=== PATIENT | male | born 1940 | race Caucasian/White ===

== ENCOUNTER 2020-02-10 10:24 | Outpatient (REF) | payer MEDICARE, SELFPAY ==
[2020-02-10 15:02] LABS: Alanine Aminotransferase 28 U/L (0-40); Albumin Level 4.4 g/dL (3.5-5.0); Alkaline Phosphatase 84 U/L (39-117); Aspartate Amino Transferase 24 U/L (5-37); Bilirubin Direct 0.2 mg/dL (0.0-0.5); Bilirubin Total 0.5 mg/dL (0.0-1.0); Cholesterol 185 mg/dL; HDL Cholesterol 29 mg/dL; LDL Cholesterol Calculated 112 mg/dl; Total Protein 6.9 g/dL (6.5-8.0); Triglycerides 220 mg/dL
== END 2020-02-10 10:25 | disposition home or self-care (01) ==
LOC: HO.HMGCLDS 10:24
DX: E78.5 Hyperlipidemia, unspecified (principal)
CPT/HCPCS: 80061; 80076

== ENCOUNTER 2020-07-20 13:11 | Outpatient (REF) | payer MEDICARE, SELFPAY ==
[2020-07-20 13:59] LABS: Glucose Urine UA NEG (NEG); Leukocyte Esterase Urine NEG (NEG); Nitrite Urine NEG (NEG); Specific Gravity - Urine 1.015 (1.005-1.025); Urine Blood NEG (NEG); Urine Ketones NEG (NEG); Urine Protein NEG (NEG-TRACE)
[2020-07-20 14:04] LABS: Appearance Urine CLEAR; Color Urine YELLOW
[2020-07-20 14:09] LABS: Hematocrit 42.2 % (42-52); Hemoglobin 13.9 g/dl (14.0-18.0); Mean Corpuscular HGB Conc 32.9 g/dl (31.0-36.0); Mean Corpuscular Hemoglobin 31.4 pg (27.0-33.0); Mean Corpuscular Volume 95.3 fL (80-98); Mean Platelet Volume 11.8 fL (9.4-12.4); Platelet Count 208 X10*3/uL (160-400); Red Blood Count 4.43 X10*6/uL (4.60-5.80); Red Cell Distribution Width 13.2 % (11.0-16.0); White Blood Count 5.7 X10*3/uL (4.8-10.8)
[2020-07-20 14:30] LABS: Alanine Aminotransferase 34 U/L (0-40); Albumin Level 4.4 g/dL (3.5-5.0); Alkaline Phosphatase 96 U/L (39-117); Anion Gap 16 (12-20); Aspartate Amino Transferase 28 U/L (5-37); Bilirubin Total 0.7 mg/dL (0.0-1.0); Blood Urea Nitrogen 40 mg/dL (9-16); Calcium 9.2 mg/dL (8.4-10.2); Carbon Dioxide 21 mmol/L (22-29); Chloride 106 mmol/L (96-108); Cholesterol 268 mg/dL; Estimated Glomerular Filt Rate 46; Glucose Random 93 mg/dL (60-115); HDL Cholesterol 31 mg/dL; LDL Cholesterol Calculated 201 mg/dl; Potassium 4.1 mmol/L (3.3-5.1); Sodium 139 mmol/L (135-145); Triglycerides 182 mg/dL
== END 2020-07-20 13:12 | disposition home or self-care (01) ==
LOC: HO.HMGCLDS 13:11
PROVIDERS: PCP Internal Medicine; Visit Provider Internal Medicine
DX: I10 Essential (primary) hypertension (principal); E78.5 Hyperlipidemia, unspecified; M10.9 Gout, unspecified
CPT/HCPCS: 36415; 80053; 80061; 81003; 84550; 85027

== ENCOUNTER 2020-10-23 09:41 | Outpatient (REF) | payer MEDICARE, SELFPAY ==
[2020-10-23 11:43] LABS: MANUAL DIFF FLAG NO
[2020-10-23 11:55] LABS: Basophils Percent Auto 0.5 % (0-2); Eosinophils Absolute Auto 0.2 X10*3/uL (0.0-0.4); Eosinophils Percent Auto 3.6 % (0-4); Hematocrit 44.2 % (42-52); Hemoglobin 14.2 g/dl (14.0-18.0); Imm Gran Abs Auto 0.03 X10*3/uL (0.00-0.03); Imm Gran Pct Auto 0.5 % (0.0-0.4); Lymphocytes Absolute Auto 1.6 X10*3/uL (1.2-4.9); Lymphocytes Percent Auto 27.6 % (20-40); Mean Corpuscular HGB Conc 32.1 g/dl (31.0-36.0); Mean Corpuscular Hemoglobin 31.1 pg (27.0-33.0); Mean Corpuscular Volume 96.9 fL (80-98); Mean Platelet Volume 11.7 fL (9.4-12.4); Monocytes Absolute Auto 0.8 X10*3/uL (0.1-1.2); Monocytes Percent Auto 14.2 % (2-11); Neutrophils Absolute Auto 3.1 X10*3/uL (2.0-8.3); Neutrophils Percent Auto 53.6 % (45-73); Platelet Count 223 X10*3/uL (160-400); Red Blood Count 4.56 X10*6/uL (4.60-5.80); Red Cell Distribution Width 13.8 % (11.0-16.0); White Blood Count 5.8 X10*3/uL (4.8-10.8)
[2020-10-23 12:01] LABS: Appearance Urine CLEAR; Color Urine YELLOW; Glucose Urine UA NEG (NEG); Leukocyte Esterase Urine NEG (NEG); Nitrite Urine NEG (NEG); PH 5.5 (5.0-8.0); Specific Gravity - Urine 1.025 (1.005-1.025); Urine Blood NEG (NEG); Urine Ketones NEG (NEG); Urine Protein NEG (NEG-TRACE)
[2020-10-23 12:29] LABS: Alanine Aminotransferase 27 U/L (0-40); Albumin Level 4.3 g/dL (3.5-5.0); Alkaline Phosphatase 76 U/L (39-117); Anion Gap 16 (12-20); Aspartate Amino Transferase 24 U/L (5-37); Bilirubin Total 0.6 mg/dL (0.0-1.0); Blood Urea Nitrogen 40 mg/dL (9-16); Calcium 9.3 mg/dL (8.4-10.2); Carbon Dioxide 22 mmol/L (22-29); Chloride 107 mmol/L (96-108); Cholesterol 277 mg/dL; Estimated Glomerular Filt Rate 35; Glucose Random 88 mg/dL (60-115); HDL Cholesterol 31 mg/dL; LDL Cholesterol Calculated 179 mg/dl; Potassium 4.2 mmol/L (3.3-5.1); Sodium 141 mmol/L (135-145); Total Protein 6.9 g/dL (6.5-8.0); Triglycerides 337 mg/dL
== END 2020-10-23 09:42 | disposition home or self-care (01) ==
LOC: HO.HMGCLDS 09:41
PROVIDERS: PCP Internal Medicine; Visit Provider Internal Medicine
DX: Z00.00 Encounter for general adult medical examination without abnormal findings (principal); M10.9 Gout, unspecified
CPT/HCPCS: 36415; 80053; 80061; 81003; 85025

== ENCOUNTER 2020-11-16 08:11 | Emergency (ER) | payer MEDICARE, SELFPAY ==
--- NOTE | ~2020-11-16 | XR_ITS ---
EXAMINATION: XR FOOT, RIGHT CLINICAL INFORMATION: Pain COMPARISON: Previous x-ray January 2018 TECHNIQUE: AP, lateral, and oblique views of the right foot. FINDINGS: No fracture or dislocation is seen. There is a destruction of the bone at the DIP joint of the third toe involving the middle and distal phalanges. This is increased from 2018 exam. There is overlying soft tissue swelling. There is bone loss or erosive changes of the PIP joint of the second toe. There is bone loss and cystic or erosive change of the proximal phalanx of the great toe at the MTP joint. Differential would include infectious/septic arthritis and osteomyelitis and inflammatory arthritis. There may be postsurgical changes to the first MTP joint with osteotomy of the first metatarsal head. There is question of periosteal cortical thickening of the proximal phalanx of the great toe. There is arthritis of the midfoot with joint space narrowing and osteophyte formation. There is soft tissue arterial calcification. There are small calcaneal spurs. XR/XR foot RT min 3V IMPRESSION: Question infection/septic arthritis and osteomyelitis versus severe inflammatory arthritis of the DIP joint of the third toe, PIP joint of the second toe and first MTP joint.
[2020-11-16 08:16] VITALS: BP 182/98; PULSE 95; RESP 18; TEMP 36.8; O2SAT 99; BMI 21.5
[2020-11-16 10:37] LABS: COVID-19 Test Negative (Negative)
[2020-11-16 10:51] LABS: MANUAL DIFF FLAG NO
[2020-11-16] MEDS: 0.9 % Sodium Chloride 1,000 ML 999 ML IVCONT ×2 (10:53→12:17)
[2020-11-16 10:54] LABS: Basophils Percent Auto 0.1 % (0-2); Eosinophils Absolute Auto 0.1 X10*3/uL (0.0-0.4); Eosinophils Percent Auto 0.7 % (0-4); Hematocrit 42.1 % (42-52); Hemoglobin 13.8 g/dl (14.0-18.0); Imm Gran Abs Auto 0.04 X10*3/uL (0.00-0.03); Imm Gran Pct Auto 0.4 % (0.0-0.4); Lymphocytes Absolute Auto 0.8 X10*3/uL (1.2-4.9); Lymphocytes Percent Auto 7.8 % (20-40); Mean Corpuscular HGB Conc 32.8 g/dl (31.0-36.0); Mean Corpuscular Hemoglobin 31.7 pg (27.0-33.0); Mean Corpuscular Volume 96.8 fL (80-98); Mean Platelet Volume 10.9 fL (9.4-12.4); Monocytes Percent Auto 9.6 % (2-11); Neutrophils Absolute Auto 8.6 X10*3/uL (2.0-8.3); Neutrophils Percent Auto 81.4 % (45-73); Platelet Count 208 X10*3/uL (160-400); Red Blood Count 4.35 X10*6/uL (4.60-5.80); Red Cell Distribution Width 13.1 % (11.0-16.0); White Blood Count 10.6 X10*3/uL (4.8-10.8)
[2020-11-16 10:57] VITALS: BP 151/66; PULSE 80; RESP 18; TEMP 36.8; O2SAT 99
--- NOTE | 2020-11-16 11:07 | PC.NURSE ---
IV inserted and bloodwork obtained. BP trending down. Pt appears comfortable at this time. IVF infusing.
[2020-11-16 11:10] LABS: Alanine Aminotransferase 30 U/L (0-40); Albumin Level 4.3 g/dL (3.5-5.0); Alkaline Phosphatase 94 U/L (39-117); Anion Gap 14 (12-20); Aspartate Amino Transferase 22 U/L (5-37); Bilirubin Total 0.3 mg/dL (0.0-1.0); Blood Urea Nitrogen 40 mg/dL (9-16); C Reactive Protein 3.34 mg/dL (< or = 0.50); Carbon Dioxide 26 mmol/L (22-29); Chloride 104 mmol/L (96-108); Creatinine Clr Calc Pharmacy 27.6; Estimated Glomerular Filt Rate 42; Glucose Random 106 mg/dL (60-115); Magnesium 2.5 mg/dL (1.6-2.6); Potassium 5.2 mmol/L (3.3-5.1); Sodium 139 mmol/L (135-145); Total Protein 6.8 g/dL (6.5-8.0)
[2020-11-16 11:15] LABS: Lactic Acid 0.9 mmol/L (0.5-2.0)
[2020-11-16 11:36] LABS: Erythrocyte Sedimentation Rate 40 MM/HR (0-15)
--- NOTE | 2020-11-16 11:43 | ED.EXTPRO ---
HPI - Extremity Problem General Chief complaint: Extremity Problem Stated complaint: rt foot pain Time Seen by Provider: 11/16/20 09:08 Source: patient Mode of arrival: ambulatory Limitations: no limitations History of Present Illness HPI Narrative: 79-year-old male with a past medical history of gout presenting to the ED with complaints of right foot pain/swelling/redness for the past few days worse since last night. Reports that approximately 1 month and half ago he injured his foot went to his primary care provider had an x-ray and his primary care provider told him that he had to go to the emergency department for further evaluation treatment. Reports he went to [facility] and was seen Nare prescribed antibiotics for 1 week he is unsure about the actual name of the antibiotic. He was then told to follow-up with a personal computer network engineer. He followed up with a personal computer network engineer approximately 2 and half weeks ago had an x-ray although has not been called from his personal computer network engineer therefore he came here for further evaluation and treatment because the pain burning sensation has never left since a month and half ago and now he developed this new redness/swelling over the past few days and worse since last night this is why he is concerned. He denies any fevers, chills or any other symptoms complaints or concerns at this time. MD Complaint: extremity pain and extremity swelling Onset (ago): day(s) (Past few days worse today although started approximately 1 month ago) Pain Consistency: constant Location: right and other (Foot) Quality: burning and constant Radiation: none Exacerbating factors: nothing Associated symptoms: denies other symptoms Context: history of gout Related Data Home Medications Medication Instructions Recorded Confirmed atorvastatin 80 mg tablet 80 mg PO DAILY 03/12/20 lisinopril 20 1 tab PO DAILY 03/12/20 mg-hydrochlorothiazide 25 mg tablet Previous Rx's Medication Instructions Recorded prednisone 20 mg tablet 20 mg PO .COMPLEX 9 Days #18 tab 03/12/20 prednisone 20 mg tablet 40 mg PO DAILY #10 tab 03/30/20 cephalexin 500 mg capsule 500 mg PO Q6H 10 Days #40 cap 11/16/20 doxycycline hyclate 100 mg tablet 100 mg PO BID 10 Days #20 tab 11/16/20 indomethacin 50 mg capsule 50 mg PO Q8H 7 Days #21 cap 11/16/20 oxycodone 5 mg tablet 5 mg PO Q6H PRN #14 tab 11/16/20 prednisone 20 mg tablet 40 mg PO DAILY 5 Days #10 tab 11/16/20 Allergies Allergy/AdvReac Type Severity Reaction Status Date / Time No Known Allergies Allergy Unverified 11/14/19 15:19 [No Known Allergies*] Review of Systems Review of Systems: Constitutional : No Weight loss, No Fever, No Chills, No Night Sweats, No Fatigue, No Malaise ENT/Mouth : No Hearing loss, No Ear Pain, No Nasal Congestion, No Sinus Pain, No Hoarseness, No sore throat, No Rhinorrhea, No Swallowing Difficulty Eyes: No Eye Pain, No Swelling, No Redness, No Foreign Body, No Discharge, No Vision Changes Cardiovascular : No Chest Pain, No SOB, No Dyspnea on Exertion, No Orthopnea, No Edema, No Palpitations Respiratory : No Cough, No Sputum, No Wheezing, No Smoke Exposure, No Dyspnea Gastrointestinal : No Nausea, No Vomiting, No Diarrhea, No Constipation, No abdominal Pain, No Hematochezia, No Melena Genitourinary : no irregular bleeding, No Dysuria, No Urinary Frequency, No Hematuria, No Urinary Incontinence, No Urgency, No Flank Pain, No Urinary Flow Changes, No Hesitancy Musculoskeletal : Positive Right foot joint pain, No Myalgias, No Joint Swelling Skin : No Skin Lesions, No rash Neuro : No Weakness, No Numbness, No Paresthesias, No Loss of Consciousness, No Dizziness, No Headache Psych : No Anxiety/Panic, No Depression, No SI/HI/AH/VH, No Social Issues, Heme/Lymph: No Bruising, No Bleeding,No Lymphadenopathy Endocrine : No Polyuria, No Polydipsia, No Temperature Intolerance Yes all other systems are reviewed and are negative [facility] Past Medical History Attestation statement: The following information was validated with the patient. Social History Social History Alcohol intake: never Patient Tobacco Use Status: Never used Tobacco Use of substances other than those prescribed or required for medical reasons: No Advance Directives: No Advance Directives Information Provided: No Physical Exam Vital Signs: Vital Signs: Last Vital Signs Temp 98.3 F 11/16/20 10:57 Pulse 80 11/16/20 10:57 Resp 18 11/16/20 10:57 BP 151/66 H 11/16/20 10:57 Pulse Ox 99 11/16/20 10:57 Body Mass Index 21.5 vital signs have been reviewed as normal and appeared to be correct. Blood pressure hypertensive 182/98. Heart rate normal. Respiration rate normal. Temperature normal. Oxygen saturation normal. Appearance: Alert. Oriented X3. No acute distress. Head: Normal external exam. Normocephalic. Atraumatic. Eyes: PERRLA. EOMI. Conjunctiva and sclera normal. Eyelids normal. ENT: Pharynx normal. Uvula midline. Moist mucous membranes. Neck: Normal inspection. Neck supple. FROM. No adenopathy. No meningeal signs. CVS: Normal heart rate and rhythm. Heart sound normal. Pulses normal throughout. No murmurs/rales/gallops. Respiratory: No respiratory distress. Painless inspiration. Breath sounds normal. Back: Full range of motion noted. No rashes/lesion/induration/fluctuance or signs of infection noted. Skin: Skin warm and dry. Normal skin color. Normal skin turgor. No rashes/lesions/lacerations noted. Extremities: Patient with tenderness palpation to right foot at the dorsal aspect with erythema/calor noted. No fluctuance/induration/streaking or purulent drainage noted. No calf tenderness is noted. No lower extremity edema. Otherwise all other Extremities exhibit normal range of motion and nontender. Neuro: Oriented X 3. No motor deficit. No sensory deficit. Reflexes normal. Normal steady gait. No focal neuro deficits noted. Vascular: + radial pulses/+ 2 distal pedal pulses/+2 dorsalis pedis b/l. Normal cap refill. No cyanosis noted to upper extremity nails and lower extremity toes nails. Course Course Course Narrative: 9:25am 79-year-old male with a past medical history of gout presenting to the ED with complaints of right foot pain/swelling/erythema for the past few days worse since last night. Reports that he was seen at [facility] 1 month ago was prescribed antibiotics then followed up with the personal computer network engineer although has not heard back from the personal computer network engineer therefore came here for further evaluation and treatment. On exam patient noted to have erythema/calor and tenderness palpation to the dorsal aspect of the right foot. X-ray was obtained in triage and revealed Xray: Question infection/septic arthritis and osteomyelitis versus severe inflammatory arthritis of the DIP joint of the third toe, PIP joint of the second toe and first MTP joint. Therefore at this time will obtain labs, blood cultures, lactic acid provide a L of IV fluids/IV antibiotics then re-evaluate. Reevaluation(s) Reevaluation #1: - labs return patient with a mild baseline anemia similar compared to prior. ESR 40. Potassium 5.2. BUN and creatinine 40/1.61 although similar when compared to prior. CRP 3.34. COVID swab is negative. Otherwise all other labs are within normal limits. - therefore consulted with the hospitalist Dr. Carrizales and he reported that he does not believe that this is osteomyelitis or an active infection he believes that this is most likely gout/inflammation he will come down evaluate the patient right a consult note and plan will be to discharge with anti-inflammatories and treat for gout although will also treat for cellulitis. Time: 11:57 MDM - Extremity (Nontraumatic) Lab Data Result diagrams: 11/16/20 10:45 11/16/20 10:45 Labs: Lab Results 11/16/20 11/16/20 11/16/20 Range/Units 10:00 10:45 10:45 WBC 10.6 (4.8-10.8) X10*3/uL RBC 4.35 L (4.60-5.80) X10*6/uL Hgb 13.8 L (14.0-18.0) g/dl Hct 42.1 (42-52) % MCV 96.8 (80-98) fL MCH 31.7 (27.0-33.0) pg MCHC 32.8 (31.0-36.0) g/dl RDW 13.1 (11.0-16.0) % Plt Count 208 (160-400) X10*3/uL MPV 10.9 (9.4-12.4) fL Immature Gran % (Auto) 0.4 (0.0-0.4) % Neut % (Auto) 81.4 H (45-73) % Lymph % (Auto) 7.8 L (20-40) % [facility] % (Auto) 9.6 (2-11) % Eos % (Auto) 0.7 (0-4) % Baso % (Auto) 0.1 (0-2) % Lymph # (Auto) 0.8 L (1.2-4.9) X10*3/uL [facility] # (Auto) 1.0 (0.1-1.2) X10*3/uL Eos # (Auto) 0.1 (0.0-0.4) X10*3/uL Baso # (Auto) 0.0 (0.0-0.2) X10*3/uL Abs Immat Gran (auto) 0.04 H (0.00-0.03) X10*3/uL Absolute Neuts (auto) 8.6 H (2.0-8.3) X10*3/uL Absolute Nucleated RBC 0.000 (0.0-0.012) X10*3/uL Nucleated RBC % (auto) 0.0 (0.0-0.2) /100WBC ESR 40 H (0-15) MM/HR Sodium (135-145) mmol/L Potassium (3.3-5.1) mmol/L Chloride (96-108) mmol/L Carbon Dioxide (22-29) mmol/L Anion Gap (12-20) BUN (9-16) mg/dL Creatinine (0.5-1.4) mg/dL Estim Creat Clear Calc Estimated GFR Random Glucose (60-115) mg/dL Lactic Acid (0.5-2.0) mmol/L Calcium (8.4-10.2) mg/dL Magnesium (1.6-2.6) mg/dL Total Bilirubin (0.0-1.0) mg/dL AST (5-37) U/L ALT (0-40) U/L Alkaline Phosphatase (39-117) U/L C-Reactive Protein (< or = 0.50) mg/dL Total Protein (6.5-8.0) g/dL Albumin (3.5-5.0) g/dL COVID-19 (MARIELA) Negative (Negative) COVID-19 Clin Com See Note 11/16/20 11/16/20 Range/Units 10:45 10:45 WBC (4.8-10.8) X10*3/uL RBC (4.60-5.80) X10*6/uL Hgb (14.0-18.0) g/dl Hct (42-52) % MCV (80-98) fL MCH (27.0-33.0) pg MCHC (31.0-36.0) g/dl RDW (11.0-16.0) % Plt Count (160-400) X10*3/uL MPV (9.4-12.4) fL Immature Gran % (Auto) (0.0-0.4) % Neut % (Auto) (45-73) % Lymph % (Auto) (20-40) % [facility] % (Auto) (2-11) % Eos % (Auto) (0-4) % Baso % (Auto) (0-2) % Lymph # (Auto) (1.2-4.9) X10*3/uL [facility] # (Auto) (0.1-1.2) X10*3/uL Eos # (Auto) (0.0-0.4) X10*3/uL Baso # (Auto) (0.0-0.2) X10*3/uL Abs Immat Gran (auto) (0.00-0.03) X10*3/uL Absolute Neuts (auto) (2.0-8.3) X10*3/uL Absolute Nucleated RBC (0.0-0.012) X10*3/uL Nucleated RBC % (auto) (0.0-0.2) /100WBC ESR (0-15) MM/HR Sodium 139 (135-145) mmol/L Potassium 5.2 H D (3.3-5.1) mmol/L Chloride 104 (96-108) mmol/L Carbon Dioxide 26 (22-29) mmol/L Anion Gap 14 (12-20) BUN 40 H (9-16) mg/dL Creatinine 1.61 H (0.5-1.4) mg/dL Estim Creat Clear Calc 27.6 Estimated GFR 42 Random Glucose 106 (60-115) mg/dL Lactic Acid 0.9 (0.5-2.0) mmol/L Calcium 9.0 (8.4-10.2) mg/dL Magnesium 2.5 (1.6-2.6) mg/dL Total Bilirubin 0.3 (0.0-1.0) mg/dL AST 22 (5-37) U/L ALT 30 (0-40) U/L Alkaline Phosphatase 94 D (39-117) U/L C-Reactive Protein 3.34 H (< or = 0.50) mg/dL Total Protein 6.8 (6.5-8.0) g/dL Albumin 4.3 (3.5-5.0) g/dL COVID-19 (MARIELA) (Negative) COVID-19 Clin Com Critical Care Time Critical Care Time Critical Care Time: Yes Total Critical Care Time: 60 Attestation: I personally attest to this time spent taking care of the patient Discharge Plan Discharge Clinical Impression: Gout, Acute hyperkalemia Patient Disposition: Home, Self-Care Instructions: Gout (ED), Hyperkalemia (ED) Prescriptions: New doxycycline hyclate 100 mg tablet 100 mg PO BID 10 Days Qty: 20 RF: 0 cephalexin 500 mg capsule 500 mg PO Q6H 10 Days Qty: 40 RF: 0 indomethacin 50 mg capsule 50 mg PO Q8H 7 Days Qty: 21 RF: 0 prednisone 20 mg tablet 40 mg PO DAILY 5 Days Qty: 10 RF: 0 oxycodone 5 mg tablet 5 mg PO Q6H PRN (Reason: pain) Qty: 14 RF: 0 No Action lisinopril-hydrochlorothiazide 20-25 mg tablet 1 tab PO DAILY RF: 0 atorvastatin 80 mg tablet 80 mg PO DAILY RF: 0 prednisone 20 mg tablet 20 mg PO .COMPLEX 9 Days Qty: 18 RF: 0 prednisone 20 mg tablet 40 mg PO DAILY Qty: 10 RF: 0 Referrals: Polo Kuhn MD [Primary Care Provider] - 2 days Print Language: Latvian
[2020-11-16] MEDS: Piperacillin Sodium/Tazobactam 3.375 GM in 0.9 % Sodium Chloride 50 ML IV (12:16)
[2020-11-16 12:45] LABS: Appearance Urine CLEAR; Color Urine YELLOW; Glucose Urine UA NEG (NEG); Leukocyte Esterase Urine NEG (NEG); Nitrite Urine NEG (NEG); Urine Blood NEG (NEG); Urine Ketones NEG (NEG); Urine Protein NEG (NEG-TRACE)
[2020-11-16] MEDS: Sodium Polystyrene Sulfon/Sorb 15 GM/60 ML ORAL.SUSP PO (12:59)
== END 2020-11-16 13:06 | disposition home or self-care (01) ==
PROVIDERS: Physician Assistant Medical; Emergency Provider Emergency Medicine Emergency Medical Services; PCP Internal Medicine
DX: M10.9 Gout, unspecified (principal); E87.5 Hyperkalemia; Z20.822 Contact with and (suspected) exposure to COVID-19; Z79.899 Other long term (current) drug therapy
CPT/HCPCS: 36415; 73630; 80053; 81003; 83605; 83735; 85025; 85652; 86140; 87040; 87635; 96361; 96365; 99284; J2543

== ENCOUNTER 2021-04-13 09:29 | Outpatient (REF) | payer OTHER, SELFPAY ==
[2021-04-13 11:36] LABS: MANUAL DIFF FLAG NO
[2021-04-13 11:46] LABS: Basophils Percent Auto 0.3 % (0-2); Eosinophils Absolute Auto 0.3 X10*3/uL (0.0-0.4); Eosinophils Percent Auto 3.6 % (0-4); Hematocrit 43.9 % (42.0-52.0); Hemoglobin 14.2 g/dl (14.0-18.0); Imm Gran Abs Auto 0.01 X10*3/uL (0.00-0.03); Imm Gran Pct Auto 0.1 % (0.0-0.4); Lymphocytes Absolute Auto 1.8 X10*3/uL (1.2-4.9); Lymphocytes Percent Auto 26.3 % (20-40); Mean Corpuscular HGB Conc 32.3 g/dl (31.0-36.0); Mean Corpuscular Hemoglobin 31.1 pg (27.0-33.0); Mean Corpuscular Volume 96.1 fL (80.0-98.0); Mean Platelet Volume 11.2 fL (9.4-12.4); Monocytes Absolute Auto 0.9 X10*3/uL (0.1-1.2); Monocytes Percent Auto 12.6 % (2-11); Neutrophils Absolute Auto 3.9 x10*3/uL (2.0-8.3); Neutrophils Percent Auto 57.1 % (45-73); Platelet Count 207 X10*3/uL (160-400); Red Blood Count 4.57 X10*6/uL (4.60-5.80); Red Cell Distribution Width 13.2 % (11.0-16.0); White Blood Count 6.9 X10*3/uL (4.8-10.8)
[2021-04-13 12:20] LABS: Prostate Specific Antigen 1.07 ng/mL (<0.05-4.0)
[2021-04-13 12:31] LABS: Alanine Aminotransferase 26 U/L (0-40); Albumin Level 4.4 g/dL (3.5-5.0); Alkaline Phosphatase 90 U/L (39-117); Anion Gap 12 (12-20); Aspartate Amino Transferase 21 U/L (5-37); Bilirubin Total 0.3 mg/dL (0.0-1.0); Blood Urea Nitrogen 44 mg/dL (9-16); Calcium 9.3 mg/dL (8.4-10.2); Carbon Dioxide 27 mmol/L (22-29); Chloride 104 mmol/L (96-108); Cholesterol 270 mg/dL; Estimated Glomerular Filt Rate 39; Glucose Fasting 100 mg/dL (60-99); HDL Cholesterol 29 mg/dL; Potassium 4.4 mmol/L (3.3-5.1); Sodium 139 mmol/L (135-145); Total Protein 7.1 g/dL (6.5-8.0); Triglycerides 448 mg/dL
[2021-04-13 12:42] LABS: Uric Acid 10.3 mg/dL (3.4-7.0)
== END 2021-04-13 09:30 | disposition home or self-care (01) ==
LOC: HO.HMGCLDS 09:29
PROVIDERS: Visit Provider Internal Medicine
DX: I10 Essential (primary) hypertension (principal); E78.00 Pure hypercholesterolemia, unspecified; N40.0 Benign prostatic hyperplasia without lower urinary tract symptoms; M19.90 Unspecified osteoarthritis, unspecified site; M10.9 Gout, unspecified
CPT/HCPCS: 36415; 80053; 80061; 84153; 84550; 85025

== ENCOUNTER 2021-05-18 13:23 | Emergency (ER) | payer OTHER, SELFPAY ==
--- NOTE | ~2021-05-18 | XR_ITS ---
EXAMINATION: XR FOOT, RIGHT CLINICAL INFORMATION: Pain COMPARISON: Previous x-ray most recent October 2020 TECHNIQUE: AP, lateral, and oblique views of the right foot. FINDINGS: There is a fracture of the proximal phalanx of the great toe intra-articular with the IP joint. This is new compared to October 2020 exam. There is arthritis at the MTP joint of the great toe and PIP joint of the second toe bone loss and erosive or cystic changes that is similar to October 2020 exam. There is destruction and severe bone loss at the DIP joint of the third toe that is similar to October 2020 exam. Again, inflammatory or erosive arthritis and septic arthritis should be considered. There is soft tissue swelling adjacent to the third toe. There is a osteophyte projecting off the dorsal talus. There are small calcaneal spurs. There is soft tissue arterial calcification. XR/XR foot RT min 3V IMPRESSION: New fracture of the proximal phalanx of the great toe intra-articular with the IP joint. 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 Erosive or inflammatory arthritis and septic arthritis should be considered.
[2021-05-18 14:24] VITALS: BP 160/70; PULSE 86; RESP 19; TEMP 36.6; O2SAT 99; BMI 21.7
--- NOTE | 2021-05-18 15:42 | ED.LOWEXIN ---
HPI - Extremity Injury (Lower) General Chief Complaint: Extremity Injury, Lower Stated Complaint: Gout/foot pain Time Seen by Provider: 05/18/21 15:35 Source: patient Mode of arrival: ambulatory History of Present Illness HPI Narrative: 80-year-old male with past medical history of hyperlipidemia, hypertension, gout, arthritis, presenting to the ED complaining of acute on chronic right foot pain x months. Admits worsening recently with mild erythema to lateral aspect. Admits to trip and fall on stairs 3 months ago jamming great toe, denies new/more recent injury. Denies numbness, tingling, weakness, fever, chills complaint: foot injury Related Data Home Medications Medication Instructions Recorded Confirmed atorvastatin 80 mg tablet 80 mg PO DAILY 03/12/20 lisinopril 20 1 tab PO DAILY 03/12/20 mg-hydrochlorothiazide 25 mg tablet Previous Rx's Medication Instructions Recorded prednisone 20 mg tablet 20 mg PO .COMPLEX 9 Days #18 tab 03/12/20 prednisone 20 mg tablet 40 mg PO DAILY #10 tab 03/30/20 cephalexin 500 mg capsule 500 mg PO Q6H 10 Days #40 cap 11/16/20 doxycycline hyclate 100 mg tablet 100 mg PO BID 10 Days #20 tab 11/16/20 indomethacin 50 mg capsule 50 mg PO Q8H 7 Days #21 cap 11/16/20 oxycodone 5 mg tablet 5 mg PO Q6H PRN #14 tab 11/16/20 prednisone 20 mg tablet 40 mg PO DAILY 5 Days #10 tab 11/16/20 acetaminophen 500 mg tablet 500 mg PO Q6H PRN #20 tab 05/18/21 (Tylenol Extra Strength) cephalexin 500 mg capsule 500 mg PO QID 7 Days #28 cap 05/18/21 naproxen 500 mg tablet 500 mg PO BID PRN 10 Days #20 tab 05/18/21 prednisone 10 mg tablet 10 mg PO DAILY #20 tab 05/18/21 Allergies Allergy/AdvReac Type Severity Reaction Status Date / Time No Known Allergies Allergy Unverified 11/14/19 15:19 [No Known Allergies*] Review of Systems Review of Systems: Constitutional: No Fever, No Chills ENT/Mouth: No Ear Pain, No sore throat, No Rhinorrhea, No Swallowing Difficulty Cardiovascular: No Chest Pain, No SOB Respiratory: No Cough, No Sputum Gastrointestinal: No Nausea, No Vomiting, No Diarrhea, No Constipation, No Abdominal pain Genitourinary: No Dysuria, No Urinary Frequency, No Hematuria, No Flank Pain Musculoskeletal: + joint pain, No Myalgias, + Joint Swelling Skin: + Skin Lesions, No rash Neuro: No Weakness, No Numbness, No Paresthesias Yes all other systems are reviewed and are negative [facility] Past Medical History Attestation statement: The following information was validated with the patient. Medical History High cholesterol HTN (hypertension) Social History Social History Alcohol intake: never Patient Tobacco Use Status: Never used Tobacco Advance Directives: No Advance Directives Information Provided: Yes Physical Exam Vital Signs: Vital Signs: Last Vital Signs Temp 98 F 05/18/21 14:24 Pulse 86 05/18/21 14:24 Resp 19 05/18/21 14:24 BP 160/70 H 05/18/21 14:24 Pulse Ox 99 05/18/21 14:24 BMI result Body Mass Index 21.7 Const: General: cooperative, healthy appearing, no acute distress, alert and awake Orientation/consciousness: patient oriented x3 Limitations: no limitations HEENT: Head: Yes normal to inspection and Yes atraumatic Ears: hearing grossly normal bilaterally General nose exam: Normal external nose present Face and sinus: Yes normal facial exam Eyes: General: appearance normal, both eyes and all related structures EOM: EOMs intact bilaterally Neck: Neck: Yes normal visual inspection and Yes no meningeal signs Resp: Effort & Inspection: normal respiratory effort and no respiratory distress Cardio: Rate: regular rate Peripheral pulses: dorsalis pedis present Skin: Rashes: no rashes Wounds: no wounds Neuro: General: patient oriented x3 and no meningeal signs Gait exam (Neuro): Normal gait present Extrem: Other: Right foot with mild erythema and swelling to base of 5th toe, mildly tender to palpation. No fluctuance/induration or streaking Toes nontender/no external deformity. NV intact. Sensation intact to light touch Course Course Course Narrative: XR foot RT min 3V IMPRESSION: New fracture of the proximal phalanx of the great toe intra-articular with the IP joint. 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 Erosive or inflammatory arthritis and septic arthritis should be considered >> great toe fracture likely old, no acute pain, ROM intact. 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 Recommended follow-up with him. Will treat for gout and possible early cellulitis MDM - Extremity Injury (Lower) MDM Narrative Medical decision making narrative: 80-year-old male with past medical history of hyperlipidemia, hypertension, gout, arthritis, presenting to the ED complaining of acute on chronic right foot pain x months. On exam vital signs stable, NAD/nontoxic appearing, physical exam consistent with gout vs early cellulitis. Low concern for fracture/dislocation Plan: X-rays Medical Records Attestation: I reviewed the patient's medical records. Lab Data Attestation: I reviewed the patient's lab results. Discharge Plan Discharge Clinical Impression: Gout, Cellulitis Patient Disposition: Home, Self-Care Instructions: Cellulitis (DC), Gout (ED) Additional Instructions: You are likely having a gout flare prednisone is a steroid which will help with inflammation and pain. In addition naproxen as an anti-inflammatory medication, take with food. You also may have early cellulitis, Keflex as an antibiotic please take as prescribed If foot becomes more swollen, more red, number you have fever please return to the ED Please follow-up with Podiatry Prescriptions: New acetaminophen [Tylenol Extra Strength] 500 mg tablet 500 mg PO Q6H PRN (Reason: pain or fever) Qty: 20 0RF naproxen 500 mg tablet 500 mg PO BID PRN (Reason: pain) 10 Days Qty: 20 0RF prednisone 10 mg tablet 10 mg PO DAILY Qty: 20 0RF Taper: Prednisone 40 mg daily for 3 Days and 0 Hour 30 mg daily for 3 Days and 0 Hour 20 mg daily for 3 Days and 0 Hour 10 mg daily for 3 Days and 0 Hour Rx Instructions: prednisone 10 mg: take 4 tablets (40 mg) for 2 days; 3 tablets (30 mg) for 2 days; 2 (20mg) tablets for 2 days and then 1 (10mg) tablet for 2 days cephalexin 500 mg capsule 500 mg PO QID 7 Days Qty: 28 0RF No Action doxycycline hyclate 100 mg tablet 100 mg PO BID 10 Days Qty: 20 0RF cephalexin 500 mg capsule 500 mg PO Q6H 10 Days Qty: 40 0RF indomethacin 50 mg capsule 50 mg PO Q8H 7 Days Qty: 21 0RF Rx Instructions: administer with food or milk prednisone 20 mg tablet 40 mg PO DAILY 5 Days Qty: 10 0RF oxycodone 5 mg tablet 5 mg PO Q6H PRN (Reason: pain) Qty: 14 0RF lisinopril-hydrochlorothiazide 20-25 mg tablet 1 tab PO DAILY 0RF atorvastatin 80 mg tablet 80 mg PO DAILY 0RF prednisone 20 mg tablet 20 mg PO .COMPLEX 9 Days Qty: 18 0RF Rx Instructions: 20 mg PO three times a day for three days, then 20 mg PO twice a day for three days, then 20 mg PO once a day for three days, 9 total days prednisone 20 mg tablet 40 mg PO DAILY Qty: 10 0RF Referrals: Manoj Slater MD [Physician] - 2 days
== END 2021-05-18 16:15 | disposition home or self-care (01) ==
PROVIDERS: Emergency Provider Emergency Medicine Emergency Medical Services; PCP Internal Medicine
DX: M10.9 Gout, unspecified (principal); L03.115 Cellulitis of right lower limb; M79.671 Pain in right foot; I10 Essential (primary) hypertension; E78.5 Hyperlipidemia, unspecified
CPT/HCPCS: 73630; 99283

== ENCOUNTER 2021-09-16 15:54 | Outpatient (REF) | payer MEDICARE, SELFPAY ==
[2021-09-16 17:40] LABS: Alanine Aminotransferase 23 U/L (0-40); Albumin Level 4.3 g/dL (3.5-5.0); Alkaline Phosphatase 87 U/L (39-117); Anion Gap 13 (12-20); Aspartate Amino Transferase 19 U/L (5-37); Bilirubin Total 0.2 mg/dL (0.0-1.0); Blood Urea Nitrogen 26 mg/dL (9-16); C Reactive Protein 0.74 mg/dL (< or = 0.50); Carbon Dioxide 26 mmol/L (22-29); Chloride 104 mmol/L (96-108); Estimated Glomerular Filt Rate 48; Glucose Random 106 mg/dL (60-115); Potassium 4.2 mmol/L (3.3-5.1); Sodium 139 mmol/L (135-145); Total Protein 6.9 g/dL (6.5-8.0); Uric Acid 7.3 mg/dL (3.4-7.0)
== END 2021-09-16 15:55 | disposition home or self-care (01) ==
LOC: HO.LAB 15:54
PROVIDERS: PCP Internal Medicine; Visit Provider Internal Medicine
DX: M10.9 Gout, unspecified (principal); I12.9 Hypertensive chronic kidney disease with stage 1 through stage 4 chronic kidney disease, or unspecified chronic kidney disease; N18.9 Chronic kidney disease, unspecified
CPT/HCPCS: 36415; 80053; 84550; 86140

== ENCOUNTER 2021-12-02 09:49 | Outpatient (REF) | payer MEDICARE, SELFPAY ==
--- NOTE | ~2021-12-02 | XR_ITS ---
EXAMINATION: XR PELVIS CLINICAL INFORMATION: Fall. Rule out fracture. COMPARISON: None TECHNIQUE: AP view of the pelvis. FINDINGS: Bone alignment is normal. No fracture or dislocation is seen. There is mild arthritis at both hip joints. There are degenerative changes of the lower lumbar spine. There is atherosclerotic disease. XR/XR pelvis 1-2V IMPRESSION: No fracture or dislocation.
== END 2021-12-02 09:50 | disposition home or self-care (01) ==
LOC: HO.XRAY 09:49
PROVIDERS: PCP Internal Medicine; Visit Provider Internal Medicine
DX: I12.9 Hypertensive chronic kidney disease with stage 1 through stage 4 chronic kidney disease, or unspecified chronic kidney disease (principal); N18.9 Chronic kidney disease, unspecified; E78.5 Hyperlipidemia, unspecified; Z91.81 History of falling
CPT/HCPCS: 72170

== ENCOUNTER 2021-12-14 13:50 | Outpatient (REF) | payer MEDICARE, SELFPAY ==
--- NOTE | ~2021-12-14 | XR_ITS ---
EXAMINATION: XR LUMBOSACRAL SPINE CLINICAL INFORMATION: Low back pain COMPARISON: Previous x-ray October 2019 TECHNIQUE: Three views of the lumbosacral spine. FINDINGS: There is mild curvature of the lower lumbar spine to the left. There is mild posterior subluxation of L5 with respect to L4 measuring 3 mm. Bone alignment is otherwise normal. No fracture or dislocation. Multilevel degenerative disc disease. Multilevel facet arthritis. XR/XR lumbar spine 2-3V IMPRESSION: Degenerative changes.
== END 2021-12-14 13:51 | disposition home or self-care (01) ==
LOC: HO.HMGCX 13:50
PROVIDERS: PCP Internal Medicine; Visit Provider Internal Medicine
DX: G62.9 Polyneuropathy, unspecified (principal); M54.50 Low back pain, unspecified
CPT/HCPCS: 72100

== ENCOUNTER 2022-03-01 08:01 | Outpatient (REF) | payer MEDICARE, SELFPAY ==
[2022-03-01 11:49] LABS: Alanine Aminotransferase 27 U/L (0-40); Albumin Level 4.3 g/dL (3.5-5.0); Alkaline Phosphatase 93 U/L (39-117); Anion Gap 12 (12-20); Aspartate Amino Transferase 24 U/L (5-37); Bilirubin Total 0.6 mg/dL (0.0-1.0); Blood Urea Nitrogen 29 mg/dL (9-16); Carbon Dioxide 26 mmol/L (22-29); Chloride 106 mmol/L (96-108); Cholesterol 299 mg/dL; Estimated Glomerular Filt Rate 51; Glucose Fasting 95 mg/dL (60-99); HDL Cholesterol 34 mg/dL; LDL Cholesterol Calculated 212 mg/dl; Sodium 140 mmol/L (135-145); Total Protein 6.9 g/dL (6.5-8.0); Triglycerides 266 mg/dL
== END 2022-03-01 08:02 | disposition home or self-care (01) ==
LOC: HO.HMGCLDS 08:01
PROVIDERS: PCP Internal Medicine; Visit Provider Internal Medicine
DX: I12.9 Hypertensive chronic kidney disease with stage 1 through stage 4 chronic kidney disease, or unspecified chronic kidney disease (principal); N18.9 Chronic kidney disease, unspecified; E78.00 Pure hypercholesterolemia, unspecified; Z91.81 History of falling
CPT/HCPCS: 36415; 80053; 80061

== ENCOUNTER 2022-05-30 08:25 | Outpatient (REF) | payer MEDICARE, SELFPAY ==
[2022-05-30 12:34] LABS: Alanine Aminotransferase 38 U/L (0-40); Alkaline Phosphatase 90 U/L (39-117); Anion Gap 14 (12-20); Aspartate Amino Transferase 29 U/L (5-37); Bilirubin Total 0.6 mg/dL (0.0-1.0); Blood Urea Nitrogen 27 mg/dL (9-16); Calcium 8.8 mg/dL (8.4-10.2); Carbon Dioxide 24 mmol/L (22-29); Chloride 107 mmol/L (96-108); Cholesterol 204 mg/dL; Estimated Glomerular Filt Rate 55; Glucose Fasting 96 mg/dL (60-99); HDL Cholesterol 31 mg/dL; LDL Cholesterol Calculated 125 mg/dl; Sodium 141 mmol/L (135-145); Total Protein 6.3 g/dL (6.5-8.0); Triglycerides 244 mg/dL
== END 2022-05-30 08:26 | disposition home or self-care (01) ==
LOC: HO.HMGCLDS 08:25
PROVIDERS: PCP Internal Medicine; Visit Provider Internal Medicine
DX: I12.9 Hypertensive chronic kidney disease with stage 1 through stage 4 chronic kidney disease, or unspecified chronic kidney disease (principal); N18.9 Chronic kidney disease, unspecified; E78.00 Pure hypercholesterolemia, unspecified
CPT/HCPCS: 36415; 80053; 80061

== ENCOUNTER 2023-03-04 18:19 | Emergency (ER) | payer MEDICARE, SELFPAY ==
[2023-03-04 18:31] VITALS: BP 178/96; PULSE 74; RESP 18; TEMP 36.4; O2SAT 98; BMI 22.3
--- NOTE | 2023-03-04 21:32 | ED.DIZZY ---
HPI - Dizziness General Chief Complaint: Dizziness Stated Complaint: dizziness Time Seen by Provider: 03/04/23 21:20 Source: patient Mode of arrival: ambulatory Limitations: no limitations History of Present Illness HPI Narrative: 82 yo male with PMH of gout, HTN, HLD here with c/o standing up a few times today and feeling dizzy only when he stands he did fall once no injuries no head strike but he was worried. He has no headaches, weakness, numbness, vision changes, chest pain/sob. He has no GIB symptoms. MD elicited complaint: dizziness and lightheadedness Onset (ago): day(s) (today) Timing: gradual onset and intermittent Severity: moderate Description: lightheadedness Context: change in body position History of similar symptoms: No Exacerbating factors: movement/ambulation, change in body position and standing Relieving factors: remaining still Associated symptoms: denies other symptoms Related Data Home Medications Medication Instructions Recorded Confirmed atorvastatin 80 mg tablet 80 mg PO DAILY 03/12/20 lisinopril 20 1 tab PO DAILY 03/12/20 mg-hydrochlorothiazide 25 mg tablet Previous Rx's Medication Instructions Recorded prednisone 20 mg tablet 20 mg PO .COMPLEX 9 days #18 tabs 03/12/20 prednisone 20 mg tablet 40 mg (2 x 20 mg) PO DAILY #10 tabs 03/30/20 cephalexin 500 mg capsule 500 mg PO Q6H 10 days #40 caps 11/16/20 doxycycline hyclate 100 mg tablet 100 mg PO BID 10 days #20 tabs 11/16/20 indomethacin 50 mg capsule 50 mg PO Q8H gout 7 days #21 caps 11/16/20 oxycodone 5 mg tablet 5 mg PO Q6H PRN pain #14 tabs 11/16/20 prednisone 20 mg tablet 40 mg (2 x 20 mg) PO DAILY rash 5 11/16/20 days #10 tabs acetaminophen 500 mg tablet 500 mg PO Q6H PRN pain or fever 05/18/21 (Tylenol Extra Strength) #20 tabs cephalexin 500 mg capsule 500 mg PO QID 7 days #28 caps 05/18/21 naproxen 500 mg tablet 500 mg PO BID PRN pain 10 days #20 05/18/21 tabs prednisone 10 mg tablet 10 mg PO DAILY #20 tabs 05/18/21 Allergies Allergy/AdvReac Type Severity Reaction Status Date / Time No Known Allergies Allergy Verified 03/04/23 18:31 [No Known Allergies*] Review of Systems Review of Systems: Constitutional : No Fever, No Chills, No Fatigue ENT/Mouth : No sore throat, No Rhinorrhea Eyes: No Eye Pain, No Swelling, No Redness Cardiovascular : No Chest Pain, No SOB, No Dyspnea on Exertion Respiratory : No Cough, No Sputum Gastrointestinal : No Nausea, No Vomiting, No Diarrhea, No abdominal Pain Genitourinary : No Dysuria, No Urinary Frequency, No Hematuria, Musculoskeletal : No joint pain, No Myalgias, No Joint Swelling Skin : No Skin Lesions, No rash Neuro : No Weakness, No Numbness, pos Dizziness, no Headache Psych : No Anxiety/Panic, No Depression All other systems reviewed and are negative PMFSH Past Medical History Attestation statement: The following information was validated with the patient. Source: old records reviewed Onset Date is defined in the Problem List Problems that require an onset date and time if occurred within 24 hrs of arrival to the ED Aortic Dissection and Rupture; Neurologic impairment; Cardiopulmonary Arrest; Endotracheal Intubation; Insertion or Replacement of Mechanical Circulatory Assist Device Medical History High cholesterol HTN (hypertension) Social History Social History Alcohol intake: never Patient Tobacco Use Status: Never used Tobacco Advance Directives: No Advance Directives Information Provided: No Physical Exam Vital Signs: Vital Signs: Last Vital Signs Temp 97.5 F 03/04/23 18:31 Pulse 74 03/04/23 18:31 Resp 18 03/04/23 18:31 BP 178/96 H 03/04/23 18:31 Pulse Ox 98 03/04/23 18:31 O2 Del Method Room Air 03/04/23 18:31 BMI result Body Mass Index 22.3 Appearance: Alert. Oriented X3. No acute distress. Eyes: Pupils equal, round and reactive to light. ENT: Pharynx normal. Neck: Normal inspection. Neck supple. CVS: Normal heart rate and rhythm. Pulses normal. Respiratory: No respiratory distress. Breath sounds normal. Abdomen: Soft and nontender. Skin: Skin warm and dry. Normal skin color. Normal skin turgor. Extremities: No lower extremity edema. No calf ttp Neuro: Oriented X 3. No motor deficit. No sensory deficit. Medical Decision Making Medical Decision Making [facility] Narrative: 82 yo male with PMH of gout, HTN, HLD here with c/o dizziness upon standing and a fall without trauma. No head strike no neuro symptoms. No CP/SOB, no GIB symptoms he had EKG and normal labs in waiting room I went into room and discussed further workup including CT scan and orthostatic VS he and his visitor state the wait is too long and will return if his symptoms come back - he is alert and oriented x 3. Differential Diagnosis Differential Diagnoses: The differential diagnosis associated with the presentation includes orthostatic VS, dehydration, posterior stroke Admission/Observation Consideration of admission/observation: Escalation of care including admission/observation considered refused further workup Lab Data [facility] Lab Attestation statement: I reviewed the patient's lab results. 03/04/23 18:54 03/04/23 18:54 Labs: Lab Results 03/04/23 Range/Units 18:54 WBC 7.7 (4.8-10.8) X10*3/uL RBC 4.43 L (4.60-5.80) X10*6/uL Hgb 14.0 (14.0-18.0) g/dl Hct 41.8 L (42.0-52.0) % MCV 94.4 (80.0-98.0) fL MCH 31.6 (27.0-33.0) pg MCHC 33.5 (31.0-36.0) g/dl RDW 13.2 (11.0-16.0) % Plt Count 220 (160-400) X10*3/uL MPV 10.9 (9.4-12.4) fL Immature Gran % (Auto) 0.3 (0.0-0.4) % Neut % (Auto) 68.9 (45-73) % Lymph % (Auto) 16.8 L (20-40) % [place] % (Auto) 9.8 (2-11) % Eos % (Auto) 3.8 (0-4) % Baso % (Auto) 0.4 (0-2) % Lymph # (Auto) 1.3 (1.2-4.9) X10*3/uL [place] # (Auto) 0.8 (0.1-1.2) X10*3/uL Eos # (Auto) 0.3 (0.0-0.4) X10*3/uL Baso # (Auto) 0.0 (0.0-0.2) X10*3/uL Abs Immat Gran (auto) 0.02 (0.00-0.03) X10*3/uL Absolute Neuts (auto) 5.3 (2.0-8.3) x10*3/uL Absolute Nucleated RBC 0.000 (0.0-0.012) X10*3/uL Nucleated RBC % (auto) 0.0 (0.0-0.2) /100WBC Sodium 141 (135-145) mmol/L Potassium 4.5 (3.3-5.1) mmol/L Chloride 107 (96-108) mmol/L Carbon Dioxide 26 (22-29) mmol/L Anion Gap 13 (12-20) BUN 31 H (9-16) mg/dL Creatinine 1.31 (0.5-1.4) mg/dL Estim Creat Clear Calc 32.7 Estimated GFR 53 Random Glucose 94 (60-115) mg/dL Calcium 9.4 D (8.4-10.2) mg/dL Total Bilirubin 0.3 (0.0-1.0) mg/dL AST 20 (5-37) U/L ALT 20 (0-40) U/L Alkaline Phosphatase 77 (39-117) U/L Troponin I High Sens 10.7 (<3.5-35.0) ng/L Total Protein 7.3 (6.5-8.0) g/dL Albumin 4.3 (3.5-5.0) g/dL Independent Interpretation I performed an independent interpretation of an: EKG Interpretation: Rate: 66 Rhythm: NSR Oral: left Normal P waves. Normal FREDI. Normal QRS complex. ST T wave : artifact but no RYAN qTC: 402 prior studies: no acute ischemia The study has been interpreted contemporaneously by me. . Independent Historian Clinical information obtained from an independent historian. History obtained from or confirmed by: Friend Tests considered The following testing was considered but not selected: refused CT scan Discharge Plan Discharge Clinical Impression: Dizziness Patient Disposition: Home, Self-Care Instructions: Dizziness (ED) Additional Instructions: it is recommended that you stay for CT head, special vital signs to check for your blood pressure dropping. you can do this with your doctor or return here at any time. please return for worsening symtpoms, falls, weakness, numbness, chest pain or any other concnerns. Prescriptions: No Action doxycycline hyclate 100 mg tablet 100 mg PO BID 10 Days Qty: 20 0RF cephalexin 500 mg capsule 500 mg PO Q6H 10 Days Qty: 40 0RF indomethacin 50 mg capsule 50 mg PO Q8H 7 Days Qty: 21 0RF Rx Instructions: administer with food or milk prednisone 20 mg tablet 40 mg PO DAILY 5 Days Qty: 10 0RF oxycodone 5 mg tablet 5 mg PO Q6H PRN (Reason: pain) Qty: 14 0RF acetaminophen [Tylenol Extra Strength] 500 mg tablet 500 mg PO Q6H PRN (Reason: pain or fever) Qty: 20 0RF naproxen 500 mg tablet 500 mg PO BID PRN (Reason: pain) 10 Days Qty: 20 0RF prednisone 10 mg tablet 10 mg PO DAILY Qty: 20 0RF Taper: Prednisone 40 mg daily for 3 Days and 0 Hour 30 mg daily for 3 Days and 0 Hour 20 mg daily for 3 Days and 0 Hour 10 mg daily for 3 Days and 0 Hour Rx Instructions: prednisone 10 mg: take 4 tablets (40 mg) for 2 days; 3 tablets (30 mg) for 2 days; 2 (20mg) tablets for 2 days and then 1 (10mg) tablet for 2 days cephalexin 500 mg capsule 500 mg PO QID 7 Days Qty: 28 0RF lisinopril-hydrochlorothiazide 20-25 mg tablet 1 tab PO DAILY atorvastatin 80 mg tablet 80 mg PO DAILY prednisone 20 mg tablet 20 mg PO .COMPLEX 9 Days Qty: 18 0RF Rx Instructions: 20 mg PO three times a day for three days, then 20 mg PO twice a day for three days, then 20 mg PO once a day for three days, 9 total days prednisone 20 mg tablet 40 mg PO DAILY Qty: 10 0RF
== END 2023-03-04 21:54 | disposition home or self-care (01) ==
PROVIDERS: Emergency Provider Emergency Medicine; PCP Internal Medicine
DX: R42 Dizziness and giddiness (principal); I10 Essential (primary) hypertension; E78.5 Hyperlipidemia, unspecified; Z79.899 Other long term (current) drug therapy; Z79.02 Long term (current) use of antithrombotics/antiplatelets
CPT/HCPCS: 36415; 80053; 84484; 85025; 93005; 99283

== ENCOUNTER → 2023-03-04 18:35 | Outpatient (BNV) | payer MEDICARE, SELFPAY | PROVIDERS: Emergency Provider Emergency Medicine; PCP Internal Medicine; Visit Provider Internal Medicine Cardiovascular Disease | DX: R94.31 Abnormal electrocardiogram [ECG] [EKG] (principal) | CPT/HCPCS: 93010 ==

== ENCOUNTER 2023-03-09 14:27 | Outpatient (REF) | payer MEDICARE, SELFPAY ==
--- NOTE | ~2023-03-09 | XR_ITS ---
EXAMINATION: XR LUMBOSACRAL SPINE CLINICAL INFORMATION: Low back pain. COMPARISON: Lumbar spine 12/14/2021. TECHNIQUE: Three views of the lumbosacral spine. FINDINGS: Degenerative changes are noted throughout the spine with disc space narrowing at all levels. Most marked disc space narrowing seen at L2-L3 and L4-L5. Again seen is grade 1 anterolisthesis of L4 upon L5, unchanged from prior. No fractures or bony destructive lesions are seen. XR/XR lumbar spine 2-3V IMPRESSION: Degenerative changes throughout the spine with grade 1 anterolisthesis of L4 upon L5.
== END 2023-03-09 14:28 | disposition home or self-care (01) ==
LOC: HO.HMGCX 14:27
PROVIDERS: PCP Internal Medicine; Visit Provider Internal Medicine
DX: M54.50 Low back pain, unspecified (principal); M79.604 Pain in right leg
CPT/HCPCS: 72100

== ENCOUNTER 2023-04-03 11:54 | Outpatient (REF) | payer MEDICARE, SELFPAY ==
[2023-04-03 13:18] LABS: MANUAL DIFF FLAG NO
[2023-04-03 13:30] LABS: Basophils Percent Auto 0.3 % (0-2); Eosinophils Absolute Auto 0.3 X10*3/uL (0.0-0.4); Eosinophils Percent Auto 4.3 % (0-4); Hematocrit 40.7 % (42.0-52.0); Hemoglobin 13.5 g/dl (14.0-18.0); Imm Gran Abs Auto 0.02 X10*3/uL (0.00-0.03); Imm Gran Pct Auto 0.3 % (0.0-0.4); Lymphocytes Absolute Auto 1.2 X10*3/uL (1.2-4.9); Lymphocytes Percent Auto 19.2 % (20-40); Mean Corpuscular HGB Conc 33.2 g/dl (31.0-36.0); Mean Corpuscular Hemoglobin 31.9 pg (27.0-33.0); Mean Corpuscular Volume 96.2 fL (80.0-98.0); Mean Platelet Volume 11.6 fL (9.4-12.4); Monocytes Absolute Auto 0.7 X10*3/uL (0.1-1.2); Monocytes Percent Auto 10.7 % (2-11); Neutrophils Absolute Auto 4.2 x10*3/uL (2.0-8.3); Neutrophils Percent Auto 65.2 % (45-73); Platelet Count 209 X10*3/uL (160-400); Red Blood Count 4.23 X10*6/uL (4.60-5.80); Red Cell Distribution Width 13.5 % (11.0-16.0); White Blood Count 6.5 X10*3/uL (4.8-10.8)
[2023-04-03 14:05] LABS: Alanine Aminotransferase 22 U/L (0-40); Albumin Level 4.1 g/dL (3.5-5.0); Alkaline Phosphatase 82 U/L (39-117); Anion Gap 13 (12-20); Aspartate Amino Transferase 20 U/L (5-37); Bilirubin Total 0.4 mg/dL (0.0-1.0); Blood Urea Nitrogen 28 mg/dL (9-16); C Reactive Protein 0.43 mg/dL (< or = 0.50); Calcium 9.2 mg/dL (8.4-10.2); Carbon Dioxide 26 mmol/L (22-29); Chloride 106 mmol/L (96-108); Estimated Glomerular Filt Rate 47; Glucose Random 94 mg/dL (60-115); Sodium 141 mmol/L (135-145); Total Protein 6.9 g/dL (6.5-8.0)
== END 2023-04-03 11:55 | disposition home or self-care (01) ==
LOC: HO.HMGCLDS 11:54
PROVIDERS: PCP Internal Medicine; Visit Provider Internal Medicine
DX: I10 Essential (primary) hypertension (principal); R42 Dizziness and giddiness
CPT/HCPCS: 36415; 80053; 82550; 85025; 86140

== ENCOUNTER 2023-05-11 13:28 | Outpatient (REF) | payer MEDICARE, SELFPAY ==
--- NOTE | ~2023-05-11 | XR_ITS ---
EXAMINATION: XR HIP, RIGHT CLINICAL INFORMATION: Pain COMPARISON: Pelvic x-ray December 02, 2021 TECHNIQUE: Two views of the right hip. FINDINGS: Visualized portion of the proximal right femur demonstrate no fracture. Right femoral head is well-seated within the acetabulum. There is mild to moderate narrowing of the right femoral acetabular joint space. Small osteophytes noted along the superolateral aspect of the acetabulum and femoral head/neck junction. Vascular calcifications appreciated. XR/XR hip RT min 2V IMPRESSION: Moderate degenerative changes of the right hip without fracture or dislocation.
[2023-05-11 16:22] LABS: Anion Gap 16 (12-20); Blood Urea Nitrogen 44 mg/dL (9-16); Calcium 8.9 mg/dL (8.4-10.2); Carbon Dioxide 23 mmol/L (22-29); Chloride 107 mmol/L (96-108); Estimated Glomerular Filt Rate 44; Glucose Random 99 mg/dL (60-115); Potassium 4.5 mmol/L (3.3-5.1); Sodium 141 mmol/L (135-145)
== END 2023-05-11 13:29 | disposition home or self-care (01) ==
LOC: HO.HMGCX 13:28
PROVIDERS: PCP Internal Medicine; Visit Provider Internal Medicine
DX: I10 Essential (primary) hypertension (principal); M25.551 Pain in right hip
CPT/HCPCS: 36415; 73502; 80048

== ENCOUNTER 2023-06-02 14:07 | Outpatient (REF) | payer MEDICARE, SELFPAY ==
--- NOTE | ~2023-06-02 | XR_ITS ---
EXAMINATION: XR FOOT, RIGHT CLINICAL INFORMATION: Injury second digit, about 2 weeks ago. COMPARISON: X-ray 05/18/2021. TECHNIQUE: AP, lateral, and oblique views of the right foot. FINDINGS: Soft tissue swelling of the second toe. There is erosive arthropathy of the second PIP joint, with bone loss, erosive changes, bony irregularity, interval progression from previous. There is irregular osseous fragments along the medial aspect of the joint, new from previous. Erosive or inflammatory arthritis, septic arthritis would need to be considered. The bony fragmentation could be related to posttraumatic changes. There is ill-defined lucency in the distal aspect of the second middle phalanx, concerning for an undisplaced fracture. Disruption and superior bone loss at the third toe DIP joint, including involving the middle and distal phalanx, appearing similar to previous. Inflammatory or erosive arthritis and septic arthritis would need to be considered. Arthritis of the 1st MTP, 1st PIP joint, interval worsening as compared to previous. This could represent inflammatory or erosive arthritis. There is soft tissue swelling medial to the 1st MTP joint. There is arthritis otherwise in the interphalangeal joints of the toes. There is arthritis in the midfoot at the tarsometatarsal joints. Dorsal talar neck spurring. Vascular calcification. Calcaneal spurring. 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 There is bony fragmentation medial to the joint, new from previous. Erosive or inflammatory arthritis, septic arthritis would need to be considered. The bony fragmentation could be related to this process versus superimposed trauma. Suspected undisplaced fracture of the distal aspect of the 2nd middle phalanx. Destructive arthritis of the DIP joint of the third toe, appearing similar to prior x-ray 05/18/2021. Erosive or inflammatory arthropathy, septic arthritis would need to be considered. 1st MTP and 1st IP joint arthritis, interval progression from previous, could reflect erosive or inflammatory arthropathy. Additional arthritis as above. The report will be called to the ordering clinician by a [facility] Setter Cold Rolling Machine.
== END 2023-06-02 14:08 | disposition home or self-care (01) ==
LOC: HO.XRAY 14:07
PROVIDERS: PCP Internal Medicine; Visit Provider Internal Medicine
DX: M12.871 Other specific arthropathies, not elsewhere classified, right ankle and foot (principal)
CPT/HCPCS: 73630

== ENCOUNTER 2023-09-27 14:42 | Outpatient (REF) | payer MEDICARE, SELFPAY ==
--- NOTE | ~2023-09-27 | XR_ITS ---
EXAMINATION: XR CHEST CLINICAL INFORMATION: Cough and shortness of breath COMPARISON: None available. TECHNIQUE: 2 views of the chest were obtained. FINDINGS: There is pleural plaque in the right upper lobe. No evidence of consolidations or nodules. There is peribronchial cuffing seen. Cardiomediastinal silhouette is normal. No evidence of pleural effusion. XR/XR chest 2V IMPRESSION: Peribronchial cuffing. Calcified pleural plaque in the right upper lobe.
== END 2023-09-27 14:43 | disposition home or self-care (01) ==
LOC: HO.XRAY 14:42
PROVIDERS: PCP Internal Medicine; Visit Provider Internal Medicine
DX: R05.9 Cough, unspecified (principal); R06.02 Shortness of breath
CPT/HCPCS: 71046

== ENCOUNTER 2023-10-26 13:54 | Outpatient (AMB) | payer MEDICARE, SELFPAY ==
[2023-10-26 13:58] VITALS: BP 130/80; PULSE 89; O2SAT 97; BMI 21.5
--- NOTE | 2023-10-26 13:58 | A.OFFVIS_ITS ---
Vital Signs 10/26/23 13:58 Height 5 ft 1 in Weight 113 lb 8.609 oz BMI 21.5 BP 130/80 Blood Pressure Location Lt brachial Position Sitting Pulse 89 Pulse Source Pulse Oximeter Pulse Oximetry (%) 97 Oxygen Delivery Method Room Air Intake Visit Reasons: Pleural Plaques Intake Note: pt is here as a new patient, and states he gets short of breath with activity. Coping Machine Operator Required: No Allergies No Known Allergies [No Known Allergies*] Allergy (Verified 10/26/23 14:04) Medication List - Last Reconciled 10/26/23 by Damaso Desai MD acetaminophen (Tylenol Extra Strength) 500 mg PO Q6H PRN atorvastatin 80 mg PO DAILY lisinopril-hydrochlorothiazide 20-25 mg 1 tab PO DAILY Do you need a note to return to daycare/school/sports/work: No HPI HPI Pleural Plaques: Details: 82 years old gentleman is being seen for the 1st time, referred by his primary care physician Dr. Wyatt Parada. His main complaint is getting short of breath on walking fast or climbing stairs, going since August of this year. He has history of getting a bout of bronchitis usually in the summer months, but each time he recovered within a week or so. This time in the middle of August he did have a bout of bronchitis, and after that he continues to have mild intermittent cough and shortness of breath on exertion as described above. He had a chest x-ray which was abnormal and followed by CT scan of the chest, which has shown pleural plaques on both sides. THIS GENTLEMAN HAS BEEN A NONSMOKER. HE DOES NOT HAVE HISTORY OF BRONCHIAL ASTHMA OR ANY CHRONIC PULMONARY DISEASE. 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 HE WAS NOT EXPOSED TO ANY SPECIAL CHEMICAL FUMES OR SMOKE ETC.. 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 HE IS BEING TREATED FOR MILD HYPERTENSION AND HYPERLIPIDEMIA , AND IN GENERAL HAS BEEN QUITE HEALTHY. FOR[facility]LY [facility] Medical History (Updated 10/26/23 @ 15:59 by Damaso Desai MD) Dyspnea on effort 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 High cholesterol HTN (hypertension) Social History Alcohol intake: never Patient Tobacco Use Status: Never used Tobacco Review of Systems Const All systems reviewed & are unremarkable except as noted in HPI and below Eyes Reports no additional complaints ENT Reports no additional complaints Card Denies chest pain, Denies syncope, Denies irregular heart rhythm and Denies leg edema Resp Reports as per HPI GI Reports no additional complaints Reports no additional complaints Musc Reports no additional complaints Skin/Breast Reports system reviewed and no additional complaints, except as documented Neuro Reports no additional complaints and Denies syncope Psych Reports no additional complaints Endo Reports no additional complaints Kirk/Lymph Reports no additional complaints Physical Exam Vital Signs: Last Vital Signs Pulse 89 10/26/23 13:58 BP 130/80 10/26/23 13:58 Pulse Ox 97 10/26/23 13:58 Oxygen Delivery Method Room Air 10/26/23 13:58 BMI result Body Mass Index 21.5 Const General: healthy appearing, comfortable, no acute distress, alert and awake Orientation/consciousness: patient oriented x3 HEENT Head: Yes normal to inspection General nose exam: No nasal polyps present and No nasal discharge present Face and sinus: Yes sinuses nontender Mouth: oropharynx normal Throat: Yes posterior oropharynx normal Eyes General: appearance normal, both eyes and all related structures Neck Neck: Yes normal visual inspection, Yes no lymphadenopathy, Yes trachea midline and Yes no JVD Thyroid: Thyroid normal Chest Chest palpation & inspection: normal inspection of the chest, normal palpation of entire chest wall and no tenderness Resp Other: PERCUSSION NOTE IS RESONANT, BREATH SOUNDS ARE EQUAL ON BOTH SIDES. THERE ARE A FEW SCATTERED INSPIRATORY CREPITATIONS OVER THE RIGHT MID CHEST. NO WHEEZES ARE HEARD Cardio Palpation: normal PMI Rate: regular rate Rhythm: regular rhythm Heart sounds: Gallop heart sound present and Murmur heart sound present Peripheral pulses: Peripheral pulses 2+ throughout GI Palpation (GI): Soft to palpation, Tenderness to palpation present (GI), No hepatosplenomegaly present and Palpable mass present Auscultation: normal bowel sounds Back/Spine/Pelvis Thoracic/Lumbar Spine: thoracic and lumbar spine normal to inspection Skin General skin exam: no rashes or lesions noted Neuro General: patient oriented x3 and no focal motor deficits Cranial nerves: Yes CN's II-XII intact bilaterally Extrem General: Yes normal to inspection, Yes no clubbing, cyanosis or edema and Yes no calf tenderness Psych Appearance: grossly normal and well kempt Speech and movement: Normal speech and movement present Results Reviewed Results Reviewed: 09/27/2023 CHEST XRAY IMPRESSION: Peribronchial cuffing. Calcified pleural plaque in the right upper lobe. 10/19/23 CT SCAN OF THE CHEST WITHOUT CONTRAST, PERFORMED AT [facility] Shows calcified pleural plaques mostly in the right upper lobe area there are also some plaques on the left side. There are no changes of interstitial lung disease and no nodules . 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 THE RADIOLOGIC PICTURE IS CONSISTENT WITH THE EXPOSURE TO ASBESTOS. Code(s): J94.8 - Other specified pleural conditions Category: Medical Plan: EXPLAINED TO THE PATIENT. HE PROBABLY HAS BEEN EXPOSED TO SOME MATERIAL CONTAINING ASBESTOS DURING HIS LIFELONG WORKING IN [employer] OR CLEANING JOBS. AT PRESENT THERE IS NO SPECIFIC TREATMENT NEEDED FOR THIS CONDITION, HE JUST NEEDS TO BE MONITORED CLOSELY. (2) Dyspnea on effort: Comment: HE HAS ONGOING DYSPNEA ON EXERTION SUCH WALKING FAST OR CLIMBING STAIRS, BUT ONLY OF A MILD DEGREE, PERSISTING AFTER A BOUT OF BRONCHITIS ABOUT 6 WEEKS AGO. NEEDS TO BE CHECKED FOR RESTRICTIVE OBSTRUCTIVE LUNG DISEASE, AND ALSO TO CHECK FOR DIFFUSION CAPACITY. Code(s): R06.09 - Other forms of dyspnea Category: Medical Plan: EXPLAINED TO THE PATIENT AND HE UNDERSTANDS WELL. NO NEED OF ANY ACTIVE. TREATMENT AT THIS TIME WILL DO COMPLETE PULMONARY FUNCTION TEST AND THEN DECIDE IF ANY INHALATION THERAPY WOULD BE HELPFUL. HE WILL NEED YEARLY FOLLOW-UP AND WITH A CHEST X-RAY Orders: Orders PFT pulmonary function test Today Coding Level of Care Code New Pt Level 3 (01417) Diagnoses 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 J94.8 Dyspnea on effort R06.09
== END 2023-10-26 14:26 | disposition home or self-care (01) ==
PROVIDERS: PCP Internal Medicine; Referring Provider Internal Medicine; Visit Provider Internal Medicine
DX: J94.8 Other specified pleural conditions (principal); R06.09 Other forms of dyspnea
CPT/HCPCS: 99203

== ENCOUNTER → 2023-10-26 13:54 | Outpatient (BNVA) | payer MEDICARE, SELFPAY | PROVIDERS: PCP Internal Medicine; Referring Provider Internal Medicine; Visit Provider Internal Medicine | DX: J94.8 Other specified pleural conditions (principal); R06.09 Other forms of dyspnea | CPT/HCPCS: 99202 ==

== ENCOUNTER 2023-11-13 13:18 | Outpatient (REF) | payer MEDICARE, SELFPAY ==
[2023-11-13 15:57] LABS: MANUAL DIFF FLAG NO
[2023-11-13 16:14] LABS: Basophils Percent Auto 0.1 % (0-2); Hematocrit 39.6 % (42.0-52.0); Hemoglobin 13.1 g/dl (14.0-18.0); Imm Gran Abs Auto 0.07 X10*3/uL (0.00-0.03); Imm Gran Pct Auto 0.6 % (0.0-0.4); Lymphocytes Absolute Auto 1.1 X10*3/uL (1.2-4.9); Lymphocytes Percent Auto 9.3 % (20-40); Mean Corpuscular HGB Conc 33.1 g/dl (31.0-36.0); Mean Corpuscular Volume 96.6 fL (80.0-98.0); Mean Platelet Volume 11.9 fL (9.4-12.4); Monocytes Absolute Auto 0.9 X10*3/uL (0.1-1.2); Monocytes Percent Auto 7.7 % (2-11); Neutrophils Absolute Auto 10.1 x10*3/uL (2.0-8.3); Neutrophils Percent Auto 82.3 % (45-73); Platelet Count 215 X10*3/uL (160-400); Red Cell Distribution Width 12.9 % (11.0-16.0); White Blood Count 12.3 X10*3/uL (4.8-10.8)
[2023-11-13 16:15] LABS: Anion Gap 14 (12-20); Blood Urea Nitrogen 45 mg/dL (9-16); C Reactive Protein 0.33 mg/dL (< or = 0.50); Calcium 9.4 mg/dL (8.4-10.2); Carbon Dioxide 23 mmol/L (22-29); Chloride 104 mmol/L (96-108); Estimated Glomerular Filt Rate 48; Glucose Random 108 mg/dL (60-115); Potassium 3.8 mmol/L (3.3-5.1); Sodium 137 mmol/L (135-145)
== END 2023-11-13 13:19 | disposition home or self-care (01) ==
LOC: HO.HMGCLDS 13:18
PROVIDERS: PCP Internal Medicine; Visit Provider Internal Medicine
DX: I10 Essential (primary) hypertension (principal); M10.9 Gout, unspecified
CPT/HCPCS: 36415; 80048; 84550; 85025; 86140

== ENCOUNTER 2023-11-17 10:21 | Outpatient (REF) | payer MEDICARE, SELFPAY ==
--- NOTE | ~2023-11-17 | XR_ITS ---
EXAMINATION: XR FOOT, RIGHT CLINICAL INFORMATION: Right foot pain. Evaluate for osteomyelitis. COMPARISON: Multiple prior radiographs most recent May 2023 and dating back to January 2018. TECHNIQUE: AP, lateral, and oblique views of the right foot. FINDINGS: Third digit: There is progressive destruction of the middle phalanx and region of the DIP joint as well as now crossing the region of the PIP joint with additional erosive/destructive changes of the head of the proximal phalanx. There is prominent surrounding soft tissue swelling. Second digit: 2nd PIP joint, partial osseous bridging across the joint; previously noted intra-articular fracture no longer present. DIP joint unremarkable. Great toe: There is a persistent subchondral cyst or marginal erosion along the lateral head of the proximal phalanx at the IP joint unchanged. Subchondral cyst versus marginal erosion about the medial base of the proximal phalanx at the MTP joint. Subtle amorphous calcific density noted in the soft tissues adjacent to the medial and lateral aspect of the DIP joint likely along the capsule. Small toe: Possible subchondral cyst along the head of the proximal phalanx not seen previously. Remaining bone and joints unremarkable. Arterial calcification present. XR/XR foot RT min 3V IMPRESSION: 1. Multiple findings as detailed above which appear slowly progressing involving the 3rd digit. These findings can be seen in psoriatic arthritis. Cannot exclude the possibility of concomitant osteomyelitis and septic arthritis involving the 3rd middle phalanx and adjacent interphalangeal joints. 2. Progression osseous fusion across the 2nd PIP joint which can be seen with psoriatic arthritis or related to a healing fracture unrelated to inflammatory arthropathy. 3. Suspect persistent marginal erosions at the IP joint of the great toe and 1st MTP joint consistent with a diagnosis of psoriatic arthritis. Nonspecific subchondral cysts are thought to be less likely. Electronically signed by: Yousif Harris MD 11/23/2023 02:13 PM EDT
== END 2023-11-17 10:22 | disposition home or self-care (01) ==
LOC: HO.HMGCX 10:21
PROVIDERS: PCP Internal Medicine; Visit Provider Internal Medicine
DX: M79.671 Pain in right foot (principal); R60.0 Localized edema; M10.9 Gout, unspecified
CPT/HCPCS: 73630

== ENCOUNTER 2023-11-28 14:07 | Emergency (ER) | payer MEDICARE, SELFPAY ==
--- NOTE | ~2023-11-28 | XR_ITS ---
EXAMINATION: XR TOES, RIGHT CLINICAL INFORMATION: right 3rd, r/o osteo .Pt states infected toe x 2 weeks COMPARISON: None available. TECHNIQUE: Frontal view of the foot. 2 coned-down views of the right third toe. FINDINGS: Significant swelling of the third toe. There is near complete loss of bone of the middle phalanges and the proximal shaft of the distal phalanges of the middle toe. There is also partial bone destruction of the distal shaft of the proximal phalanges of the third toe. Findings consistent with osteomyelitis. Marked degenerative change of the IP joint of the great toe and the PIP joint of the second toe. Periarticular subchondral cystic erosions at the medial head of the first metatarsal. There are adjacent soft tissue calcifications near the head of the first metatarsal. Degenerative change of the metatarsal tarsal joints particularly at the great toe. XR/XR toe RT min 2V IMPRESSION: Osteomyelitis of the third toe. Electronically signed by: Kevin Liu MD 11/28/2023 05:28 PM EDT
[2023-11-28 14:32] VITALS: BP 145/79; PULSE 101; RESP 20; TEMP 36.9; O2SAT 94; BMI 21.3
--- NOTE | 2023-11-28 14:32 | ED_ITS ---
HPI - General Adult General Chief complaint: Extremity Problem Stated complaint: R foot infection Time Seen by Provider: 11/28/23 17:37 Source: patient Mode of arrival: ambulatory Limitations: no limitations History of Present Illness HPI narrative: Patient is an 82-year-old male who presents emergency department for evaluation. He states that his right 3rd toe is red swollen with pain and along the lateral aspect the skin has peeled and there is some drainage. He states that this has been an ongoing issue. He reports that earlier this year he was told it was due to arthritis ?eating away at the bone? resulting in loss of the bone to the distal toe. He reports as the end of October; 11/09/2023 he developed increased pain, swelling, and redness for which he went to his primary care doctor. An x-ray was obtained and he was given a prescription for doxycycline for 5 days and prednisone for 5 days concern for possible infection versus gout, symptoms persisted, 11/21/2023 he was given an additional prescription for allopurinol and doxycycline for 10 days. He reports no improvement, but also remains unchanged, It is painful to walk on. He denies fevers or chills. Denies any known precipitating injury. Related Data Home Medications ?Medication ?Instructions ?Recorded ?Confirmed atorvastatin 80 mg tablet 80 mg PO DAILY 03/12/20 10/26/23 lisinopril 20 1 tab PO DAILY 03/12/20 10/26/23 mg-hydrochlorothiazide 25 mg tablet Previous Rx's ?Medication ?Instructions ?Recorded acetaminophen 500 mg tablet 500 mg PO Q6H PRN pain or fever 05/18/21 (Tylenol Extra Strength) #20 tabs doxycycline hyclate 100 mg capsule 100 mg PO BID #14 caps 11/28/23 Allergies Allergy/AdvReac Type Severity Reaction Status Date / Time No Known Allergies Allergy Verified 11/28/23 14:33 [No Known Allergies*] Review of Systems 2 Review of Systems: Yes all other systems are reviewed and are negative PMFSH Past Medical History Attestation statement: The following information was validated with the patient. 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 High cholesterol HTN (hypertension) Social History Social History Alcohol intake: never Patient Tobacco Use Status: Never used Tobacco Smoked in Last 30 Days: No Use of substances other than those prescribed or required for medical reasons: No Advance Directives: No Advance Directives Information Provided: Yes Do you have a plan to hurt others: No Plan Physical Exam ED Vital Signs: Vital Signs - 24 hr 11/28/23 14:32 11/28/23 17:45 11/28/23 19:35 Temperature 98.4 F 98.0 F Pulse Rate 101 H 79 79 Respiratory Rate 20 16 18 Blood Pressure 145/79 H 173/77 H 195/84 H Pulse Oximetry 94 99 99 Oxygen Delivery Method Room Air Room Air 11/28/23 19:46 Temperature 98.2 F Pulse Rate 83 Respiratory Rate 16 Blood Pressure 161/79 H Pulse Oximetry 97 Oxygen Delivery Method Room Air BMI result Body Mass Index 21.3 Appearance: Alert.?Oriented to person, place and time. No acute distress.?Normal affect. CVS: Heart sounds normal. Normal heart rate and rhythm.? Pulses normal.?? Respiratory: No respiratory distress.? Lung sounds clear to auscultation bilaterally?? Abdomen: Soft and non-tender. Normoactive bowel sounds. Skin: Skin warm and dry.? Normal skin color.??? Extremities: No lower extremity edema.? No calf ttp? Neuro: Moves all extremities spontaneously. Sensation intact bilaterally. CN II- XII intact. No focal neuro deficits. Ambulates with normal steady gait. Course Course Course Narrative: RME, this is a rapid medical exam performed by Raghav Siddiqui please refer to primary provider for complete H&P- 82-year-old male presents for evaluation of swollen, red, painful right 3rd toe. He has been on prednisone as well as 2 courses of doxycycline in the last 3 weeks. He is presenting from urgent care. Plan for x-rays, labs Medical Decision Making Medical Decision Making MDM Narrative: Patient is an 82-year-old male with past medical history of gout, hypertension, hyperlipidemia presenting for evaluation of concern for possible infection to the right 3rd toe. This has been ongoing earliest x-ray from October of 2020 with destructive changes to the distal tip of the 3rd digit. Notably progressive changes since May of this year. Since October has been on 2 courses of doxycycline first for 5 days followed by a 10 day course prescribed on 11/21/2023 in addition to prednisone and allopurinol for presumed gout. Patient endorsing no improvement since being on the antibiotics but also no worse. XR obtained today with radiologist impression of osteomyelitis, of note he has no leukocytosis, a mild normocytic anemia ESR 25 CRP 0.31. No electrolyte derangement. Renal function near baseline. No lactic acidosis. 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 Calderon who agrees., consulted with General surgery as noted below. Differential Diagnosis Differential Diagnoses: The differential diagnosis associated with the presentation includes (Gout, progressive destructive arthritis, osteomyelitis) Admission/Observation Consideration of admission/observation: Escalation of care including admission/observation considered Consult Healthcare Provider Management of the patient was discussed with: Exhaust Emissions Inspector (General surgery; Dr. Childs) General surgery; Dr. 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 Recommended patient continue taking doxycycline until evaluated outpatient. Lab Data MDM Lab Attestation statement: I reviewed the patient's lab results. See narrative above 11/28/23 14:51 11/28/23 14:51 Labs: Lab Results 11/28/23 Range/Units 14:51 WBC 6.7 (4.8-10.8) X10*3/uL RBC 4.11 L (4.60-5.80) X10*6/uL Hgb 13.2 L (14.0-18.0) g/dl Hct 39.4 L (42.0-52.0) % MCV 95.9 (80.0-98.0) fL MCH 32.1 (27.0-33.0) pg MCHC 33.5 (31.0-36.0) g/dl RDW 13.1 (11.0-16.0) % Plt Count 198 (160-400) X10*3/uL MPV 10.9 (9.4-12.4) fL Immature Gran % (Auto) 0.3 (0.0-0.4) % Neut % (Auto) 73.1 H (45-73) % Lymph % (Auto) 15.6 L (20-40) % Eagle % (Auto) 8.5 (2-11) % Eos % (Auto) 2.1 (0-4) % Baso % (Auto) 0.4 (0-2) % Lymph # (Auto) 1.1 L (1.2-4.9) X10*3/uL Eagle # (Auto) 0.6 (0.1-1.2) X10*3/uL Eos # (Auto) 0.1 (0.0-0.4) X10*3/uL Baso # (Auto) 0.0 (0.0-0.2) X10*3/uL Abs Immat Gran (auto) 0.02 (0.00-0.03) X10*3/uL Absolute Neuts (auto) 4.9 (2.0-8.3) x10*3/uL Absolute Nucleated RBC 0.000 (0.0-0.012) X10*3/uL Nucleated RBC % (auto) 0.0 (0.0-0.2) /100WBC ESR 25 H (0-15) MM/HR Sodium 140 (135-145) mmol/L Potassium 4.2 (3.3-5.1) mmol/L Chloride 108 (96-108) mmol/L Carbon Dioxide 23 (22-29) mmol/L Anion Gap 13 (12-20) BUN 40 H (9-16) mg/dL Creatinine 1.65 H (0.5-1.4) mg/dL Estim Creat Clear Calc 25.4 Estimated GFR 40 Random Glucose 131 H (60-115) mg/dL Lactic Acid 1.2 (0.5-2.0) mmol/L Calcium 9.4 (8.4-10.2) mg/dL Total Bilirubin < 0.5 (0.0-1.0) mg/dL AST 22 (5-37) U/L ALT 26 (0-40) U/L Alkaline Phosphatase 72 (39-117) U/L C-Reactive Protein 0.31 (< or = 0.50) mg/dL Total Protein 6.8 (6.5-8.0) g/dL Albumin 3.9 (3.5-5.0) g/dL Lipase 31 (8-78) U/L Independent Interpretation I performed an independent interpretation of an: Plain X-Ray (Erosive changes of the distal tip of the 3rd phalanx, comparable to 11/17/2023, ongoing progressive loss since 2020) Radiology Impression Discussion of test interpretation with radiology: I have reviewed the radiologist's reading. Radiologist Impression: FINDINGS: Significant swelling of the third toe. There is near complete loss of bone of the middle phalanges and the proximal shaft of the distal phalanges of the middle toe. There is also partial bone destruction of the distal shaft of the proximal phalanges of the third toe. Findings consistent with osteomyelitis. Marked degenerative change of the IP joint of the great toe and the PIP joint of the second toe. Periarticular subchondral cystic erosions at the medial head of the first metatarsal. There are adjacent soft tissue calcifications near the head of the first metatarsal. Degenerative change of the metatarsal tarsal joints particularly at the great toe. XR/XR toe RT min 2V IMPRESSION: Osteomyelitis of the third toe. External Record Review External record reviewed: Outpatient record and Prior outpatient radiology XR of the foot 11/17/2023 with similar appearance of the 3rd digit, radiologist's interpretation eating slowly progressing changes, possibly psoriatic arthritis with concomitant, and osteomyelitis and septic arthritis Prescription Management I considered prescription management with: Pain Medication and Antibiotic Discharge Plan Discharge Clinical Impression: Acute gout involving toe of right foot Qualifiers: Encounter type: initial encounter Patient Disposition: Home, Self-Care Instructions: Gout (ED) Additional Instructions: As discussed, your workup today is consistent with 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 Clinically this appears very consistent with a gout flare. On review of your previous x-rays the destruction of the bone has progressively worsened, notably from May of this year compared to now. Your blood work today was very reassuring. As mentioned, it is worth considering amputation of the toe given this progressive nature with no real improvement over the years. I spoke with the general surgeon associated with our hospital, Dr. Hamilton will has offered to gladly see you outpatient for further evaluation and to discuss potential option for amputation. Continue the remaining course of the doxycycline that you were prescribed by her primary care doctor, and I have sent additional dosing to the pharmacy for you to take until you follow-up with Dr. Childs. Return with any new or worsening symptoms or concerns such as increasing pain, swelling, redness, symptoms extending further up the foot not involving just the toe, fevers or chills. On doxycycline, do not take pills immediately before going to bed and swallow pills with plenty of water. Avoid direct sunlight, iron, antacids, and Pepto Bismol. Call your provider if you develop new ringing in your ears, new problems hearing, dizziness, difficulty swallowing, rash, abdominal discomfort, nausea, or diarrhea.? Prescriptions: New doxycycline hyclate 100 mg capsule 100 mg PO BID Qty: 14 0RF No Action acetaminophen [Tylenol Extra Strength] 500 mg tablet 500 mg PO Q6H PRN (Reason: pain or fever) Qty: 20 0RF lisinopril-hydrochlorothiazide 20-25 mg tablet 1 tab PO DAILY atorvastatin 80 mg tablet 80 mg PO DAILY Referrals: Wyatt Parada MD [Primary Care Provider] - Maine Childs MD [Physician] - Print Language: Salvadorean
[2023-11-28 15:01] LABS: MANUAL DIFF FLAG NO
[2023-11-28 15:04] LABS: Basophils Percent Auto 0.4 % (0-2); Eosinophils Absolute Auto 0.1 X10*3/uL (0.0-0.4); Eosinophils Percent Auto 2.1 % (0-4); Hematocrit 39.4 % (42.0-52.0); Hemoglobin 13.2 g/dl (14.0-18.0); Imm Gran Abs Auto 0.02 X10*3/uL (0.00-0.03); Imm Gran Pct Auto 0.3 % (0.0-0.4); Lymphocytes Absolute Auto 1.1 X10*3/uL (1.2-4.9); Lymphocytes Percent Auto 15.6 % (20-40); Mean Corpuscular HGB Conc 33.5 g/dl (31.0-36.0); Mean Corpuscular Hemoglobin 32.1 pg (27.0-33.0); Mean Corpuscular Volume 95.9 fL (80.0-98.0); Mean Platelet Volume 10.9 fL (9.4-12.4); Monocytes Absolute Auto 0.6 X10*3/uL (0.1-1.2); Monocytes Percent Auto 8.5 % (2-11); Neutrophils Absolute Auto 4.9 x10*3/uL (2.0-8.3); Neutrophils Percent Auto 73.1 % (45-73); Platelet Count 198 X10*3/uL (160-400); Red Blood Count 4.11 X10*6/uL (4.60-5.80); Red Cell Distribution Width 13.1 % (11.0-16.0); White Blood Count 6.7 X10*3/uL (4.8-10.8)
[2023-11-28 15:14] LABS: Lactic Acid 1.2 mmol/L (0.5-2.0)
[2023-11-28 15:19] LABS: Alanine Aminotransferase 26 U/L (0-40); Albumin Level 3.9 g/dL (3.5-5.0); Alkaline Phosphatase 72 U/L (39-117); Anion Gap 13 (12-20); Aspartate Amino Transferase 22 U/L (5-37); Blood Urea Nitrogen 40 mg/dL (9-16); C Reactive Protein 0.31 mg/dL (< or = 0.50); Calcium 9.4 mg/dL (8.4-10.2); Carbon Dioxide 23 mmol/L (22-29); Chloride 108 mmol/L (96-108); Creatinine Clr Calc Pharmacy 25.4; Estimated Glomerular Filt Rate 40; Glucose Random 131 mg/dL (60-115); Lipase 31 U/L (8-78); Potassium 4.2 mmol/L (3.3-5.1); Sodium 140 mmol/L (135-145); Total Protein 6.8 g/dL (6.5-8.0)
[2023-11-28 15:27] LABS: Bilirubin Total < 0.5 mg/dL (0.0-1.0)
[2023-11-28 16:23] LABS: Erythrocyte Sedimentation Rate 25 MM/HR (0-15)
[2023-11-28 17:45] VITALS: BP 173/77; PULSE 79; RESP 16; TEMP 36.7; O2SAT 99
--- NOTE | 2023-11-28 17:48 | MHC.EDTECH ---
This pct just assumed care of Patient ,vitals taken ,Provider is aware of Pt high blood Pressure .
--- OUTSIDE RECORDS SUMMARY | 2023-11-28 18:14 | XMS_ITS | Continuity of Care Document ---
Author Organization [facility] Address [address] [place] [id number] Care Team Providers Care Electric Shipyard Operator Name Role Phone Hollis JEREZ, Sean Fraser Primary Care Physician [phone] Encounter [facility] Date(s): 09/09/21 - 10/09/[address] [id number] Attending Physician: Kalen Paul Admitting Physician: Kalen Paul Referring Physician: Admtr ArSavana Immunizations Given and Recorded Vaccine Date Status Refusal Reason SARS-CoV-2 (COVID-19) mRNA BNT-162b2 vac 05/02/20 Recorded SARS-CoV-2 (COVID-19) mRNA BNT-162b2 vac 04/11/20 Recorded Medications atorvastatin 10 mg oral tablet 1 tablet = 10 mg, By Mouth, Daily, 0 Refills, Maintenance, 09/01/21 15:07:00 EDT, Partial fill uponpatient request if the prescription is for a schedule II opioid drug. Start Date: 09/01/21 Status: Ordered Lisinopril By Mouth, Daily, 0 Refills, Maintenance, 09/01/21 15:07:00 EDT, Partial fill upon patient request if the prescription is for a schedule II opioid drug. Start Date: 09/01/21 Status: Ordered
--- OUTSIDE RECORDS SUMMARY | 2023-11-28 18:14 | XMS_ITS | Continuity of Care Document ---
Author Organization [facility] Address [address] [place] [address]- Care Team Providers Care Statistical Secretary Name Role Phone Hollis JEREZ, Sean Fraser Primary Care Physician Encounter [facility] [place] Date(s): 09/01/21 - 09/17/[address] [id number] Discharge Disposition: A-D/C Home Attending Physician: Sean Shafer MD Admitting Physician: Sean Shafer MD Referring Physician: Sean Shafer MD Immunizations Given and Recorded Vaccine Date Status [...]
[2023-11-28 19:35] VITALS: BP 195/84; PULSE 79; RESP 18; O2SAT 99
[2023-11-28 19:46] VITALS: BP 161/79; PULSE 83; RESP 16; TEMP 36.8; O2SAT 97
[2023-11-28 19:58] VITALS: BP 161/79; PULSE 83; RESP 16; TEMP 36.8; O2SAT 97
== END 2023-11-28 19:59 | disposition home or self-care (01) ==
PROVIDERS: Physician Assistant; Emergency Provider Internal Medicine; PCP Internal Medicine
DX: M10.9 Gout, unspecified (principal); M79.671 Pain in right foot
CPT/HCPCS: 36415; 73660; 80053; 83605; 83690; 85025; 85652; 86140; 87040; 99283; 99284

== ENCOUNTER 2023-12-06 08:02 | Outpatient (AMB) | payer MEDICARE, SELFPAY ==
--- NOTE | 2023-12-06 08:16 | MHC.OFFVIS ---
Vital Signs 12/06/23 08:22 Weight 114 lb 6 oz BP 175/79 H Blood Pressure Location Rt brachial Position Sitting Pulse 84 Intake Visit Reasons: osteomyelitis toe Intake Note: Patient referred by pcp Dr. Parada for osteomyelitis of Rt 3rd toe. Was seen at ER on 11-28-23. Doxycycline 100mg X7d course finished. Hx of Gout. Patient c/o: inflammation, redness, painful to walk. Toe X-ray: 11-28-2023. Edging Machine Feeder Required: No Accompanied by: Marli sister in law Allergies No Known Allergies [No Known Allergies*] Allergy (Verified 12/06/23 08:21) HPI Comments Details: Patient presents with his for evaluation of his right 3rd toe. A few weeks ago he sustained some sort of way he described as gouty inflammation of the toe. He was seen by his medical doctor and put on antibiotics. X-ray was taken which also demonstrated question of osteomyelitis of same toe. Patient has had prior gouty episodes involving his right great toe but nothing to this extreme. Patient states she had this clear fluid type drainage initially which has resolved. At present, patient's symptoms have improved. He states it was markedly more swollen and red and this is resolved. There was an eschar which has partly peeled off himself. 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 Palpable pedal pulses demonstrated. Patient has along the lateral aspect of the right 3rd toe an eschar but no evidence of active infection or drainage. Assessment & Plan Assessment & Plan (1) Inflammation of toe: Code(s): L08.9 - Local infection of the skin and subcutaneous tissue, unspecified Category: Surgical Plan At present, current plan is treat the patient conservatively. He has been given local instructions including bacitracin with a Band-Aid to the area, avoid prolonged standing, complete his antibiotic course, and he will see me as directed or p.r.n.. If patient has progression of his symptoms, further interventions can be undertaken but at present I think conservative therapy is appropriate. Patient understand. All questions answered. He will see me as directed or p.r.n.. Coding Level of Care Code New Pt Level 4 (32630) Diagnoses Inflammation of toe L08.9
[2023-12-06 08:22] VITALS: BP 175/79; PULSE 84
== END 2023-12-06 08:30 | disposition home or self-care (01) ==
PROVIDERS: PCP Internal Medicine; Visit Provider Surgery
DX: L08.9 Local infection of the skin and subcutaneous tissue, unspecified (principal)
CPT/HCPCS: 99204

== ENCOUNTER → 2023-12-06 08:02 | Outpatient (BNVA) | payer MEDICARE, SELFPAY | PROVIDERS: PCP Internal Medicine; Visit Provider Surgery | DX: L08.9 Local infection of the skin and subcutaneous tissue, unspecified (principal) | CPT/HCPCS: 99202 ==

== ENCOUNTER 2023-12-15 10:10 | Outpatient (REF) | payer MEDICARE, SELFPAY ==
--- NOTE | ~2023-12-15 | XR_ITS ---
EXAMINATION: XR KNEE, LEFT CLINICAL INFORMATION: Left knee pain. COMPARISON: None available. TECHNIQUE: Four views of the left knee. FINDINGS: Diffuse demineralization. Small joint effusion. Extensive vascular calcifications. Faint calcification in the suprapatellar soft tissues of uncertain etiology. Mild narrowing of the medial compartment. Degenerative changes of the patellofemoral compartment. XR/XR knee LT 4V IMPRESSION: Mild tricompartmental degenerative changes. Electronically signed by: Linda Polk MD 12/20/2023 01:51 PM EDT
== END 2023-12-15 10:11 | disposition home or self-care (01) ==
LOC: HO.HMGCX 10:10
PROVIDERS: PCP Internal Medicine; Visit Provider Internal Medicine
DX: M25.562 Pain in left knee (principal)
CPT/HCPCS: 73564

== ENCOUNTER 2023-12-20 08:59 | Outpatient (AMB) | payer MEDICARE, SELFPAY ==
--- NOTE | 2023-12-20 09:07 | A.OFFVIS_ITS ---
Intake Visit Reasons: 2 wk follow up osteomyelitis toe Intake Note: Patient here for 2wk follow up osteomyelitis of rt 3rd toe. Patient c/o:inflammation, redness, painful to walk. Hydroelectric Plant Maintainer Required: No Accompanied by: Marli sister in law Allergies No Known Allergies [No Known Allergies*] Allergy (Verified 12/06/23 08:21) HPI Comments Details: Patient presents for follow-up of his right 3rd toe infection. He has had marked improvement of symptoms. He currently is taking what he thinks is an antibiotic prescribed by his medical doctor but is unsure. 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 Assessment & Plan Assessment & Plan (1) Inflammation of toe: Code(s): L08.9 - Local infection of the skin and subcutaneous tissue, unspecified Category: Surgical Plan Patient has been given instructions to continue local therapy and will otherwise follow-up p.r.n.. All questions answered. Coding Level of Care Code Est Pt Level 4 (61524) Diagnoses Inflammation of toe L08.9
== END 2023-12-20 09:12 | disposition home or self-care (01) ==
PROVIDERS: PCP Internal Medicine; Visit Provider Surgery
DX: L08.9 Local infection of the skin and subcutaneous tissue, unspecified (principal)
CPT/HCPCS: 99214

== ENCOUNTER → 2023-12-20 08:59 | Outpatient (BNVA) | payer MEDICARE, SELFPAY | PROVIDERS: PCP Internal Medicine; Visit Provider Surgery | DX: Z09 Encounter for follow-up examination after completed treatment for conditions other than malignant neoplasm (principal); L08.9 Local infection of the skin and subcutaneous tissue, unspecified | CPT/HCPCS: 99212 ==

== ENCOUNTER 2024-01-04 13:56 | Outpatient (REF) | payer MEDICARE, SELFPAY ==
--- NOTE | 2024-01-04 14:53 | PFT_ITS ---
Flows: FEV1: 102 % of predicted at 2.12 L FVC: 94 % of predicted at 2.57 L FEV1/FVC: 83 % Bronchodilator response: Not performed Volumes: Total lung capacity: 73 % of predicted at 3.76 L Residual volume: 57 % of predicted at 1.17 L Slow vital capacity: 89 % of predicted at 2.59 L Expiratory reserve volume: 92 % of predicted at 0.71 L Diffusion capacity: Normal Impression: Mild restrictive ventilatory defect. Bronchodilator testing not performed. MTDD
[2024-01-04 15:45] VITALS: PULSE 71; RESP 16; O2SAT 97
== END 2024-01-04 13:57 | disposition home or self-care (01) ==
LOC: HO.RESP 13:56
PROVIDERS: PCP Internal Medicine; Visit Provider Internal Medicine
DX: J94.8 Other specified pleural conditions (principal)
CPT/HCPCS: 94010; 94640; 94727; 94729; 99212

== ENCOUNTER 2024-01-04 13:59 | Outpatient (AMB) | payer MEDICARE, SELFPAY ==
[2024-01-04 14:14] VITALS: BP 166/88; PULSE 89; O2SAT 97; BMI 21.5
--- NOTE | 2024-01-04 14:14 | MHC.OFFVIS ---
Vital Signs 01/04/24 14:14 Height 5 ft 1 in Weight 113 lb 8.609 oz BMI 21.5 BP 166/88 H Blood Pressure Location Rt brachial Position Sitting Pulse 89 Pulse Source Pulse Oximeter Pulse Oximetry (%) 97 Oxygen Delivery Method Room Air Intake Visit Reasons: Pleural Plaques [facility] Counselor Required: No Telecommunications Network Planner: Telecommunications Network Planner offered & declined Accompanied by: Self / Same As Patient Allergies No Known Allergies [No Known Allergies*] Allergy (Verified 01/04/24 15:11) Medication List - Last Reconciled 01/04/24 by Damaso Desai MD acetaminophen (Tylenol Extra Strength) 500 mg PO Q6H PRN atorvastatin 80 mg PO DAILY doxycycline hyclate 100 mg PO BID lisinopril-hydrochlorothiazide 20-25 mg 1 tab PO DAILY Do you need a note to return to daycare/school/sports/work: No HPI HPI Pleural Plaques: Details: THIS 83 YEARS OLD VERY PLEASANT GENTLEMAN IS HERE FOR FOLLOW-UP. HE IS KNOWN TO HAVE BILATERAL PLEURAL PLAQUES. HE WAS GOING TO GET PULMONARY FUNCTION TEST TODAY AND THEN SEE ME AFTER THAT FOR FOLLOW-UP. DENIES COUGH OR WHEEZING. HE DOES COMPLAIN OF GETTING SHORT OF BREATH EASY WHEN HE STARTS WALKING OR DOES ANY PHYSICAL WORK, BUT HE DOES NOT HAVE TO STOP. DENIES ANY CHEST PAIN. 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 High cholesterol HTN (hypertension) Surgical History Previous back surgery Social History Alcohol intake: never Patient Tobacco Use Status: Never used Tobacco Advance Directives Date on File: 11/28/23 Review of Systems Const All systems reviewed & are unremarkable except as noted in HPI and below Eyes Reports no additional complaints ENT Reports no additional complaints Card Denies chest pain, Denies syncope, Denies irregular heart rhythm and Denies leg edema Resp Reports as per HPI GI Reports no additional complaints Reports no additional complaints Musc Reports no additional complaints Skin/Breast Reports system reviewed and no additional complaints, except as documented Neuro Reports no additional complaints and Denies syncope Psych Reports no additional complaints Endo Reports no additional complaints Kirk/Lymph Reports no additional complaints Physical Exam Vital Signs: Last Vital Signs Pulse 89 01/04/24 14:14 BP 166/88 H 01/04/24 14:14 Pulse Ox 97 01/04/24 14:14 Oxygen Delivery Method Room Air 01/04/24 14:14 BMI result Body Mass Index 21.5 Const General: healthy appearing, comfortable, no acute distress, alert and awake Orientation/consciousness: patient oriented x3 HEENT Head: Yes normal to inspection General nose exam: No nasal polyps present and No nasal discharge present Face and sinus: Yes sinuses nontender Mouth: oropharynx normal Throat: Yes posterior oropharynx normal Eyes General: appearance normal, both eyes and all related structures Neck Neck: Yes normal visual inspection, Yes no lymphadenopathy, Yes trachea midline and Yes no JVD Thyroid: Thyroid normal Chest Chest palpation & inspection: normal inspection of the chest, normal palpation of entire chest wall and no tenderness Resp Other: PERCUSSION NOTE IS RESONANT, BREATH SOUNDS ARE EQUAL ON BOTH SIDES. NO CREPITATIONS AND NO WHEEZES ARE HEARD Cardio Palpation: normal PMI Rate: regular rate Rhythm: regular rhythm Heart sounds: Gallop heart sound present and Murmur heart sound present Peripheral pulses: Peripheral pulses 2+ throughout GI Palpation (GI): Soft to palpation, Tenderness to palpation present (GI), No hepatosplenomegaly present and Palpable mass present Auscultation: normal bowel sounds Back/Spine/Pelvis Thoracic/Lumbar Spine: thoracic and lumbar spine normal to inspection Skin General skin exam: no rashes or lesions noted Neuro General: patient oriented x3 and no focal motor deficits Cranial nerves: Yes CN's II-XII intact bilaterally Extrem General: Yes normal to inspection, Yes no clubbing, cyanosis or edema and Yes no calf tenderness Psych Appearance: grossly normal and well kempt Speech and movement: Normal speech and movement present Results Reviewed Results Reviewed: PULMONARY FUNCTION TEST : FVC 73% INDICATING MILD RESTRICTIVE LUNG DISORDER. 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 THE RADIOLOGIC PICTURE IS CONSISTENT WITH THE EXPOSURE TO ASBESTOS ( ASBESTOSIS ) Code(s): J94.8 - Other specified pleural conditions Category: Medical Plan: EXPLAINED TO THE PATIENT THAT HE HAS CALCIFIED PLAQUES, NOT AFFECTING HIS LUNG FUNCTION. THESE ARE MOST LIKELY BENIGN. NO ACTIVE TREATMENT IS NEEDED. WILL SEE HIM IN 1 YEAR OR NEEDED . (2) Dyspnea on effort: Comment: HE HAS ONGOING DYSPNEA ON EXERTION SUCH WALKING FAST OR CLIMBING STAIRS, BUT ONLY OF A MILD DEGREE,. DOES VERY MILD, HE HAS A TENDENCY TO START WALKING FAST. PULMONARY FUNCTION TEST ALMOST NORMAL EXCEPT FOR VERY MINIMAL DEGREE OF RESTRICTIVE LUNG DISEASE. THERE IS NO EVIDENCE OF OBSTRUCTIVE AIRWAY DISORDER. Code(s): R06.09 - Other forms of dyspnea Category: Medical Plan: EXPLAINED TO HIM THOROUGHLY AND I SHOWED HIM ALL THE NUMBERS. REASSURED AND ADVISED TO DO DEEP BREATHING EXERCISES IF HE DEVELOPS ANY DYSPNEA. (3) Restrictive lung disease: Comment: PER PFT HE HAS MILD RESTRICTIVE DISORDER RELATED TO HIS PLEURAL PLAQUES, TLC=73 % DLCO IS NORMAL Code(s): J98.4 - Other disorders of lung Category: Medical Plan: NO TREATMENT NEEDED . 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
== END 2024-01-04 15:11 | disposition home or self-care (01) ==
LOC: HO.HPS 14:00
PROVIDERS: PCP Internal Medicine; Visit Provider Internal Medicine
DX: J98.4 Other disorders of lung (principal); J94.8 Other specified pleural conditions
CPT/HCPCS: 94060; 94727; 94729; 99213

== ENCOUNTER 2024-04-23 07:09 | Inpatient (IN) | payer MEDICARE, SELFPAY ==
--- NOTE | ~2024-04-23 | XR_ITS ---
EXAMINATION: XR HAND, LEFT CLINICAL INFORMATION: r/o fx vs ?osteo COMPARISON: None available. TECHNIQUE: PA, lateral, and oblique views of the left hand. FINDINGS: There is profound osteopenia of the osseous structures, with marked periarticular osteopenia of the PIP joint of the fourth digit. There is complete joint space loss, with [id number] appearance, and a suggestion of subtle erosive changes of the joint. Findings could relate to inflammatory versus infectious arthropathy. No fracture, dislocation, or suspicious bone lesion. Carpal bones demonstrate widening of the scapholunate interval to approximately 5 mm, consistent with early SLAC wrist. The capitate has interposed mildly into the superior scapholunate interval. Severe arthritis radiocarpal joint. Moderate degenerative arthritis throughout the DIP joints, and to a lesser degree PIP joints and interphalangeal joint of the thumb. There is joint space narrowing at the third MCP. No blunting of the ulnar styloid. 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 XR/XR hand LT min 3V IMPRESSION: 1. Osteopenia without definite fracture or dislocation. 2. Marked periarticular osteopenia with subtle erosive changes involving the fourth digit PIP joint. Infectious versus inflammatory arthropathy is suspected. 3. Early changes of SLAC wrist. 4. Degenerative arthropathy as discussed. Electronically signed by: Eric Irvin MD 04/23/2024 08:53 AM LIOR
[2024-04-23 07:25] VITALS: BP 175/82; PULSE 104; RESP 18; TEMP 36.8; O2SAT 97; BMI 21.7
--- OUTSIDE RECORDS SUMMARY | 2024-04-23 08:06 | XMS_ITS | Clinical Summary ---
Author Organization [facility] Address [address] [place] [address] Phone Care Team Providers Care Fiber Product Cutting Machine Operator Name Role Phone Wyatt Parada MD Primary Care Provider [phone] Allergies No known active allergies Medications lisinopril-hydro CHLOROthiazide (PRINZIDE,ZESTOR ETIC) 20-25 MG per tablet Take 1 tablet by mouth 1 (one) time each day Active atorvastatin (LIPITOR) 10 MG tablet Take 10 mg by mouth 09/01/2021 Active Active Problems Problem Noted Date Diagnosed Date Stage 3b chronic kidney disease 07/26/2023 Essential (primary) hypertension 07/26/2023 Renal osteodystrophy 07/26/2023 Gout, not otherwise specified 07/26/2023 Chronic kidney disease due to benign hypertensio n 07/26/2023 Immunizations Name Administration Dates Next Due Pfizer SARS-COV-2 05/02/2020,04/11/2020 Family History Medical History Relation Comments Heart disease Father Heart disease Mother Relation Status Comments Father Mother Social History Tobacco Use Types Packs/Day Years Used Date Smoking Tobacco: Never Tobacco Cessation:Counseling Given: Not Answered Alcohol Use Standard Drinks/Week Comments Never 0 (1 standard drink = 0.6 oz pur e alcohol) Sex and Gender Information Value Date Recorded Sex Assigned at Not on file Legal Sex Male 2:00 PM EDT Gender Identity Not on file Sexual Orientation Not on file Last Filed Vital Signs Vital Sign Reading Time Taken Comments Blood Pressure 137/64 07/26/2023 2:45 PM EDT Pulse 101 07/26/2023 2:45 PM EDT Temperature - - Respiratory Rate - - Oxygen Saturation 96% 07/26/2023 2:45 PM EDT Inhaled Oxygen Concentration - - Weight 52.8 kg (116 lb 6.4 oz) 07/26/2023 2:45 P M EDT Height - - Body Mass Index - - Plan of Treatment Health Maintenance Due Date Last Done Comments Pneumococcal Vaccine: 65+ Ye ars (1 of 2 - PCV) 12/13/1946 Influenza Vaccine (#1) 2023 Hepatitis B Vaccine Aged Out No longe r eligible based on patient's age to complete this topic Insurance [address] [place] [address] Care Teams Fiber Product Cutting Machine Operator Relationship Specialty Start Date End Date Wyatt Parada MD [id number] JERRYSEANZAINA HARRISON PCP - General Internal Medicine 06/07/23
--- OUTSIDE RECORDS SUMMARY | 2024-04-23 08:07 | XMS_ITS | Clinical Summary ---
Author Organization [facility] Address [address] [place] [address] Care Team Providers Care Radio Sales Account Executive Name Role Phone Daniel Palafox NP Primary Care Provider Social History Tobacco Use Types Packs/Day Years Used Date Smoking Tobacco: Never Smokeless Tobacco: Never Alcohol Use Standard Drinks/Week Comments Never 0 (1 standard drink = 0.6 oz pur e alcohol) Sex and Gender Information Value Date Recorded Sex Assigned at Not on file Legal Sex Male 12:22 AM EST Gender Identity Not on file Sexual Orientation Not on file Obstetrics History Plan of Treatment Health Maintenance Due Date Last Done Comments DTaP,Tdap,and Td Vaccines (1 - Tdap) 1959 Pneumococcal Vaccine: 50+ Ye ars (1 of 1 - PCV) 12/13/1991 Zoster Vaccines (1 of 2) 12/13/1991 RSV Immunization Patients 60 + Years Old (1 - 1-dose 75+ series) 2016 Cholesterol Screening (Lipid Panel) 01/30/2022 Depression Screening 01/30/2022 Falls Risk Assessment 01/30/2022 Social Influencers of Health Screening 01/30/2022 COVID-19 Vaccine (2023-2 5 season) 2023 Influenza Vaccine (#1) 2023 HIB Vaccines Aged Out No longer eligi ble based on patient's age to complete this topic HPV Vaccines Aged Out No longer eligi ble based on patient's age to complete this topic Hepatitis A Vaccines Aged Out No long er eligible based on patient's age to complete this topic Hepatitis B Vaccines Aged Out No long er eligible based on patient's age to complete this topic IPV Vaccines Aged Out No longer eligi ble based on patient's age to complete this topic MMR Vaccines Aged Out No longer eligi ble based on patient's age to complete this topic Meningococcal ACWY Vaccine Aged Out N o longer eligible based on patient's age to complete this topic Meningococcal B Vacine Aged Out No lo nger eligible based on patient's age to complete this topic RSV Immunization Patients Un homar 20 months Aged Out No longer eligible b ased on patient's age to complete this topic Varicella Vaccines Aged Out No longer eligible based on patient's age to complete this topic Care Teams Radio Sales Account Executive Relationship Specialty Start Date End Date Daniel Palafox NP [address] [facility] [place] PCP - General 03/05/21
--- NOTE | 2024-04-23 08:10 | ED_ITS ---
HPI - Skin/Abscess/Foreign Bdy General Chief complaint: Skin/Abscess/Foreign Body Stated complaint: swelling, infection on finger Time Seen by Provider: 04/23/24 07:58 Source: patient, RN notes reviewed and old records reviewed Mode of arrival: ambulatory History of Present Illness ED Provider: Lizeth Naylor PA-C HPI narrative: 83-year-old male with a past medical history of HLD, HTN, restrictive lung disease, presenting to the ED complaining of left 4th digit pain, swelling, and erythema worsening over the past 4 days. 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 Reports decreased ROM secondary to pain/swelling. Denies fever, drainage from area, additional injury/trauma. Also reports had x-rays that were unremarkable Related Data Home Medications ?Medication ?Instructions ?Recorded ?Confirmed allopurinol 300 mg tablet 300 mg PO DAILY 04/23/24 04/23/24 lisinopril 20 1 tab PO DAILY 04/23/24 04/23/24 mg-hydrochlorothiazide 25 mg tablet Allergies Allergy/AdvReac Type Severity Reaction Status Date / Time No Known Allergies Allergy Verified 04/23/24 07:27 [No Known Allergies*] Review of Systems 2 Review of Systems: Yes all other systems are reviewed and are negative Constitutional: Constitutional: Reports as per HPI [facility] Past Medical History Attestation statement: The following information was validated with the patient. 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 High cholesterol HTN (hypertension) Surgical History Previous back surgery Social History Social History Alcohol intake: never Patient Tobacco Use Status: Never used Tobacco Use of substances other than those prescribed or required for medical reasons: No Advance Directives: Yes Advance Directives on File: Yes Advance Directives Date on File: 11/28/23 Do you have a plan to hurt others: No Plan Physical Exam 2 Vital Signs: Vital Signs: Last Vital Signs Temp 98.3 F 04/23/24 07:25 Pulse 80 04/23/24 13:38 Resp 16 04/23/24 13:38 BP 185/84 H 04/23/24 13:38 Pulse Ox 97 04/23/24 13:38 O2 Del Method Room Air 04/23/24 13:38 BMI result Body Mass Index 21.7 Const: General: cooperative, healthy appearing and no acute distress O rientation/consciousness: patient oriented x3 Limitations: no limitations HEENT: Head: Yes normal to inspection and Yes atraumatic Ears: hearing grossly normal bilaterally General nose exam: Normal external nose present Face and sinus: Yes normal facial exam Eyes: General: appearance normal, both eyes and all related structures EOM: EOMs intact bilaterally Neck: Neck: Yes normal visual inspection and Yes no meningeal signs Resp: Effort & Inspection: normal respiratory effort and no respiratory distress Cardio: Rate: regular rate Skin: Rashes: no rashes Neuro: General: patient oriented x3, tone normal and no meningeal signs C ranial nerves: Yes CN's II-XII intact bilaterally Gait exam (Neuro): Normal gait present Extrem: Other: Please refer to image above. Left 4th digit with swelling, erythema, tenderness. No focal fluctuance. ROM limited. Sensation intact to light touch. Neurovascularly intact Course Course Course Narrative: -0921-no leukocytosis. H&H at patient's baseline. Chronically elevated BUN. CRP elevated to 4.78 XR hand LT min 3V IMPRESSION: 1. Osteopenia without definite fracture or dislocation. 2. Marked periarticular osteopenia with subtle erosive changes involving the fourth digit PIP joint. Infectious versus inflammatory arthropathy is suspected. 3. Early changes of SLAC wrist. 4. Degenerative arthropathy as discussed. > will consult Orthopedi [facility]AN[facility] [place] > evaluated patient in the ED and plan is for medicine admit and OR tomorrow w/Dr. Herr. Will discuss case with hospitalist Dr. Hurst Medications Administered Generic Name Dose Route Start Last Admin Trade Name Freq PRN Reason Stop Dose Admin Amlodipine Besylate 2.5 mg 04/23/24 13:50 04/23/24 14:08 Amlodipine Besylate 2.5 Mg Tablet PO 2.5 mg DAILY SHAKIRA Administration Protocol Sodium Chloride 3 ml 04/23/24 16:00 04/23/24 15:28 0.9 % Sodium Chloride Flush 3 Ml Syringe IVFLUSH 3 ml QSHIFT SHAKIRA Administration Discontinued Medications Generic Name Dose Route Start Last Admin Trade Name Hilary PRN Reason Stop Dose Admin Acetaminophen 650 mg 04/23/24 08:06 04/23/24 09:07 Acetaminophen 325 Mg Tablet PO 04/23/24 08:07 650 mg ONCE ONE Administration Ceftriaxone Sodium 1 gm 04/23/24 08:12 04/23/24 09:08 Ceftriaxone Sodium 1 Gm Vial IVPUSH 04/23/24 08:13 1 gm ONCE ONE Administration Vancomycin HCl 1,250 mg/ 250 mls @ 166.667 mls/hr 04/23/24 08:12 04/23/24 10:44 Sodium Chloride IV 04/23/24 09:41 Infused ONCE ONE Infusion Medical Decision Making Medical Decision Making [facility] Narrative: 83-year-old male with a past medical history of HLD, HTN, restrictive lung disease, presenting to the ED complaining of left 4th digit pain, swelling, and erythema worsening over the past 4 days. On exam mildly tachycardic, NAD, nontoxic appearing, physical exam as noted above, please refer to image. Concern for cellulitis vs underlying fracture vs tenosynovitis vs septic joint vs abscess. Osteomyelitis on differential. Plan: Labs, blood culture/lactic, x-ray, empiric IV antibiotics, orthopedic consult, anticipated admission Please refer to course for remaining clinical decision making, interpretation of labs/imaging results, and discussions with consultants and/or family members. Differential Diagnosis Differential Diagnoses: The differential diagnosis associated with the presentation includes As above Admission/Observation Consideration of admission/observation: Escalation of care including admission/observation considered Consult Healthcare Provider Management of the patient was discussed with: Hospitalist and Secondary Education Professor (Orthopedics) Lab Data [facility] Lab Attestation statement: I reviewed the patient's lab results. 04/23/24 08:33 04/23/24 08:33 Labs: Lab Results 04/23/24 Range/Units 08:33 WBC 10.3 (4.8-10.8) X10*3/uL RBC 4.10 L (4.60-5.80) X10*6/uL Hgb 12.9 L (14.0-18.0) g/dl Hct 38.7 L (42.0-52.0) % MCV 94.4 (80.0-98.0) fL MCH 31.5 (27.0-33.0) pg MCHC 33.3 (31.0-36.0) g/dl RDW 13.7 (11.0-16.0) % Plt Count 196 (160-400) X10*3/uL MPV 11.2 (9.4-12.4) fL Immature Gran % (Auto) 0.3 (0.0-0.4) % Neut % (Auto) 75.9 H (45-73) % Lymph % (Auto) 11.9 L (20-40) % [place] % (Auto) 9.9 (2-11) % Eos % (Auto) 1.7 (0-4) % Baso % (Auto) 0.3 (0-2) % Lymph # (Auto) 1.2 (1.2-4.9) X10*3/uL [place] # (Auto) 1.0 (0.1-1.2) X10*3/uL Eos # (Auto) 0.2 (0.0-0.4) X10*3/uL Baso # (Auto) 0.0 (0.0-0.2) X10*3/uL Abs Immat Gran (auto) 0.03 (0.00-0.03) X10*3/uL Absolute Neuts (auto) 7.8 (2.0-8.3) x10*3/uL Absolute Nucleated RBC 0.000 (0.0-0.012) X10*3/uL Nucleated RBC % (auto) 0.0 (0.0-0.2) /100WBC ESR 44 H (0-15) MM/HR Sodium 140 (135-145) mmol/L Potassium 4.2 (3.3-5.1) mmol/L Chloride 107 (96-108) mmol/L Carbon Dioxide 23 (22-29) mmol/L Anion Gap 14 (12-20) BUN 38 H (9-16) mg/dL Creatinine 1.31 (0.5-1.4) mg/dL Estim Creat Clear Calc 32.0 Estimated GFR 52 Random Glucose 106 (60-115) mg/dL Lactic Acid 1.5 (0.5-2.0) mmol/L Uric Acid 5.5 (3.4-7.0) mg/dL Calcium 9.7 (8.4-10.2) mg/dL Total Bilirubin 0.3 (0.0-1.0) mg/dL Direct Bilirubin 0.1 (0.0-0.5) mg/dL AST 27 (5-37) U/L ALT 21 (0-40) U/L Alkaline Phosphatase 100 (39-117) U/L C-Reactive Protein 4.78 H (< or = 0.50) mg/dL Total Protein 7.9 (6.5-8.0) g/dL Albumin 4.3 (3.5-5.0) g/dL Independent Interpretation I performed an independent interpretation of an: Plain X-Ray Radiology Impression Discussion of test interpretation with radiology: I have reviewed the radiologist's reading. External Record Review External record reviewed: Inpatient record, Office record, Outpatient record, Prior outpatient labs, Prior outpatient radiology, Primary care record and Outside ED record Tests considered The following testing was considered but not selected: As above Prescription Management I considered prescription management with: Pain Medication Chronic Conditions Patient?s care impacted by: Hypertension Social Determinants Patient?s care significantly limited by Social Determinants of Health including: Other Social Determinant of Health Discharge Plan Discharge Clinical Impression: Tenosynovitis Patient Disposition: Admitted As Inpatient Interventions: Admission Worksheet (ED) Last Done: 04/23/24 15:40
[2024-04-23 08:39] LABS: MANUAL DIFF FLAG NO
[2024-04-23 08:46] LABS: Basophils Percent Auto 0.3 % (0-2); Eosinophils Absolute Auto 0.2 X10*3/uL (0.0-0.4); Eosinophils Percent Auto 1.7 % (0-4); Hematocrit 38.7 % (42.0-52.0); Hemoglobin 12.9 g/dl (14.0-18.0); Imm Gran Abs Auto 0.03 X10*3/uL (0.00-0.03); Imm Gran Pct Auto 0.3 % (0.0-0.4); Lymphocytes Absolute Auto 1.2 X10*3/uL (1.2-4.9); Lymphocytes Percent Auto 11.9 % (20-40); Mean Corpuscular HGB Conc 33.3 g/dl (31.0-36.0); Mean Corpuscular Hemoglobin 31.5 pg (27.0-33.0); Mean Corpuscular Volume 94.4 fL (80.0-98.0); Mean Platelet Volume 11.2 fL (9.4-12.4); Monocytes Percent Auto 9.9 % (2-11); Neutrophils Absolute Auto 7.8 x10*3/uL (2.0-8.3); Neutrophils Percent Auto 75.9 % (45-73); Platelet Count 196 X10*3/uL (160-400); Red Cell Distribution Width 13.7 % (11.0-16.0); White Blood Count 10.3 X10*3/uL (4.8-10.8)
[2024-04-23 08:57] LABS: Lactic Acid 1.5 mmol/L (0.5-2.0)
[2024-04-23 08:58] LABS: Alanine Aminotransferase 21 U/L (0-40); Albumin Level 4.3 g/dL (3.5-5.0); Alkaline Phosphatase 100 U/L (39-117); Anion Gap 14 (12-20); Aspartate Amino Transferase 27 U/L (5-37); Bilirubin Direct 0.1 mg/dL (0.0-0.5); Bilirubin Total 0.3 mg/dL (0.0-1.0); Blood Urea Nitrogen 38 mg/dL (9-16); C Reactive Protein 4.78 mg/dL (< or = 0.50); Calcium 9.7 mg/dL (8.4-10.2); Carbon Dioxide 23 mmol/L (22-29); Chloride 107 mmol/L (96-108); Estimated Glomerular Filt Rate 52; Glucose Random 106 mg/dL (60-115); Potassium 4.2 mmol/L (3.3-5.1); Sodium 140 mmol/L (135-145); Total Protein 7.9 g/dL (6.5-8.0)
[2024-04-23 08:59] LABS: Uric Acid 5.5 mg/dL (3.4-7.0)
[2024-04-23] MEDS: Acetaminophen 325 MG TABLET 650 MG PO (09:07)
[2024-04-23] MEDS: cefTRIAXone sodium 1 GM VIAL IVPUSH (09:08)
[2024-04-23] MEDS: vancomycin HCL 1,250 MG in 0.9 % Sodium Chloride 250 ML 166.67 MG IV (09:08)
[2024-04-23 09:27] LABS: Erythrocyte Sedimentation Rate 44 MM/HR (0-15)
--- NOTE | 2024-04-23 11:49 | P.CONOP_ITS ---
History of Present Illness HPI Consult date: 04/23/24 Chief complaint: cellulitis and tenosynovitis of left 4th finger Narrative: 83-year-old male with a past medical history of HLD, HTN, restrictive lung disease admitted to the medical service for left 4th digit pain, swelling, and erythema worsening over the past 4 days. 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 Reports decreased ROM secondary to pain/swelling. Denies fever, drainage from area, additional injury/trauma. Also reports had x-rays that were unremarkable. Of note patient has not been diagnosed with gout, urgent care was covering him for it as a suspicion. 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 High cholesterol HTN (hypertension) Surgical History Surgical History Previous back surgery Social History Social History Alcohol intake: never Patient Tobacco Use Status: Never used Tobacco Use of substances other than those prescribed or required for medical reasons: No Advance Directives: Yes Advance Directives on File: Yes Advance Directives Date on File: 11/28/23 Do you have a plan to hurt others: No Plan Meds Allergies Allergy/AdvReac Type Severity Reaction Status Date / Time No Known Allergies Allergy Verified 04/23/24 07:27 [No Known Allergies*] Home Medications ?Medication ?Instructions ?Recorded ?Confirmed ?Last Taken ?Type allopurinol 300 mg tablet 300 mg PO DAILY 04/23/24 04/23/24 1 Day Ago History ~04/22/24 lisinopril 20 1 tab PO DAILY 04/23/24 04/23/24 04/23/24 History mg-hydrochlorothiazide 25 mg tablet Physical Exam 2 Vital Signs: Vital Signs: Last Vital Signs Temp 98.3 F 04/23/24 07:25 Pulse 104 H 04/23/24 07:25 Resp 18 04/23/24 07:25 BP 175/82 H 04/23/24 07:25 Pulse Ox 97 04/23/24 07:25 O2 Del Method Room Air 04/23/24 07:25 BMI result Body Mass Index 21.7 Const: General: cooperative, healthy appearing, comfortable, no acute distress and well developed Extrem: Other: Left ring finger dorsal redness No redness, pain or swelling along the volar aspect of the finger or hand He has mild pain with axial loading of the PIP joint of the ringer finger Mild discomfort with passive extension; however no pain along the flexor tendon Cap refill brisk Sensation intact Results Labs 04/23/24 08:33 04/23/24 08:33 Labs: Abnormal lab results 04/23/24 Range/Units 08:33 RBC 4.10 L (4.60-5.80) X10*6/uL Hgb 12.9 L (14.0-18.0) g/dl Hct 38.7 L (42.0-52.0) % Neut % (Auto) 75.9 H (45-73) % Lymph % (Auto) 11.9 L (20-40) % ESR 44 H (0-15) MM/HR BUN 38 H (9-16) mg/dL C-Reactive Protein 4.78 H (< or = 0.50) mg/dL H & H 04/23/24 Range/Units 08:33 Hgb 12.9 L (14.0-18.0) g/dl Hct 38.7 L (42.0-52.0) % All other labs normal. Assessment and Plan (1) Abscess of left ring finger: Status: Acute Plan Discussed the case with Dr Herr VIA jemma and the decision was made to proceed with surgical intervention. I discussed the extent of procedure with the patient along with recovery process. I discussed the risk, benefits and alternatives; risk including, but not limited to ongoing infection, stiffness, pain, and injury to surrounding bone , nerves and tendon. I also explained potential need for repeat surgeries. At this time he will continue with IV abx, NPo after midnight . Patient is content with this plan and wished to proceed with Left ring finger I&D with Dr Herr. Procedures Date of Service Date of Service: 04/23/24
--- NOTE | 2024-04-23 13:05 | PHA.MEDREC ---
Addendum entered by Chavez Mcconnell RPh 04/23/24 13:54: Med rec was reviewed by Ori. Original Note: Pharmacy Consult ? Medication Reconciliation Pharmacy has completed the medication reconciliation. Spoke with patient and he confirmed what he is taking. He confirmed he took the Lisionpril-Hydrochlorothiazide 20-25mg tab this morning and hes pretty sure he took the Allopurinol 300mg tab yesterday.
--- NOTE | 2024-04-23 13:24 | P.HPHOSP_ITS ---
History of Present Illness Date of Service: 04/23/24 Chief Complaint: left 4th finger swelling, pain and redness AG old male with hypertension, gout who presented with a left 4th digit swelling pain and redness. But a month ago he tripped and fell on hold does and the injured the finger. He has seen his primary care physician on numerous occasion and that has been treated with oral antibiotics. Over the last 3-4 days he has noticed increased redness, and swelling and little pain. He has no fever but has had chills. X-ray shows,1. Osteopenia without definite fracture or dislocation. 2. Marked periarticular osteopenia with subtle erosive changes involving the fourth digit PIP joint. Infectious versus inflammatory arthropathy is suspected. 3. Early changes of SLAC wrist. 4. Degenerative arthropathy as discussed. He has no white count. CRP is only 4.78, ESR is 44 ED treatment: Ceftriaxone and vancomycin. 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 High cholesterol HTN (hypertension) Surgical History Previous back surgery Social History Household Members: None Housing: Other Housing Other:: mobile home/trailer Do you presently have visiting nurse or other home services: No Alcohol intake: never Patient Tobacco Use Status: Never used Tobacco Advance Directives Date on File: 11/28/23 service: No Meds Allergies Allergy/AdvReac Type Severity Reaction Status Date / Time No Known Allergies Allergy Verified 04/23/24 07:27 [No Known Allergies*] Home Medications ?Medication ?Instructions ?Recorded ?Confirmed ?Last Taken ?Type allopurinol 300 mg tablet 300 mg PO DAILY 04/23/24 04/23/24 1 Day Ago History ~04/22/24 lisinopril 20 1 tab PO DAILY 04/23/24 04/23/24 04/23/24 History mg-hydrochlorothiazide 25 mg tablet Physical Exam 2 Vital Signs and Narrative: Vital Signs: Last Vital Signs Temp 98.3 F 04/23/24 07:25 Pulse 104 H 04/23/24 07:25 Resp 18 04/23/24 07:25 BP 175/82 H 04/23/24 07:25 Pulse Ox 97 04/23/24 07:25 O2 Del Method Room Air 04/23/24 07:25 BMI result Body Mass Index 21.7 Const: Other: General: AO X 3, no acute distress Resp: CTA bilateral CVS: S1,S2,RRR GI: +BS, NT, no distention Skin: No rash MSK: swelling left 4th digit, and redness Neuro: motor grossly intact Psych: appropriate affect Results Labs 04/24/24 05:49 04/24/24 05:49 Labs: Laboratory Results - last 24 hr 04/23/24 08:33 MCV 94.4 MCH 31.5 MCHC 33.3 RDW 13.7 Plt Count 196 MPV 11.2 Immature Gran % (Auto) 0.3 Neut % (Auto) 75.9 H Lymph % (Auto) 11.9 L Oliver % (Auto) 9.9 Eos % (Auto) 1.7 Baso % (Auto) 0.3 Lymph # (Auto) 1.2 Oliver # (Auto) 1.0 Eos # (Auto) 0.2 Baso # (Auto) 0.0 Abs Immat Gran (auto) 0.03 Absolute Neuts (auto) 7.8 Absolute Nucleated RBC 0.000 Nucleated RBC % (auto) 0.0 ESR 44 H Anion Gap 14 Estim Creat Clear Calc 32.0 Estimated GFR 52 Random Glucose 106 Lactic Acid 1.5 Uric Acid 5.5 Calcium 9.7 Total Bilirubin 0.3 Direct Bilirubin 0.1 AST 27 ALT 21 Alkaline Phosphatase 100 C-Reactive Protein 4.78 H Total Protein 7.9 Albumin 4.3 Imaging Radiologist's Impressions: Impressions Hand X-Ray 04/23/24 08:06 IMPRESSION: 1. Osteopenia without definite fracture or dislocation. 2. Marked periarticular osteopenia with subtle erosive changes involving the fourth digit PIP joint. Infectious versus inflammatory arthropathy is suspected. 3. Early changes of SLAC wrist. 4. Degenerative arthropathy as discussed. Electronically signed by: Eric Irvin MD 04/23/2024 08:53 AM EST Assessment and Plan (1) Tenosynovitis: Status: Acute Plan 83-year-old male with hypertension, gout here with a swelling redness of left 4th finger, with concern of tenosynovitis. Left 4th finger swelling and redness appearance consistent with cellulitis however tenosynovitis is also of concern Ortho consult continue vanco and Ceftriaxone culture pending HTN BP on higher side resume home meds and adust as needed h/o Gout continue allopurinol DVT full code regular diet at least 2 midnights admission for IV abx for tenosynovitis and cellulitis of the hand Quality Stroke Does the patient have a stroke diagnosis?: No VTE Prior VTE?: No VTE Risk Level:: Medical - moderate - high VTE Device Contraindication: Treatment Not Indicated VTE Drug Contraindication: N/A - Med Ordered
[2024-04-23 13:38] VITALS: BP 185/84; PULSE 80; RESP 16; O2SAT 97
[2024-04-23] MEDS: amLODIPine Besylate 2.5 MG TABLET PO (14:08)
[2024-04-23] MEDS: 0.9 % Sodium Chloride Flush 3 ML SYRINGE IVFLUSH (15:28)
[2024-04-23 16:41] VITALS: BP 146/72; PULSE 77; RESP 16; TEMP 36.6; O2SAT 97
[2024-04-23 19:42] VITALS: BP 155/71; PULSE 82; RESP 17; TEMP 36.5; O2SAT 97
[2024-04-24 03:38] VITALS: BP 133/70; PULSE 79; RESP 16; TEMP 36.6; O2SAT 96
[2024-04-24 06:08] LABS: Hematocrit 38.4 % (42.0-52.0); Hemoglobin 12.5 g/dl (14.0-18.0); Mean Corpuscular HGB Conc 32.6 g/dl (31.0-36.0); Mean Corpuscular Hemoglobin 30.7 pg (27.0-33.0); Mean Corpuscular Volume 94.3 fL (80.0-98.0); Mean Platelet Volume 10.9 fL (9.4-12.4); Platelet Count 194 X10*3/uL (160-400); Red Blood Count 4.07 X10*6/uL (4.60-5.80); Red Cell Distribution Width 13.6 % (11.0-16.0); White Blood Count 8.5 X10*3/uL (4.8-10.8)
[2024-04-24 06:18] LABS: Alanine Aminotransferase 16 U/L (0-40); Albumin Level 3.9 g/dL (3.5-5.0); Alkaline Phosphatase 90 U/L (39-117); Anion Gap 14 (12-20); Aspartate Amino Transferase 28 U/L (5-37); Bilirubin Total 0.4 mg/dL (0.0-1.0); Blood Urea Nitrogen 32 mg/dL (9-16); Calcium 9.2 mg/dL (8.4-10.2); Carbon Dioxide 22 mmol/L (22-29); Chloride 107 mmol/L (96-108); Creatinine Clr Calc Pharmacy 34.7; Estimated Glomerular Filt Rate 57; Glucose Random 101 mg/dL (60-115); Potassium 3.9 mmol/L (3.3-5.1); Sodium 139 mmol/L (135-145); Total Protein 7.2 g/dL (6.5-8.0)
[2024-04-24 07:41] VITALS: BP 110/56; PULSE 97; RESP 18; TEMP 36.6; O2SAT 94
--- NOTE | 2024-04-24 08:42 | PM.PNORT ---
Subjective Subjective Date of Service: 04/24/24 Interval history: Patient admitted to the hospital for treatment of left ring finger abscess Patient reports symptoms have improved since yesterday Has been on IV antibiotics per Medicine No acute events overnight No other acute complaints or concerns at this time Physical Exam Vital Signs: Vital Signs: Last Vital Signs Temp 97.9 F 04/24/24 07:41 Pulse 97 04/24/24 07:41 Resp 18 04/24/24 07:41 BP 110/56 L 04/24/24 07:41 Pulse Ox 94 04/24/24 07:41 O2 Del Method Room Air 04/24/24 07:41 BMI result Body Mass Index 21.7 Const: General: cooperative, healthy appearing, comfortable, no acute distress and well developed Extrem: Other: Left ring finger dorsal redness improved from yesterday No redness, pain or swelling along the volar aspect of the finger or hand He has mild pain with axial loading of the PIP joint of the ringer finger Mild discomfort with passive extension; however no pain along the flexor tendon Cap refill brisk Sensation intact Procedures Date of Service Date of Service: 04/24/24 Progress Note: A&P Assessment and plan (1) Abscess of left ring finger: Status: Acute Plan 1. Abscess of the left ring finger I educated the patient about the condition. I discussed both operative and nonoperative treatment options. The patient would like to proceed with surgery. The risks and benefits of operative treatment were discussed with the patient and the patient wishes to proceed with surgery. These risks include, but are not limited to, risk of damage to blood vessels, nerves, tendons, infection, recurrence, incomplete relief of preoperative symptoms, persistent pain, possible need for further surgery, and the risks associated with regional blocks and/or anesthesia. Plan is to take the patient to the operating room at some point tomorrow, 04/25/2024 for the following procedures: 1. I and D of left ring finger under general Time Spent With Patient Time: Total time managing care of this patient today ____ minutes. Quality Stroke Does the patient have a stroke diagnosis?: No VTE Prior VTE?: No VTE Risk Level:: Medical - moderate - high VTE Device Contraindication: Treatment Not Indicated VTE Drug Contraindication: N/A - Med Ordered
[2024-04-24 08:45] VITALS: BP 122/62
[2024-04-24] MEDS: cefTRIAXone sodium 1 GM VIAL IVPUSH (08:52)
[2024-04-24] MEDS: vancomycin HCL 750 MG in 0.9 % Sodium Chloride 250 ML 265 MG IV (08:52)
[2024-04-24] MEDS: allopurinoL 300 MG TABLET PO (08:53)
[2024-04-24] MEDS: amLODIPine Besylate 2.5 MG TABLET PO (09:16)
[2024-04-24] MEDS: lisinopriL 20 MG, hydroCHLOROthiazide 25 MG PO (09:19)
--- NOTE | 2024-04-24 09:47 | MHC.CM.PN ---
IMM delivered. Patient lives in a mobile home alone. Functionally independent. Denies use of DME or services. PCP Wyatt Parada MD HCP on file and verified. HCA is Marli, sister in law. DP: Goal is home self care. Open to VNA service if recommended for wound care. No agency preference. Referrals to [facility] contracted agencies sent via [employer]. Friend, Kwan, will transport home. CM will continue to follow.
--- NOTE | 2024-04-24 10:42 | P.PNIM_ITS ---
Subjective Subjective Date of Service: 04/24/24 Interval History: On tenosynovitis/cellulitis of the left 4th finger, the erythema looks improved Physical Exam 2 Vital Signs: Vital Signs: Last Vital Signs Temp 97.9 F 04/24/24 07:41 Pulse 97 04/24/24 07:41 Resp 18 04/24/24 07:41 BP 122/62 04/24/24 08:45 Pulse Ox 94 04/24/24 07:41 O2 Del Method Room Air 04/24/24 07:41 BMI result Body Mass Index 21.7 Const: Other: General: AO X 3, no acute distress Resp: CTA bilateral CVS: S1,S2,RRR GI: +BS, NT, no distention Skin: No rash Neuro: motor grossly intact Psych: appropriate affect Objective Data Active Medications Acetaminophen (Acetaminophen 325 Mg Tablet) 650 mg PO Q6H PRN PRN Reason: Pain, Mild 1-3,fever,headache Allopurinol (Allopurinol 300 Mg Tablet) 300 mg PO DAILY [facility] Last Admin: 04/24/24 08:53 Dose: 300 mg Documented By: MARIO Amlodipine Besylate (Amlodipine Besylate 2.5 Mg Tablet) 2.5 mg PO DAILY [facility]; Protocol Last Admin: 04/24/24 09:16 Dose: 2.5 mg Documented By: MARIO Calcium Carbonate (Calcium Carbonate 750 Mg Tab.Chew) 750 mg PO Q4H PRN PRN Reason: Heartburn Ceftriaxone Sodium (Ceftriaxone Sodium 1 Gm Vial) 1 gm IVPUSH Q24H [facility] Last Admin: 04/24/24 08:52 Dose: 1 gm Documented By: MARIO Lisinopril 20 mg/ (Hydrochlorothiazide 25 mg) 0 mg PO DAILY [facility] Last Admin: 04/24/24 09:19 Dose: 45 tablet Documented By: MARIO Vancomycin HCl 750 mg/ Sodium (Chloride) 265 mls @ 265 mls/hr IV Q24H [facility] Last Admin: 04/24/24 08:52 Dose: 265 mls/hr Documented By: MARIO Magnesium Hydroxide (Milk Of Magnesia 30 Ml Oral.Susp) 30 ml PO DAILY PRN PRN Reason: Constipation Melatonin (Melatonin 3 Mg Tablet) 6 mg PO BEDTIME PRN PRN Reason: Insomnia Morphine Sulfate (Morphine Sulfate 4 Mg/Ml Cartridge) 2 mg IVPUSH Q6H PRN; Protocol PRN Reason: Pain, Severe (Pain Scale 7-10) Pharmacy Consult (Consult Rx Vancomycin Dosing) 1 each MISCELLANE DAILY PRN PRN Reason: Consult order Sodium Chloride (0.9 % Sodium Chloride Flush 3 Ml Syringe) 3 ml IVFLUSH QSHIFT [facility] Last Admin: 04/24/24 09:17 Dose: Not Given Documented By: MARIO Non-Admin Reason: Previously Administered Labs 04/24/24 05:49 04/24/24 05:49 Labs: Laboratory Results - last 24 hr 04/24/24 05:49 MCV 94.3 MCH 30.7 MCHC 32.6 RDW 13.6 Plt Count 194 MPV 10.9 Absolute Nucleated RBC 0.000 Nucleated RBC % (auto) 0.0 Anion Gap 14 Estim Creat Clear Calc 34.7 Estimated GFR 57 Random Glucose 101 Calcium 9.2 Total Bilirubin 0.4 AST 28 ALT 16 Alkaline Phosphatase 90 Total Protein 7.2 Albumin 3.9 Microbiology Microbiology Results: Microbiology 04/23/24 08:38 Blood Culture - Preliminary Blood - Venous No growth after 24 hours. 04/23/24 08:33 Blood Culture - Preliminary Blood - Venous No growth after 24 hours. Assessment and Plan (1) Tenosynovitis: Status: Acute Plan 83-year-old male with hypertension, gout here with a swelling redness of left 4th finger, with concern of tenosynovitis. Left 4th finger swelling and redness appearance consistent with cellulitis however tenosynovitis is also of concern for I and D tomorrow continue vanco and Ceftriaxone culture pending HTN continue hctz and lisinopril h/o Gout continue allopurinol DVT: lovenox full code regular diet at least 2 midnights admission for IV abx for tenosynovitis and cellulitis of the hand Quality Stroke Does the patient have a stroke diagnosis?: No VTE Prior VTE?: No VTE Risk Level:: Medical - moderate - high VTE Device Contraindication: Treatment Not Indicated VTE Drug Contraindication: N/A - Med Ordered
[2024-04-24] MEDS: Enoxaparin Sodium 40 MG/0.4 ML SYRINGE SUBCUT (11:49)
[2024-04-24 15:33] VITALS: BP 134/72; PULSE 66; RESP 18; TEMP 36.7; O2SAT 96
[2024-04-24 19:16] VITALS: BP 134/63; PULSE 88; RESP 18; TEMP 36.5; O2SAT 95
[2024-04-24] MEDS: 0.9 % Sodium Chloride Flush 3 ML SYRINGE IVFLUSH (19:51)
[2024-04-25] VITALS (9 sets, daily range): BP systolic 101–136; BP diastolic 40–97; PULSE 74–96; RESP 12–18; TEMP 36.1–36.8; O2SAT 93–98
[2024-04-25 06:00] LABS: Alanine Aminotransferase 17 U/L (0-40); Albumin Level 3.8 g/dL (3.5-5.0); Alkaline Phosphatase 89 U/L (39-117); Anion Gap 15 (12-20); Aspartate Amino Transferase 30 U/L (5-37); Bilirubin Total 0.4 mg/dL (0.0-1.0); Blood Urea Nitrogen 39 mg/dL (9-16); Calcium 9.1 mg/dL (8.4-10.2); Carbon Dioxide 23 mmol/L (22-29); Chloride 106 mmol/L (96-108); Creatinine Clr Calc Pharmacy 28.7; Estimated Glomerular Filt Rate 46; Glucose Random 102 mg/dL (60-115); Potassium 4.3 mmol/L (3.3-5.1); Sodium 140 mmol/L (135-145); Total Protein 6.8 g/dL (6.5-8.0)
[2024-04-25] MEDS: Acetaminophen 325 MG TABLET 650 MG PO (07:46)
[2024-04-25 07:49] LABS: Vancomycin Random 10.9 mcg/mL (15-20)
[2024-04-25] MEDS: cefTRIAXone sodium 1 GM VIAL IVPUSH (08:55)
[2024-04-25] MEDS: 0.9 % Sodium Chloride Flush 3 ML SYRINGE IVFLUSH ×3 (08:56→20:30)
[2024-04-25] MEDS: vancomycin HCL 750 MG in 0.9 % Sodium Chloride 250 ML 265 MG IV (08:56)
--- NOTE | 2024-04-25 10:40 | P.PNIM_ITS ---
Subjective Subjective Date of Service: 04/25/24 Interval History: On tenosynovitis/cellulitis of the left 4th finger, the erythema looks improved Physical Exam 2 Vital Signs: Vital Signs: Last Vital Signs Temp 97.2 F 04/25/24 07:58 Pulse 76 04/25/24 07:58 Resp 16 04/25/24 07:58 BP 119/66 04/25/24 07:58 Pulse Ox 93 04/25/24 07:58 O2 Del Method Room Air 04/25/24 07:58 BMI result Body Mass Index 21.7 Const: Other: General: AO X 3, no acute distress Resp: CTA bilateral CVS: S1,S2,RRR GI: +BS, NT, no distention Skin: No rash Neuro: motor grossly intact Psych: appropriate affect Objective Data Active Medications Acetaminophen (Acetaminophen 325 Mg Tablet) 650 mg PO Q6H PRN PRN Reason: Pain, Mild 1-3,fever,headache Last Admin: 04/25/24 07:46 Dose: 650 mg Documented By: BRITTAEC Allopurinol (Allopurinol 300 Mg Tablet) 300 mg PO DAILY [facility] Last Admin: 04/24/24 08:53 Dose: 300 mg Documented By: MARIO Amlodipine Besylate (Amlodipine Besylate 2.5 Mg Tablet) 2.5 mg PO DAILY [facility]; Protocol Last Admin: 04/24/24 09:16 Dose: 2.5 mg Documented By: MARIO Calcium Carbonate (Calcium Carbonate 750 Mg Tab.Chew) 750 mg PO Q4H PRN PRN Reason: Heartburn Ceftriaxone Sodium (Ceftriaxone Sodium 1 Gm Vial) 1 gm IVPUSH Q24H [facility] Last Admin: 04/25/24 08:55 Dose: 1 gm Documented By: JOHNNIE Lisinopril 20 mg/ (Hydrochlorothiazide 25 mg) 0 mg PO DAILY [facility] Last Admin: 04/24/24 09:19 Dose: 45 tablet Documented By: MARIO Enoxaparin Sodium (Enoxaparin Sodium 40 Mg/0.4 Ml Syringe) 40 mg SUBCUT Q24H [facility] Last Admin: 04/24/24 11:49 Dose: 40 mg Documented By: MARIO Vancomycin HCl 750 mg/ Sodium (Chloride) 265 mls @ 265 mls/hr IV Q24H [facility] Last Admin: 04/25/24 08:56 Dose: 265 mls/hr Documented By: JOHNNIE Magnesium Hydroxide (Milk Of Magnesia 30 Ml Oral.Susp) 30 ml PO DAILY PRN PRN Reason: Constipation Melatonin (Melatonin 3 Mg Tablet) 6 mg PO BEDTIME PRN PRN Reason: Insomnia Morphine Sulfate (Morphine Sulfate 4 Mg/Ml Cartridge) 2 mg IVPUSH Q6H PRN; Protocol PRN Reason: Pain, Severe (Pain Scale 7-10) Pharmacy Consult (Consult Rx Vancomycin Dosing) 1 each MISCELLANE DAILY PRN PRN Reason: Consult order Sodium Chloride (0.9 % Sodium Chloride Flush 3 Ml Syringe) 3 ml IVFLUSH QSHIFT [facility] Last Admin: 04/25/24 08:56 Dose: 3 ml Documented By: JOHNNIE Labs 04/24/24 05:49 04/25/24 05:33 Labs: Laboratory Results - last 24 hr 04/25/24 04/25/24 05:33 07:27 Anion Gap 15 Estim Creat Clear Calc 28.7 Estimated GFR 46 Random Glucose 102 Calcium 9.1 Total Bilirubin 0.4 AST 30 ALT 17 Alkaline Phosphatase 89 Total Protein 6.8 Albumin 3.8 Random Vancomycin 10.9 L Microbiology Microbiology Results: Microbiology 04/23/24 08:33 Blood Culture - Preliminary Blood - Venous No growth after 48 hours. 04/23/24 08:38 Blood Culture - Preliminary Blood - Venous No growth after 24 hours. Assessment and Plan (1) Tenosynovitis: Status: Acute Plan 83-year-old male with hypertension, gout here with a swelling redness of left 4th finger, with concern of tenosynovitis. Left 4th finger swelling and redness appearance consistent with cellulitis however tenosynovitis is also of concern for I&D today continue vanco and Ceftriaxone BCx negative HTN continue hctz and lisinopril Mild rise in Creat but within baseline CKD 2, monitor h/o Gout continue allopurinol DVT: lovenox full code regular diet at least 2 midnights admission for IV abx for tenosynovitis and cellulitis of the hand Quality Stroke Does the patient have a stroke diagnosis?: No VTE Prior VTE?: No VTE Risk Level:: Medical - moderate - high VTE Device Contraindication: Treatment Not Indicated VTE Drug Contraindication: N/A - Med Ordered
--- NOTE | 2024-04-25 11:05 | MHC.SHP ---
Pre-Procedural Eval Section A - 24 Hr Update-Section A only Date of Service: 04/25/24 The patient is an INPATIENT: No Changes since office visit: No Cold of Flu in the past 2 weeks, No New Medical Problems, No Changes in Medication and No Patient answered all questions The patient has been examined within 24 hours of the surgical procedure. The History & Physical has been completed within 30 days and I have reviewed it.: Yes Section B - Complete if H&P > 30 days Chief Complaint: cellulitis and tenosynovitis of left 4th finger Allergies: Allergies Allergy/AdvReac Type Severity Reaction Status Date / Time No Known Allergies Allergy Verified 04/23/24 07:27 [No Known Allergies*] Exam Exam Comment: The patient was seen and evaluated by me in preop hold. He says he has had swelling and erythema in that left ring finger for about a month since he fell onto it. He says it got quite a bit worse in the last 1-2 weeks. The physicians have been concerned about gout, which he does have a history of, versus cellulitis. The left ring finger is swollen and erythematous centered about the PIP joint and just dorsal to and proximal to the PIP joint. Tender to palpation over the dorsal aspect of the finger just proximal to the PIP joint and at the PIP joint No erythema or tenderness on the volar aspect of the digit The digit is held at about 45 degrees of flexion at the PIP joint. Plan Diagnosis/Plan: Unchanged I have reviewed the history and physical and performed a pertinent physical examination on my patient. No changes have occurred unless specified. Assessment and plan: 1. Left ring finger infection versus gout at about the PIP joint I educated the patient about this condition I am recommending surgery The risks and benefits of operative treatment were discussed with the patient and the patient wishes to proceed with surgery. These risks include, but are not limited to risk of damage to blood vessels, nerves, tendons, infection, recurrence, incomplete relief of preoperative symptoms, persistent pain, possible need for further surgery and the risks associated with regional blocks and anesthesia. The plan is to take the patient to the operating room today for the following procedures: 1. Left ring finger I and D 2. [ ] All of the preoperative paperwork including the consent was filled out today. All the patient's questions were answered. Time Spent With Patient Time: Total time managing care of this patient today ____ minutes.
--- NOTE | 2024-04-25 11:11 | P.OP_ITS ---
Operative Note Operative Note Date of Service: 04/25/24 Narrative: Operative Note Narrative: Preop diagnosis: 1. Left ring finger infection versus gout , PIP joint Postop diagnosis: Same Procedure: 1. Aspiration of left ring finger PIP joint fluid 2. Left ring finger PIP joint I&D Surgeon: Katie Herr MD Patient Safety Manager: Ronnie LUIS Anesthesia: General Anesthesia Findings: White precipitate consistent with gout found proximal to and contiguous with the PIP joint Implants: None Tourniquet time: 0 minutes EBL: 5.0 ml Specimen: Aspirate from left ring finger PIP joint sent for crystals analysis, swab sent for cultures, sample of white precipitate sent for histology Drains: None Complications: None Disposition: Brought to the recovery room in stable condition Plan: Admit back to floor to continue IV antibiotics, and assure treatment for acute gout Check cultures, and crystals Wound check tomorrow. Daily dressing changes after that. Indications: The patient is a 83 year old man with left ring finger inflammation over the dorsal aspect of the PIP joint and proximal to the PIP joint . The risks and benefits of operative treatment, including but not limited to risk of damage to blood vessels, nerves, tendons, infection, recurr ence, persistent pain or numbness, incomplete resolution of preoperative symptoms, or need for further surgery were discussed with the patient and they wished to proceed with surgery. Procedure: Once consent was obtained patient was brought back to the operating suite and placed in the operating table in a supine position. . Perioperative antibiotics and anesthesia was administered by the anesthesia team. A tourniquet was applied to the proximal aspect of the left upper extremity and the limb was prepped and draped in a standard surgical fashion. The tourniquet was not inflated. I aspirated the pocket of fluid just proximal and dorsal to the left index finger PIP joint. This fluid was sent for crystals analysis. I then made a 1.5 cm longitudinal incision over the dorsal ulnar aspect of the left ring finger PIP joint. The incision was made through the skin the subcutaneous tissues using a 15. Blade. 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 The dorsal ulnar aspect of the PIP joint was also open. These Crystal's were removed and placed on the back table to be sent for histopathology. Cultures were also taken from this area and the PIP joint. The PIP joint and surrounding tissues were debrided of the white precipitate using a small rongeur. PIP joint and surrounding tissues were then copiously irrigated with normal saline using a 10 mL syringe and an Angiocath. I also performed a manipulation of the PIP joint under anesthesia and was able to bring the joint from its original rather fixed position at about 45 degrees of flexion to a range of motion from about 5 degrees of flexion to about 90 degrees of flexion. Hemostasis was obtained with a brief period of local pressure.. The wound was copiously irrigated with normal saline. The skin edges were reapproximated with 5-0 nylon suture. A digital block was performed using some 1% lidocaine with epinephrine for postop pain control and a sterile dressing was applied. The patient appears to have tolerated the procedure well and with no complications. All digits were well vascularized conclusion of the case.
--- NOTE | 2024-04-25 12:22 | P.CONAN_ITS ---
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 High cholesterol HTN (hypertension) Family History Family history of problems with anesthesia: No Surgical History Surgical History Previous back surgery History of Problems with Anesthesia: No Social History Social History Household Members: None Housing: Other Housing Other:: mobile home/trailer Do you presently have visiting nurse or other home services: No Alcohol intake: never Patient Tobacco Use Status: Never used Tobacco Advance Directives Date on File: 11/28/23 service: No Meds Allergies Allergy/AdvReac Type Severity Reaction Status Date / Time No Known Allergies Allergy Verified 04/23/24 07:27 [No Known Allergies*] Active Medications: Current Medications Acetaminophen (Acetaminophen 325 Mg Tablet) 650 mg PO Q6H PRN PRN Reason: Pain, Mild 1-3,fever,headache Last Admin: 04/25/24 07:46 Dose: 650 mg Allopurinol (Allopurinol 300 Mg Tablet) 300 mg PO DAILY [facility] Last Admin: 04/24/24 08:53 Dose: 300 mg Amlodipine Besylate (Amlodipine Besylate 2.5 Mg Tablet) 2.5 mg PO DAILY [facility]; Protocol Last Admin: 04/24/24 09:16 Dose: 2.5 mg Calcium Carbonate (Calcium Carbonate 750 Mg Tab.Chew) 750 mg PO Q4H PRN PRN Reason: Heartburn Ceftriaxone Sodium (Ceftriaxone Sodium 1 Gm Vial) 1 gm IVPUSH Q24H [facility] Last Admin: 04/25/24 08:55 Dose: 1 gm Lisinopril 20 mg/ (Hydrochlorothiazide 25 mg) 0 mg PO DAILY [facility] Last Admin: 04/24/24 09:19 Dose: 45 tablet Enoxaparin Sodium (Enoxaparin Sodium 40 Mg/0.4 Ml Syringe) 40 mg SUBCUT Q24H [facility] Last Admin: 04/24/24 11:49 Dose: 40 mg Vancomycin HCl 750 mg/ Sodium (Chloride) 265 mls @ 265 mls/hr IV Q24H [facility] Last Infusion: 04/25/24 09:56 Dose: Infused Magnesium Hydroxide (Milk Of Magnesia 30 Ml Oral.Susp) 30 ml PO DAILY PRN PRN Reason: Constipation Melatonin (Melatonin 3 Mg Tablet) 6 mg PO BEDTIME PRN PRN Reason: Insomnia Morphine Sulfate (Morphine Sulfate 4 Mg/Ml Cartridge) 2 mg IVPUSH Q6H PRN; Protocol PRN Reason: Pain, Severe (Pain Scale 7-10) Pharmacy Consult (Consult Rx Vancomycin Dosing) 1 each MISCELLANE DAILY PRN PRN Reason: Consult order Sodium Chloride (0.9 % Sodium Chloride Flush 3 Ml Syringe) 3 ml IVFLUSH QSHIFT [facility] Last Admin: 04/25/24 08:56 Dose: 3 ml Home Medications ?Medication ?Instructions ?Recorded ?Confirmed ?Last Taken ?Type allopurinol 300 mg tablet 300 mg PO DAILY 04/23/24 04/23/24 1 Day Ago History ~04/22/24 lisinopril 20 1 tab PO DAILY 04/23/24 04/23/24 04/23/24 History mg-hydrochlorothiazide 25 mg tablet Exam Height,Weight and Vital Signs: Height 5 ft 1 in Weight 52.163 kg Last Vital Signs Temp 97 F 04/25/24 12:05 Pulse 91 04/25/24 12:05 Resp 16 04/25/24 12:05 BP 115/51 L 04/25/24 12:05 Pulse Ox 95 04/25/24 12:05 O2 Del Method Room Air 04/25/24 12:05 O2 Flow Rate 8 04/25/24 11:49 Pertinent Lab Results Pertinent Lab Results: Laboratory Tests 04/23/24 04/24/24 04/25/24 08:33 05:49 05:33 WBC 10.3 8.5 RBC 4.10 L 4.07 L Hgb 12.9 L 12.5 L Hct 38.7 L 38.4 L MCV 94.4 94.3 MCH 31.5 30.7 MCHC 33.3 32.6 RDW 13.7 13.6 Plt Count 196 194 MPV 11.2 10.9 Immature Gran % (Auto) 0.3 Neut % (Auto) 75.9 H Lymph % (Auto) 11.9 L [place] % (Auto) 9.9 Eos % (Auto) 1.7 Baso % (Auto) 0.3 Lymph # (Auto) 1.2 [place] # (Auto) 1.0 Eos # (Auto) 0.2 Baso # (Auto) 0.0 Abs Immat Gran (auto) 0.03 Absolute Neuts (auto) 7.8 Absolute Nucleated RBC 0.000 0.000 Nucleated RBC % (auto) 0.0 0.0 ESR 44 H Sodium 140 139 140 Potassium 4.2 3.9 4.3 Chloride 107 107 106 Carbon Dioxide 23 22 23 Anion Gap 14 14 15 BUN 38 H 32 H 39 H Creatinine 1.31 1.21 1.46 H Estim Creat Clear Calc 32.0 34.7 28.7 Estimated GFR 52 57 46 Random Glucose 106 101 102 Lactic Acid 1.5 Uric Acid 5.5 Calcium 9.7 9.2 9.1 Total Bilirubin 0.3 0.4 0.4 Direct Bilirubin 0.1 AST 27 28 30 ALT 21 16 17 Alkaline Phosphatase 100 90 89 C-Reactive Protein 4.78 H Total Protein 7.9 7.2 6.8 Albumin 4.3 3.9 3.8 Random Vancomycin 04/25/24 07:27 WBC RBC Hgb Hct MCV MCH MCHC RDW Plt Count MPV Immature Gran % (Auto) Neut % (Auto) Lymph % (Auto) [place] % (Auto) Eos % (Auto) Baso % (Auto) Lymph # (Auto) [place] # (Auto) Eos # (Auto) Baso # (Auto) Abs Immat Gran (auto) Absolute Neuts (auto) Absolute Nucleated RBC Nucleated RBC % (auto) ESR Sodium Potassium Chloride Carbon Dioxide Anion Gap BUN Creatinine Estim Creat Clear Calc Estimated GFR Random Glucose Lactic Acid Uric Acid Calcium Total Bilirubin Direct Bilirubin AST ALT Alkaline Phosphatase C-Reactive Protein Total Protein Albumin Random Vancomycin 10.9 L Airway Mallampati Class: II TM Dist: >3cm Neck ROM: Limited Heart: rrr Lungs: cta Assessment and Plan Assessment Anesthesia Assessment: Anesthesia Plan Discussed and Chart Reviewed Final Anesthetic Review Family History of Problems with Anesthesia: No History of Problems with Anesthesia: No NPO: Yes ASA Class: III Final Preanesthetic Review: No Changes in Pt Med Stat, Meds/Allgs Chart Reviewed, Consent Obtained/Reviewed and Anes Risks/Benef Reviewed Patient Risk: Intermediate Procedure Risk: Low Anesthetic Plan Anesthetic Plan: GA Disposition: Standard PACU
[2024-04-25] MEDS: amLODIPine Besylate 2.5 MG TABLET PO (12:49)
[2024-04-25] MEDS: lisinopriL 20 MG, hydroCHLOROthiazide 25 MG PO (12:49)
[2024-04-25] MEDS: allopurinoL 300 MG TABLET PO (12:49)
[2024-04-25] MEDS: Enoxaparin Sodium 40 MG/0.4 ML SYRINGE SUBCUT (12:50)
[2024-04-25] MEDS: predniSONE 20 MG TABLET 40 MG PO (16:02)
[2024-04-25] MEDS: Doxycycline Monohydrate 100 MG CAPSULE PO (20:30)
[2024-04-26 03:42] VITALS: BP 116/54; PULSE 77; RESP 18; TEMP 36.4; O2SAT 97
[2024-04-26 06:27] LABS: Alanine Aminotransferase 15 U/L (0-40); Albumin Level 3.6 g/dL (3.5-5.0); Alkaline Phosphatase 82 U/L (39-117); Anion Gap 15 (12-20); Aspartate Amino Transferase 24 U/L (5-37); Bilirubin Total 0.3 mg/dL (0.0-1.0); Blood Urea Nitrogen 45 mg/dL (9-16); Calcium 8.7 mg/dL (8.4-10.2); Carbon Dioxide 20 mmol/L (22-29); Chloride 106 mmol/L (96-108); Creatinine Clr Calc Pharmacy 25.6; Estimated Glomerular Filt Rate 40; Glucose Random 159 mg/dL (60-115); Potassium 4.3 mmol/L (3.3-5.1); Sodium 137 mmol/L (135-145); Total Protein 6.5 g/dL (6.5-8.0)
[2024-04-26 07:28] VITALS: BP 105/54; PULSE 79; RESP 16; TEMP 36.5; O2SAT 94
[2024-04-26] MEDS: Doxycycline Monohydrate 100 MG CAPSULE PO (07:41)
[2024-04-26] MEDS: predniSONE 20 MG TABLET 40 MG PO (07:41)
[2024-04-26] MEDS: Lactated Ringers 1,000 ML 999 ML IV (07:41)
[2024-04-26] MEDS: 0.9 % Sodium Chloride Flush 3 ML SYRINGE IVFLUSH (07:41)
[2024-04-26] MEDS: allopurinoL 300 MG TABLET PO (07:45)
--- NOTE | 2024-04-26 08:16 | HO.POSTANES ---
Post Anesthesia Evaluation Post Anesthesia Evaluation Date of Service: 04/26/24 Vital Signs: Vital Signs Temp Pulse Resp BP Pulse Ox O2 Del Method 04/26/24 07:28 97.7 F 79 16 105/54 L 94 Room Air 04/26/24 03:42 97.6 F 77 18 116/54 L 97 Room Air Anesthesia: General LMA Mental Status: Awake Pain Control: Satisfactory Nausea/Vomiting: None Hydration: Adequate Anesthesia-Related Issues: No Anes. Related Issues
--- NOTE | 2024-04-26 08:26 | PM.PNORT ---
Subjective Subjective Date of Service: 04/26/24 Interval history: Postop day 1 status post I and D of left ring finger abscess While in surgery, patient was discovered to have significant crystal load in the area, highly suggestive of gout Patient reports symptoms have improved since yesterday Has been on IV antibiotics per Medicine No acute events overnight No other acute complaints or concerns at this time Physical Exam Vital Signs: Vital Signs: Last Vital Signs Temp 97.7 F 04/26/24 07:28 Pulse 79 04/26/24 07:28 Resp 16 04/26/24 07:28 BP 105/54 L 04/26/24 07:28 Pulse Ox 94 04/26/24 07:28 O2 Del Method Room Air 04/26/24 07:28 O2 Flow Rate 8 04/25/24 11:49 BMI result Body Mass Index 21.7 Const: General: cooperative, healthy appearing, comfortable, no acute distress and well developed Extrem: Other: Left ring finger dorsal redness improved from yesterday Swelling improved from yesterday No redness, pain or swelling along the volar aspect of the finger or hand No pain with axial loading Mild discomfort with passive extension; however no pain along the flexor tendon Cap refill brisk Sensation intact Procedures Date of Service Date of Service: 04/26/24 Progress Note: A&P Assessment and plan (1) Gout of left hand: Status: Acute Plan 1. Postop day 1 status post I and D of left ring finger Patient was educated that his findings in the operating room were highly suggestive of gout However, due to some fluid that could have potentially been infectious also being present in the area, we sent out cultures yesterday Patient should continue on antibiotics Continue prednisone for gout flare per Medicine Continue all other recommendations per Medicine Time Spent With Patient Time: Total time managing care of this patient today ____ minutes. Quality Stroke Does the patient have a stroke diagnosis?: No VTE Prior VTE?: No VTE Risk Level:: Medical - moderate - high VTE Device Contraindication: Treatment Not Indicated VTE Drug Contraindication: N/A - Med Ordered
[2024-04-26 10:21] VITALS: BP 121/58
--- NOTE | 2024-04-26 12:23 | P.DS_ITS ---
DS: Providers Provider Date of Service: 04/26/24 Date of admission: 04/23/24 13:44 Date of discharge: 04/26/24 Primary care physician: Wyatt Parada MD DS: Diagnosis Discharge Diagnosis (1) Gout of left hand: Status: Acute DS: Summary Hospital Course Hospital Course: Chief Complaint: left 4th finger swelling, pain and redness AG old male with hypertension, gout who presented with a left 4th digit swelling pain and redness. But a month ago he tripped and fell on hold does and the injured the finger. He has seen his primary care physician on numerous occasion and that has been treated with oral antibiotics. Over the last 3-4 days he has noticed increased redness, and swelling and little pain. He has no fever but has had chills. X-ray shows,1. Osteopenia without definite fracture or dislocation. 2. Marked periarticular osteopenia with subtle erosive changes involving the fourth digit PIP joint. Infectious versus inflammatory arthropathy is suspected. 3. Early changes of SLAC wrist. 4. Degenerative arthropathy as discussed. He has no white count. CRP is only 4.78, ESR is 44 ED treatment: Ceftriaxone and vancomycin. hospital course: 83-year-old male with hypertension, gout here with a swelling redness of left 4th finger, with concern of tenosynovitis. He Left 4th finger swelling and redness appearance consistent with cellulitis however tenosynovitis was also of concern. He was started on broad spec antibiotics with Vancomycin and Ceftriaxone and was later seen by Surgery and had I&D done on 04/25 showing Strong negative birefringent needle-like crystals seen under polarized light, consistent with urate crystals and therefore gout. He was subsequent given oral Prednisone for likely acute gout and possible superimposed cellulitis which will treated with doxycyline for a total of 7 days. 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 HTN hold bloop pressure medication until you see the kidney Docto h/o Gout continue allopurinol, and prednisone as mentioned Quality: Safe Use of Opioids Does Pt have an Active Cancer Diagnosis on the Problem List?: No Quality: Stroke Does the patient have a stroke diagnosis?: No Physical Exam Vital Signs: Vital Signs: Last Vital Signs Temp 97.7 F 04/26/24 07:28 Pulse 79 04/26/24 07:28 Resp 16 04/26/24 07:28 BP 121/58 L 04/26/24 10:21 Pulse Ox 94 04/26/24 07:28 O2 Del Method Room Air 04/26/24 07:28 O2 Flow Rate 8 04/25/24 11:49 BMI result Body Mass Index 21.7 Const: Other: General: AO X 3, no acute distress Resp: CTA bilateral CVS: S1,S2,RRR GI: +BS, NT, no distention Skin: No rash, the erythema of the finger is much better..less redness, less swelling Neuro: motor grossly intact Psych: appropriate affect DS: Data Data Completed and Pending Pending studies at discharge: Pending at discharge 04/25/24 11:28 Cytology [PTH] Stat 04/25/24 11:31 Surgical Path [Surgical] [PTH] Stat Labs on day of discharge: Laboratory Results - last 24 hr 04/26/24 05:27 Sodium 137 Potassium 4.3 Chloride 106 Carbon Dioxide 20 L Anion Gap 15 BUN 45 H Creatinine 1.64 H Estim Creat Clear Calc 25.6 Estimated GFR 40 Random Glucose 159 H Calcium 8.7 Total Bilirubin 0.3 AST 24 ALT 15 Alkaline Phosphatase 82 Total Protein 6.5 Albumin 3.6 Preliminary micro results at discharge 04/25/24 11:28 Routine Culture - Preliminary Finger Left Ring No growth to date. Anaerobic Culture - Preliminary No growth to date. 04/25/24 11:28 Routine Culture - Preliminary Finger Left Ring No growth to date. 04/23/24 08:38 Blood Culture - Preliminary Blood - Venous No growth after 48 hours. 04/23/24 08:33 Blood Culture - Preliminary Blood - Venous No growth after 48 hours. Discharge Plan Discharge Anticipated Discharge Date/Time: 04/26/24 12:11 Patient Disposition: Home Health Service Discharge Diagnosis: Acute gout, Referrals: [facility] [Outside] - 3-5 Days ([facility] will call you to schedule nursing visits) Wyatt Parada MD [Primary Care Provider] - 1 Week Discharge Medications: New prednisone 20 mg Tablet 40 mg PO DAILY Qty: 6 0RF doxycycline monohydrate 100 mg Capsule 100 mg PO BID Qty: 6 0RF Continued allopurinol 300 mg tablet 300 mg PO DAILY Held lisinopril-hydrochlorothiazide 20-25 mg tablet 1 tab PO DAILY Hold Instructions: Resume on 04/02/24. Discharge Orders: Discharge Order (Routine); Ordered 04/26/24 Ordered By: Hussain Hurst Diet: Advance to usual diet Activity on Discharge: As tolerated Stand Alone Forms: Patient Portal Discharge page Print Language: Kinyarwanda Care Plan Goals: recovery from cellulitis of the finger, acute gout and acute kidney injury Health Concerns: gout cellulitis of the left 4th finger Plan of Treatment: take doxycycline for cellulitis take prednisone for acute gout Follow up with orthopedic clinc Don't take blood pressure medication until after you see the kidney doctor, and kidney office will call you for follow up next week Dressing change every other day. Cleanse with NaCl, pat dry, apply xeroform, wrap with gauze wrap Assessment: see above
--- NOTE | 2024-04-26 13:12 | W.MHC.F2F ---
Service Date Service Date: 04/26/24 Encounter Date of encounter: 04/26/24 Reasons for Services Signs and symptoms assessed: Left hand wound from acute gout and cellulitis Reason for retirement: wound care Homebound: Leaving the home is medically contraindicated at this time without the asist of a device and/or another person due th the listed conditions above and below. Reason homebound: weakness related to hospital stay and other Homebound supporting statement: homebound due to pain in the hand, limiting activity, including driving and therefore needs the assistance of another person Certification: Based on the above findings, I certify that this patient is confined to the home and needs intermittent retirement care, physical therapy and/or speech therapy, or continues to need occupational therapy. The patient is under my care, and I have initiated the establishment of the plan of care. The patient will be followed by a physician who will periodically review the plan of care. Time Spent With Patient Time: Total time managing care of this patient today ____ minutes.
[2024-04-26 13:21] VITALS: BP 121/58
--- NOTE | 2024-04-26 13:36 | MHC.CM.PN ---
Addendum entered by Kamryn Mishra RN 04/26/24 14:07: Per MD - wound care orders updated to include xeroform every other day. [facility] updated and will provide SN. Original Note: Per MD patient medically cleared for dc. MD ordered VNA for dressing changes. However, the order is dry dressing daily. Patient is aware this is not a skilled dressing and [facility] may not be able to assist. RN will teach patient and provide supplies. MD aware. Friend will provide transport at 3pm. RN aware.
[2024-04-26 15:09] VITALS: BP 148/81; PULSE 110; RESP 18; TEMP 36.6; O2SAT 96
== END 2024-04-26 15:45 | disposition home health service (06) | DRG 988 ==
LOC: HO.ED 12:07 → HO.EDOVER 13:49 → HO.S3 15:35
PROVIDERS: Orthopaedic Surgery; Physician Assistant; Admitting Provider Internal Medicine; Emergency Provider Emergency Medicine; PCP Internal Medicine; Visit Provider Internal Medicine
DX: L03.012 Cellulitis of left finger (principal); N17.9 Acute kidney failure, unspecified; M10.9 Gout, unspecified; E78.5 Hyperlipidemia, unspecified; I12.9 Hypertensive chronic kidney disease with stage 1 through stage 4 chronic kidney disease, or unspecified chronic kidney disease; N18.2 Chronic kidney disease, stage 2 (mild)
CPT/HCPCS: 36415; 73130; 80048; 80053; 80076; 80202; 83605; 84550; 85025; 85027; 85652; 86140; 87040; 87070; 87073; 87205; 88173; 88304; 88305; 97162; 97165; 99285; J0696; J1650; J3010; J3370; J3371; J7120

== ENCOUNTER → 2024-04-23 08:06 | Outpatient (BNV) | payer MEDICARE, SELFPAY | PROVIDERS: Emergency Provider Emergency Medicine; PCP Internal Medicine; Visit Provider Radiology Diagnostic Radiology | DX: M85.842 Other specified disorders of bone density and structure, left hand (principal) | CPT/HCPCS: 73130 ==

== ENCOUNTER → 2024-04-23 13:44 | Outpatient (BNV) | payer MEDICARE, SELFPAY | PROVIDERS: Admitting Provider Internal Medicine; Emergency Provider Emergency Medicine; PCP Internal Medicine; Visit Provider Internal Medicine | DX: M65.90 Unspecified synovitis and tenosynovitis, unspecified site (principal) | CPT/HCPCS: 99232 ==

== ENCOUNTER → 2024-04-23 13:44 | Outpatient (BNV) | payer MEDICARE, SELFPAY | PROVIDERS: Admitting Provider Internal Medicine; Emergency Provider Emergency Medicine; PCP Internal Medicine; Visit Provider Physician Assistant | DX: L02.512 Cutaneous abscess of left hand (principal) | CPT/HCPCS: 99233 ==

== ENCOUNTER 2024-05-01 10:09 | Outpatient (AMB) | payer MEDICARE, SELFPAY ==
--- NOTE | 2024-05-01 10:12 | A.OFFVIS_ITS ---
Vital Signs 05/01/24 10:23 Height 5 ft 1 in Weight 115 lb BMI 21.7 Handedness Right Intake Visit Reasons: PO - Left Ring Finger I&D - 04/25/24 Intake Note: Ruslan is an 83 year old right hand dominant male who presents today for his first post operative appointment s/p right ring finger I&D DOS: 04/25/24 w/ Dr Herr. Patient denies numbness, tingling, and pain in right 4th digit. He is unable to make a full closed fist. Allergies No Known Allergies [No Known Allergies*] Allergy (Verified 05/01/24 10:23) HPI HPI PO - Left Ring Finger I&D - 04/25/24: Details: Ruslan is an 83 year old right hand dominant male who presents today for his first post operative appointment s/p right ring finger I&D DOS: 04/25/24 w/ Dr Herr. Patient denies numbness, tingling, and pain in right 4th digit. He is unable to make a full closed fist. 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 Neuro: Normal sensation of the tips of all digits of the left hand at this time Vascular: Cap refill brisk Pain: No tenderness to palpation about the incision site on the dorsal left ring finger ROM: Patient was unable to make a closed fist, but can extend all digits fully Skin: Well approximated and well healing incision site noted on the dorsal aspect of the left ring finger General: No ecchymosis, erythema, or evidence of infection. Psych: Appears grossly normal Affect normal Attitude cooperative Results Reviewed Results Reviewed: Soft tissue, left ring finger abscess, fine-needle aspiration: No malignancy identified; consistent with tophaceous gout. Assessment & Plan Assessment & Plan (1) Gout of left hand: Code(s): M10.9 - Gout, unspecified Category: Medical (2) Stiffness of left hand joint: Code(s): M25.642 - Stiffness of left hand, not elsewhere classified Category: Medical Plan 1. Gout of left hand Patient is educated about this condition Patient is educated about the typical recovery course At this time, patient was informed that there was no signs of acute infection thumb the specimen sent from surgery, and it was consistent with gout Patient is advised that he should follow-up with his primary care provider for treatment of gout Patient was amenable to this plan Patient was also referred to occupational therapy for range of motion and strengthening of the left hand Patient will follow-up as needed with any acute concerns Orders: Orders OT Evaluation and Treatment 05/01/24 M10.9 - Gout, unspecified, M25.642 - Stiffness of left hand, not elsewhere classified Coding Level of Care Code Global (92178) Diagnoses Gout of left hand M10.9 Stiffness of left hand joint M25.642
[2024-05-01 10:23] VITALS: BMI 21.7
--- OUTSIDE RECORDS SUMMARY | 2024-05-01 11:53 | XMS_ITS | Clinical Summary ---
Author Organization [facility] ity Address [address] [place] [address] Care Team Providers Care Network Planner Name Role Phone Daniel Palafox NP Primary [...] age to complete this topic Care Teams Network Planner Relationship Specialty Start Date End Date Daniel Palafox [facility] [address] [facility] [place] P[facility] - General 03/05/21
--- OUTSIDE RECORDS SUMMARY | 2024-05-01 11:53 | XMS_ITS | Clinical Summary ---
Author Organization [facility] Address [address] [facility] [facility] [address] [place] [address] Phone Care Team Providers Care Metals Analyst Name Role Phone Wyatt Parada MD Primary Care Provider [phone] Allergies No known active allergies Medications lisinopril-hydro [...] age to complete this topic Insurance [address] [place] [address] Care Teams Metals Analyst Relationship Specialty Start Date End Date Wyatt Parada MD [id number] [place] PCP - General Internal Medicine 06/07/23
== END 2024-05-01 10:45 | disposition home or self-care (01) ==
PROVIDERS: PCP Internal Medicine
DX: M10.9 Gout, unspecified (principal); M25.642 Stiffness of left hand, not elsewhere classified
CPT/HCPCS: 99024

== ENCOUNTER → 2024-05-01 10:09 | Outpatient (BNVA) | payer MEDICARE, SELFPAY | PROVIDERS: PCP Internal Medicine | DX: M10.9 Gout, unspecified (principal); M25.642 Stiffness of left hand, not elsewhere classified; Z09 Encounter for follow-up examination after completed treatment for conditions other than malignant neoplasm; Z98.890 Other specified postprocedural states | CPT/HCPCS: 99212 ==

== ENCOUNTER 2024-05-16 10:55 | Outpatient (AMB) | payer MEDICARE, SELFPAY ==
[2024-05-16 10:58] VITALS: BP 150/80; PULSE 94; RESP 16; TEMP 36.4; O2SAT 99; BMI 21.7
--- NOTE | 2024-05-16 10:58 | MHC.PC.OV ---
Vital Signs 05/16/24 10:58 Height 5 ft 1 in Weight 115 lb BMI 21.7 BP 150/80 H Respiration 16 Pulse 94 Pulse Source Pulse Oximeter Temp 97.6 F Temp Source Temporal Artery Scan Pulse Oximetry (%) 99 Oxygen Delivery Method Room Air Intake Visit Reasons: Routine - see comments Pharmaceutical Analyst Required: No Accompanied by: Self / Same As Patient Allergies No Known Allergies [No Known Allergies*] Allergy (Verified 05/16/24 10:59) Medication List - Last Reconciled 05/16/24 by Abby Gustafson MD prednisone Take 2 tab oral once daily for 5 days then take 1 tab oral once daily for 5 days. Tobacco use date assessed: 05/16/24 Fall risk assessment: 1 Fall in past year (tripped over a hose) Last assessed Fall Risk: 05/16/24 Dental Screening Dental Screen Date: 05/16/24 Did you have a dental visit in the last 12 months?: No Did you have a dental problem in the last 6 months where you did not have access to dental care?: No HPI HPI Comments History of Present Illness Details The patient is an 83 year old male with a past medical history of hypertnesion, hyperlipidemia, asbestosis, OA, CKD, gout presenting for hospital follow up He was hospitalized from Apr 23-Apr 26, 2024. Presented with left 4th digit swelling pain and redness. But a month ago he tripped and fell on hold does and the injured the finger. concern for cellulitis, tenosynovitis was also of concern. He was started on broad spec antibiotics with Vancomycin and Ceftriaxone and was later seen by Surgery and had I&D done on 04/25 showing Strong negative birefringent needle-like crystals seen under polarized light, consistent with urate crystals and therefore gout. He was subsequent given oral Prednisone for likely acute gout and possible superimposed cellulitis which will treated with doxycyline for a total of 7 days. He will follow up with Ortho next week. MARYANN--He has mild MARYANN on top of CKD 2, possible related to BP meds, his baseline creatine is around 1.4, creatine is now 1.6, was given IVF and will hold BP meds including HCTZ and Lisinopril. Continued swelling of the left 4th digit. No fevers. He continues allopurinol. CV: Holding hctz, lisinopril since MARYANN in hospital. Sending him for repeat labs today in advance of his appointment with Dr Araiza tomorrow Pulm: asbestosis on imaging previously. asymptomatic. Has seen pulm in the past ROS see HPI PHYSICAL EXAM: GENERAL: Alert and oriented x 3. NAD EYES: EOMI. Anicteric. HENT: Moist mucous membranes. No scleral icterus LUNGS: Decreased air entry b/l CARDIOVASCULAR: Regular rate and rhythm ABDOMEN: Soft, non-tender +bs EXTREMITIES: No edema. Non-tender. SKIN: No rashes or lesions. Warm. NEUROLOGIC: No focal neurological deficits. CN II-XII grossly intact PSYCHIATRIC: Cooperative. Appropriate mood and affect [facility] Medical History Restrictive lung disease Dyspnea on effort 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 High cholesterol HTN (hypertension) Surgical History Previous back surgery Family History Father Heart attack Mother Heart attack Social History Household Members: None Housing: Other Housing Other:: mobile home/trailer Do you presently have visiting nurse or other home services: No Alcohol intake: never Patient Tobacco Use Status: Never used Tobacco Advance Directives Date on File: 11/28/23 service: No Current occupational status: retired Cognitive needs: No Hearing needs: No Vision needs: Yes (rx contacts/glasses) Questionnaire PHQ-9 Over the last 2 weeks, how often have you been bothered by any of the following problems? 1. Little interest or pleasure in doing things: not at all 2. Feeling down, depressed, or hopeless: not at all 3. Trouble falling or staying asleep, or sleeping too much: not at all 4. Feeling tired or having little energy: not at all 5. Poor appetite or overeating: not at all 6. Feeling bad about yourself - or that you are a failure or have let yourself or your family down: not at all 7. Trouble concentrating on things, such as reading the newspaper or watching television: not at all 8. Moving or speaking so slowly that other people could have noticed. Or the opposite - being so fidgety or restless that you have been moving around a lot more than usual: not at all 9. Thoughts that you would be better off or of hurting yourself in some way: not at all Total score: 0 Depression Screening Interpretation: Negative Depression Screening Done: Yes [id number] - PHQ-9 Billing: Yes Source: Developed by Drs. Yadiel Henriquez, Lyudmila Whipple, Jimenez Mendoza and colleagues, with an educational hira from [employer] Thrive Questionnaire Date Thrive assessed: 05/16/24 I am a: Patient What is your living situation today?: I have a steady place to live Within the past 12 months, did the food you bought not last and you didn't have the money to get more?: Never true Within the past 12 months, did you worry whether your food would run out before you got money to buy more?: Never true Do you have trouble paying for medicines?: No Do you have trouble getting transportation to medical appointments?: No Do you have trouble paying your heating and electricity bill?: No Do you have trouble taking care of your child, family member or friend?: No Do you have trouble with day-to-day activities such as bathing, preparing meals, shopping, managing finances, etc.?: No Are you currently unemployed and looking for a job?: No Are you interested in more education?: No Please select the resources that you would like help with: None THRIVE Score: 0 AUDIT C Alcohol Use Questionnaire (AUDIT-C) 1. How often do you have a drink containing alcohol?: Never 3. How often do you have six or more drinks on one occasion?: Never Total Score: 0 NELLY-7 AMB Questionnaire NELLY-7 Date NELLY - 7 assessed: 05/16/24 Feeling nervous, anxious, or on edge: 0 = Not at all Not being able to stop or control worryin = Not at all Worrying too much about different things: 0 = Not at all Trouble relaxin = Not at all Being so restless that it is hard to sit still: 0 = Not at all Becoming easily annoyed or irritable: 0 = Not at all Feeling afraid as if something awful might happen: 0 = Not at all Total NELLY-7 score (0-4 normal; 5-9 mild; 10-14 moderate; 15-21 severe): 0 Source: Developed by Drs. Yadiel Henriquez, Lyudmila Whipple, Jimenez Mendoza and colleagues, with an educational hira from [employer] Physical exam (Primary Care) Vital Signs: Last Vital Signs Temp 97.6 F 05/16/24 10:58 Pulse 94 05/16/24 10:58 Resp 16 05/16/24 10:58 BP 150/80 H 05/16/24 10:58 Pulse Ox 99 05/16/24 10:58 Oxygen Delivery Method Room Air 05/16/24 10:58 BMI result Body Mass Index 21.7 Tobacco/Smoking Status: Tobacco use Status Tobacco use date assessed 05/16/24 05/16/24 11:04 Patient Tobacco Use Status Never used Tobacco 05/16/24 11:04 PHQ-9: PHQ-9 Score PHQ-9: Total score 0 05/16/24 11:04 Depression Screening Interpretation: Negative Thrive Assessment: Date of Thrive Assessment Date Thrive assessed 05/16/24 05/16/24 11:04 Coding Level of Care Code New Pt Level 4 (31089) Complex EM visit Add On G2211 Diagnoses Hospital discharge follow-up Z09 High cholesterol E78.00 Gout of left hand, unspecified cause, unspecified chronicity M10.9 Gout etiology: unspecified cause Chronicity: unspecified Additional Codes PHQ-9 - 18694 - PHQ-9 Billing: Yes ([id number]) Time Spent (min) 50 Assessment & Plan Assessment & Plan (1) Hospital discharge follow-up: Code(s): Z09 - Encounter for follow-up examination after completed treatment for conditions other than malignant neoplasm Category: Medical (2) High cholesterol: Code(s): E78.00 - Pure hypercholesterolemia, unspecified Category: Medical (3) Gout of left hand: Code(s): M10.9 - Gout, unspecified Category: Medical Qualifiers: Gout etiology: unspecified cause Chronicity: unspecified Qualified Code(s): M10.9 - Gout, unspecified Plan 83 to establish care and hospital follow up hospitalization reviewed. labs reviewed. meds reconciled appt with nephrology tomorrow. start prednisone for some interval worsening in gout symptoms labs today. likely restart 1-2 bp meds tomorrow Orders: Orders Comprehensive Met. Panel Today M10.9 - Gout, unspecified Uric Acid Today M10.9 - Gout, unspecified Complete Blood Count Auto Diff Today M10.9 - Gout, unspecified Hemoglobin A1c Today M10.9 - Gout, unspecified Medications: New prednisone Take 2 tab oral once daily for 5 days then take 1 tab oral once daily for 5 days. 15 tabs 0RF
--- OUTSIDE RECORDS SUMMARY | 2024-05-16 12:54 | XMS_ITS | Clinical Summary ---
Author Organization [facility] Address [address] [place] [address] Phone Care Team Providers Care Laboratory Administrative Director Name Role Phone Wyatt Parada MD Primary Care Provider [phone] Allergies No known active allergies Medications lisinopril-hydro [...] age to complete this topic Insurance [address] [place] [address] Care Teams Laboratory Administrative Director Relationship Specialty Start Date End Date Wyatt Parada MD [id number] JERRYSEANZAINA HARRISON PCP - General Internal Medicine 06/07/23
--- OUTSIDE RECORDS SUMMARY | 2024-05-16 12:54 | XMS_ITS | Clinical Summary ---
Author Organization [facility] ity Address [address] [place] [address] Care Team Providers Care Research Program Coordinator Name Role Phone Daniel Palafox NP Primary [...] age to complete this topic Care Teams Research Program Coordinator Relationship Specialty Start Date End Date Daniel Palafox NP [address] [facility] [place] PCP - General 03/05/21
== END 2024-05-16 12:50 | disposition home or self-care (01) ==
LOC: HO.HMCHD 10:55
PROVIDERS: PCP Internal Medicine; Visit Provider Internal Medicine
DX: Z09 Encounter for follow-up examination after completed treatment for conditions other than malignant neoplasm (principal); E78.00 Pure hypercholesterolemia, unspecified; M10.9 Gout, unspecified

== ENCOUNTER → 2024-05-16 10:55 | Outpatient (BNVA) | payer MEDICARE, SELFPAY | PROVIDERS: PCP Internal Medicine; Visit Provider Internal Medicine ==

== ENCOUNTER 2024-05-16 12:00 | Outpatient (REF) | payer MEDICARE, SELFPAY ==
[2024-05-16 13:17] LABS: MANUAL DIFF FLAG NO
[2024-05-16 13:27] LABS: Basophils Percent Auto 0.4 % (0-2); Eosinophils Absolute Auto 0.2 X10*3/uL (0.0-0.4); Eosinophils Percent Auto 2.4 % (0-4); Hematocrit 40.5 % (42.0-52.0); Hemoglobin 12.8 g/dl (14.0-18.0); Imm Gran Abs Auto 0.03 X10*3/uL (0.00-0.03); Imm Gran Pct Auto 0.4 % (0.0-0.4); Lymphocytes Percent Auto 13.5 % (20-40); Mean Corpuscular HGB Conc 31.6 g/dl (31.0-36.0); Mean Corpuscular Hemoglobin 30.5 pg (27.0-33.0); Mean Corpuscular Volume 96.4 fL (80.0-98.0); Mean Platelet Volume 11.2 fL (9.4-12.4); Monocytes Absolute Auto 0.6 X10*3/uL (0.1-1.2); Monocytes Percent Auto 8.6 % (2-11); Neutrophils Absolute Auto 5.5 x10*3/uL (2.0-8.3); Neutrophils Percent Auto 74.7 % (45-73); Platelet Count 209 X10*3/uL (160-400); Red Cell Distribution Width 14.3 % (11.0-16.0); White Blood Count 7.4 X10*3/uL (4.8-10.8)
[2024-05-16 13:44] LABS: Estimated Average Glucose 120 mg/dL; Hemoglobin A1c % 5.8 % (<6.0); Total Hemoglobin (HGBA1C) 3366.1111 umol/L
[2024-05-16 13:56] LABS: Alanine Aminotransferase 23 U/L (0-40); Albumin Level 4.1 g/dL (3.5-5.0); Alkaline Phosphatase 97 U/L (39-117); Anion Gap 12 (12-20); Aspartate Amino Transferase 25 U/L (5-37); Bilirubin Total 0.4 mg/dL (0.0-1.0); Blood Urea Nitrogen 29 mg/dL (9-16); Calcium 9.2 mg/dL (8.4-10.2); Carbon Dioxide 24 mmol/L (22-29); Chloride 110 mmol/L (96-108); Estimated Glomerular Filt Rate > 60; Glucose Random 95 mg/dL (60-115); Potassium 4.1 mmol/L (3.3-5.1); Sodium 142 mmol/L (135-145); Total Protein 7.5 g/dL (6.5-8.0); Uric Acid 3.8 mg/dL (3.4-7.0)
== END 2024-05-16 12:01 | disposition home or self-care (01) ==
LOC: HO.10HDL 12:00
PROVIDERS: Visit Provider Internal Medicine
DX: Z13.89 Encounter for screening for other disorder (principal)
CPT/HCPCS: 36415; 80053; 83036; 84550; 85025; 96127; 99202

== ENCOUNTER 2024-05-17 11:38 | Outpatient (AMB) | payer MEDICARE, SELFPAY ==
--- NOTE | 2024-05-17 11:54 | HO.NEPHOV_ITS ---
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 He is 83 years of age who recently had hospitalization when he presented to ER with left 4th digit swelling pain and redness. Over a m onth ago he tripped and fell and the injured the finger. He was started on broad spectrum antibiotics with Vancomycin and Ceftriaxone and was later seen by Surgery and had I&D done on 04/25 showing Strong negative birefringent needle- like crystals seen under polarized light, consistent with urate crystals confirming it as gout. He was subsequent given oral Prednisone for likely acute gout and possible superimposed cellulitis which will treated with doxycyline for a total of 7 days.His baseline creatinine is around 1.4 which had gone upto 1.64. He was given IVF and his BP meds including HCTZ and Lisinopril were held with improvement. He denies CAD, CVA, CHF, PAD , carotid stenosis or REGINO. His BP has been running high since he is off HCTZ and ACEI. [facility] Medical History Restrictive lung disease Dyspnea on effort 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 High cholesterol HTN (hypertension) Surgical History Previous back surgery Family History Father Heart attack Mother Heart attack Social History Household Members: None Housing: Other Housing Other:: mobile home/trailer Do you presently have visiting nurse or other home services: No Alcohol intake: never Patient Tobacco Use Status: Never used Tobacco Advance Directives Date on File: 11/28/23 service: No Current occupational status: retired Cognitive needs: No Hearing needs: No Vision needs: Yes (rx contacts/glasses) Physical Exam Vital Signs: Last Vital Signs Pulse 73 05/17/24 11:57 BP 184/80 H 05/17/24 11:57 Pulse Ox 97 05/17/24 11:57 Oxygen Delivery Method Room Air 05/17/24 11:57 BMI result Body Mass Index 22.2 Const General: comfortable and no acute distress Orientation/consciousness: patient oriented x3 HEENT Head: Yes normocephalic Mouth: Normal oral and palatal mucosa present Eyes EOM: EOMs intact bilaterally Neck Neck: Yes supple Resp Auscultation: clear to auscultation bilaterally Cardio Jugular venous distension: no JVD Rate: regular rate GI Palpation (GI): Soft to palpation Auscultation: normal bowel sounds General: Yes no CVA tenderness Back/Spine/Pelvis Back: no CVA tenderness Skin General skin exam: no rashes or lesions noted Neuro General: patient oriented x3 and moves all extremities Extrem General: Yes no pedal edema Results Reviewed Nephrology Results: Hgb 12.8 g/dl (14.0-18.0) L 05/16/24 WBC 7.4 X10*3/uL (4.8-10.8) 05/16/24 Plt Count 209 X10*3/uL (160-400) 05/16/24 Sodium 142 mmol/L (135-145) 05/16/24 Potassium 4.1 mmol/L (3.3-5.1) 05/16/24 Chloride 110 mmol/L (96-108) H 05/16/24 Carbon Dioxide 24 mmol/L (22-29) 05/16/24 BUN 29 mg/dL (9-16) H 05/16/24 Creatinine 1.11 mg/dL (0.5-1.4) 05/16/24 Calcium 9.2 mg/dL (8.4-10.2) 05/16/24 Assessment & Plan Assessment & Plan (1) Acute kidney injury superimposed on CKD: Code(s): N17.9 - Acute kidney failure, unspecified; N18.9 - Chronic kidney disease, unspecified Category: Medical (2) CKD stage 3a, GFR 45-59 ml/min: Code(s): N18.31 - Chronic kidney disease, stage 3a Category: Medical (3) HTN (hypertension): Code(s): I10 - Essential (primary) hypertension Category: Medical Qualifiers: Hypertension type: primary hypertension Qualified Code(s): I10 - Essential (primary) hypertension (4) Hyperuricemia: Code(s): E79.0 - Hyperuricemia without signs of inflammatory arthritis and tophaceous disease Category: Medical Plan 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 He had developed MARYANN on CKD while being on ACEI and HCTZ. I will not start him on HCTZ for now given hyperuricemia issues. His renal functions are back to baseline now. I started him on Amlodipine 5 mg daily for now which I may increase based on his clinical response. I plan to do Doppler of his renal arteries at the next visit along with further CKD work up. He needs to minimize Na intake. I shall start him on Allopurinol 100 mg daily at next visit. He should preferably avoid NSAID's and maintain good hydration. Follow up given. Answered all questions. Medications: New amlodipine 5 mg PO DAILY 30 tabs 4RF Coding Level of Care Code New Pt Level 4 (54540) Diagnoses Acute kidney injury superimposed on CKD N17.9; N18.9 CKD stage 3a, GFR 45-59 ml/min N18.31 Primary hypertension I10 Hypertension type: primary hypertension Hyperuricemia E79.0
[2024-05-17 11:57] VITALS: BP 184/80; PULSE 73; O2SAT 97; BMI 22.2
== END 2024-05-17 12:15 | disposition home or self-care (01) ==
LOC: HO.HKA 11:38
PROVIDERS: PCP Internal Medicine; Visit Provider Internal Medicine Nephrology
DX: N17.9 Acute kidney failure, unspecified (principal); I12.9 Hypertensive chronic kidney disease with stage 1 through stage 4 chronic kidney disease, or unspecified chronic kidney disease; N18.9 Chronic kidney disease, unspecified; N18.31 Chronic kidney disease, stage 3a; E79.0 Hyperuricemia without signs of inflammatory arthritis and tophaceous disease
CPT/HCPCS: 99204

== ENCOUNTER → 2024-05-17 11:38 | Outpatient (BNVA) | payer MEDICARE, SELFPAY | PROVIDERS: PCP Internal Medicine; Visit Provider Internal Medicine Nephrology | DX: I12.9 Hypertensive chronic kidney disease with stage 1 through stage 4 chronic kidney disease, or unspecified chronic kidney disease (principal); N18.31 Chronic kidney disease, stage 3a; N17.9 Acute kidney failure, unspecified; E79.0 Hyperuricemia without signs of inflammatory arthritis and tophaceous disease | CPT/HCPCS: 99202 ==

== ENCOUNTER 2024-05-19 19:45 | Inpatient (IN) | payer MEDICARE, SELFPAY ==
--- NOTE | ~2024-05-19 | XR_ITS ---
CLINICAL HISTORY: lower abd pain ?constipation 1 view abdomen Comparison: None Findings: Moderate stool burden. No bowel obstruction. No pneumoperitoneum or pneumatosis. No abnormal calcifications. Degenerative changes of the spine and hips. Calcified pleural plaques in the right chest. IMPRESSION: Moderate stool burden. This document has been electronically signed by: Priscilla Boyer MD on 05/19/2024 20:28:13
--- NOTE | ~2024-05-19 | CT_ITS ---
CLINICAL HISTORY: periumbillical pain, LLQ pain CT abdomen and pelvis with contrast Comparison: CR - XR KUB - 05/19/24 20:07 EDT CR/SR - XR PELVIS 1-2V - 12/02/21 11:16 EDT Findings: Calcified pleural plaques in the lung bases. Small hiatal hernia. Atrophic pancreas. Liver, gallbladder, spleen, and adrenal glands are within normal limits. No biliary duct dilatation. No hydronephrosis. Symmetric contrast enhancement of the kidneys. Bilateral renal cysts. Pneumoperitoneum. Colonic diverticulosis with wall thickening of the sigmoid and descending colon with surrounding fat stranding. There is wall thickening of the segment of small bowel just above the sigmoid colon with surrounding fluid and extraluminal air (best seen on coronal image 37/77). Aortic atherosclerosis. No aneurysm. Portal venous system is patent. Prostatomegaly. Mild diffuse urinary bladder wall thickening, possibly chronic outlet obstruction from prostatomegaly. No acute fracture. Degenerative changes of the spine. IMPRESSION: Pneumoperitoneum with perforated bowel, suspected to be a segment of inflamed small bowel in the left lower quadrant ( best seen on coronal image 37/77 ), this is just above an area of acute diverticulitis in the sigmoid colon. This document has been electronically signed by: Priscilla Boyer MD on 05/19/2024 22:14:10
--- NOTE | ~2024-05-19 | XR_ITS ---
EXAMINATION: XR KNEE 3 VIEWS LEFT HISTORY: severe pain COMPARISON: Comparison is made with the prior examination dated 12/15/2023. FINDINGS: Three views of the left knee are submitted. Osseous mineralization is normal. There is no fracture or dislocation. There is mild narrowing of medial and patellofemoral compartments. There are vascular calcifications. There is no joint effusion. XR/XR knee LT 3V IMPRESSION: Mild narrowing of the medial and patellofemoral compartments. Electronically signed by: Yadiel Carter MD 05/28/2024 07:22 AM EDT
--- NOTE | ~2024-05-19 | XR_ITS ---
EXAMINATION: XR CHEST CLINICAL INFORMATION: confirm NGT placement COMPARISON: 09/27/2023. TECHNIQUE: AP view of the chest was obtained. FINDINGS: NG tube is in place, tip and sidehole are subdiaphragmatic within the stomach. The cardiac, hilar, and mediastinal contours are normal. Aortic mural calcification. Lungs demonstrate bibasilar minor atelectatic changes. There are low lung volumes. Bilateral calcified pleural plaques. No pneumothorax or effusion. No focal osseous abnormality. Subdiaphragmatic free air is suspected (Rigler's sign). XR/XR chest 1V IMPRESSION: 1. Well-positioned NG tube. 2. Low lung volumes with bibasilar minor atelectasis and bilateral calcified pleural plaques. 3. Subdiaphragmatic free air suspected. Electronically signed by: Eric Irvin MD 05/21/2024 03:21 PM EDT
[2024-05-19 19:49] VITALS: BP 138/95; PULSE 118; RESP 18; TEMP 37.2; O2SAT 97; BMI 21.3
--- NOTE | 2024-05-19 19:53 | ECG_ITS ---
Test Reason : abd pain Blood Pressure : */* mmHG Vent. Rate : 111 BPM Atrial Rate : 111 BPM P-R Int : 162 ms QRS Dur : 72 ms QT Int : 346 ms P-R-T Axes : 55 -13 34 degrees QTcB Int : 470 ms Poor data quality Sinus tachycardia with Premature supraventricular complexes Otherwise normal ECG When compared with ECG of 04-Mar-2023 19:03, Vent. rate has increased by 45 bpm Referred By: Mariam Guzman Electronically Signed By: LAURO BLANCHARD MD
[2024-05-19] MEDS: Ondansetron ODT 4 MG TAB.RAPDIS TRANSLINGU (19:56)
--- NOTE | 2024-05-19 20:05 | ED.ABDPAIN ---
HPI - Abdominal Pain General Chief Complaint: Abdominal Pain Stated Complaint: ABD PAIN PT THINKS HERNIA Time Seen by Provider: 05/19/24 21:15 Source: patient and other ( patient's friend) Mode of arrival: ambulatory Limitations: no limitations History of Present Illness ED Provider: Dr. Lali Vizcarra HPI narrative: patient comes to the emergency room complaining of periumbilical abdominal pain nausea and vomiting, no diarrhea. Patient states that the pain started yesterday. Patient denies any fever chills, denies difficulty urinating denies flank pain. Patient states that years ago he had a hernia which needed surgery. Patient states that the pain feels similar. Patient denies any history of kidney stones. At this time, patient states that the pain is in the periumbilical area, no radiation, states it is worse when he walks. Patient states that he has regular bowel movements, last time he moved his bowels was yesterday. Related Data Previous Rx's ?Medication ?Instructions ?Recorded prednisone 20 mg tablet See Rx Instructions .Route 05/16/24 .COMPLEX #15 tabs amlodipine 5 mg tablet 5 mg PO DAILY #30 tabs 05/17/24 Allergies Allergy/AdvReac Type Severity Reaction Status Date / Time No Known Allergies Allergy Verified 05/19/24 19:51 [No Known Allergies*] Review of Systems Review of Systems Constitutional : No Weight loss, No Fever, No Chills, No Night Sweats, No Fatigue, No Malaise ENT/Mouth : No Hearing loss, No Ear Pain, No Nasal Congestion, No Sinus Pain, No Hoarseness, No sore throat, No Rhinorrhea, No Swallowing Difficulty Eyes: No Eye Pain, No Swelling, No Redness, No Foreign Body, No Discharge, No Vision Changes Cardiovascular : No Chest Pain, No SOB, No Dyspnea on Exertion, No Orthopnea, No Edema, No Palpitations Respiratory : No Cough, No Sputum, No Wheezing, No Smoke Exposure, No Dyspnea Gastrointestinal : Complaining of nausea and vomiting, complaining of periumbilical abdominal pain and distention, denies diarrhea or blood in the stool. Genitourinary : no irregular bleeding, No Dysuria, No Urinary Frequency, No Hematuria, No Urinary Incontinence, No Urgency, No Flank Pain, No Urinary Flow Changes, No Hesitancy Musculoskeletal : No joint pain, No Myalgias, No Joint Swelling Skin : No Skin Lesions, No rash Neuro : No Weakness, No Numbness, No Paresthesias, No Loss of Consciousness, No Dizziness, No Headache Psych : No Anxiety/Panic, No Depression, No SI/HI/AH/VH, No Social Issues, Heme/Lymph: No Bruising, No Bleeding,No Lymphadenopathy Endocrine : No Polyuria, No Polydipsia, No Temperature Intolerance [facility], LAT[facility] Past Medical History Medical History (Updated 05/19/24 @ 22:47 by Lali Vizcarra MD) CKD stage 3a, GFR 45-59 ml/min Restrictive lung disease Dyspnea on effort 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 High cholesterol HTN (hypertension) Surgical History Previous back surgery Family History Family History Father Heart attack Mother Heart attack Social History Social History Household Members: None Housing: Other Housing Other:: mobile home/trailer Do you presently have visiting nurse or other home services: No Alcohol intake: never Patient Tobacco Use Status: Never used Tobacco Advance Directives: Yes Advance Directives on File: Yes Advance Directives Date on File: 11/28/23 Do you have a plan to hurt others: No Plan service: No Current occupational status: retired Cognitive needs: No Hearing needs: No Vision needs: Yes (rx contacts/glasses) Physical Exam ED Vital Signs: Vital Signs - 24 hr 05/19/24 19:49 05/19/24 21:29 05/19/24 23:04 Temperature 99.0 F 98.9 F Pulse Rate 118 H 113 H 107 H Respiratory Rate 18 16 25 H Blood Pressure 138/95 H 181/91 H 159/81 H Pulse Oximetry 97 96 95 Oxygen Delivery Method Room Air Room Air Room Air BMI result Body Mass Index 21.3 Const Other: Appearance: Alert. Oriented X3. seems to be in pain, uncomfortable Eyes: Pupils equal, round and reactive to light. ENT: Pharynx normal. Neck: Normal inspection. Neck supple. No lymph nodes noted. No crepitus CVS: Normal heart rate and rhythm. Pulses normal. Normal S1 and S2 Respiratory: No respiratory distress. Breath sounds normal. No Wheezing. No rales Abdomen: Soft , moderately distended, pain to palpation in periumbilical area and left lower quadrant, mild rebound , + Peritoneal signs, no guarding. Skin: Skin warm and dry. Normal skin color. Normal skin turgor. Extremities: No lower extremity edema. No Lacerations. No Rash Neuro: Oriented X 3. No motor deficit. No sensory deficit. Moving all extremities. No slurred speech. CN 2 through 12 grossly intact Psych: calm, cooperative, normal affect Course Course Course Narrative: This is a Rapid Medical Examination (RME) performed by Cristian Guzman PA-C in triage. Full HPI, ROS, assessment and treatment plan per primary provider in the Main ED. Hx: 83 yo male hx of HLD, HTN, restrictive lung disease, stage 3 CKD, gout here for eval of lower abdominal pain which began last night. last BM yesterday - he has not had a BM since pain began. not passing flatus. reports nausea w/ one episode of vomiting last night. no urinary sx. surgical history - hernia repair. PE/vitals: tachycardic, hypertensive. abd distended, firm, tender. no rebound. 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 Chemistry does not show any acute abnormality, normal LFTs, normal lipase patient's KUB shows moderate stool burden, no SBO obstruction pattern patient receiving IV fluids, morphine and Zofran. Patient seems very uncomfortable, CT scan pending bladder scan shows 400 mL of urine. Patient tried to urinate but could not pass urine. Bradford catheter has been inserted CT scan Radiology report: colonic diverticulitis with wall thickening of the sigmoid and descending colon with surrounding fat stranding. There is wall thickening of the segment of small bowel just ago the sigmoid colon surrounding with fluid and extra luminal air patient has been started on antibiotics, lactic acid and blood cultures pending. Patient's blood pressure stable, no fever, at this time, 22:30, sepsis is not suspected. I discussed the patient with Dr. Monaco from general surgery, he will be in shortly to assess the patient Patient will be going to the operating room. Differential Diagnosis Differential Diagnoses: The differential diagnosis associated with the presentation includes ( SBO, diverticulitis, perforation, urinary retention) Admission/Observation Consideration of admission/observation: Escalation of care including admission/observation considered Consult Healthcare Provider Management of the patient was discussed with: Police Communications Operator Lab Data MDM Lab Attestation statement: I reviewed the patient's lab results. 05/19/24 20:56 05/19/24 20:56 Labs: Lab Results 05/19/24 05/19/24 05/19/24 Range/Units 20:56 21:55 23:11 WBC 11.5 H (4.8-10.8) X10*3/uL RBC 4.12 L (4.60-5.80) X10*6/uL Hgb 12.9 L (14.0-18.0) g/dl Hct 37.9 L (42.0-52.0) % MCV 92.0 (80.0-98.0) fL MCH 31.3 (27.0-33.0) pg MCHC 34.0 (31.0-36.0) g/dl RDW 14.4 (11.0-16.0) % Plt Count 219 (160-400) X10*3/uL MPV 11.2 (9.4-12.4) fL Immature Gran % (Auto) 0.4 (0.0-0.4) % Neut % (Auto) 90.3 H (45-73) % Lymph % (Auto) 5.0 L (20-40) % [place] % (Auto) 4.1 (2-11) % Eos % (Auto) 0.1 (0-4) % Baso % (Auto) 0.1 (0-2) % Lymph # (Auto) 0.6 L (1.2-4.9) X10*3/uL [place] # (Auto) 0.5 (0.1-1.2) X10*3/uL Eos # (Auto) 0.0 (0.0-0.4) X10*3/uL Baso # (Auto) 0.0 (0.0-0.2) X10*3/uL Abs Immat Gran (auto) 0.05 H (0.00-0.03) X10*3/uL Absolute Neuts (auto) 10.4 H (2.0-8.3) x10*3/uL Absolute Nucleated RBC 0.000 (0.0-0.012) X10*3/uL Nucleated RBC % (auto) 0.0 (0.0-0.2) /100WBC Smear Tech's Comments VERIFIED Sodium 138 (135-145) mmol/L Potassium 3.7 (3.3-5.1) mmol/L Chloride 108 (96-108) mmol/L Carbon Dioxide 21 L (22-29) mmol/L Anion Gap 13 (12-20) BUN 25 H (9-16) mg/dL Creatinine 0.83 (0.5-1.4) mg/dL Estim Creat Clear Calc 49.6 Estimated GFR > 60 Random Glucose 104 (60-115) mg/dL Lactic Acid 1.4 (0.5-2.0) mmol/L Calcium 8.6 D (8.4-10.2) mg/dL Magnesium 1.9 (1.6-2.6) mg/dL Total Bilirubin 1.0 (0.0-1.0) mg/dL AST 19 (5-37) U/L ALT 17 (0-40) U/L Alkaline Phosphatase 82 (39-117) U/L Total Protein 7.0 (6.5-8.0) g/dL Albumin 3.8 (3.5-5.0) g/dL Lipase 13 (8-78) U/L Urine Color Yellow Urine Appearance Clear Urine pH 6.5 (5.0-9.0) Ur Specific [place] >= 1.030 H (1.005-1.025) Urine Protein 30 (1+) H (Neg-Trace) mg/dL Urine Glucose (UA) Negative (Negative) mg/dL Urine Ketones Negative (Negative) mg/dL Urine Blood Negative (Negative) Urine Nitrite Negative (Negative) Ur Leukocyte Esterase Negative (Negative) Urine RBC 0-2 (0-2) /HPF Urine WBC 0-5 (0-5) /HPF Ur Squamous Epith Cells 0-2 (0-2) /HPF Urine Bacteria None Seen (None Seen) Hyaline Casts 0-2 (0-2) /LPF Independent Interpretation I performed an independent interpretation of an: CT Scan Radiology Impression Discussion of test interpretation with radiology: I have reviewed the radiologist's reading. Radiologist Impression: Calcified pleural plaques in the lung bases. Small hiatal hernia. Atrophic pancreas. Liver, gallbladder, spleen, and adrenal glands are within normal limits. No biliary duct dilatation. No hydronephrosis. Symmetric contrast enhancement of the kidneys. Bilateral renal cysts. Pneumoperitoneum. Colonic diverticulosis with wall thickening of the sigmoid and descending colon with surrounding fat stranding. There is wall thickening of the segment of small bowel just above the sigmoid colon with surrounding fluid and extraluminal air (best seen on coronal image 37/77). Aortic atherosclerosis. No aneurysm. Portal venous system is patent. Prostatomegaly. Mild diffuse urinary bladder wall thickening, possibly chronic outlet obstruction from prostatomegaly. No acute fracture. Degenerative changes of the spine. IMPRESSION: Pneumoperitoneum with perforated bowel, suspected to be a segment of inflamed small bowel in the left lower quadrant ( best seen on coronal image 37/77 ), this is just above an area of acute diverticulitis in the sigmoid colon. Independent Historian Clinical information obtained from an independent historian. History obtained from or confirmed by: Friend Medications Administered Discontinued Medications Generic Name Dose Route Start Last Admin Trade Name Freq PRN Reason Stop Dose Admin Sodium Chloride 1,000 mls @ 999 mls/hr 05/19/24 21:35 05/19/24 21:58 Ns IVCONT 05/19/24 22:35 999 mls/hr .Q1H1M ONE Administration Sodium Chloride 1,000 mls @ 999 mls/hr 05/19/24 22:17 05/19/24 22:54 Ns IVCONT 05/19/24 23:17 999 mls/hr .Q1H1M ONE Administration Piperacillin Sod/Tazobactam 50 mls @ 100 mls/hr 05/19/24 22:17 05/19/24 22:41 Sod 3.375 gm/ Sodium Chloride IV 05/19/24 22:46 100 mls/hr ONCE ONE Administration Iohexol 85 ml 05/19/24 21:45 05/19/24 21:45 Iohexol 350 Mg/Ml 100 Ml Infus..Btl IV 05/19/24 21:46 85 ml ONCE ONE Administration Morphine Sulfate 2 mg 05/19/24 21:35 05/19/24 22:50 Morphine Sulfate 2 Mg/Ml Cartridge IVPUSH 05/19/24 21:36 2 mg ONCE ONE Administration Protocol Ondansetron HCl 4 mg 05/19/24 19:53 05/19/24 19:56 Ondansetron Odt 4 Mg Tab.Rapdis TRANSLINGU 05/19/24 19:54 4 mg ONCE ONE Administration Ondansetron HCl 4 mg 05/19/24 21:35 05/19/24 22:50 Ondansetron Hcl 4 Mg/2 Ml Vial IVPUSH 05/19/24 21:36 4 mg ONCE ONE Administration Critical Care Time Critical Care Time Critical Care Time: Yes Total Critical Care Time: 60 Attestation: I have personally provided critical care time. Time includes review of lab data, radiology results, discussion with consultants, and monitoring for potential decompensation. Intervention performed as documented. Discharge Plan Discharge Clinical Impression: Diverticulitis of colon with perforation, Acute urinary retention Patient Disposition: Admitted As Inpatient
[2024-05-19 21:05] LABS: Basophils Percent Auto 0.1 % (0-2); Eosinophils Percent Auto 0.1 % (0-4); Hematocrit 37.9 % (42.0-52.0); Hemoglobin 12.9 g/dl (14.0-18.0); Imm Gran Abs Auto 0.05 X10*3/uL (0.00-0.03); Imm Gran Pct Auto 0.4 % (0.0-0.4); Lymphocytes Absolute Auto 0.6 X10*3/uL (1.2-4.9); MANUAL DIFF FLAG SCAN; Mean Corpuscular Hemoglobin 31.3 pg (27.0-33.0); Mean Platelet Volume 11.2 fL (9.4-12.4); Monocytes Absolute Auto 0.5 X10*3/uL (0.1-1.2); Monocytes Percent Auto 4.1 % (2-11); Neutrophils Absolute Auto 10.4 x10*3/uL (2.0-8.3); Neutrophils Percent Auto 90.3 % (45-73); Platelet Count 219 X10*3/uL (160-400); Red Blood Count 4.12 X10*6/uL (4.60-5.80); Red Cell Distribution Width 14.4 % (11.0-16.0); SCAN SMEAR FLAG 1; White Blood Count 11.5 X10*3/uL (4.8-10.8)
[2024-05-19 21:21] LABS: Alanine Aminotransferase 17 U/L (0-40); Albumin Level 3.8 g/dL (3.5-5.0); Alkaline Phosphatase 82 U/L (39-117); Anion Gap 13 (12-20); Aspartate Amino Transferase 19 U/L (5-37); Blood Urea Nitrogen 25 mg/dL (9-16); Calcium 8.6 mg/dL (8.4-10.2); Carbon Dioxide 21 mmol/L (22-29); Chloride 108 mmol/L (96-108); Creatinine Clr Calc Pharmacy 49.6; Estimated Glomerular Filt Rate > 60; Glucose Random 104 mg/dL (60-115); Lipase 13 U/L (8-78); Magnesium 1.9 mg/dL (1.6-2.6); Potassium 3.7 mmol/L (3.3-5.1); Sodium 138 mmol/L (135-145)
[2024-05-19 21:23] LABS: SLIDE REVIEW VERIFIED
[2024-05-19 21:29] VITALS: BP 181/91; PULSE 113; RESP 16; TEMP 37.2; O2SAT 96
[2024-05-19] MEDS: iohexoL 350 MG/ML 100 ML INFUS..BTL 85 ML IV (21:45)
[2024-05-19] MEDS: 0.9 % Sodium Chloride 1,000 ML 999 ML IVCONT ×2 (21:58→22:54)
[2024-05-19 22:13] LABS: Lactic Acid 1.4 mmol/L (0.5-2.0)
[2024-05-19] MEDS: Piperacillin Sodium/Tazobactam 3.375 GM in 0.9 % Sodium Chloride 50 ML IV (22:41)
[2024-05-19] MEDS: Morphine Sulfate 2 MG/ML CARTRIDGE IVPUSH (22:50)
[2024-05-19] MEDS: ondansetron HCL 4 MG/2 ML VIAL IVPUSH (22:50)
[2024-05-19 23:04] VITALS: BP 159/81; PULSE 107; RESP 25; O2SAT 95
--- NOTE | 2024-05-19 23:19 | P.HPGS_ITS ---
History of Present Illness History of Present Illness Date of Service: 05/19/24 Chief complaint: perfect viscus, exploratory laparotomy Narrative: Ruslan Lindsay is a 83 year old male presenting with complaints of severe abdominal pain which began yesterday and increased in severity during the day today. The pain was associated with nausea and vomiting, anorexia. He denies fever, chills, urinary retention, constipation or diarrhea. He does report increased pain with motion/ambulation. He had a normal bowel movement yesterday. He denies a previous history of similar symptoms. The pain began in his periumbilical region and initially he thought this was due to a hernia. He subsequently presented to the emergency department and was noted to have diffuse abdominal pain. WBC was elevated at 11.5. A CT abdomen and pelvis was obtained which revealed free air under the diaphragm with evidence of diverticulosis and a thickened loop of small bowel in the left lower quadrant adjacent to the sigmoid colon. This raised the suspicion of a perforated bowel possibly small bowel. He was admitted to the surgical service for further management of a perforated viscus. Review of Systems Review of Systems: Yes all other systems are reviewed and are negative Constitutional: Constitutional: Denies chills, Denies fever(s), Denies headache(s), Reports poor appetite and Denies weakness ENT: Denies headache(s) Cardiovascular: Cardiovascular: Denies chest pain, Denies irregular heart rhythm, Denies palpitations and Denies dyspnea Respiratory: Respiratory: Denies cough, Denies excessive phlegm production and Denies dyspnea Gastrointestinal: Gastrointestinal: Reports abdominal pain, Reports bloating, Denies change in bowel habits, Denies constipation, Denies heartburn, Denies diarrhea, Reports nausea and Reports vomiting Genitourinary: Genitourinary: Denies difficulty urinating and Denies urinary frequency Musculoskeletal: Musculoskeletal: Denies back pain, Denies muscle weakness and Denies numbness Integumentary/Breasts: Skin/Breast: Denies changing lesions and Denies unusual bruising Neurologic: Denies headache(s), Denies numbness, Denies paresthesias and Denies weakness Psychiatric: Psychiatric: Denies anxiety and Denies depression Endocrine: Endocrine: Denies palpitations Hematologic/Lymphatic: Hematologic/Lymphatic: Denies lymphadenopathy [facility] Past Medical History Medical History (Updated 05/19/24 @ 22:47 by Lali Vizcarra MD) CKD stage 3a, GFR 45-59 ml/min Restrictive lung disease Dyspnea on effort 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 High cholesterol HTN (hypertension) Family History Family History Father Heart attack Mother Heart attack Surgical History Surgical History Previous back surgery Social History Social History Household Members: None Housing: Other Housing Other:: mobile home/trailer Do you presently have visiting nurse or other home services: No Alcohol intake: never Patient Tobacco Use Status: Never used Tobacco Advance Directives: Yes Advance Directives on File: Yes Advance Directives Date on File: 11/28/23 Do you have a plan to hurt others: No Plan service: No Current occupational status: retired Cognitive needs: No Hearing needs: No Vision needs: Yes (rx contacts/glasses) Meds Allergies Allergy/AdvReac Type Severity Reaction Status Date / Time No Known Allergies Allergy Verified 05/19/24 19:51 [No Known Allergies*] Physical Exam Vital Signs: Vital Signs: Last Vital Signs Temp 98.9 F 05/19/24 21:29 Pulse 107 H 05/19/24 23:04 Resp 25 H 05/19/24 23:04 BP 159/81 H 05/19/24 23:04 Pulse Ox 95 05/19/24 23:04 O2 Del Method Room Air 05/19/24 23:04 BMI result Body Mass Index 21.3 Const: General: cooperative and no acute distress Nutritional Appearance: well nourished Orientation/consciousness: patient oriented x3 Limitations: no limitations HEENT: Head: Yes normocephalic and Yes atraumatic Ears: hearing grossly normal bilaterally Resp: Effort & Inspection: normal respiratory effort, no audible wheezes, no cough and no respiratory distress Cardio: Jugular venous distension: no JVD GI: Other: Diffusely tender abdomen in all 4 quadrants, rigidity, rebound and guarding. Bowel sounds are hypoactive. Inspection: Yes normal to inspection Skin: Other: Warm, dry, no rash Neuro: General: patient oriented x3 Extrem: General: Yes no clubbing, cyanosis or edema Results Results Labs: Short CBC 05/19/24 Range/Units 20:56 WBC 11.5 H (4.8-10.8) X10*3/uL Hgb 12.9 L (14.0-18.0) g/dl Hct 37.9 L (42.0-52.0) % Plt Count 219 (160-400) X10*3/uL BMP 05/19/24 20:56 Sodium 138 Potassium 3.7 Chloride 108 Carbon Dioxide 21 L BUN 25 H Creatinine 0.83 Calcium 8.6 D Liver Function 05/19/24 Range/Units 20:56 Total Bilirubin 1.0 (0.0-1.0) mg/dL AST 19 (5-37) U/L ALT 17 (0-40) U/L Alkaline Phosphatase 82 (39-117) U/L Albumin 3.8 (3.5-5.0) g/dL Assessment and Plan (1) Diverticulitis of colon with perforation: Status: Acute Plan Patient presents with acute abdominal pain found to have an elevated WBC, and CT evidence of free air suggestive of possible perforated bowel. On examination he was diffusely tender with peritoneal signs. I recommended exploratory laparotomy with possible bowel resection and possible colostomy. After discussion of the procedure, risks, and alternatives, he consents to the surgery. Quality Stroke Does the patient have a stroke diagnosis?: No VTE Prior VTE?: No VTE Risk Level:: Surgical - moderate VTE Device Contraindication: N/A - Device Ordered VTE Drug Contraindication: Treatment Not Indicated Procedures Date of Service Date of Service: 05/19/24
[2024-05-19 23:20] LABS: Appearance Urine Clear; Color Urine Yellow; Glucose Urine UA Negative (Negative); Leukocyte Esterase Urine Negative (Negative); Nitrite Urine Negative (Negative); PH 6.5 (5.0-9.0); Specific Gravity - Urine >= 1.030 (1.005-1.025); UMIC TRIGGER UACC YES; Urine Blood Negative (Negative); Urine Ketones Negative (Negative); Urine Protein 30 (1+) mg/dL (Neg-Trace)
[2024-05-19 23:25] LABS: Bacteria Urine None Seen (None Seen); Hyaline Casts Urine 0-2 /LPF (0-2); RBC Urine 0-2 /HPF (0-2); Squamous Epithelial Cell Urine 0-2 /HPF (0-2); WBC Urine 0-5 /HPF (0-5)
[2024-05-19 23:42] VITALS: BP 154/71; PULSE 101; RESP 21; TEMP 36.8; O2SAT 95
[2024-05-19] MEDS: Lactated Ringers 1,000 ML 100 ML IVCONT (23:51)
[2024-05-20] VITALS (11 sets, daily range): BP systolic 139–192; BP diastolic 68–88; PULSE 79–102; RESP 15–23; TEMP 36.2–37.4; O2SAT 94–98
--- NOTE | 2024-05-20 00:25 | P.CONAN_ITS ---
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 (Acute) Gout involving toe of left foot (Acute) Acute gout of right wrist (Acute) Past Medical History Medical History (Updated 05/19/24 @ 22:47 by Lali Vizcarra MD) CKD stage 3a, GFR 45-59 ml/min Restrictive lung disease Dyspnea on effort 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 High cholesterol HTN (hypertension) Family History Family History Father Heart attack Mother Heart attack Family history of problems with anesthesia: No Surgical History Surgical History Previous back surgery History of Problems with Anesthesia: No Social History Social History Household Members: None Housing: Other Housing Other:: mobile home/trailer Do you presently have visiting nurse or other home services: No Alcohol intake: never Patient Tobacco Use Status: Never used Tobacco Advance Directives: Yes Advance Directives on File: Yes Advance Directives Date on File: 11/28/23 Do you have a plan to hurt others: No Plan service: No Current occupational status: retired Cognitive needs: No Hearing needs: No Vision needs: Yes (rx contacts/glasses) Meds Allergies Allergy/AdvReac Type Severity Reaction Status Date / Time No Known Allergies Allergy Verified 05/19/24 19:51 [No Known Allergies*] Active Medications: Current Medications Hydromorphone HCl (Hydromorphone Hcl 0.5 Mg/0.5 Ml Syringe) 0.5 mg IVPUSH Q3H PRN; Protocol PRN Reason: Pain, Severe (Pain Scale 7-10) Lactated Ringer's (Lr) 1,000 mls @ 100 mls/hr IVCONT .Q10H [facility] Last Admin: 05/19/24 23:51 Dose: 100 mls/hr Sodium Chloride (0.9 % Sodium Chloride Flush 3 Ml Syringe) 3 ml IVFLUSH QSHIFT [facility] Exam Height,Weight and Vital Signs: Height 5 ft 1 in Weight 51.2 kg Last Vital Signs Temp 98.2 F 05/19/24 23:42 Pulse 101 H 05/19/24 23:42 Resp 21 H 05/19/24 23:42 BP 154/71 H 05/19/24 23:42 Pulse Ox 95 05/19/24 23:42 O2 Del Method Room Air 05/19/24 23:42 Pertinent Lab Results Pertinent Lab Results: Laboratory Tests 05/19/24 05/19/24 05/19/24 20:56 21:55 23:11 WBC 11.5 H RBC 4.12 L Hgb 12.9 L Hct 37.9 L MCV 92.0 MCH 31.3 MCHC 34.0 RDW 14.4 Plt Count 219 MPV 11.2 Immature Gran % (Auto) 0.4 Neut % (Auto) 90.3 H Lymph % (Auto) 5.0 L [place] % (Auto) 4.1 Eos % (Auto) 0.1 Baso % (Auto) 0.1 Lymph # (Auto) 0.6 L [place] # (Auto) 0.5 Eos # (Auto) 0.0 Baso # (Auto) 0.0 Abs Immat Gran (auto) 0.05 H Absolute Neuts (auto) 10.4 H Absolute Nucleated RBC 0.000 Nucleated RBC % (auto) 0.0 Smear Tech's Comments VERIFIED Sodium 138 Potassium 3.7 Chloride 108 Carbon Dioxide 21 L Anion Gap 13 BUN 25 H Creatinine 0.83 Estim Creat Clear Calc 49.6 Estimated GFR > 60 Random Glucose 104 Lactic Acid 1.4 Calcium 8.6 D Magnesium 1.9 Total Bilirubin 1.0 AST 19 ALT 17 Alkaline Phosphatase 82 Total Protein 7.0 Albumin 3.8 Lipase 13 Urine Color Yellow Urine Appearance Clear Urine pH 6.5 Ur Specific [place] >= 1.030 H Urine Protein 30 (1+) H Urine Glucose (UA) Negative Urine Ketones Negative Urine Blood Negative Urine Nitrite Negative Ur Leukocyte Esterase Negative Urine RBC 0-2 Urine WBC 0-5 Ur Squamous Epith Cells 0-2 Urine Bacteria None Seen Hyaline Casts 0-2 Airway Mallampati Class: II TM Dist: >3cm Neck ROM: Full Denture: Upper and Lower Loose/Missing/Broken Teeth: No Heart: RRR Lungs: CTA Assessment and Plan Assessment Anesthesia Assessment: Anesthesia Plan Discussed and Chart Reviewed Final Anesthetic Review Family History of Problems with Anesthesia: No History of Problems with Anesthesia: No NPO: No ASA Class: III and Emergency Final Preanesthetic Review: No Changes in Pt Med Stat, Meds/Allgs Chart Reviewed, Consent Obtained/Reviewed and Anes Risks/Benef Reviewed Patient Risk: High Procedure Risk: Intermediate Anesthetic Plan Anesthetic Plan: GA Disposition: Standard PACU
--- NOTE | 2024-05-20 02:22 | P.OP_ITS ---
Operative Note Operative Note Date of Service: 05/20/24 Narrative: Preoperative diagnosis: Perforated viscus, free intraperitoneal air Postoperative diagnosis: Perforated sigmoid colon, intra-abdominal abscess Procedure: Exploratory laparotomy, Derek procedure Surgeon: Daniel Monaco MD Pinking Machine Operator: None Anesthesia: General endotracheal Indications for procedure: 83-year-old male patient presenting with a 2 day history of severe abdominal pain presenting to the emergency department with diffuse abdominal tenderness and peritoneal signs. Laboratories revealed an elevated WBC and CT abdomen and pelvis revealed free intraperitoneal air suggestive of a perforated viscus. Operative findings: Large collection of turbid fluid suggestive of bowel perforation. No gastric or duodenal ulcer identified. Small-bowel was normal. A densely adherent sigmoid colon to bladder wall revealed an impending fistula with perforation of the sigmoid colon. No feculent material was identified but intra-abdominal abscess was noted. Specimen: Wound cultures, sigmoid colectomy Estimated blood loss: 10 mL Complications: None Procedure details: Patient was brought to the OR and placed in a supine position. After administering general anesthesia the patient's abdomen was prepped with ChloraPrep and draped in a sterile fashion. A surgical time-out was called the consent confirmed. Patient received preoperative antibiotics and Venodyne boots were in place. A midline incision was made adjacent to the umbilicus. This was carried down through subcutaneous tissue through linea alba into the peritoneum. The abdomen was explored and the above findings noted. The incision was then extended inferiorly towards the pubis. A Bookwalter retractor was placed. A large collection of turbid fluid was noted in the. This was suctioned free. A densely adherent portion of the sigmoid colon was noted against the bladder wall. Turbid fluid was noted adjacent to this. 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 The communication was sharply dissected using Metzenbaum scissors. A perforation in the sigmoid colon was noted at this location suggestive of perforated diverticulitis. The decision was made to proceed with a Derek procedure. Sigmoid colon was mobilized along the sidewall using the LigaSure. An area of normal bowel was identified in the mesentery divided below this. A NIGEL 60 blue stapler was then used to divide the sigmoid colon approximately 10 cm proximal to the perforation. LigaSure was then used to divide the mesentery distally to approximately 5 cm below the area of perforation. A 2nd firing of the NIGEL stapler was then used to divide the Distal sigmoid colon at the rectosigmoid junction. The specimen was removed and sent to pathology for further examination. The proximal sigmoid colon and descending colon was then mobilized along the white line of Toldt. A circular incision was then made in the left lower quadrant and carried down to the anterior rectus sheath. A cruciate incision was then made in the anterior rectus sheath. Norma clamps were then used to pass the posterior sheath and peritoneum. This opening was dilated with 2 fingers. The sigmoid colon was then brought up through this circular incision and secured using [place] clamps. The abdomen was then thoroughly irrigated with saline solution and suctioned dry. Fascia was then closed using a running looped 0 PDS suture. Skin was closed using skin luis alfredo. The ostomy was then matured using interrupted 4-0 Polysorb sutures. Sterile dressings and ostomy appliance was then applied. The patient tolerated the procedure well. Sponge, instrument, and needle counts reported as correct. The patient was transferred to PACU in stable condition.
[2024-05-20] MEDS: oxyCODONE HCl Immed Release 5 MG TABLET PO ×3 (03:38→23:53)
[2024-05-20] MEDS: Piperacillin Sodium/Tazobactam 3.375 GM in 0.9 % Sodium Chloride 50 ML IV ×4 (03:38→22:06)
[2024-05-20] MEDS: Dextrose 5 % and Lactated Ring 1,000 ML 125 ML IVCONT ×3 (03:42→19:49)
[2024-05-20 05:48] LABS: Basophils Percent Auto 0.1 % (0-2); Hematocrit 38.1 % (42.0-52.0); Hemoglobin 12.7 g/dl (14.0-18.0); Imm Gran Abs Auto 0.02 X10*3/uL (0.00-0.03); Imm Gran Pct Auto 0.2 % (0.0-0.4); Lymphocytes Absolute Auto 0.6 X10*3/uL (1.2-4.9); Lymphocytes Percent Auto 5.7 % (20-40); MANUAL DIFF FLAG SCAN; Mean Corpuscular HGB Conc 33.3 g/dl (31.0-36.0); Mean Corpuscular Hemoglobin 31.5 pg (27.0-33.0); Mean Corpuscular Volume 94.5 fL (80.0-98.0); Mean Platelet Volume 11.5 fL (9.4-12.4); Monocytes Absolute Auto 0.4 X10*3/uL (0.1-1.2); Monocytes Percent Auto 3.8 % (2-11); Neutrophils Absolute Auto 9.2 x10*3/uL (2.0-8.3); Neutrophils Percent Auto 90.2 % (45-73); Platelet Count 195 X10*3/uL (160-400); Red Blood Count 4.03 X10*6/uL (4.60-5.80); Red Cell Distribution Width 14.5 % (11.0-16.0); SCAN SMEAR FLAG 1; White Blood Count 10.2 X10*3/uL (4.8-10.8)
[2024-05-20 06:01] LABS: Alanine Aminotransferase 14 U/L (0-40); Albumin Level 3.3 g/dL (3.5-5.0); Alkaline Phosphatase 71 U/L (39-117); Anion Gap 11 (12-20); Aspartate Amino Transferase 18 U/L (5-37); Bilirubin Total 0.5 mg/dL (0.0-1.0); Blood Urea Nitrogen 19 mg/dL (9-16); Carbon Dioxide 23 mmol/L (22-29); Chloride 110 mmol/L (96-108); Creatinine Clr Calc Pharmacy 33.2; Estimated Glomerular Filt Rate 56; Glucose Random 116 mg/dL (60-115); Sodium 140 mmol/L (135-145); Total Protein 6.2 g/dL (6.5-8.0)
[2024-05-20 06:09] LABS: SLIDE REVIEW VERIFIED
--- NOTE | 2024-05-20 08:43 | PHA.MEDREC ---
Addendum entered by Preethi Toro RPh 05/20/24 09:22: Reviewed by [facility]. Spoke with pt to confirm pt is no longer on allopurinol. Pt confirmed the DrCarmita did not want him on both allopurinol and amlodipine at the same time? Original Note: Pharmacy Consult ? Medication Reconciliation Pharmacy has completed the medication reconciliation. Spoke with patient and he confirmed his medications. Patient confirmed he is no longer taking the Allopurinol or Lisinopril-Hydrochlorothiazide tabs and stated he started taking Amlodipine 5mg tabs one a day last week. He also confirmed he started the Prednisone 20mg tab regiment taking 2 tabs daily for 5 days then 1 tab daily for 5 days and confirmed he started it last . He states he has not had any medications since Monday.
--- NOTE | 2024-05-20 09:11 | P.PNGS_ITS ---
Subjective Subjective Date of Service: 05/20/24 Interval history: Sore this morning, tired. Physical Exam 2 Vital Signs: Vital Signs: Last Vital Signs Temp 97.2 F 05/20/24 07:40 Pulse 93 05/20/24 07:40 Resp 18 05/20/24 07:40 BP 157/70 H 05/20/24 07:40 Pulse Ox 96 05/20/24 07:40 O2 Del Method Nasal Cannula 05/20/24 07:40 O2 Flow Rate 2.0 05/20/24 07:40 BMI result Body Mass Index 21.3 Const: General: comfortable, no acute distress and alert O rientation/consciousness: patient oriented x3 Resp: Effort & Inspection: normal respiratory effort GI: Other: dressing clean and intact ostomy beefy red, no output Inspection: No distended Palpation (GI): Soft to palpation, Tenderness to palpation present (GI) (mild incisional) and no guarding : Other: cantu in place Skin: General skin exam: no rashes or lesions noted Neuro: General: patient oriented x3 and moves all extremities Objective Data Active Medications Hydromorphone HCl (Hydromorphone Hcl 0.5 Mg/0.5 Ml Syringe) 0.5 mg IVPUSH Q3H PRN; Protocol PRN Reason: Pain, Severe (Pain Scale 7-10) Piperacillin Sod/Tazobactam (Sod 3.375 gm/ Sodium Chloride) 50 mls @ 100 mls/hr IV Q6H [facility] Last Infusion: 05/20/24 04:18 Dose: Infused Documented By: DI Acetaminophen (Ofirmev) 1,000 mg in 100 mls @ 400 mls/hr IV Q6H PRN PRN Reason: Pain, Mild (Pain Scale 1-3) Dextrose/Lactated Ringer's (D5lr) 1,000 mls @ 125 mls/hr IVCONT .Q8H [facility] Last Admin: 05/20/24 03:42 Dose: 125 mls/hr Documented By: DI Oxycodone HCl (Oxycodone Hcl Immed Release 5 Mg Tablet) 5 mg PO Q6H PRN PRN Reason: Pain, Moderate(Pain Scale 4-6) Last Admin: 05/20/24 03:38 Dose: 5 mg Documented By: DI Sodium Chloride (0.9 % Sodium Chloride Flush 3 Ml Syringe) 3 ml IVFLUSH QSHIFT [facility] Last Admin: 05/20/24 03:36 Dose: Not Given Documented By: DI Non-Admin Reason: Off Unit: Surgery Zolpidem Tartrate (Zolpidem Tartrate 5 Mg Tablet) 5 mg PO BEDTIME PRN PRN Reason: Insomnia Labs 05/20/24 05:23 05/20/24 05:23 Labs: Laboratory Results - last 24 hr 05/19/24 05/19/24 05/19/24 20:56 21:55 23:11 MCV 92.0 MCH 31.3 MCHC 34.0 RDW 14.4 Plt Count 219 MPV 11.2 Immature Gran % (Auto) 0.4 Neut % (Auto) 90.3 H Lymph % (Auto) 5.0 L [place] % (Auto) 4.1 Eos % (Auto) 0.1 Baso % (Auto) 0.1 Lymph # (Auto) 0.6 L [place] # (Auto) 0.5 Eos # (Auto) 0.0 Baso # (Auto) 0.0 Abs Immat Gran (auto) 0.05 H Absolute Neuts (auto) 10.4 H Absolute Nucleated RBC 0.000 Nucleated RBC % (auto) 0.0 Smear Tech's Comments VERIFIED Anion Gap 13 Estim Creat Clear Calc 49.6 Estimated GFR > 60 Random Glucose 104 Lactic Acid 1.4 Calcium 8.6 D Magnesium 1.9 Total Bilirubin 1.0 AST 19 ALT 17 Alkaline Phosphatase 82 Total Protein 7.0 Albumin 3.8 Lipase 13 Urine Color Yellow Urine Appearance Clear Urine pH 6.5 Ur Specific [place] >= 1.030 H Urine Protein 30 (1+) H Urine Glucose (UA) Negative Urine Ketones Negative Urine Blood Negative Urine Nitrite Negative Ur Leukocyte Esterase Negative Urine RBC 0-2 Urine WBC 0-5 Ur Squamous Epith Cells 0-2 Urine Bacteria None Seen Hyaline Casts 0-2 05/20/24 05:23 MCV 94.5 MCH 31.5 MCHC 33.3 RDW 14.5 Plt Count 195 MPV 11.5 Immature Gran % (Auto) 0.2 Neut % (Auto) 90.2 H Lymph % (Auto) 5.7 L [place] % (Auto) 3.8 Eos % (Auto) 0.0 Baso % (Auto) 0.1 Lymph # (Auto) 0.6 L [place] # (Auto) 0.4 Eos # (Auto) 0.0 Baso # (Auto) 0.0 Abs Immat Gran (auto) 0.02 Absolute Neuts (auto) 9.2 H Absolute Nucleated RBC 0.000 Nucleated RBC % (auto) 0.0 Smear Tech's Comments VERIFIED Anion Gap 11 L Estim Creat Clear Calc 33.2 Estimated GFR 56 Random Glucose 116 H Lactic Acid Calcium 8.0 L D Magnesium Total Bilirubin 0.5 AST 18 ALT 14 Alkaline Phosphatase 71 Total Protein 6.2 L Albumin 3.3 L Lipase Urine Color Urine Appearance Urine pH Ur Specific [place] Urine Protein Urine Glucose (UA) Urine Ketones Urine Blood Urine Nitrite Ur Leukocyte Esterase Urine RBC Urine WBC Ur Squamous Epith Cells Urine Bacteria Hyaline Casts Procedures Date of Service Date of Service: 05/20/24 Progress Note: A&P Assessment and plan (1) Diverticulitis of colon with perforation: Status: Acute (2) Status post Derek procedure: Status: Acute Plan POD #0 s/p ex lap, derek procedure for perforated sigmoid colon, intra- abdominal abscess. Doing fairly well this morning, hemodynamically stable. Abd with appropriate post op tenderness. Ostomy viable appearing. Cont clear liquids for now. IV abx, IVF, f/u abscess cultures. Encouraged OOB to at least recliner today, incentive spirometer 10x/hr. AM labs reviewed. Patient comfortable with plan. Begin ostomy education tomorrow. Time Spent With Patient Time: Total time managing care of this patient today ____ minutes. Quality Stroke Does the patient have a stroke diagnosis?: No VTE Prior VTE?: No VTE Risk Level:: Surgical - moderate VTE Device Contraindication: N/A - Device Ordered VTE Drug Contraindication: Treatment Not Indicated
[2024-05-20] MEDS: 0.9 % Sodium Chloride Flush 3 ML SYRINGE IVFLUSH ×2 (09:54→22:08)
--- NOTE | 2024-05-20 14:38 | MHC.CM.PN ---
Addendum entered by Maile Blum 05/20/24 15:12: A referral was sent to [facility]. They are providing services in the home. The patient is active with [facility]. They will accept him at discharge. Original Note: IMM05/20/24 Male s/p ex lap, Agrawal procedure for perforated sigmoid colon, new Ostomy . He lives by himself. He is independent with all functional mobility. HCP is on file. DP Home w or wo services. [facility] referred. They were referred 1 mo ago but no skill. Patient will arrange for a ride home.
[2024-05-21 00:53] VITALS: RESP 18
[2024-05-21 03:37] VITALS: BP 156/72; PULSE 76; RESP 18; TEMP 37.1; O2SAT 97
[2024-05-21] MEDS: Dextrose 5 % and Lactated Ring 1,000 ML 125 ML IVCONT ×3 (03:47→20:04)
[2024-05-21] MEDS: Piperacillin Sodium/Tazobactam 3.375 GM in 0.9 % Sodium Chloride 50 ML IV ×4 (03:50→22:07)
[2024-05-21] MEDS: ondansetron HCL 4 MG/2 ML VIAL IVPUSH ×2 (04:10→13:59)
[2024-05-21 07:44] VITALS: BP 133/64; PULSE 79; RESP 18; TEMP 37.3; O2SAT 97
--- NOTE | 2024-05-21 07:50 | PM.PNGS ---
Subjective Subjective Date of Service: 05/21/24 <Jacki Silveira PA-C - Last Filed: 05/21/24 07:56> 05/21/24 <Daniel Monaco MD - Last Filed: 05/21/24 07:57> Interval history: Vomited early this morning twice. Large amounts of bilious output per RN. Has not really been out of bed yet due to pain. Feels bloated this morning, nauseous. <Jacki Silveira PA-C - Last Filed: 05/21/24 07:56> Physical Exam Vital Signs: Vital Signs: Last Vital Signs Temp 99.2 F 05/21/24 07:44 Pulse 79 05/21/24 07:44 Resp 18 05/21/24 07:44 BP 133/64 05/21/24 07:44 Pulse Ox 97 05/21/24 07:44 O2 Del Method Nasal Cannula 05/21/24 07:44 O2 Flow Rate 2.0 05/21/24 07:44 BMI result Body Mass Index 21.3 <Jacki Silveira PA-C - Last Filed: 05/21/24 07:56> Const: General: no acute distress and alert <Jacki Silveira PA-C - Last Filed: 05/21/24 07:56> Orientation/consciousness: patient oriented x3 <Jacki Silveira PA-C - Last Filed: 05/21/24 07:56> Resp: Effort & Inspection: normal respiratory effort <Jacki Silveira PA-C - Last Filed: 05/21/24 07:56> GI: Other: abd distended incision clean ostomy pink, no output in appliance <Jacki Silveira PA-C - Last Filed: 05/21/24 07:56> Palpation (GI): Soft to palpation, Tenderness to palpation present (GI) (mild ) and no guarding <MIGUEL Haq Last Filed: 05/21/24 07:56> Skin: General skin exam: no rashes or lesions noted <MIGUEL Haq Last Filed: 05/21/24 07:56> Neuro: General: patient oriented x3 and moves all extremities <Jacki Silveira PA-C - Last Filed: 05/21/24 07:56> Objective Data Active Medications Amlodipine Besylate (Amlodipine Besylate 5 Mg Tablet) 5 mg PO DAILY [facility]; Protocol Hydromorphone HCl (Hydromorphone Hcl 0.5 Mg/0.5 Ml Syringe) 0.5 mg IVPUSH Q3H PRN; Protocol PRN Reason: Pain, Severe (Pain Scale 7-10) Piperacillin Sod/Tazobactam (Sod 3.375 gm/ Sodium Chloride) 50 mls @ 100 mls/hr IV Q6H [facility] Last Infusion: 05/21/24 04:21 Dose: Infused Documented By: ANTONINO Acetaminophen (Ofirmev) 1,000 mg in 100 mls @ 400 mls/hr IV Q6H PRN PRN Reason: Pain, Mild (Pain Scale 1-3) Dextrose/Lactated Ringer's (D5lr) 1,000 mls @ 125 mls/hr IVCONT .Q8H [facility] Last Admin: 05/21/24 03:47 Dose: 125 mls/hr Documented By: ANTONINO Ondansetron HCl (Ondansetron Hcl 4 Mg/2 Ml Vial) 4 mg IVPUSH Q6H PRN PRN Reason: Nausea and Vomiting Last Admin: 05/21/24 04:10 Dose: 4 mg Documented By: ANTONINO Oxycodone HCl (Oxycodone Hcl Immed Release 5 Mg Tablet) 5 mg PO Q6H PRN PRN Reason: Pain, Moderate(Pain Scale 4-6) Last Admin: 05/20/24 23:53 Dose: 5 mg Documented By: ANTONINO Sodium Chloride (0.9 % Sodium Chloride Flush 3 Ml Syringe) 3 ml IVFLUSH QSHIFT [facility] Last Admin: 05/20/24 22:08 Dose: 3 ml Documented By: ANTONINO Zolpidem Tartrate (Zolpidem Tartrate 5 Mg Tablet) 5 mg PO BEDTIME PRN PRN Reason: Insomnia <Jacki Silveira PA-C - Last Filed: 05/21/24 07:56> Labs CBC & Chem 7: 05/20/24 05:23 05/20/24 05:23 <Jacki Silveira PA-C - Last Filed: 05/21/24 07:56> Microbiology Microbiology Results: Microbiology 05/19/24 22:40 Blood Culture - Preliminary Blood - Venous 05/19/24 22:40 Blood Culture - Preliminary Blood - Venous Prelim: GNR Gram Stain only 05/20/24 01:06 Gram Stain - Final Peritoneal Fluid <Jacki Silveira PA-C - Last Filed: 05/21/24 07:56> Procedures Date of Service Date of Service: 05/21/24 <Jacki Silveira PA-C - Last Filed: 05/21/24 07:56> 05/21/24 <Daniel Monaco MD - Last Filed: 05/21/24 07:57> Progress Note: A&P Assessment and plan (1) Status post Prerna procedure: Status: Acute <Jacki Silveira PA-C - Last Filed: 05/21/24 07:56> (2) Diverticulitis of colon with perforation: Status: Acute <Jacki Silveira PA-C - Last Filed: 05/21/24 07:56> Assessment and Plan: POD #1 s/p ex lap, prerna procedure for perforated sigmoid colon, intra-abdominal abscess. Developed vomiting, distended on exam. Hemodynamically stable. Abd distended with appropriate post op tenderness and clean incision. Ostomy viable appearing without output. One positive BC for gram negative, cont IV abx, IVF, f/u abscess cultures. Encouraged OOB to at least recliner today, incentive spirometer 10x/hr. Sips of liquids for now. May need NGT insertion if continues to vomiting. Patient comfortable with plan. Begin ostomy education. <Jacki Silveira PA-C - Last Filed: 05/21/24 07:56> Time Spent With Patient Time: Total time managing care of this patient today ____ minutes. <MIGUEL Haq Last Filed: 05/21/24 07:56> Quality Stroke Does the patient have a stroke diagnosis?: No <MIGUEL Haq Last Filed: 05/21/24 07:56> VTE Prior VTE?: No <Jacki Silveira PA-C - Last Filed: 05/21/24 07:56> VTE Risk Level:: Surgical - moderate <Jacki Silveira PA-C - Last Filed: 05/21/24 07:56> VTE Device Contraindication: N/A - Device Ordered <Jacki Silveira PA-C - Last Filed: 05/21/24 07:56> VTE Drug Contraindication: Treatment Not Indicated <Jacki Silveira PA-C - Last Filed: 05/21/24 07:56>
--- NOTE | 2024-05-21 07:54 | PM.PNGS ---
Subjective Subjective Date of Service: 05/21/24 Interval history: Patient feels improved today with less abdominal pain. Did have an episode of nausea and vomiting x2 after receiving oral pain medication. Ostomy with some bloody discharge. Some stool reported yesterday. Physical Exam Vital Signs: Vital Signs: Last Vital Signs Temp 99.2 F 05/21/24 07:44 Pulse 79 05/21/24 07:44 Resp 18 05/21/24 07:44 BP 133/64 05/21/24 07:44 Pulse Ox 97 05/21/24 07:44 O2 Del Method Nasal Cannula 05/21/24 07:44 O2 Flow Rate 2.0 05/21/24 07:44 BMI result Body Mass Index 21.3 Const: General: no acute distress Nutritional Appearance: thin Orientation/consciousness: patient oriented x3 Resp: Effort & Inspection: normal respiratory effort GI: Other: Incisions are clean and intact. Ostomy pink and patent with bloody fluid in bag Skin: Other: Warm, dry, no rash Neuro: General: patient oriented x3 Objective Data Active Medications Amlodipine Besylate (Amlodipine Besylate 5 Mg Tablet) 5 mg PO DAILY [facility]; Protocol Hydromorphone HCl (Hydromorphone Hcl 0.5 Mg/0.5 Ml Syringe) 0.5 mg IVPUSH Q3H PRN; Protocol PRN Reason: Pain, Severe (Pain Scale 7-10) Piperacillin Sod/Tazobactam (Sod 3.375 gm/ Sodium Chloride) 50 mls @ 100 mls/hr IV Q6H [facility] Last Infusion: 05/21/24 04:21 Dose: Infused Documented By: ANTONINO Acetaminophen (Ofirmev) 1,000 mg in 100 mls @ 400 mls/hr IV Q6H PRN PRN Reason: Pain, Mild (Pain Scale 1-3) Dextrose/Lactated Ringer's (D5lr) 1,000 mls @ 125 mls/hr IVCONT .Q8H [facility] Last Admin: 05/21/24 03:47 Dose: 125 mls/hr Documented By: ANTONINO Ondansetron HCl (Ondansetron Hcl 4 Mg/2 Ml Vial) 4 mg IVPUSH Q6H PRN PRN Reason: Nausea and Vomiting Last Admin: 05/21/24 04:10 Dose: 4 mg Documented By: ANTONINO Oxycodone HCl (Oxycodone Hcl Immed Release 5 Mg Tablet) 5 mg PO Q6H PRN PRN Reason: Pain, Moderate(Pain Scale 4-6) Last Admin: 05/20/24 23:53 Dose: 5 mg Documented By: ANTONINO Sodium Chloride (0.9 % Sodium Chloride Flush 3 Ml Syringe) 3 ml IVFLUSH QSHIFT [facility] Last Admin: 05/20/24 22:08 Dose: 3 ml Documented By: ANTONINO Zolpidem Tartrate (Zolpidem Tartrate 5 Mg Tablet) 5 mg PO BEDTIME PRN PRN Reason: Insomnia Labs 05/20/24 05:23 05/20/24 05:23 Microbiology Microbiology Results: Microbiology 05/19/24 22:40 Blood Culture - Preliminary Blood - Venous 05/19/24 22:40 Blood Culture - Preliminary Blood - Venous Prelim: GNR Gram Stain only 05/20/24 01:06 Gram Stain - Final Peritoneal Fluid Procedures Date of Service Date of Service: 05/21/24 Progress Note: A&P Assessment and plan (1) Status post Derek procedure: Status: Acute (2) Diverticulitis of colon with perforation: Status: Acute Plan POD to following Derek procedure for perforated sigmoid diverticulitis. Plan: DC Bradford catheter, increased out of bed and ambulation. Slowly advance diet. Encourage incentive spirometry Blood cultures positive for Gram-negative rods. Wound cultures pending. Continue Zosyn. Time Spent With Patient Time: Total time managing care of this patient today ____ minutes. Quality Stroke Does the patient have a stroke diagnosis?: No VTE Prior VTE?: No VTE Risk Level:: Surgical - moderate VTE Device Contraindication: N/A - Device Ordered VTE Drug Contraindication: Treatment Not Indicated
[2024-05-21] MEDS: amLODIPine Besylate 5 MG TABLET PO (09:03)
[2024-05-21] MEDS: 0.9 % Sodium Chloride Flush 3 ML SYRINGE IVFLUSH ×3 (09:04→22:08)
--- NOTE | 2024-05-21 14:36 | PM.EVENT ---
Event Note Date of Service: 05/21/24 Event Note: Patient had another episode of vomiting this afternoon. Upon reassessment, patient uncomfortable appearing and increasingly distended on exam. Discussed NGT insertion and he was in agreement. 16F NG tube was inserted uneventfully at bedside with immediate evacuation of >1L bilious fluid. NPO, cont IVF, repeat CBC/BMP in am. Time Spent With Patient Time: Total time managing care of this patient today ____ minutes.
--- NOTE | 2024-05-21 14:38 | HO.POSTANES ---
Post Anesthesia Evaluation Post Anesthesia Evaluation Date of Service: 05/21/24 Vital Signs: Vital Signs Temp Pulse Resp BP Pulse Ox O2 Del Method O2 Flow Rate 05/21/24 07:44 99.2 F 79 18 133/64 97 Nasal Cannula 2.0 05/21/24 03:37 98.7 F 76 18 156/72 H 97 Nasal Cannula 2 Anesthesia: General Endotracheal-GETA Mental Status: Awake Pain Control: Satisfactory Nausea/Vomiting: None Hydration: Adequate Anesthesia-Related Issues: No Anes. Related Issues
[2024-05-21] MEDS: Acetaminophen 1,000 MG/100 ML PIGGYBACK 400 MG IV ×2 (14:59→21:17)
[2024-05-21 15:45] VITALS: BP 149/67; PULSE 83; RESP 18; TEMP 37.1; O2SAT 94
[2024-05-21 19:26] VITALS: BP 143/72; PULSE 77; RESP 18; TEMP 37.2; O2SAT 93
[2024-05-21 23:26] VITALS: BP 147/65; PULSE 70; RESP 16; TEMP 37.1; O2SAT 93
[2024-05-22] VITALS (7 sets, daily range): BP systolic 141–166; BP diastolic 62–81; PULSE 58–85; RESP 16–18; TEMP 36.4–37.1; O2SAT 92–95; BMI 21.3
--- NOTE | 2024-05-22 00:46 | PC.NURSE ---
2200- PATIENT WAS DUE TO VOID AT 2130, UNABLE TO PASS URINE, DENIED BLADDER PAIN OR PRESSURE. PATIENT IS POD #! FOR ABDOMINAL SURGERY AND OSTOMY, AND NOW WITH A NGT. BLADDER SCAN REVEALED 393ML. 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 REPORTED RETENTION AND ASKED FOR A STRAIGHT CATHERIZATION ORDER. PHYSICIAN VERBALIZED TO REINSERT A TORREZ CATHETER AT THIS TIME. 2300, #16 FR CATHETER INSERTED, PT TOLERATED WELL AND URINE RETURN NOTED TO BE YELLOW. WILL CONTINUE TO MONITOR
[2024-05-22] MEDS: Acetaminophen 1,000 MG/100 ML PIGGYBACK 400 MG IV ×2 (02:48→10:16)
[2024-05-22] MEDS: Piperacillin Sodium/Tazobactam 3.375 GM in 0.9 % Sodium Chloride 50 ML IV ×4 (03:36→21:08)
[2024-05-22] MEDS: Dextrose 5 % and Lactated Ring 1,000 ML 125 ML IVCONT ×3 (04:09→23:35)
[2024-05-22 05:42] LABS: MANUAL DIFF FLAG NO
[2024-05-22 05:50] LABS: Basophils Percent Auto 0.3 % (0-2); Eosinophils Absolute Auto 0.3 X10*3/uL (0.0-0.4); Eosinophils Percent Auto 4.4 % (0-4); Hematocrit 32.4 % (42.0-52.0); Hemoglobin 10.6 g/dl (14.0-18.0); Imm Gran Abs Auto 0.06 X10*3/uL (0.00-0.03); Imm Gran Pct Auto 0.8 % (0.0-0.4); Lymphocytes Absolute Auto 0.7 X10*3/uL (1.2-4.9); Lymphocytes Percent Auto 9.5 % (20-40); Mean Corpuscular HGB Conc 32.7 g/dl (31.0-36.0); Mean Corpuscular Volume 94.7 fL (80.0-98.0); Mean Platelet Volume 10.9 fL (9.4-12.4); Monocytes Absolute Auto 0.5 X10*3/uL (0.1-1.2); Monocytes Percent Auto 6.9 % (2-11); Neutrophils Absolute Auto 5.7 x10*3/uL (2.0-8.3); Neutrophils Percent Auto 78.1 % (45-73); Platelet Count 202 X10*3/uL (160-400); Red Blood Count 3.42 X10*6/uL (4.60-5.80); Red Cell Distribution Width 13.9 % (11.0-16.0); White Blood Count 7.4 X10*3/uL (4.8-10.8)
[2024-05-22 06:07] LABS: Anion Gap 8 (12-20); Blood Urea Nitrogen 14 mg/dL (9-16); Carbon Dioxide 34 mmol/L (22-29); Chloride 104 mmol/L (96-108); Creatinine Clr Calc Pharmacy 31.9; Estimated Glomerular Filt Rate 53; Glucose Fasting 129 mg/dL (60-99); Potassium 3.4 mmol/L (3.3-5.1); Sodium 143 mmol/L (135-145)
--- NOTE | 2024-05-22 06:42 | P.PNGS_ITS ---
Subjective Subjective Date of Service: 05/22/24 <Mayaanne-marie Joneso - Last Filed: 05/22/24 07:13> 05/22/24 <Jacki Silveira PA-C - Last Filed: 05/22/24 08:36> 05/22/24 <Daniel Monaco MD - Last Filed: 05/22/24 10:12> Interval history: Patient reports he is feeling slightly better today. He has not felt nauseous or vomited since the NG tube was placed yesterday, with not much of an appetite. Ostomy with bloody dicharge. Patient stated he had trouble urinating and a catheter was placed last night. <Maya Jamie - Last Filed: 05/22/24 07:13> Patient reports he is feeling slightly better today. He has not felt nauseous or vomited since the NG tube was placed yesterday, with not much of an appetite. Ostomy with bloody dicharge. Patient stated he had trouble urinating and a catheter was placed last night. <Jacki Silveira PA-C - Last Filed: 05/22/24 08:36> Physical Exam 2 Vital Signs: Vital Signs: Last Vital Signs Temp 97.7 F 05/22/24 02:57 Pulse 58 05/22/24 02:57 Resp 16 05/22/24 02:57 BP 150/73 H 05/22/24 02:57 Pulse Ox 95 05/22/24 02:57 O2 Del Method Room Air 05/22/24 02:57 O2 Flow Rate 2.0 05/21/24 07:44 BMI result Body Mass Index 21.3 <Maya Jamie - Last Filed: 05/22/24 07:13> Const: General: alert and awake <Maya Jamie - Last Filed: 05/22/24 07:13> Nutritional Appearance: thin <Maya Jamie - Last Filed: 05/22/24 07:13> Orientation/consciousness: patient oriented x3 <Maya Jamie - Last Filed: 05/22/24 07:13> Resp: Effort & Inspection: normal respiratory effort and able to speak in complete sentences <Maya Jamie - Last Filed: 05/22/24 07:13> Cardio: Rate: regular rate <Maya Jamie - Last Filed: 05/22/24 07:13> Rhythm: regular rhythm <Maya Ayala - Last Filed: 05/22/24 07:13> GI: Other: Ostomy is red, with bloody discharge. Abdomen is slightly distended, non-tender to palpation. <Maya Ayala - Last Filed: 05/22/24 07:13> Other: Ostomy is beefy red, with bloody discharge. Abdomen is distended, non-tender to palpation. incision clean <Jacki Silveira PA-C - Last Filed: 05/22/24 08:36> Percussion: Yes tympanic to percussion <Jacki Silveira PA-C - Last Filed: 05/22/24 08:36> : Other: Catheter in place, draining clear urine. <Maya Ayala - Last Filed: 05/22/24 07:13> Skin: Other: incision site is non erythematous, intact, with no discharge. <Maya Ayala - Last Filed: 05/22/24 07:13> General skin exam: no rashes or lesions noted <Jacki Silveira PA-C - Last Filed: 05/22/24 08:36> Neuro: General: patient oriented x3 <Maya Joneso - Last Filed: 05/22/24 07:13> Objective Data Active Medications Amlodipine Besylate (Amlodipine Besylate 5 Mg Tablet) 5 mg PO DAILY [facility]; Protocol Last Admin: 05/21/24 09:03 Dose: 5 mg Documented By: YANA Hydromorphone HCl (Hydromorphone Hcl 0.5 Mg/0.5 Ml Syringe) 0.5 mg IVPUSH Q3H PRN; Protocol PRN Reason: Pain, Severe (Pain Scale 7-10) Piperacillin Sod/Tazobactam (Sod 3.375 gm/ Sodium Chloride) 50 mls @ 100 mls/hr IV Q6H [facility] Last Infusion: 05/22/24 04:06 Dose: Infused Documented By: ANTONINO Dextrose/Lactated Ringer's (D5lr) 1,000 mls @ 125 mls/hr IVCONT .Q8H [facility] Last Admin: 05/22/24 04:09 Dose: 125 mls/hr Documented By: ANTONINO Acetaminophen (Ofirmev) 1,000 mg in 100 mls @ 400 mls/hr IV Q6H [facility] Last Infusion: 05/22/24 03:03 Dose: Infused Documented By: ANTONINO Ondansetron HCl (Ondansetron Hcl 4 Mg/2 Ml Vial) 4 mg IVPUSH Q6H PRN PRN Reason: Nausea and Vomiting Last Admin: 05/21/24 13:59 Dose: 4 mg Documented By: YANA Oxycodone HCl (Oxycodone Hcl Immed Release 5 Mg Tablet) 5 mg PO Q6H PRN PRN Reason: Pain, Moderate(Pain Scale 4-6) Last Admin: 05/20/24 23:53 Dose: 5 mg Documented By: NATONINO Sodium Chloride (0.9 % Sodium Chloride Flush 3 Ml Syringe) 3 ml IVFLUSH QSHIFT [facility] Last Admin: 05/21/24 22:08 Dose: 3 ml Documented By: ANTONINO Zolpidem Tartrate (Zolpidem Tartrate 5 Mg Tablet) 5 mg PO BEDTIME PRN PRN Reason: Insomnia <Maya Jamie - Last Filed: 05/22/24 07:13> Labs CBC & Chem 7: 05/22/24 05:33 05/22/24 05:33 <Maya Jamie - Last Filed: 05/22/24 07:13> Labs: Laboratory Results - last 24 hr 05/22/24 05:33 MCV 94.7 MCH 31.0 MCHC 32.7 RDW 13.9 Plt Count 202 MPV 10.9 Immature Gran % (Auto) 0.8 H Neut % (Auto) 78.1 H Lymph % (Auto) 9.5 L [place] % (Auto) 6.9 Eos % (Auto) 4.4 H Baso % (Auto) 0.3 Lymph # (Auto) 0.7 L [place] # (Auto) 0.5 Eos # (Auto) 0.3 Baso # (Auto) 0.0 Abs Immat Gran (auto) 0.06 H Absolute Neuts (auto) 5.7 Absolute Nucleated RBC 0.000 Nucleated RBC % (auto) 0.0 Anion Gap 8 L Estim Creat Clear Calc 31.9 Estimated GFR 53 Fasting Glucose 129 H Calcium 8.0 L <Maya Jamie - Last Filed: 05/22/24 07:13> Microbiology Microbiology Results: Microbiology 05/20/24 01:06 Gram Stain - Final Peritoneal Fluid Routine Culture - Preliminary Culture in progress. Anaerobic Culture - Preliminary Culture in progress. 05/19/24 22:40 Blood Culture - Preliminary Blood - Venous Prelim: GNR Gram Stain only 05/19/24 22:40 Blood Culture - Preliminary Blood - Venous Prelim: GNR Gram Stain only <Maya Jamie - Last Filed: 05/22/24 07:13> Procedures Date of Service Date of Service: 05/22/24 <Maya Jamie - Last Filed: 05/22/24 07:13> 05/22/24 <Jacki Silveira PA-C - Last Filed: 05/22/24 08:36> 05/22/24 <Daniel Monaco MD - Last Filed: 05/22/24 10:12> Progress Note: A&P Assessment and plan (1) Acute urinary retention: Status: Acute <Maya Jamie - Last Filed: 05/22/24 07:13> (2) Status post Derek procedure: Status: Acute <Maya Jamie - Last Filed: 05/22/24 07:13> (3) Diverticulitis of colon with perforation: Status: Acute <Maya Jamie - Last Filed: 05/22/24 07:13> Assessment and Plan: Post-Op day 2 Derek procedure for perforated diverticulitis, and intra- abdominal abscess. Abdomen is still distended with ostomy and bloody discharge, no bowel movements or flatulence yet. Encouraged ambulation to increase today, and spirometry 10x per hour, he was able to perform the spirometry successfully while I was in the room. Cantu and NG tube will stay in place to be monitored. Consideration for possible parenteral nutrition, and medication for the urinary retention in the future. <Maya Jamie - Last Filed: 05/22/24 07:13> Post-Op day 2 Derek procedure for perforated diverticulitis, and intra- abdominal abscess. Abdomen is still distended with ostomy and bloody discharge, no bowel movements or flatulence yet. Encouraged ambulation to increase today, and spirometry 10x per hour, he was able to perform the spirometry successfully while I was in the room. Cantu and NG tube will stay in place to be monitored. Consideration for possible parenteral nutrition, and medication for the urinary retention in the future. Agree with above assessment by Maya OVIEDO. NGT continues with large amount of bilious output, remains distended on exam. Ostomy remains viable appearing, no output. Keep NGT in place for now until NGT output decreases, abd less distended and some ostomy output. Urinary retention following cath removal. Cont cantu, begin flomax. Increase activity and ambulation today to promote GI function. Incentive spirometry strongly encouraged 10x/hr as some atelectasis noted on CXR yesterday. Nutrition consult for PPN. Cont IV zosyn. blood culture not resulted yet. AM labs reviewed. <Jacki Silveira PA-C - Last Filed: 05/22/24 08:36> Post-Op day 2 Derek procedure for perforated diverticulitis, and intra- abdominal abscess. Abdomen is still distended with ostomy and bloody discharge, no bowel movements or flatulence yet. Encouraged ambulation to increase today, and spirometry 10x per hour, he was able to perform the spirometry successfully while I was in the room. Cantu and NG tube will stay in place to be monitored. Consideration for possible parenteral nutrition, and medication for the urinary retention in the future. Agree with above assessment by Maya OVIEDO. NGT continues with large amount of bilious output, remains distended on exam. Ostomy remains viable appearing, no output. Keep NGT in place for now until NGT output decreases, abd less distended and some ostomy output. Urinary retention following cath removal. Cont cantu, begin flomax. Increase activity and ambulation today to promote GI function. Incentive spirometry strongly encouraged 10x/hr as some atelectasis noted on CXR yesterday. Nutrition consult for PPN. Cont IV zosyn. blood culture not resulted yet. AM labs reviewed. Patient seen and examined agree with the above assessment and plan. NG aspirate appears like coffee-ground material. Will add ulcer prophylaxis. <Daniel Monaco MD - Last Filed: 05/22/24 10:12> Time Spent With Patient Time: Total time managing care of this patient today ____ minutes. <Parascaleo - Last Filed: 05/22/24 07:13> Quality Stroke Does the patient have a stroke diagnosis?: No <Parascaleo - Last Filed: 05/22/24 07:13> VTE Prior VTE?: No <[employer] - Last Filed: 05/22/24 07:13> VTE Risk Level:: Surgical - moderate <[employer] - Last Filed: 05/22/24 07:13> VTE Device Contraindication: N/A - Device Ordered <[employer] - Last Filed: 05/22/24 07:13> VTE Drug Contraindication: Treatment Not Indicated <[employer] - Last Filed: 05/22/24 07:13>
[2024-05-22 09:51] LABS: Albumin Level 2.6 g/dL (3.5-5.0); Magnesium 1.8 mg/dL (1.6-2.6); Phosphorus 2.7 mg/dL (2.7-4.5)
[2024-05-22] MEDS: amLODIPine Besylate 5 MG TABLET PO (10:24)
[2024-05-22] MEDS: Tamsulosin HCL 0.4 MG CAPSULE PO (10:25)
--- NOTE | 2024-05-22 11:11 | MHC.CLN ---
NUTRITION CONSULT FOR PPN. PATIENT IS NPO S/P SURGERY FOR PERFORATED VISCUS. REQUIRES PPN. AWATING RETURN OF BOWEL FUNCTION. RECOMMEND START PPN TODAY AT 45 ML PER HOUR TO PROVIDE 46 G PROTEIN, 108 G DEXTROSE, 551 KCALS. REPLETE LYTES NEEDED. CHECK TRIGLYCERIDES. IF ABLE ON 05/23, RECOMMEND ADVANCE TO MAX GOAL RATE PPN AT 70 ML PER HOUR, ADD 65 G LIPIDS TO PROVIDE 71 G PROTEIN (1.4 G/KG), 168 G DEXTROSE, 1507 TOTAL KCALS (29.4 KCALS/KG). REPETE LYTES NEEDED. FOLLOW FOR PPN TOLERANCE AND DIET ADVANCEMENT. SEE CLINICAL NUTRITION ASSESSMENT 05/22/24.
--- NOTE | 2024-05-22 11:17 | MHC.CM.PN ---
Patient not medically cleared for dc. VNA updated. CM will continue to follow.
[2024-05-22] MEDS: Pantoprazole Sodium 40 MG/10 ML VIAL IVPUSH ×2 (11:18→15:30)
--- NOTE | 2024-05-22 16:35 | HO.OSTOMY ---
Ostomy Consult: Initial Teaching 83yr old male admitted to [facility] on 05/19/24 see H&P for detailed history and admission.? Consult for new ostomy teaching. ?He had a Colostomy creation on 05/20/[address] Monaco. ?Upon entry into patient's room, he is lying in his bed, he is alert and oriented x 3, he currently has no complaints. ?Introductions were completed, he is agreeable to continuing with teaching. ? We discussed his pain control at 0/10 at the current moment, he reports increasing the use of his IS and ambulating the entire unit (1x today so far). ?We began by discussing general knowledge about the Colostomy and questions he had. ?We discussed opening and closing the ostomy pouch. He was able to independently provide a return demonstration on an empty pouch. ?He had not yet emptied his pouch only bowel sweat is noted.? We discussed the importance of emptying pouch when 1/3 to 1/2 full, how to empty pouch, and lining water with toilet paper to prevent splash back. With an empty Coloplast pouch he performed a demonstration. He was also educated on when to contact tree climber/Dr Monaco's office/seek emergency medical treatment. Aware that Rx written for pouches and rings will be sent by Outpt nurse to [place] for home delivery.? Reviewed written education with patient and left at bedside for further review. ?He did watch the education videos supplied by [facility]. Permission was granted for pouch assessment and no leak was noted.? Stoma is pink and appears viable.? Due to no output from stoma pouch is not needed to be changed at this time however there was some wafer maceration noted and given this racebook writer is not available tomorrow pouch changed perform to minimize chance of leak.? He was changed into a Coloplast 42201 cut to size 1 piece 35mm. Stoma is pink and well above skin level. He watched the pouch change and asked some questions that lead to further discussion. ?Patient was made aware that I will return to bedside later in week for ongoing education. He will benefit from VNA services at time of discharge. ?All questions and concerns addressed at this time. Next teaching session goals: Demonstrate open and close independently Steps to a pouch change he is able to recall We discussed the following steps: 1. Empty pouch before pouch change 2. Remove pouch using push/pull technique from top to bottom 3. Cleanse stoma and skin with tap water only - no soap or baby wipes 4. Pat dry 5. Measure stoma and cut new pouch no more than 1/8 inch larger than stoma and no smaller than stoma 6. If instructed by your ostomy nurse stretch barrier seal to the size of the stoma and press onto skin around stoma (up to the edge of the stoma but not onto the stoma) 7. Press the new pouch into place and hold for several minutes (close pouch tail) 8. Empty pouch when 1/3 to 1/2 full 9. Change pouch twice weekly on a schedule (for example, every Monday and ) and as needed for any leaking (feels like intense itch or burn at edge of stoma) 10. May order pre-cut pouches (already cut to size of stoma) once stoma measures the same size consistently. ?
[2024-05-22] MEDS: 0.9 % Sodium Chloride Flush 3 ML SYRINGE IVFLUSH (21:23)
[2024-05-22] MEDS: Parenteral Nutrition 1,080 ML 45 ML IV (21:25)
[2024-05-23] MEDS: Piperacillin Sodium/Tazobactam 3.375 GM in 0.9 % Sodium Chloride 50 ML IV ×4 (03:08→21:29)
[2024-05-23 03:17] VITALS: BP 167/72; PULSE 68; RESP 14; TEMP 36.3; O2SAT 95
[2024-05-23] MEDS: Acetaminophen 1,000 MG/100 ML PIGGYBACK 400 MG IV ×4 (03:56→22:16)
[2024-05-23] MEDS: Pantoprazole Sodium 40 MG/10 ML VIAL IVPUSH ×2 (05:38→15:47)
[2024-05-23 06:07] LABS: Albumin Level 2.7 g/dL (3.5-5.0); Anion Gap 10 (12-20); Blood Urea Nitrogen 14 mg/dL (9-16); Calcium 8.1 mg/dL (8.4-10.2); Carbon Dioxide 27 mmol/L (22-29); Chloride 105 mmol/L (96-108); Estimated Glomerular Filt Rate > 60; Glucose Random 160 mg/dL (60-115); Magnesium 1.8 mg/dL (1.6-2.6); Phosphorus 2.9 mg/dL (2.7-4.5); Potassium 3.3 mmol/L (3.3-5.1); Sodium 139 mmol/L (135-145); Triglycerides 167 mg/dL (<150)
[2024-05-23 06:47] VITALS: BP 160/75; PULSE 70; RESP 16; TEMP 36.6; O2SAT 96
--- NOTE | 2024-05-23 06:52 | PM.PNGS ---
Subjective Subjective Date of Service: 05/23/24 <Maya Jamie - Last Filed: 05/23/24 07:01> 05/23/24 <Jacki Silveira PA-C - Last Filed: 05/23/24 07:37> 05/23/24 <Daniel Monaco MD - Last Filed: 05/23/24 07:55> Interval history: Patient reports continuing to feel better and stronger today. He has had no nausea or vomiting with NG tube, and was able to ambulate at least twice yesterday. No bowel movement, or gas was passed. Feels more confident after education about his ostomy. <Maya Jamie - Last Filed: 05/23/24 07:01> Physical Exam Vital Signs: Vital Signs: Last Vital Signs Temp 98 F 05/23/24 06:47 Pulse 70 05/23/24 06:47 Resp 16 05/23/24 06:47 BP 160/75 H 05/23/24 06:47 Pulse Ox 96 05/23/24 06:47 O2 Del Method Room Air 05/23/24 03:17 O2 Flow Rate 2.0 05/21/24 07:44 BMI result Body Mass Index 21.3 <Maya Jamie - Last Filed: 05/23/24 07:01> Const: General: no acute distress, alert and awake <Maya Jamie - Last Filed: 05/23/24 07:01> Nutritional Appearance: thin <Maya Jamie - Last Filed: 05/23/24 07:01> Orientation/consciousness: patient oriented x3 <Maya Jamie - Last Filed: 05/23/24 07:01> Resp: Effort & Inspection: normal respiratory effort, able to speak in complete sentences and Actively coughing <Maya Jamie - Last Filed: 05/23/24 07:01> GI: Other: Incision clear, non erythematous and no purulent discharge. Stoma: pink, minimal discharge in the bag. <Maay Jamie - Last Filed: 05/23/24 07:01> Other: Incision clean, non erythematous and no purulent discharge. Stoma: pink, no output in appliance <Jacki Silveira PA-C - Last Filed: 05/23/24 07:37> Inspection: Yes distended <Maya Del Toro Last Filed: 05/23/24 07:01> Palpation (GI): Soft to palpation <MIGUEL Haq Last Filed: 05/23/24 07:37> Percussion: Yes tympanic to percussion <MIGUEL Haq Last Filed: 05/23/24 07:37> : Other: catheter in place <Maya Del Toro Last Filed: 05/23/24 07:01> Skin: General skin exam: no rashes or lesions noted <MIGUEL Haq Last Filed: 05/23/24 07:37> Neuro: General: patient oriented x3 <Maya Del Toro Last Filed: 05/23/24 07:01> Objective Data Active Medications Amlodipine Besylate (Amlodipine Besylate 5 Mg Tablet) 5 mg PO DAILY [facility]; Protocol Last Admin: 05/22/24 10:24 Dose: 5 mg Documented By: VANNA Hydromorphone HCl (Hydromorphone Hcl 0.5 Mg/0.5 Ml Syringe) 0.5 mg IVPUSH Q3H PRN; Protocol PRN Reason: Pain, Severe (Pain Scale 7-10) Piperacillin Sod/Tazobactam (Sod 3.375 gm/ Sodium Chloride) 50 mls @ 100 mls/hr IV Q6H [facility] Last Infusion: 05/23/24 03:38 Dose: Infused Documented By: TJ Dextrose/Lactated Ringer's (D5lr) 1,000 mls @ 125 mls/hr IVCONT .Q8H [facility] Last Infusion: 05/23/24 03:57 Dose: 125 mls/hr Documented By: TJ Acetaminophen (Ofirmev) 1,000 mg in 100 mls @ 400 mls/hr IV Q6H [facility] Last Infusion: 05/23/24 04:14 Dose: Infused Documented By: TJ Nutrition (Parenteral) (Parenteral Nutrition) 1,080 mls @ 45 mls/hr IV .Q24H [facility]; Protocol Stop: 05/23/24 20:59 Last Infusion: 05/23/24 03:52 Dose: 45 mls/hr Documented By: TJ Ondansetron HCl (Ondansetron Hcl 4 Mg/2 Ml Vial) 4 mg IVPUSH Q6H PRN PRN Reason: Nausea and Vomiting Last Admin: 05/21/24 13:59 Dose: 4 mg Documented By: YANA Oxycodone HCl (Oxycodone Hcl Immed Release 5 Mg Tablet) 5 mg PO Q6H PRN PRN Reason: Pain, Moderate(Pain Scale 4-6) Last Admin: 05/20/24 23:53 Dose: 5 mg Documented By: ANTONINO Pantoprazole Sodium (Pantoprazole Sodium 40 Mg/10 Ml Vial) 40 mg IVPUSH BID@0630,1630 [facility] Last Admin: 05/23/24 05:38 Dose: 40 mg Documented By: TJ Pharmacy Consult (Consult Rx Parenteral Nutrition Ordering) 1 each MISCELLANE DAILY PRN PRN Reason: Consult order Sodium Chloride (0.9 % Sodium Chloride Flush 3 Ml Syringe) 3 ml IVFLUSH QSHIFT [facility] Last Admin: 05/22/24 21:23 Dose: 3 ml Documented By: TJ Tamsulosin HCl (Tamsulosin Hcl 0.4 Mg Capsule) 0.4 mg PO DAILY [facility] Last Admin: 05/22/24 10:25 Dose: 0.4 mg Documented By: VANNA Zolpidem Tartrate (Zolpidem Tartrate 5 Mg Tablet) 5 mg PO BEDTIME PRN PRN Reason: Insomnia <Maya Jamie - Last Filed: 05/23/24 07:01> Labs CBC & Chem 7: 05/22/24 05:33 05/23/24 05:30 <Maya Jamie - Last Filed: 05/23/24 07:01> Labs: Laboratory Results - last 24 hr 05/22/24 05/23/24 05:33 05:30 Hold Purple Top SEE NOTE Anion Gap 10 L Estim Creat Clear Calc 40.0 Estimated GFR > 60 Random Glucose 160 H Calcium 8.1 L Phosphorus 2.7 2.9 Magnesium 1.8 1.8 Albumin 2.6 L 2.7 L Triglycerides 167 H <Maya Jamie - Last Filed: 05/23/24 07:01> Microbiology Microbiology Results: Microbiology 05/19/24 22:40 Blood Culture - Preliminary Blood - Venous Prelim: GNR Gram Stain only 05/19/24 22:40 Blood Culture - Preliminary Blood - Venous Prelim: GNR Gram Stain only 05/20/24 01:06 Gram Stain - Final Peritoneal Fluid Routine Culture - Preliminary Gram negative mayur Anaerobic Culture - Preliminary Culture in progress. <Maya Jamie - Last Filed: 05/23/24 07:01> Procedures Date of Service Date of Service: 05/23/24 <Maya Jamie - Last Filed: 05/23/24 07:01> 05/23/24 <Jacki Silveira PA-C - Last Filed: 05/23/24 07:37> 05/23/24 <Daniel Monaco MD - Last Filed: 05/23/24 07:55> Progress Note: A&P Assessment and plan (1) Status post Derek procedure: Status: Acute <Maya Jamie - Last Filed: 05/23/24 07:01> (2) Diverticulitis of colon with perforation: Status: Acute <Maya Jamie - Last Filed: 05/23/24 07:01> (3) Acute urinary retention: Status: Acute <Maya Jamie - Last Filed: 05/23/24 07:01> Assessment and Plan: Ruslan is post-op day 3 from Derek procedure, perforated diverticulitis, and intra-abdominal abscess. Abdomen is distended, stoma pink with minimal discharge, no bowel movement or flatulence reported. NG tube remains in place, he is tolerating sips of water and ice chips. Patient was educated on his ostomy and how to care for the stoma going forward, he feels more confident in this matter. Ruslan will continue the Zoysn, parenteral nutrition, and tamsulosin that was started yesterday. Pain has been managed with IV acetaminophen. Spirometry 10 times per hour was encouraged, along with ambulation. <Maya Jamie - Last Filed: 05/23/24 07:01> Ruslan is post-op day 3 from Derek procedure, perforated diverticulitis, and intra-abdominal abscess. Abdomen is distended, stoma pink with minimal discharge, no bowel movement or flatulence reported. NG tube remains in place, he is tolerating sips of water and ice chips. Patient was educated on his ostomy and how to care for the stoma going forward, he feels more confident in this matter. Ruslan will continue the Zoysn, parenteral nutrition, and tamsulosin that was started yesterday. Pain has been managed with IV acetaminophen. Spirometry 10 times per hour was encouraged, along with ambulation. Agree with above assessment by Maya OVIEDO. Slowly improving. NGT continues with bilious output but decreasing, abd does remain distended but softer. Ostomy remains viable appearing without output. Keep NGT in place, possible clamp later today if remains minimal. Cont cantu until more mobile, flomax. Cont increase activity and ambulation today to promote GI function. Incentive spirometry strongly encouraged 10x/hr as some atelectasis noted on CXR. Cont PPN. Cont IV zosyn. Blood culture, peritoneal cx not resulted yet. AM labs reviewed. <Jacki Silveira PA-C - Last Filed: 05/23/24 07:37> Time Spent With Patient Time: Total time managing care of this patient today ____ minutes. <Maya Ayala - Last Filed: 05/23/24 07:01> Quality Stroke Does the patient have a stroke diagnosis?: No <Maya Ayala - Last Filed: 05/23/24 07:01> VTE Prior VTE?: No <Maay Ayala - Last Filed: 05/23/24 07:01> VTE Risk Level:: Surgical - moderate <Maya Ayala - Last Filed: 05/23/24 07:01> VTE Device Contraindication: N/A - Device Ordered <Maya Ayala - Last Filed: 05/23/24 07:01> VTE Drug Contraindication: Treatment Not Indicated <Maya Ayala - Last Filed: 05/23/24 07:01>
[2024-05-23] MEDS: amLODIPine Besylate 5 MG TABLET PO (08:45)
[2024-05-23] MEDS: Dextrose 5 % and Lactated Ring 1,000 ML 125 ML IVCONT ×2 (08:55→13:45)
--- NOTE | 2024-05-23 10:51 | MHC.CLN ---
F/U REVIEWED LABS; TRIGS 167 DISCUSSED WITH PHARMACY RECOMMEND ADVANCE TO MAX GOAL RATE PPN AT 70 ML PER HOUR WITH 65 G LIPIDS TO PROVIDE 1507 TOTAL KCALS (29KCALS/KG), 71G PROTEIN (1.4 G/KG), 168G DEXTROSE REPLETE LYTES NEEDED
[2024-05-23 15:42] VITALS: BP 171/82; PULSE 85; RESP 18; TEMP 37.6; O2SAT 94
[2024-05-23 20:00] VITALS: BP 155/73; PULSE 87; RESP 18; TEMP 37.6; O2SAT 96
[2024-05-23] MEDS: Parenteral Nutrition 1,680 ML 70 ML IV (21:21)
[2024-05-23] MEDS: HYDROmorphone HCl 0.5 MG/0.5 ML SYRINGE IVPUSH (23:35)
[2024-05-23 23:39] VITALS: BP 167/79; PULSE 81; RESP 16; TEMP 36; O2SAT 94
[2024-05-24] MEDS: Acetaminophen 1,000 MG/100 ML PIGGYBACK 400 MG IV ×3 (02:30→17:05)
[2024-05-24] MEDS: Dextrose 5 % and Lactated Ring 1,000 ML 125 ML IVCONT ×2 (03:30→17:10)
[2024-05-24 03:54] VITALS: BP 137/62; PULSE 76; RESP 18; TEMP 36.2; O2SAT 97
[2024-05-24] MEDS: Piperacillin Sodium/Tazobactam 3.375 GM in 0.9 % Sodium Chloride 50 ML IV ×4 (05:00→21:40)
[2024-05-24] MEDS: Pantoprazole Sodium 40 MG/10 ML VIAL IVPUSH ×2 (05:42→17:08)
--- NOTE | 2024-05-24 07:12 | PM.PNGS ---
Subjective Subjective Date of Service: 05/24/24 <Maya Jamie - Last Filed: 05/24/24 07:34> 05/24/24 <Jacki Silveira PA-C - Last Filed: 05/24/24 07:40> 05/27/24 <Daniel Monaco MD - Last Filed: 05/27/24 08:59> Interval history: Ruslan reports feeling the same as yesterday, no better or worse. He also states he was not taken around to ambulate yesterday. No bowel movement, or flatulence reported. <Maya Jamie - Last Filed: 05/24/24 07:34> Physical Exam Vital Signs: Vital Signs: Last Vital Signs Temp 97.1 F 05/24/24 03:54 Pulse 76 05/24/24 03:54 Resp 18 05/24/24 03:54 BP 137/62 05/24/24 03:54 Pulse Ox 97 05/24/24 03:54 O2 Del Method Room Air 05/24/24 03:54 O2 Flow Rate 2.0 05/21/24 07:44 BMI result Body Mass Index 21.3 <Maya Jamie - Last Filed: 05/24/24 07:34> Const: General: alert and awake <Maya Jamie - Last Filed: 05/24/24 07:34> Orientation/consciousness: patient oriented x3 <Maya Jamie - Last Filed: 05/24/24 07:34> Resp: Effort & Inspection: normal respiratory effort and able to speak in complete sentences <Maya Jamie - Last Filed: 05/24/24 07:34> Cardio: Rate: regular rate <Maya Jamie - Last Filed: 05/24/24 07:34> Rhythm: regular rhythm <Maya Jamie - Last Filed: 05/24/24 07:34> Peripheral pulses: radial pulses present <Maya Jamie - Last Filed: 05/24/24 07:34> GI: Other: Abdominal distension Incision site clear, no purulent discharge or erthyema Stoma pink, minimal discharge Non-tender to palpation <Maya Jamie - Last Filed: 05/24/24 07:34> Other: abdomen remains distended Incision site clean, no purulent discharge or erythema Stoma pink, no flatus or output in appliance <Jacki Silveira PA-C - Last Filed: 05/24/24 07:40> Percussion: Yes tympanic to percussion <Jacki Silveira PA-C - Last Filed: 05/24/24 07:40> Skin: General skin exam: no rashes or lesions noted <Jacki Silveira PA-C - Last Filed: 05/24/24 07:40> Neuro: General: patient oriented x3 <Mayaanne-marie CmJamie - Last Filed: 05/24/24 07:34> Objective Data Active Medications Amlodipine Besylate (Amlodipine Besylate 5 Mg Tablet) 5 mg PO DAILY [facility]; Protocol Last Admin: 05/23/24 08:45 Dose: 5 mg Documented By: RONALD Hydromorphone HCl (Hydromorphone Hcl 0.5 Mg/0.5 Ml Syringe) 0.5 mg IVPUSH Q3H PRN; Protocol PRN Reason: Pain, Severe (Pain Scale 7-10) Last Admin: 05/23/24 23:35 Dose: 0.5 mg Documented By: TJ Piperacillin Sod/Tazobactam (Sod 3.375 gm/ Sodium Chloride) 50 mls @ 100 mls/hr IV Q6H [facility] Last Infusion: 05/24/24 05:30 Dose: Infused Documented By: TJ Dextrose/Lactated Ringer's (D5lr) 1,000 mls @ 125 mls/hr IVCONT .Q8H [facility] Last Infusion: 05/24/24 05:58 Dose: 0 mls/hr Documented By: TJ Acetaminophen (Ofirmev) 1,000 mg in 100 mls @ 400 mls/hr IV Q6H [facility] Last Infusion: 05/24/24 02:45 Dose: Infused Documented By: TJ Nutrition (Parenteral) (Parenteral Nutrition) 1,680 mls @ 70 mls/hr IV .Q24H [facility]; Protocol Stop: 05/24/24 20:59 Last Admin: 05/23/24 21:21 Dose: 70 mls/hr Documented By: TJ Ondansetron HCl (Ondansetron Hcl 4 Mg/2 Ml Vial) 4 mg IVPUSH Q6H PRN PRN Reason: Nausea and Vomiting Last Admin: 05/21/24 13:59 Dose: 4 mg Documented By: YANA Oxycodone HCl (Oxycodone Hcl Immed Release 5 Mg Tablet) 5 mg PO Q6H PRN PRN Reason: Pain, Moderate(Pain Scale 4-6) Last Admin: 05/20/24 23:53 Dose: 5 mg Documented By: ANTONINO Pantoprazole Sodium (Pantoprazole Sodium 40 Mg/10 Ml Vial) 40 mg IVPUSH BID@0630,1630 [facility] Last Admin: 05/24/24 05:42 Dose: 40 mg Documented By: TJ Pharmacy Consult (Consult Rx Parenteral Nutrition Ordering) 1 each MISCELLANE DAILY PRN PRN Reason: Consult order Sodium Chloride (0.9 % Sodium Chloride Flush 3 Ml Syringe) 3 ml IVFLUSH QSHIFT [facility] Last Admin: 05/23/24 23:44 Dose: Not Given Documented By: TJ Non-Admin Reason: IV Running Tamsulosin HCl (Tamsulosin Hcl 0.4 Mg Capsule) 0.4 mg PO DAILY [facility] Last Admin: 05/23/24 08:57 Dose: Not Given Documented By: RONALD Non-Admin Reason: Patient Refused Zolpidem Tartrate (Zolpidem Tartrate 5 Mg Tablet) 5 mg PO BEDTIME PRN PRN Reason: Insomnia <Maya Jamie - Last Filed: 05/24/24 07:34> Labs CBC & Chem 7: 05/22/24 05:33 05/27/24 07:24 <Maya Jamie - Last Filed: 05/24/24 07:34> Labs: Laboratory Results - last 24 hr 05/24/24 06:00 Hold Purple Top SEE NOTE <Maya Jamie - Last Filed: 05/24/24 07:34> Microbiology Microbiology Results: Microbiology 05/20/24 01:06 Gram Stain - Final Peritoneal Fluid Routine Culture - Final Escherichia coli Klebsiella aerogenes Anaerobic Culture - Preliminary Bacteroides fragilis group Anaerobic gram negative rods 05/19/24 22:40 Blood Culture - Preliminary Blood - Venous Gram negative mayur 05/19/24 22:40 Blood Culture - Final Blood - Venous Prelim: GNR Gram Stain only <Maya Jamie - Last Filed: 05/24/24 07:34> Procedures Date of Service Date of Service: 05/24/24 <Maya Jamie - Last Filed: 05/24/24 07:34> 05/24/24 <Jacki Silveira PA-C - Last Filed: 05/24/24 07:40> 05/27/24 <Daniel Monaco MD - Last Filed: 05/27/24 08:59> Progress Note: A&P Assessment and plan (1) Status post Derek procedure: Status: Acute <Maya Jamie - Last Filed: 05/24/24 07:34> (2) Acute urinary retention: Status: Acute <Maya Jamie - Last Filed: 05/24/24 07:34> (3) Diverticulitis of colon with perforation: Status: Acute <Maya Jamie - Last Filed: 05/24/24 07:34> Assessment and Plan: Ruslan is post-op day 4 from Derek procedure, perforated diverticulitis, and intra-abdominal abscess. Abdomen is midly distended, stoma pink with minimal to no discharge, with no bowel movement or flatulence reported. NG tube remains in place and is draining bilious fluid, he is tolerating sips of water and ice chips. Ruslan will continue the Zoysn, parenteral nutrition, and tamsulosin that was started. Pain has been managed with IV acetaminophen. Spirometry 10 times per hour was encouraged, along with more ambulation. He reported that he did not get out of bed yesterday. <Maya Jamie - Last Filed: 05/24/24 07:34> Ruslan is post-op day 4 from Derek procedure, perforated diverticulitis, and intra-abdominal abscess. Abdomen is midly distended, stoma pink with minimal to no discharge, with no bowel movement or flatulence reported. NG tube remains in place and is draining bilious fluid, he is tolerating sips of water and ice chips. Ruslan will continue the Zoysn, parenteral nutrition, and tamsulosin that was started. Pain has been managed with IV acetaminophen. Spirometry 10 times per hour was encouraged, along with more ambulation. He reported that he did not get out of bed yesterday. Agree with Maya OVIEDO. NGT with close to 1L of output yesterday. Unfortunately he was not ambulated at all yesterday. No ostomy output. VSS. Abd remains distended this am, incision clean. Discussed with RN patient needs to get OOB and ambulate at least 4x/day to promote GI function. Will cont to monitor NGT output. Await ostomy function. Cont PPN for now. IV zosyn. <Jacki Silveira PA-C - Last Filed: 05/24/24 07:40> Time Spent With Patient Time: Total time managing care of this patient today ____ minutes. <Maya Ayala - Last Filed: 05/24/24 07:34> Quality Stroke Does the patient have a stroke diagnosis?: No <Maya Ayala - Last Filed: 05/24/24 07:34> VTE Prior VTE?: No <Maya Ayala - Last Filed: 05/24/24 07:34> VTE Risk Level:: Surgical - moderate <Maya Ayala - Last Filed: 05/24/24 07:34> VTE Device Contraindication: N/A - Device Ordered <Maya Ayala - Last Filed: 05/24/24 07:34> VTE Drug Contraindication: Treatment Not Indicated <Maya Ayala - Last Filed: 05/24/24 07:34>
[2024-05-24 07:13] LABS: Albumin Level 2.8 g/dL (3.5-5.0); Anion Gap 13 (12-20); Blood Urea Nitrogen 16 mg/dL (9-16); Calcium 8.4 mg/dL (8.4-10.2); Carbon Dioxide 23 mmol/L (22-29); Chloride 105 mmol/L (96-108); Creatinine Clr Calc Pharmacy 42.5; Estimated Glomerular Filt Rate > 60; Glucose Random 122 mg/dL (60-115); Magnesium 1.9 mg/dL (1.6-2.6); Phosphorus 2.9 mg/dL (2.7-4.5); Potassium 3.5 mmol/L (3.3-5.1); Sodium 137 mmol/L (135-145)
[2024-05-24 07:37] VITALS: BP 173/80; PULSE 80; RESP 16; TEMP 36.7; O2SAT 96
--- NOTE | 2024-05-24 09:00 | MHC.CM.PN ---
Patient not medically cleared for dc at this time. DP: home w/ new [employer]. CM will continue to follow.
[2024-05-24] MEDS: amLODIPine Besylate 5 MG TABLET PO (09:20)
[2024-05-24] MEDS: Tamsulosin HCL 0.4 MG CAPSULE PO (09:20)
[2024-05-24 11:13] VITALS: BP 145/65; PULSE 86; RESP 17; TEMP 37.7; O2SAT 95
--- NOTE | 2024-05-24 12:00 | MHC.CLN ---
F/U CONTINUES NPO WITH NUTRITION/HYDRATION VIA PPN. REVIEWED LABS. COMMUNICATED WITH PHARMACY. RECOMMEND CONTINUE PPN AT MAX GOAL RATE: PPN AT 70 ML PER HOUR WITH 65 G LIPIDS TO PROVIDE 1507 TOTAL KCALS (29KCALS/KG), 71G PROTEIN (1.4 G/KG), 168G DEXTROSE. REPLETE LYTES NEEDED. FOLLOW FOR PPN TOLERANCE AND DIET ADVANCEMENT. RD AVAILABLE VIA TIGER TEXT FOR WEEKEND HOURS.
[2024-05-24] MEDS: Lidocaine 4 % Cream KIT 1 APPL TOPICAL (13:18)
[2024-05-24 15:16] VITALS: BP 167/79; PULSE 86; RESP 16; TEMP 36.7; O2SAT 94
--- NOTE | 2024-05-24 17:07 | P.CONHOSP_ITS ---
History of Present Illness Data of Consult Service Date: 05/24/24 Primary Care Provider: Wyatt Parada MD HPI Reason for consult: Gout pain Pt is an 83-year-old male with a PMH significant for HTN, CKD 3, and hx of gout who was initially admitted to the hospital on 05/19/2024 under general surgery services for perforated sigmoid colon and intra-abdominal abscess. Pt underwent exploratory laparotomy with Derek procedure. Postop pt developed nausea and vomiting and has had NGT in place since then. Unable to tolerate p.o.. Pt has not yet passed gas or had output in ostomy. Hospitalist consult for gout management. Pt complains of pain in left knee and on top of right foot. Reports long hx of gout flares that occur every few months. Was recently admitted to the hospital one month prior on 04/23-04/26 where he was treated for acute gout flare of 4th digit of right hand. Pt was sent down on prednisone 20 mg p.o. x7 days. Pain improved but soon returned and pt was seen by primary care on 05/16/2024 and prescribed additional round of prednisone which pt only took 3 days of before being admitted to the hospital. States normally gets gout flares in right foot. Current pain feels similar to previous episodes. Reports is unable to ambulate in the hallway secondary to foot and knee pain. Currently denies nausea or vomiting. No output of either stool or gas in ostomy. Review of Systems 2 Review of Systems: Negative except for that which is stated in the HPI. 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 High cholesterol HTN (hypertension) Family History Father Heart attack Mother Heart attack Surgical History Previous back surgery Social History Household Members: None Housing: Other Housing Other:: mobile home Do you presently have visiting nurse or other home services: Yes Alcohol intake: never Patient Tobacco Use Status: Never used Tobacco Advance Directives Date on File: 11/28/23 service: No Current occupational status: retired Cognitive needs: No Hearing needs: No Vision needs: Yes (rx contacts/glasses) Meds Allergies Allergy/AdvReac Type Severity Reaction Status Date / Time No Known Allergies Allergy Verified 05/19/24 19:51 [No Known Allergies*] Active Medications: Current Medications Amlodipine Besylate (Amlodipine Besylate 5 Mg Tablet) 5 mg PO DAILY [facility]; Protocol Last Admin: 05/24/24 09:20 Dose: 5 mg Hydromorphone HCl (Hydromorphone Hcl 0.5 Mg/0.5 Ml Syringe) 0.5 mg IVPUSH Q3H PRN; Protocol PRN Reason: Pain, Severe (Pain Scale 7-10) Last Admin: 05/23/24 23:35 Dose: 0.5 mg Piperacillin Sod/Tazobactam (Sod 3.375 gm/ Sodium Chloride) 50 mls @ 100 mls/hr IV Q6H [facility] Last Infusion: 05/24/24 12:12 Dose: Infused Dextrose/Lactated Ringer's (D5lr) 1,000 mls @ 125 mls/hr IVCONT .Q8H [facility] Last Infusion: 05/24/24 12:22 Dose: 125 mls/hr Acetaminophen (Ofirmev) 1,000 mg in 100 mls @ 400 mls/hr IV Q6H [facility] Last Infusion: 05/24/24 10:26 Dose: Infused Nutrition (Parenteral) (Parenteral Nutrition) 1,680 mls @ 70 mls/hr IV .Q24H [facility]; Protocol Stop: 05/24/24 20:59 Last Infusion: 05/24/24 12:21 Dose: 70 mls/hr Nutrition (Parenteral) (Parenteral Nutrition) 1,680 mls @ 70 mls/hr IV .Q24H [facility]; Protocol Stop: 05/25/24 20:59 Lidocaine HCl (Lidocaine 4 % Cream Kit) 1 appl TOPICAL ONCE PRN; Protocol PRN Reason: knee or foot pain Last Admin: 05/24/24 13:18 Dose: 1 appl Ondansetron HCl (Ondansetron Hcl 4 Mg/2 Ml Vial) 4 mg IVPUSH Q6H PRN PRN Reason: Nausea and Vomiting Last Admin: 05/21/24 13:59 Dose: 4 mg Oxycodone HCl (Oxycodone Hcl Immed Release 5 Mg Tablet) 5 mg PO Q6H PRN PRN Reason: Pain, Moderate(Pain Scale 4-6) Last Admin: 05/20/24 23:53 Dose: 5 mg Pantoprazole Sodium (Pantoprazole Sodium 40 Mg/10 Ml Vial) 40 mg IVPUSH BID@0630,1630 [facility] Last Admin: 05/24/24 05:42 Dose: 40 mg Pharmacy Consult (Consult Rx Parenteral Nutrition Ordering) 1 each MISCELLANE DAILY PRN PRN Reason: Consult order Sodium Chloride (0.9 % Sodium Chloride Flush 3 Ml Syringe) 3 ml IVFLUSH QSHIFT [facility] Last Admin: 05/24/24 09:28 Dose: Not Given Tamsulosin HCl (Tamsulosin Hcl 0.4 Mg Capsule) 0.4 mg PO DAILY [facility] Last Admin: 05/24/24 09:20 Dose: 0.4 mg Zolpidem Tartrate (Zolpidem Tartrate 5 Mg Tablet) 5 mg PO BEDTIME PRN PRN Reason: Insomnia Home Medications ?Medication ?Instructions ?Recorded ?Confirmed ?Last Taken ?Type prednisone 20 mg tablet See Rx Instructions .Route .COMPLEX 05/20/24 05/20/24 05/18/24 History Physical Exam 2 Vital Signs and Narrative: Vital Signs: Last Vital Signs Temp 98.0 F 05/24/24 15:16 Pulse 86 05/24/24 15:16 Resp 16 05/24/24 15:16 BP 167/79 H 05/24/24 15:16 Pulse Ox 94 05/24/24 15:16 O2 Del Method Room Air 05/24/24 15:16 O2 Flow Rate 2.0 05/21/24 07:44 BMI result Body Mass Index 21.3 General: AOx3, no acute distress Extremities: Left knee with swelling, warmth, tender on medial aspect, though no appreciable erythema. Right foot without erythema or swelling, though tenderness on dorsal aspect. Psych: Appropriate affect Results Labs 05/22/24 05:33 05/24/24 06:49 Labs: Laboratory Results - last 24 hr 05/24/24 05/24/24 06:00 06:49 Hold Purple Top SEE NOTE Anion Gap 13 Estim Creat Clear Calc 42.5 Estimated GFR > 60 Random Glucose 122 H Calcium 8.4 Phosphorus 2.9 Magnesium 1.9 Albumin 2.8 L Assessment and Plan (1) Status post Derek procedure: Status: Acute (2) Gout flare: Status: Acute Plan Pt is an 83-year-old male with a PMH significant for HTN, CKD 3, and hx of gout who was initially admitted to the hospital on 05/19/2024 under general surgery services for perforated sigmoid colon and intra-abdominal abscess. Pt underwent exploratory laparotomy with Derek procedure. Hospitalist consult for potential gout pain. Perforated sigmoid colon with abscess S/p Derek procedure, POD4 NGT in place with billious output, no output in ostomy Plan as per general surgery Acute gout flare Pt complains of left knee and right foot pain Preventing pt from ambulating in room or hallway Hospitalized with gout flare of 4th digit of left hand on 04/23-04/26 Did not complete prednisone from PCP Will treat with Solu-Medrol 20 mg IV daily for now given inability to tolerate p.o. Will transition to p.o. prednisone when appropriate HTN BP has been elevated as high as 173/80 today Can add labetalol 5 mg IV prn for SBP >170 Continue amlodipine as able to tolerate p.o. meds Thank you for allowing us to participate in the care of this pt. Will continue to follow along with you for now.
--- NOTE | 2024-05-24 17:24 | HO.OSTOMY ---
Ostomy Consult: Follow up Teaching 83yr old [place] [facility] see H&P for detailed history and admission.? Consult for new ostomy teaching. ?He had a Colostomy creation on 05/20/[address] Monaco. ?Upon entry into patient's room, he is lying in his bed, he is alert and oriented x 3, he currently has no complaints. ?He recalls my role in his care - he remains with NG tube in place to LWS. His abdomen remains distended and the ostomy is not yet functioning. There is small amount of bowel sweat noted in pouch, he denies pain, and N/V. Stoma remains pink and viable. We discussed his pain control at 0/10 at the current moment, he reports increasing the use of his IS and has not yet walked today due to right foot pain and left knee pain. Right foot assessed and no injury observed. Left knee noted for swelling - patient reports gout history. Provider notified and will assess if medication can be adjusted. and recommend PT work with pt for assessment. Will follow up with patient early next week for continued teaching.
[2024-05-24] MEDS: HYDROmorphone HCl 0.5 MG/0.5 ML SYRINGE IVPUSH (17:35)
[2024-05-24] MEDS: methylPREDNISolone Sod Succ 40 MG/ML VIAL 20 MG IVPUSH (18:32)
[2024-05-24 20:00] VITALS: BP 167/79; PULSE 83; RESP 17; TEMP 36.8; O2SAT 97
[2024-05-24] MEDS: 0.9 % Sodium Chloride Flush 3 ML SYRINGE IVFLUSH (21:43)
[2024-05-24] MEDS: Parenteral Nutrition 1,680 ML 70 ML IV (21:52)
[2024-05-24] MEDS: oxyCODONE HCl Immed Release 5 MG TABLET PO (23:21)
[2024-05-24 23:51] VITALS: BP 167/75; PULSE 81; RESP 18; TEMP 36.8; O2SAT 95
[2024-05-25] VITALS (9 sets, daily range): BP systolic 144–168; BP diastolic 66–77; PULSE 67–82; RESP 16–18; TEMP 36.3–36.9; O2SAT 96–98
[2024-05-25] MEDS: Acetaminophen 1,000 MG/100 ML PIGGYBACK 400 MG IV ×4 (03:43→21:48)
[2024-05-25] MEDS: Piperacillin Sodium/Tazobactam 3.375 GM in 0.9 % Sodium Chloride 50 ML IV ×4 (04:13→22:04)
[2024-05-25] MEDS: Pantoprazole Sodium 40 MG/10 ML VIAL IVPUSH ×2 (05:57→16:35)
[2024-05-25 07:27] LABS: Anion Gap 13 (12-20); Blood Urea Nitrogen 22 mg/dL (9-16); Calcium 8.9 mg/dL (8.4-10.2); Carbon Dioxide 22 mmol/L (22-29); Chloride 105 mmol/L (96-108); Creatinine Clr Calc Pharmacy 38.9; Estimated Glomerular Filt Rate > 60; Glucose Random 146 mg/dL (60-115); Magnesium 2.1 mg/dL (1.6-2.6); Potassium 4.4 mmol/L (3.3-5.1); Sodium 136 mmol/L (135-145)
[2024-05-25] MEDS: Dextrose 5 % and Lactated Ring 1,000 ML 125 ML IVCONT (09:06)
[2024-05-25] MEDS: methylPREDNISolone Sod Succ 40 MG/ML VIAL 20 MG IVPUSH (09:10)
[2024-05-25] MEDS: amLODIPine Besylate 5 MG TABLET PO ×2 (09:10→12:24)
--- NOTE | 2024-05-25 09:14 | PM.PNGS ---
Subjective Subjective Date of Service: 05/25/24 Interval history: He says he feels weak No nausea or vomiting NG tube output still significant as per nursing staff No colostomy output yet Patient denies pain of the abdomen Physical Exam Vital Signs: Vital Signs: Last Vital Signs Temp 97.9 F 05/25/24 07:38 Pulse 76 05/25/24 08:13 Resp 17 05/25/24 07:38 BP 157/70 H 05/25/24 08:13 Pulse Ox 97 05/25/24 08:13 O2 Del Method Room Air 05/25/24 07:38 O2 Flow Rate 2.0 05/21/24 07:44 BMI result Body Mass Index 21.3 Const: General: no acute distress Resp: Effort & Inspection: normal respiratory effort Cardio: Rate: regular rate GI: Other: Incision clean, colostomy viable but without significant output yet Palpation (GI): Soft to palpation, not firm and no guarding Objective Data Active Medications Amlodipine Besylate (Amlodipine Besylate 5 Mg Tablet) 5 mg PO DAILY [facility]; Protocol Last Admin: 05/24/24 09:20 Dose: 5 mg Documented By: RONALD Hydromorphone HCl (Hydromorphone Hcl 0.5 Mg/0.5 Ml Syringe) 0.5 mg IVPUSH Q3H PRN; Protocol PRN Reason: Pain, Severe (Pain Scale 7-10) Last Admin: 05/24/24 17:35 Dose: 0.5 mg Documented By: RONALD Piperacillin Sod/Tazobactam (Sod 3.375 gm/ Sodium Chloride) 50 mls @ 100 mls/hr IV Q6H [facility] 234 BEDS AT [facility] Last Infusion: 05/25/24 05:01 Dose: Infused Documented By: LUZMA Dextrose/Lactated Ringer's (D5lr) 1,000 mls @ 125 mls/hr IVCONT .Q8H [facility] 234 BEDS AT [facility] Last Infusion: 05/25/24 02:38 Dose: Infused Documented By: LUZMA Acetaminophen (Ofirmev) 1,000 mg in 100 mls @ 400 mls/hr IV Q6H [facility] Last Infusion: 05/25/24 04:13 Dose: Infused Documented By: LUZMA Nutrition (Parenteral) (Parenteral Nutrition) 1,680 mls @ 70 mls/hr IV .Q24H [facility] 234 BEDS AT [facility]; Protocol Stop: 05/25/24 20:59 Last Admin: 05/24/24 21:52 Dose: 70 mls/hr Documented By: LUZMA Nutrition (Parenteral) (Parenteral Nutrition) 1,680 mls @ 70 mls/hr IV .Q24H [facility]S [facility]CLUDE 234 BEDS AT [facility]; Protocol Stop: 05/26/24 20:59 Labetalol HCl (Labetalol Hcl 100 Mg/20 Ml Vial) 5 mg IVPUSH Q8H PRN PRN Reason: SBP >170 Lidocaine HCl (Lidocaine 4 % Cream Kit) 1 appl TOPICAL ONCE PRN; Protocol PRN Reason: knee or foot pain Last Admin: 05/24/24 13:18 Dose: 1 appl Documented By: RONALD Methylprednisolone Sodium Succinate (Methylprednisolone Sod Succ 40 Mg/Ml Vial) 20 mg IVPUSH Q12H COUNTS INCLUDE 234 BEDS AT [facility] Ondansetron HCl (Ondansetron Hcl 4 Mg/2 Ml Vial) 4 mg IVPUSH Q6H PRN PRN Reason: Nausea and Vomiting Last Admin: 05/21/24 13:59 Dose: 4 mg Documented By: YANA Oxycodone HCl (Oxycodone Hcl Immed Release 5 Mg Tablet) 5 mg PO Q6H PRN PRN Reason: Pain, Moderate(Pain Scale 4-6) Last Admin: 05/24/24 23:21 Dose: 5 mg Documented By: LUZMA Pantoprazole Sodium (Pantoprazole Sodium 40 Mg/10 Ml Vial) 40 mg IVPUSH BID@0630,1630 COUNTS INCLUDE 234 BEDS AT [facility] Last Admin: 05/25/24 05:57 Dose: 40 mg Documented By: LUZMA Pharmacy Consult (Consult Rx Parenteral Nutrition Ordering) 1 each MISCELLANE DAILY PRN PRN Reason: Consult order Sodium Chloride (0.9 % Sodium Chloride Flush 3 Ml Syringe) 3 ml IVFLUSH QSHIFT COUNTS INCLUDE 234 BEDS AT [facility] Last Admin: 05/25/24 07:44 Dose: Not Given Documented By: NIELS Non-Admin Reason: IV Running Tamsulosin HCl (Tamsulosin Hcl 0.4 Mg Capsule) 0.4 mg PO DAILY [facility]CLUDE 234 BEDS AT [facility] Last Admin: 05/24/24 09:20 Dose: 0.4 mg Documented By: RONALD Zolpidem Tartrate (Zolpidem Tartrate 5 Mg Tablet) 5 mg PO BEDTIME PRN PRN Reason: Insomnia Labs 05/22/24 05:33 05/25/24 05:20 Labs: Laboratory Results - last 24 hr 05/25/24 05:20 Hold Purple Top SEE NOTE Anion Gap 13 Estim Creat Clear Calc 38.9 Estimated GFR > 60 Random Glucose 146 H Calcium 8.9 Phosphorus 3.0 Magnesium 2.1 Albumin 3.0 L Microbiology Microbiology Results: Microbiology 05/19/24 22:40 Blood Culture - Preliminary Blood - Venous Bacteroides fragilis group 05/20/24 01:06 Gram Stain - Final Peritoneal Fluid Routine Culture - Final Escherichia coli Klebsiella aerogenes Anaerobic Culture - Preliminary Bacteroides fragilis group Anaerobic gram negative rods Procedures Date of Service Date of Service: 05/25/24 Progress Note: A&P Assessment and plan (1) Diverticulitis of colon with perforation: Status: Acute Assessment and Plan: Status post Derek's procedure Clinically looks well However, no significant output yet stoma We will keep NG tube in place Encouraged to get out of bed, increased level of activity Parental nutrition Lytes okay Time Spent With Patient Time: Total time managing care of this patient today ____ minutes. Quality Stroke Does the patient have a stroke diagnosis?: No VTE Prior VTE?: No VTE Risk Level:: Surgical - moderate VTE Device Contraindication: N/A - Device Ordered VTE Drug Contraindication: Treatment Not Indicated
[2024-05-25] MEDS: oxyCODONE HCl Immed Release 5 MG TABLET PO (10:14)
--- NOTE | 2024-05-25 11:43 | HO.PM.IMPN ---
Subjective Subjective Date of Service: 05/25/24 Interval History: Seen in follow-up for gout, hypertension Interval history: Patient reports >5 gout flares in the last year. Reports he was taking allopurinol 300mg daily but there is a discrepancy in his history and nephrology note. Pharmacy also reports he is not taking this. No uric acid level obtained during admission. HCTZ was discontinued on 05/17. He denies pain currently. NO fevers, chills. Hypertensive. Review of Systems Review of Systems: Yes all other systems are reviewed and are negative Physical Exam Vital Signs: Vital Signs: Last Vital Signs Temp 97.9 F 05/25/24 07:38 Pulse 76 05/25/24 08:13 Resp 17 05/25/24 07:38 BP 157/70 H 05/25/24 09:10 Pulse Ox 97 05/25/24 08:13 O2 Del Method Room Air 05/25/24 07:38 O2 Flow Rate 2.0 05/21/24 07:44 BMI result Body Mass Index 21.3 Constitutional - Awake and Alert, No apparent distress Eyes - PERRLA, EOMI Extremities - no calf tenderness bilaterally Musculoskeletal - Normal inspection, normal ROM. L knee without any significant swelling or warmth or erythema Skin - Warm/Dry Neurological - Alert & oriented x3 Psychological - Appropriate affect Objective Data Active Medications Amlodipine Besylate (Amlodipine Besylate 5 Mg Tablet) 5 mg PO DAILY [facility]; Protocol Last Admin: 05/25/24 09:10 Dose: 5 mg Documented By: NIELS Hydromorphone HCl (Hydromorphone Hcl 0.5 Mg/0.5 Ml Syringe) 0.5 mg IVPUSH Q3H PRN; Protocol PRN Reason: Pain, Severe (Pain Scale 7-10) Last Admin: 05/24/24 17:35 Dose: 0.5 mg Documented By: RONALD Piperacillin Sod/Tazobactam (Sod 3.375 gm/ Sodium Chloride) 50 mls @ 100 mls/hr IV Q6H [facility] Last Infusion: 05/25/24 10:00 Dose: Infused Documented By: NIELS Dextrose/Lactated Ringer's (D5lr) 1,000 mls @ 125 mls/hr IVCONT .Q8H [facility] Last Admin: 05/25/24 09:06 Dose: 125 mls/hr Documented By: NIELS Acetaminophen (Ofirmev) 1,000 mg in 100 mls @ 400 mls/hr IV Q6H [facility] Last Infusion: 05/25/24 09:31 Dose: Infused Documented By: NIELS Nutrition (Parenteral) (Parenteral Nutrition) 1,680 mls @ 70 mls/hr IV .Q24H [facility]; Protocol Stop: 05/25/24 20:59 Last Admin: 05/24/24 21:52 Dose: 70 mls/hr Documented By: LUZMA Nutrition (Parenteral) (Parenteral Nutrition) 1,680 mls @ 70 mls/hr IV .Q24H [facility]; Protocol Stop: 05/26/24 20:59 Labetalol HCl (Labetalol Hcl 100 Mg/20 Ml Vial) 5 mg IVPUSH Q8H PRN PRN Reason: SBP >170 Lidocaine HCl (Lidocaine 4 % Cream Kit) 1 appl TOPICAL ONCE PRN; Protocol PRN Reason: knee or foot pain Last Admin: 05/24/24 13:18 Dose: 1 appl Documented By: RONALD Methylprednisolone Sodium Succinate (Methylprednisolone Sod Succ 40 Mg/Ml Vial) 20 mg IVPUSH Q12H [facility] Last Admin: 05/25/24 09:10 Dose: 20 mg Documented By: NIELS Ondansetron HCl (Ondansetron Hcl 4 Mg/2 Ml Vial) 4 mg IVPUSH Q6H PRN PRN Reason: Nausea and Vomiting Last Admin: 05/21/24 13:59 Dose: 4 mg Documented By: YANA Oxycodone HCl (Oxycodone Hcl Immed Release 5 Mg Tablet) 5 mg PO Q6H PRN PRN Reason: Pain, Moderate(Pain Scale 4-6) Last Admin: 05/25/24 10:14 Dose: 5 mg Documented By: NIELS Pantoprazole Sodium (Pantoprazole Sodium 40 Mg/10 Ml Vial) 40 mg IVPUSH BID@0630,1630 [facility] Last Admin: 05/25/24 05:57 Dose: 40 mg Documented By: LUZMA Pharmacy Consult (Consult Rx Parenteral Nutrition Ordering) 1 each MISCELLANE DAILY PRN PRN Reason: Consult order Sodium Chloride (0.9 % Sodium Chloride Flush 3 Ml Syringe) 3 ml IVFLUSH QSHIFT [facility] Last Admin: 05/25/24 07:44 Dose: Not Given Documented By: NIELS Non-Admin Reason: IV Running Tamsulosin HCl (Tamsulosin Hcl 0.4 Mg Capsule) 0.4 mg PO DAILY [facility] Last Admin: 05/25/24 09:26 Dose: Not Given Documented By: NIELS Non-Admin Reason: pt unable to swallow with NGT, pill too large Zolpidem Tartrate (Zolpidem Tartrate 5 Mg Tablet) 5 mg PO BEDTIME PRN PRN Reason: Insomnia Labs 05/22/24 05:33 05/25/24 05:20 Labs: Laboratory Results - last 24 hr 05/25/24 05:20 Hold Purple Top SEE NOTE Anion Gap 13 Estim Creat Clear Calc 38.9 Estimated GFR > 60 Random Glucose 146 H Calcium 8.9 Phosphorus 3.0 Magnesium 2.1 Albumin 3.0 L Microbiology Microbiology Results: Microbiology 05/20/24 01:06 Gram Stain - Final Peritoneal Fluid Routine Culture - Final Escherichia coli Klebsiella aerogenes Anaerobic Culture - Preliminary Bacteroides fragilis group Anaerobic gram negative rods 05/19/24 22:40 Blood Culture - Preliminary Blood - Venous Bacteroides fragilis group Assessment and Plan (1) Status post Derek procedure: Status: Acute (2) Gout flare: Status: Acute Plan Pt is an 83-year-old male with a PMH significant for HTN, CKD 3, and hx of gout who was initially admitted to the hospital on 05/19/2024 under general surgery services for perforated sigmoid colon and intra-abdominal abscess. Pt underwent exploratory laparotomy with Derek procedure. Hospitalist consult for potential gout pain. Perforated sigmoid colon with abscess S/p Derek procedure, POD4 NGT in place with billious output, no output in ostomy Plan as per general surgery Acute gout flare Pt complains of left knee and right foot pain. No uric acid level obtained or apiration performed. Recent uric levels WNL Preventing pt from ambulating in room or hallway Hospitalized with gout flare of 4th digit of left hand on 04/23-04/26 Did not complete prednisone from PCP Following with nephrology and HCTZ recently dc'd on 05/17 Per nephrology note, no longer taking allopurinol but considering resuming at next visit at 100mg daily Given history will continue treating with steroids. Change to po prednisone 20mg daily- ok per surgery diet order HTN BP remains elevated Increase amlodipine to 10mg daily Will continue following Quality Stroke Does the patient have a stroke diagnosis?: No VTE Prior VTE?: No VTE Risk Level:: Surgical - moderate VTE Device Contraindication: N/A - Device Ordered VTE Drug Contraindication: Treatment Not Indicated
[2024-05-25] MEDS: Parenteral Nutrition 1,680 ML 70 ML IV (21:50)
[2024-05-25] MEDS: 0.9 % Sodium Chloride Flush 3 ML SYRINGE IVFLUSH (21:50)
[2024-05-26] MEDS: Dextrose 5 % and Lactated Ring 1,000 ML 125 ML IVCONT ×3 (00:33→17:22)
[2024-05-26 04:00] VITALS: BP 166/74; PULSE 70; RESP 16; TEMP 36.7; O2SAT 95
[2024-05-26] MEDS: Acetaminophen 1,000 MG/100 ML PIGGYBACK 400 MG IV ×4 (04:15→22:36)
[2024-05-26] MEDS: Piperacillin Sodium/Tazobactam 3.375 GM in 0.9 % Sodium Chloride 50 ML IV ×4 (04:20→22:25)
[2024-05-26] MEDS: Pantoprazole Sodium 40 MG/10 ML VIAL IVPUSH ×2 (05:45→16:35)
[2024-05-26 06:22] LABS: Albumin Level 3.1 g/dL (3.5-5.0); Anion Gap 13 (12-20); Blood Urea Nitrogen 25 mg/dL (9-16); Calcium 9.1 mg/dL (8.4-10.2); Carbon Dioxide 24 mmol/L (22-29); Chloride 105 mmol/L (96-108); Estimated Glomerular Filt Rate > 60; Glucose Random 130 mg/dL (60-115); Magnesium 2.2 mg/dL (1.6-2.6); Phosphorus 3.2 mg/dL (2.7-4.5); Potassium 4.1 mmol/L (3.3-5.1); Sodium 138 mmol/L (135-145)
[2024-05-26 08:00] VITALS: BP 163/74; PULSE 67; RESP 18; TEMP 36.6; O2SAT 98
[2024-05-26 09:27] VITALS: BP 163/74
[2024-05-26] MEDS: predniSONE 20 MG TABLET PO (09:27)
[2024-05-26] MEDS: amLODIPine Besylate 10 MG TABLET PO (09:27)
--- NOTE | 2024-05-26 09:47 | PM.PNGS ---
Subjective Subjective Date of Service: 05/26/24 Interval history: Feels well this morning Denies significant abdominal pain He says he has noticed gas from his colostomy NG tube output remains high He has been ambulating Physical Exam Vital Signs: Vital Signs: Last Vital Signs Temp 97.8 F 05/26/24 08:00 Pulse 67 05/26/24 08:00 Resp 18 05/26/24 08:00 BP 163/74 H 05/26/24 09:27 Pulse Ox 98 05/26/24 08:00 O2 Del Method Room Air 05/26/24 08:00 O2 Flow Rate 2.0 05/21/24 07:44 BMI result Body Mass Index 21.3 Const: General: comfortable and no acute distress Resp: Effort & Inspection: normal respiratory effort Cardio: Rate: regular rate GI: Other: Colostomy bag empty but note of some small amounts of liquid stool on the stoma opening Palpation (GI): Soft to palpation, not firm and no guarding Objective Data Active Medications Amlodipine Besylate (Amlodipine Besylate 10 Mg Tablet) 10 mg PO DAILY COUNT INCLUDES THE [facility]; Protocol Last Admin: 05/26/24 09:27 Dose: 10 mg Documented By: NIELS Hydromorphone HCl (Hydromorphone Hcl 0.5 Mg/0.5 Ml Syringe) 0.5 mg IVPUSH Q3H PRN; Protocol PRN Reason: Pain, Severe (Pain Scale 7-10) Last Admin: 05/24/24 17:35 Dose: 0.5 mg Documented By: RONALD Piperacillin Sod/Tazobactam (Sod 3.375 gm/ Sodium Chloride) 50 mls @ 100 mls/hr IV Q6H [facility]CLUDES [facility] Last Admin: 05/26/24 09:44 Dose: 100 mls/hr Documented By: NIELS Dextrose/Lactated Ringer's (D5lr) 1,000 mls @ 125 mls/hr IVCONT .Q8H [facility]CLUDES [facility] Last Admin: 05/26/24 09:19 Dose: 125 mls/hr Documented By: NIELS Acetaminophen (Ofirmev) 1,000 mg in 100 mls @ 400 mls/hr IV Q6H [facility]CLUDES [facility] Last Infusion: 05/26/24 09:44 Dose: Infused Documented By: NIELS Nutrition (Parenteral) (Parenteral Nutrition) 1,680 mls @ 70 mls/hr IV .Q24H [facility]; Protocol Stop: 05/26/24 20:59 Last Infusion: 05/26/24 08:56 Dose: 70 mls/hr Documented By: NIELS Nutrition (Parenteral) (Parenteral Nutrition) 1,680 mls @ 70 mls/hr IV .Q24H [facility]; Protocol Stop: 05/27/24 20:59 Labetalol HCl (Labetalol Hcl 100 Mg/20 Ml Vial) 5 mg IVPUSH Q8H PRN PRN Reason: SBP >170 Lidocaine HCl (Lidocaine 4 % Cream Kit) 1 appl TOPICAL ONCE PRN; Protocol PRN Reason: knee or foot pain Last Admin: 05/24/24 13:18 Dose: 1 appl Documented By: RONALD Ondansetron HCl (Ondansetron Hcl 4 Mg/2 Ml Vial) 4 mg IVPUSH Q6H PRN PRN Reason: Nausea and Vomiting Last Admin: 05/21/24 13:59 Dose: 4 mg Documented By: YANA Oxycodone HCl (Oxycodone Hcl Immed Release 5 Mg Tablet) 5 mg PO Q6H PRN PRN Reason: Pain, Moderate(Pain Scale 4-6) Last Admin: 05/25/24 10:14 Dose: 5 mg Documented By: NIELS Pantoprazole Sodium (Pantoprazole Sodium 40 Mg/10 Ml Vial) 40 mg IVPUSH BID@0630,1630 [facility]CLUDES [facility] Last Admin: 05/26/24 05:45 Dose: 40 mg Documented By: LUZMA Pharmacy Consult (Consult Rx Parenteral Nutrition Ordering) 1 each MISCELLANE DAILY PRN PRN Reason: Consult order Prednisone (Prednisone 20 Mg Tablet) 20 mg PO DAILY COUNT [facility]CLUDES THE [facility] Last Admin: 05/26/24 09:27 Dose: 20 mg Documented By: NIELS Sodium Chloride (0.9 % Sodium Chloride Flush 3 Ml Syringe) 3 ml IVFLUSH QSHIFT COUNT [facility]CLUDES [facility] Last Admin: 05/26/24 08:57 Dose: Not Given Documented By: NIELS Non-Admin Reason: IV Running Tamsulosin HCl (Tamsulosin Hcl 0.4 Mg Capsule) 0.4 mg PO DAILY COUNT [facility]CLUDES [facility] Last Admin: 05/26/24 09:07 Dose: Not Given Documented By: NIELS Non-Admin Reason: pt unable to swallow with NGT Zolpidem Tartrate (Zolpidem Tartrate 5 Mg Tablet) 5 mg PO BEDTIME PRN PRN Reason: Insomnia Labs 05/22/24 05:33 05/26/24 05:35 Labs: Laboratory Results - last 24 hr 05/26/24 05:35 Hold Purple Top SEE NOTE Anion Gap 13 Estim Creat Clear Calc 42.0 Estimated GFR > 60 Random Glucose 130 H Calcium 9.1 Phosphorus 3.2 Magnesium 2.2 Albumin 3.1 L Microbiology Microbiology Results: Microbiology 05/19/24 22:40 Blood Culture - Final Blood - Venous Bacteroides fragilis group 05/20/24 01:06 Gram Stain - Final Peritoneal Fluid Routine Culture - Final Escherichia coli Klebsiella aerogenes Anaerobic Culture - Final Bacteroides fragilis group Procedures Date of Service Date of Service: 05/26/24 Progress Note: A&P Assessment and plan (1) Status post Derek procedure: Status: Acute Assessment and Plan: NG tube output remains high However he looks clinically well He says he has passed some gas from his colostomy Abdomen remained soft and very benign He has been ambulating Lytes okay Clamp NG tube morning and check residuals Hopefully we can DC the NGT soon Encouraged to continue ambulation Time Spent With Patient Time: Total time managing care of this patient today ____ minutes. Quality Stroke Does the patient have a stroke diagnosis?: No VTE Prior VTE?: No VTE Risk Level:: Surgical - moderate VTE Device Contraindication: N/A - Device Ordered VTE Drug Contraindication: Treatment Not Indicated
--- NOTE | 2024-05-26 14:22 | PM.EVENT ---
Event Note Date of Service: 05/26/24 Event Note: Seen on afternoon rounds NG tube unclamped after 4 hours - note of about 100 cc of bilious residuals on suctioning He remained comfortable Denied any nausea or vomiting Says he may have passed gas via the stoma again this afternoon However no significant output yet from the stoma NG tube therefore placed back on suction Clamping trial again tomorrow morning He looks well overall Time Spent With Patient Time: Total time managing care of this patient today ____ minutes.
[2024-05-26 15:18] VITALS: BP 155/69; PULSE 81; RESP 17; TEMP 36.4; O2SAT 95
[2024-05-26 19:51] VITALS: BP 160/71; PULSE 76; RESP 18; TEMP 36.5; O2SAT 94
[2024-05-26] MEDS: Parenteral Nutrition 1,680 ML 70 ML IV (22:36)
[2024-05-27] VITALS (8 sets, daily range): BP systolic 129–176; BP diastolic 63–77; PULSE 73–97; RESP 16–18; TEMP 36.2–37.3; O2SAT 94–98
[2024-05-27] MEDS: oxyCODONE HCl Immed Release 5 MG TABLET PO (00:07)
[2024-05-27] MEDS: Dextrose 5 % and Lactated Ring 1,000 ML 125 ML IVCONT (01:45)
--- NOTE | 2024-05-27 02:40 | PC.NURSE ---
pts BP: 176/77, asymptomatic, denies CP, SOB. Dr. Pimentel made aware, of PRN labetolol order and approved to give, [employer] Operator Dory called to help administer, tele monitor placed on patient. First BP 5 min post admin: 171/74, HR: 66 10min: 167/75, HR: 73 BP: 158/70, HR: 76, O2: 98%, RR: 18
[2024-05-27] MEDS: Labetalol HCL 100 MG/20 ML VIAL IVPUSH (03:17)
[2024-05-27] MEDS: Piperacillin Sodium/Tazobactam 3.375 GM in 0.9 % Sodium Chloride 50 ML IV ×4 (03:37→21:28)
[2024-05-27] MEDS: Pantoprazole Sodium 40 MG/10 ML VIAL IVPUSH ×2 (06:05→16:46)
--- NOTE | 2024-05-27 06:59 | P.PNGS_ITS ---
Subjective Subjective Date of Service: 05/27/24 <MayaS&N AirofloJamie - Last Filed: 05/27/24 07:07> 05/27/24 <Jacki Silveira PA-C - Last Filed: 05/27/24 07:41> 05/27/24 <Daniel Monaco MD - Last Filed: 05/27/24 08:59> Interval history: Ruslan states that feels 'ok' and the same today. He has not had any more nausea or vomiting, with less output on the NG tube (100mL). Stated that last night his blood pressure got very high, denied SOB or chest pain, was managed with labetolol. <[employer] - Last Filed: 05/27/24 07:07> Physical Exam 2 Vital Signs: Vital Signs: Last Vital Signs Temp 97.8 F 05/27/24 04:26 Pulse 76 05/27/24 04:26 Resp 16 05/27/24 04:26 BP 158/70 H 05/27/24 04:26 Pulse Ox 98 05/27/24 04:26 O2 Del Method Room Air 05/27/24 04:26 O2 Flow Rate 2.0 05/21/24 07:44 BMI result Body Mass Index 21.3 <[employer] - Last Filed: 05/27/24 07:07> Const: General: alert and awake <[employer] - Last Filed: 05/27/24 07:07> Orientation/consciousness: patient oriented x3 <[employer] - Last Filed: 05/27/24 07:07> Resp: Effort & Inspection: normal respiratory effort and able to speak in complete sentences <[employer] - Last Filed: 05/27/24 07:07> Cardio: Rate: regular rate <[employer] - Last Filed: 05/27/24 07:07> Rhythm: regular rhythm <[employer] - Last Filed: 05/27/24 07:07> Peripheral pulses: radial pulses present <[employer] - Last Filed: 05/27/24 07:07> GI: Other: Abdomen is non-tender to palpation Stoma pink with liquid stool around the opening. Incision is non purulent or erythematous <Maya Jamie - Last Filed: 05/27/24 07:07> : Other: Catheter present, draining clear liquid. <Maya Jamie - Last Filed: 05/27/24 07:07> Neuro: General: patient oriented x3 <Maya Jamie - Last Filed: 05/27/24 07:07> Objective Data Active Medications Amlodipine Besylate (Amlodipine Besylate 10 Mg Tablet) 10 mg PO DAILY [facility]; Protocol Last Admin: 05/26/24 09:27 Dose: 10 mg Documented By: NIELS Hydromorphone HCl (Hydromorphone Hcl 0.5 Mg/0.5 Ml Syringe) 0.5 mg IVPUSH Q3H PRN; Protocol PRN Reason: Pain, Severe (Pain Scale 7-10) Last Admin: 05/24/24 17:35 Dose: 0.5 mg Documented By: RONALD Piperacillin Sod/Tazobactam (Sod 3.375 gm/ Sodium Chloride) 50 mls @ 100 mls/hr IV Q6H [facility] Last Infusion: 05/27/24 04:06 Dose: Infused Documented By: TJ Acetaminophen (Ofirmev) 1,000 mg in 100 mls @ 400 mls/hr IV Q6H [facility] Last Admin: 05/27/24 03:45 Dose: Not Given Documented By: TJ Non-Admin Reason: Patient Refused Nutrition (Parenteral) (Parenteral Nutrition) 1,680 mls @ 70 mls/hr IV .Q24H [facility]; Protocol Stop: 05/27/24 20:59 Last Admin: 05/26/24 22:36 Dose: 70 mls/hr Documented By: TJ Dextrose/Lactated Ringer's (D5lr) 1,000 mls @ 125 mls/hr IVCONT .Q8H [facility] Last Infusion: 05/27/24 06:04 Dose: 125 mls/hr Documented By: TJ Labetalol HCl (Labetalol Hcl 100 Mg/20 Ml Vial) 5 mg IVPUSH Q8H PRN PRN Reason: SBP >170 Last Admin: 05/27/24 03:17 Dose: 5 mg Documented By: TJ Lidocaine HCl (Lidocaine 4 % Cream Kit) 1 appl TOPICAL ONCE PRN; Protocol PRN Reason: knee or foot pain Last Admin: 05/24/24 13:18 Dose: 1 appl Documented By: RONALD Ondansetron HCl (Ondansetron Hcl 4 Mg/2 Ml Vial) 4 mg IVPUSH Q6H PRN PRN Reason: Nausea and Vomiting Last Admin: 05/21/24 13:59 Dose: 4 mg Documented By: YANA Oxycodone HCl (Oxycodone Hcl Immed Release 5 Mg Tablet) 5 mg PO Q6H PRN PRN Reason: Pain, Moderate(Pain Scale 4-6) Last Admin: 05/25/24 10:14 Dose: 5 mg Documented By: NIELS Pantoprazole Sodium (Pantoprazole Sodium 40 Mg/10 Ml Vial) 40 mg IVPUSH BID@0630,1630 [facility] Last Admin: 05/27/24 06:05 Dose: 40 mg Documented By: TJ Pharmacy Consult (Consult Rx Parenteral Nutrition Ordering) 1 each MISCELLANE DAILY PRN PRN Reason: Consult order Prednisone (Prednisone 20 Mg Tablet) 20 mg PO DAILY [facility] Last Admin: 05/26/24 09:27 Dose: 20 mg Documented By: NIELS Sodium Chloride (0.9 % Sodium Chloride Flush 3 Ml Syringe) 3 ml IVFLUSH QSHIFT [facility] Last Admin: 05/26/24 22:39 Dose: Not Given Documented By: TJ Non-Admin Reason: IV Running Tamsulosin HCl (Tamsulosin Hcl 0.4 Mg Capsule) 0.4 mg PO DAILY [facility] Last Admin: 05/26/24 09:07 Dose: Not Given Documented By: NIELS Non-Admin Reason: pt unable to swallow with NGT Zolpidem Tartrate (Zolpidem Tartrate 5 Mg Tablet) 5 mg PO BEDTIME PRN PRN Reason: Insomnia <Maya Jamie - Last Filed: 05/27/24 07:07> Labs CBC & Chem 7: 05/22/24 05:33 05/27/24 07:24 <Maya Jamie - Last Filed: 05/27/24 07:07> Microbiology Microbiology Results: Microbiology 05/19/24 22:40 Blood Culture - Final Blood - Venous Bacteroides fragilis group <Maya Jamie - Last Filed: 05/27/24 07:07> Procedures Date of Service Date of Service: 05/27/24 <Maya Jamie - Last Filed: 05/27/24 07:07> 05/27/24 <Jacki Silveira PA-C - Last Filed: 05/27/24 07:41> 05/27/24 <Daniel Monaco MD - Last Filed: 05/27/24 08:59> Progress Note: A&P Assessment and plan (1) Status post Derek procedure: Status: Acute <Maya Jamie - Last Filed: 05/27/24 07:07> (2) Acute urinary retention: Status: Acute <Maya Jamie - Last Filed: 05/27/24 07:07> (3) Diverticulitis of colon with perforation: Status: Acute <Maya Jamie - Last Filed: 05/27/24 07:07> Assessment and Plan: Ruslan is post-op day 8 from Derek procedure, perforated diverticulitis, and intra-abdominal abscess. Abdomen is no longer distended, stoma pink with stool around the opening, flatulence reported. NG tube remains in place and is draining bilious fluid, 100mL today, continue to consider possible removal soon. Ruslan will continue the Zoysn, parenteral nutrition, and pantoprazole. Pain has been managed with ofirmev. Spirometry 10 times per hour was encouraged, along with more ambulation. Blood pressure will continue to be monitored as it was elevated at 176/76 last night, managed with labetolol. < Maya Jamie - Last Filed: 05/27/24 07:07> Ruslan is post-op day 8 from Derek procedure, perforated diverticulitis, and intra-abdominal abscess. Abdomen is no longer distended, stoma pink with stool around the opening, flatulence reported. NG tube remains in place and is draining bilious fluid, 100mL today, continue to consider possible removal soon. Ruslan will continue the Zoysn, parenteral nutrition, and pantoprazole. Pain has been managed with ofirmev. Spirometry 10 times per hour was encouraged, along with more ambulation. Blood pressure will continue to be monitored as it was elevated at 176/76 last night, managed with labetolol. Agree with above assessment and plan by Maya OVIEDO. NGT clamped yesterday but had high residual and therefore kept in place. Upon assessment this morning, NGT off suction, AM nurse unaware. VSS. Abd exam benign- much less distended, soft, ostomy with gas in appliance. He likely was clamped all night- will come back in an hour or two and check residual and hopefully remove. If able to get NGT will dc cantu and trial void. Cont PPN until able to advance diet, oral intake increases. Cont IV zosyn. <Jacki Silveira PA-C - Last Filed: 05/27/24 07:41> Time Spent With Patient Time: Total time managing care of this patient today ____ minutes. <Maya Ayala - Last Filed: 05/27/24 07:07> Quality Stroke Does the patient have a stroke diagnosis?: No <Maya Ayala - Last Filed: 05/27/24 07:07> VTE Prior VTE?: No <Maya Ayala - Last Filed: 05/27/24 07:07> VTE Risk Level:: Surgical - moderate <Maya Ayala - Last Filed: 05/27/24 07:07> VTE Device Contraindication: N/A - Device Ordered <Maya Ayala - Last Filed: 05/27/24 07:07> VTE Drug Contraindication: Treatment Not Indicated <Maya Ayala - Last Filed: 05/27/24 07:07>
[2024-05-27 08:05] LABS: Albumin Level 3.5 g/dL (3.5-5.0); Anion Gap 16 (12-20); Blood Urea Nitrogen 23 mg/dL (9-16); Calcium 9.3 mg/dL (8.4-10.2); Carbon Dioxide 21 mmol/L (22-29); Chloride 105 mmol/L (96-108); Creatinine Clr Calc Pharmacy 41.6; Estimated Glomerular Filt Rate > 60; Glucose Random 115 mg/dL (60-115); Magnesium 2.1 mg/dL (1.6-2.6); Phosphorus 3.3 mg/dL (2.7-4.5); Potassium 4.1 mmol/L (3.3-5.1); Sodium 138 mmol/L (135-145)
[2024-05-27] MEDS: 0.9 % Sodium Chloride Flush 3 ML SYRINGE IVFLUSH ×3 (08:46→21:37)
[2024-05-27] MEDS: predniSONE 20 MG TABLET PO (08:47)
[2024-05-27] MEDS: amLODIPine Besylate 10 MG TABLET PO (08:47)
[2024-05-27] MEDS: Tamsulosin HCL 0.4 MG CAPSULE PO (08:48)
--- NOTE | 2024-05-27 09:02 | MHC.CLN ---
F/U CONTINUES NPO WITH NUTRITION/HYDRATION VIA PPN. REVIEWED LABS. COMMUNICATED WITH PHARMACY. RECOMMEND CONTINUE PPN AT MAX GOAL RATE: PPN AT 70 ML PER HOUR WITH 65 G LIPIDS TO PROVIDE 1507 TOTAL KCALS (29KCALS/KG), 71G PROTEIN (1.4 G/KG), 168G DEXTROSE. REPLETE LYTES NEEDED. FOLLOW FOR PPN TOLERANCE AND DIET ADVANCEMENT.
[2024-05-27] MEDS: Metoclopramide HCl 10 MG/2 ML VIAL IVPUSH (10:59)
--- NOTE | 2024-05-27 12:58 | HO.OSTOMY ---
Ostomy Consult: Follow up Teaching 83yr old male admitted to [facility] on 05/19/24 see H&P for detailed history and admission.? Consult for new ostomy teaching. ?He had a Colostomy creation on 05/20/[address] Monaco. ?Upon entry into patient's room, he is lying in his bed, he is alert and oriented x 3, he currently has no complaints. ?He recalls my role in his care - he remains with NG tube in place currently clamp trial. His abdomen is noted to be less distended and the ostomy is not yet functioning. There is small amount of brown stool ntoed at the os. He denies pain, and N/V. Stoma remains pink and viable. We discussed his pain control at 0/10 at the current moment, he reports increasing the use of his IS and has not yet walked today due to right foot pain and left knee pain - providers aware. Pouch change performed due to macerated wafer edge - no leak noted. Stoma remains viable - pink red moist and round - well above skin level. He performed a open close on the pouch attached to his abdomen - he is noted to have a baseline tremor to both hands. He is able to open close but the tremor may impact pouching changes in the future. Will follow up with patient for continued teaching and awaiting stoma function to continue teaching.
--- NOTE | 2024-05-27 13:16 | MHC.CM.PN ---
Patient not medically cleared for dc. Plan remains home w/ SN services. CM will continue to follow.
[2024-05-27] MEDS: Acetaminophen 1,000 MG/100 ML PIGGYBACK 400 MG IV (16:37)
[2024-05-27] MEDS: Parenteral Nutrition 1,680 ML 70 ML IV (21:30)
[2024-05-27] MEDS: Baclofen 10 MG TABLET PO (22:12)
[2024-05-28] VITALS (7 sets, daily range): BP systolic 118–150; BP diastolic 55–81; PULSE 79–94; RESP 16–18; TEMP 36.3–36.6; O2SAT 94–99
--- NOTE | 2024-05-28 | ECG_ITS ---
Test Reason : cp Blood Pressure : */* mmHG Vent. Rate : 93 BPM Atrial Rate : 93 BPM P-R Int : 138 ms QRS Dur : 72 ms QT Int : 348 ms P-R-T Axes : 49 27 81 degrees QTcB Int : 432 ms Normal sinus rhythm Premature atrial complexes Otherwise normal ECG When compared with ECG of 19-May-2024 20:58, Current undetermined rhythm precludes rhythm comparison, needs review Referred By: Johnie Carrizales Electronically Signed By: DANA GILLIS
[2024-05-28] MEDS: HYDROmorphone HCl 0.5 MG/0.5 ML SYRINGE IVPUSH (00:26)
[2024-05-28] MEDS: Piperacillin Sodium/Tazobactam 3.375 GM in 0.9 % Sodium Chloride 50 ML IV ×4 (03:32→21:33)
[2024-05-28] MEDS: Pantoprazole Sodium 40 MG/10 ML VIAL IVPUSH ×2 (05:38→16:13)
[2024-05-28 06:42] LABS: Albumin Level 3.5 g/dL (3.5-5.0); Anion Gap 16 (12-20); Blood Urea Nitrogen 33 mg/dL (9-16); Calcium 9.3 mg/dL (8.4-10.2); Carbon Dioxide 20 mmol/L (22-29); Chloride 105 mmol/L (96-108); Creatinine Clr Calc Pharmacy 35.5; Estimated Glomerular Filt Rate > 60; Glucose Random 105 mg/dL (60-115); Magnesium 2.4 mg/dL (1.6-2.6); Phosphorus 4.2 mg/dL (2.7-4.5); Potassium 4.5 mmol/L (3.3-5.1); Sodium 136 mmol/L (135-145)
--- NOTE | 2024-05-28 07:57 | P.PNGS_ITS ---
Subjective Subjective Date of Service: 05/28/24 Interval history: Patient denies abdominal pain, nausea or vomiting. Tolerated clears last night. Still c/o left knee pain. Physical Exam 2 Vital Signs: Vital Signs: Last Vital Signs Temp 97.3 F 05/28/24 07:21 Pulse 79 05/28/24 07:21 Resp 16 05/28/24 07:21 BP 143/65 H 05/28/24 07:21 Pulse Ox 96 05/28/24 07:21 O2 Del Method Room Air 05/28/24 07:21 O2 Flow Rate 2.0 05/21/24 07:44 BMI result Body Mass Index 21.3 Const: General: no acute distress Nutritional Appearance: well nourished Orientation/consciousness: patient oriented x3 Resp: Effort & Inspection: normal respiratory effort, no audible wheezes, no cough and no respiratory distress GI: Other: soft, nondistended, incision clean and intact, ostomy pink, patent, stool and gas in bag. Skin: Other: warm and dry Neuro: General: patient oriented x3 Extrem: Other: redness left knee Objective Data Active Medications Acetaminophen (Acetaminophen 325 Mg Tablet) 650 mg PO Q6H PRN PRN Reason: Pain, Mild 1-3,fever,headache Amlodipine Besylate (Amlodipine Besylate 10 Mg Tablet) 10 mg PO DAILY [facility]; Protocol Last Admin: 05/27/24 08:47 Dose: 10 mg Documented By: ROSANNA Baclofen (Baclofen 10 Mg Tablet) 10 mg PO TID PRN PRN Reason: muscle spasms Last Admin: 05/27/24 22:12 Dose: 10 mg Documented By: TJ Hydromorphone HCl (Hydromorphone Hcl 0.5 Mg/0.5 Ml Syringe) 0.5 mg IVPUSH Q3H PRN; Protocol PRN Reason: Pain, Severe (Pain Scale 7-10) Last Admin: 05/28/24 00:26 Dose: 0.5 mg Documented By: TJ Piperacillin Sod/Tazobactam (Sod 3.375 gm/ Sodium Chloride) 50 mls @ 100 mls/hr IV Q6H [facility] Last Infusion: 05/28/24 04:02 Dose: Infused Documented By: TJ Nutrition (Parenteral) (Parenteral Nutrition) 1,680 mls @ 70 mls/hr IV .Q24H [facility]; Protocol Stop: 05/28/24 20:59 Last Admin: 05/27/24 21:30 Dose: 70 mls/hr Documented By: TJ Labetalol HCl (Labetalol Hcl 100 Mg/20 Ml Vial) 5 mg IVPUSH Q8H PRN PRN Reason: SBP >170 Last Admin: 05/27/24 03:17 Dose: 5 mg Documented By: TJ Lidocaine HCl (Lidocaine 4 % Cream Kit) 1 appl TOPICAL ONCE PRN; Protocol PRN Reason: knee or foot pain Last Admin: 05/24/24 13:18 Dose: 1 appl Documented By: RONALD Ondansetron HCl (Ondansetron Hcl 4 Mg/2 Ml Vial) 4 mg IVPUSH Q6H PRN PRN Reason: Nausea and Vomiting Last Admin: 05/21/24 13:59 Dose: 4 mg Documented By: YANA Oxycodone HCl (Oxycodone Hcl Immed Release 5 Mg Tablet) 5 mg PO Q6H PRN PRN Reason: Pain, Moderate(Pain Scale 4-6) Last Admin: 05/25/24 10:14 Dose: 5 mg Documented By: NIELS Pantoprazole Sodium (Pantoprazole Sodium 40 Mg/10 Ml Vial) 40 mg IVPUSH BID@0630,1630 [facility] Last Admin: 05/28/24 05:38 Dose: 40 mg Documented By: TJ Pharmacy Consult (Consult Rx Parenteral Nutrition Ordering) 1 each MISCELLANE DAILY PRN PRN Reason: Consult order Prednisone (Prednisone 20 Mg Tablet) 20 mg PO DAILY [facility] Last Admin: 05/27/24 08:47 Dose: 20 mg Documented By: ROSANNA Sodium Chloride (0.9 % Sodium Chloride Flush 3 Ml Syringe) 3 ml IVFLUSH QSHIFT [facility] Last Admin: 05/27/24 21:37 Dose: 3 ml Documented By: TJ Tamsulosin HCl (Tamsulosin Hcl 0.4 Mg Capsule) 0.4 mg PO DAILY [facility] Last Admin: 05/27/24 08:48 Dose: 0.4 mg Documented By: ROSANNA Zolpidem Tartrate (Zolpidem Tartrate 5 Mg Tablet) 5 mg PO BEDTIME PRN PRN Reason: Insomnia Labs 05/22/24 05:33 05/28/24 06:16 Labs: Laboratory Results - last 24 hr 05/27/24 05/28/24 07:24 06:16 Hold Purple Top SEE NOTE Anion Gap 16 16 Estim Creat Clear Calc 41.6 35.5 Estimated GFR > 60 > 60 Random Glucose 115 105 Calcium 9.3 9.3 Phosphorus 3.3 4.2 Magnesium 2.1 2.4 Albumin 3.5 3.5 Procedures Date of Service Date of Service: 05/28/24 Progress Note: A&P Assessment and plan (1) Diverticulitis of colon with perforation: Status: Acute (2) Gout flare: Status: Acute Plan s/p mcclure's procedure for perforated diverticulitis. Patient much improved, now producing stool per ostomy. Wounds are clean and intact. Advance diet today. Recheck blood cultures; patient remains on Zosyn for pos BC last week. Encouraged OOB. Time Spent With Patient Time: Total time managing care of this patient today ____ minutes. Quality Stroke Does the patient have a stroke diagnosis?: No VTE Prior VTE?: No VTE Risk Level:: Surgical - moderate VTE Device Contraindication: N/A - Device Ordered VTE Drug Contraindication: Treatment Not Indicated
[2024-05-28] MEDS: Tamsulosin HCL 0.4 MG CAPSULE PO (08:18)
[2024-05-28] MEDS: predniSONE 20 MG TABLET PO (08:18)
[2024-05-28] MEDS: amLODIPine Besylate 10 MG TABLET PO (08:18)
--- NOTE | 2024-05-28 10:29 | MHC.CLN ---
F/U NGT REMOVED PT TOLERATED CLEARS YESTERDAY DIET ADVANCED TO REGULAR THIS AM PPN D/C PER MD MONITOR PO INTAKE CLOSELY RD TO FOLLOW WEEKLY
--- NOTE | 2024-05-28 12:23 | PM.EVENT ---
Event Note Date of Service: 05/28/24 Event Note: c/o chest pressure, will get ekg and trop, and cbc Time Spent With Patient Time: Total time managing care of this patient today ____ minutes.
--- NOTE | 2024-05-28 12:58 | PC.NURSE ---
0935- Indwelling cantu catheter removed per provider JANELLE Silveira. Patient educated on removal procedure and voiding trial. Patient verbalized understanding. Paulina-care provided before and after removal. Catheter removed without complications. Device intact. Patient tolerated well. Due to void today by 1535.
[2024-05-28 13:13] LABS: Hematocrit 34.7 % (42.0-52.0); Hemoglobin 11.5 g/dl (14.0-18.0); Mean Corpuscular HGB Conc 33.1 g/dl (31.0-36.0); Mean Corpuscular Hemoglobin 30.6 pg (27.0-33.0); Mean Corpuscular Volume 92.3 fL (80.0-98.0); Mean Platelet Volume 10.9 fL (9.4-12.4); Platelet Count 413 X10*3/uL (160-400); Red Blood Count 3.76 X10*6/uL (4.60-5.80); Red Cell Distribution Width 14.2 % (11.0-16.0); White Blood Count 17.1 X10*3/uL (4.8-10.8)
--- NOTE | 2024-05-28 13:29 | PC.NURSE ---
1210- patient with c/o sternal chest pressure and discomfort. No signs or symptoms of distress observed. Vital signs obtained and stable. Dr. Cristian Carrizales notified. EKG, high sensitivity troponin, and CBC ordered. 1315- Patient sitting up in bed, reports feeling improvement in chest pressure.
[2024-05-28 13:35] LABS: Troponin-I High Sensitivity 12.2 ng/L (<3.5-35.0)
--- NOTE | 2024-05-28 15:17 | MHC.CM.PN ---
PT now recommending STR. This CM discussed recommendation w/ patient who reports his preference is to return home w/ PT/SN services through [facility]. Patient is agreeable to STR referrals, in case he changes his mind. Referrals sent via [facility]. CM will continue to follow.
--- NOTE | 2024-05-28 15:50 | PC.NURSE ---
Approximately 1540- Patient attempted to void without success. Bladder scanned for 266mL. JANELLE Silveira notified. Patient denies urge to void at this time. Plan to attempt void again with bladder scan around 1830.
[2024-05-28] MEDS: 0.9 % Sodium Chloride Flush 3 ML SYRINGE IVFLUSH ×2 (16:14→23:25)
--- NOTE | 2024-05-28 19:12 | PC.NURSE ---
Patient gave verbal consent to this RN with secondary RN Carol Ann Allan as witness to release information regarding health status and discharge planning to primary contact Kwan Varghese.
--- NOTE | 2024-05-28 22:30 | W.PM.IDCN ---
History of Present Illness Data of Consult Service Date: 05/28/24 Requesting physician: Daniel Monaco Primary Care Provider: Wyatt Parada MD HPI Reason for consult: bacteremia He presents with 6/10 periumbilical pain on 05/19. He was seen by Surgery and found to have perforated diverticulitis and had Agrawal procedure. He has Klebsiella aerogenes and E coli from abdominal fluid and bacteroides fragilis bacteremia. He has no QT prolongation. 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 High cholesterol HTN (hypertension) Family History Family History Father Heart attack Mother Heart attack Family history: reviewed and not pertinent Surgical History Surgical History Previous back surgery Social History Social History Household Members: None Housing: Other Housing Other:: mobile home Do you presently have visiting nurse or other home services: Yes Alcohol intake: never Patient Tobacco Use Status: Never used Tobacco Advance Directives Date on File: 11/28/23 service: No Current occupational status: retired Cognitive needs: No Hearing needs: No Vision needs: Yes (rx contacts/glasses) Meds Allergies Allergy/AdvReac Type Severity Reaction Status Date / Time No Known Allergies Allergy Verified 05/19/24 19:51 [No Known Allergies*] Active Medications: Current Medications Acetaminophen (Acetaminophen 325 Mg Tablet) 650 mg PO Q6H PRN PRN Reason: Pain, Mild 1-3,fever,headache Amlodipine Besylate (Amlodipine Besylate 10 Mg Tablet) 10 mg PO DAILY [facility]; Protocol Last Admin: 05/28/24 08:18 Dose: 10 mg Baclofen (Baclofen 10 Mg Tablet) 10 mg PO TID PRN PRN Reason: muscle spasms Last Admin: 05/27/24 22:12 Dose: 10 mg Hydromorphone HCl (Hydromorphone Hcl 0.5 Mg/0.5 Ml Syringe) 0.5 mg IVPUSH Q3H PRN; Protocol PRN Reason: Pain, Severe (Pain Scale 7-10) Last Admin: 05/28/24 00:26 Dose: 0.5 mg Piperacillin Sod/Tazobactam (Sod 3.375 gm/ Sodium Chloride) 50 mls @ 100 mls/hr IV Q6H [facility] Last Admin: 05/28/24 21:33 Dose: 100 mls/hr Labetalol HCl (Labetalol Hcl 100 Mg/20 Ml Vial) 5 mg IVPUSH Q8H PRN PRN Reason: SBP >170 Last Admin: 05/27/24 03:17 Dose: 5 mg Lidocaine HCl (Lidocaine 4 % Cream Kit) 1 appl TOPICAL ONCE PRN; Protocol PRN Reason: knee or foot pain Last Admin: 05/24/24 13:18 Dose: 1 appl Ondansetron HCl (Ondansetron Hcl 4 Mg/2 Ml Vial) 4 mg IVPUSH Q6H PRN PRN Reason: Nausea and Vomiting Last Admin: 05/21/24 13:59 Dose: 4 mg Oxycodone HCl (Oxycodone Hcl Immed Release 5 Mg Tablet) 5 mg PO Q6H PRN PRN Reason: Pain, Moderate(Pain Scale 4-6) Last Admin: 05/25/24 10:14 Dose: 5 mg Pantoprazole Sodium (Pantoprazole Sodium 40 Mg/10 Ml Vial) 40 mg IVPUSH BID@0630,1630 [facility] Last Admin: 05/28/24 16:13 Dose: 40 mg Prednisone (Prednisone 20 Mg Tablet) 20 mg PO DAILY [facility] Last Admin: 05/28/24 08:18 Dose: 20 mg Sodium Chloride (0.9 % Sodium Chloride Flush 3 Ml Syringe) 3 ml IVFLUSH QSHIFT [facility] Last Admin: 05/28/24 16:14 Dose: 3 ml Tamsulosin HCl (Tamsulosin Hcl 0.4 Mg Capsule) 0.4 mg PO DAILY [facility] Last Admin: 05/28/24 08:18 Dose: 0.4 mg Zolpidem Tartrate (Zolpidem Tartrate 5 Mg Tablet) 5 mg PO BEDTIME PRN PRN Reason: Insomnia Home Medications ?Medication ?Instructions ?Recorded ?Confirmed ?Last Taken ?Type prednisone 20 mg tablet See Rx Instructions .Route .COMPLEX 0305/20/24 05/18/24 History Physical Exam Vital Signs: Vital Signs: Last Vital Signs Temp 97.8 F 05/28/24 19:51 Pulse 85 05/28/24 19:51 Resp 16 05/28/24 19:51 BP 118/55 L 05/28/24 19:51 Pulse Ox 99 05/28/24 19:51 O2 Del Method Room Air 05/28/24 19:51 O2 Flow Rate 2.0 05/21/24 07:44 BMI result Body Mass Index 21.3 Const: General: cooperative HEENT: Head: Yes normal to inspection Face and sinus: Yes normal facial exam Mouth: Normal oral and palatal mucosa present Teeth and gingiva: dentition normal Eyes: General: appearance normal, both eyes and all related structures Pupils: Equal, round and reactive pupils present Resp: Effort & Inspection: normal respiratory effort Cardio: Rate: regular rate Rhythm: regular rhythm GI: Other: ostomy Palpation (GI): Soft to palpation and nontender : General: Yes no CVA tenderness Back/Spine/Pelvis: Back: no CVA tenderness Skin: General skin exam: no rashes or lesions noted Neuro: General: moves all extremities Cranial nerves: Yes Equal, round and reactive pupils present Extrem: General: Yes normal to inspection Psych: Appearance: grossly normal Results Labs 05/28/24 12:46 05/28/24 06:16 Labs: Short CBC 05/28/24 Range/Units 12:46 WBC 17.1 H (4.8-10.8) X10*3/uL Hgb 11.5 L (14.0-18.0) g/dl Hct 34.7 L (42.0-52.0) % Plt Count 413 H D (160-400) X10*3/uL BMP 05/28/24 06:16 Sodium 136 Potassium 4.5 Chloride 105 Carbon Dioxide 20 L BUN 33 H Creatinine 1.16 Calcium 9.3 Liver Function 05/28/24 Range/Units 06:16 Albumin 3.5 (3.5-5.0) g/dL Microbiology Microbiology Results: Microbiology 05/19/24 22:40 Blood - Venous Blood Culture - Final Bacteroides fragilis group 05/20/24 01:06 Peritoneal Fluid Gram Stain - Final 05/20/24 01:06 Peritoneal Fluid Routine Culture - Final Escherichia coli Klebsiella aerogenes 05/20/24 01:06 Peritoneal Fluid Anaerobic Culture - Final Bacteroides fragilis group 05/19/24 22:40 Blood - Venous Blood Culture - Final Prelim: GNR Gram Stain only Assessment and Plan (1) Diverticulitis of colon with perforation: Status: Acute Plan Assessment of bacteria in blood and peritoneal fluid indicate best is levaquin 500 mg daily and flagyl 500 mg bid for 14 days.
[2024-05-28] MEDS: oxyCODONE HCl Immed Release 5 MG TABLET PO (23:55)
[2024-05-28] MEDS: ondansetron HCL 4 MG/2 ML VIAL IVPUSH (23:59)
[2024-05-29] VITALS (10 sets, daily range): BP systolic 114–164; BP diastolic 56–73; PULSE 77–99; RESP 16–20; TEMP 36.4–37.1; O2SAT 96–98
[2024-05-29] MEDS: Piperacillin Sodium/Tazobactam 3.375 GM in 0.9 % Sodium Chloride 50 ML IV (04:25)
[2024-05-29] MEDS: Pantoprazole Sodium 40 MG/10 ML VIAL IVPUSH ×2 (05:40→17:03)
--- NOTE | 2024-05-29 06:46 | P.PNGS_ITS ---
Subjective Subjective Date of Service: 05/29/24 <Maya Jamie - Last Filed: 05/29/24 07:00> 05/29/24 <Jacki Silveira PA-C - Last Filed: 05/29/24 09:00> 05/29/24 <Daniel Monaco MD - Last Filed: 05/29/24 10:14> Interval history: Patient states he has begun to tolerate meals and liquids, eating lunch and dinner last night. He reports he attempted to urinate again late last night but a catheter was needed after to release more urine. He denies nausea, vomiting, and abdominal pain. Reports pain of the left knee, could not extend it. <MindChild MedicalJamie - Last Filed: 05/29/24 07:00> Physical Exam 2 Vital Signs: Vital Signs: Last Vital Signs Temp 98.7 F 05/29/24 03:40 Pulse 77 05/29/24 03:40 Resp 18 05/29/24 03:40 BP 144/70 H 05/29/24 03:40 Pulse Ox 97 05/29/24 03:40 O2 Del Method Room Air 05/29/24 03:40 O2 Flow Rate 2.0 05/21/24 07:44 BMI result Body Mass Index 21.3 <[employer] MedicalJamie - Last Filed: 05/29/24 07:00> Const: General: alert and awake <Maya Jamie - Last Filed: 05/29/24 07:00> Orientation/consciousness: patient oriented x3 <[employer] - Last Filed: 05/29/24 07:00> Resp: Effort & Inspection: normal respiratory effort and able to speak in complete sentences <Maya Jamie - Last Filed: 05/29/24 07:00> Cardio: Rate: regular rate <Maya Jamie - Last Filed: 05/29/24 07:00> Rhythm: regular rhythm <Maya Jamie - Last Filed: 05/29/24 07:00> Peripheral pulses: radial pulses present <Maya Jamie - Last Filed: 05/29/24 07:00> GI: Other: incision clear and intact. stoma pink, patent, with stool in bag. abdomen non distended, and no tenderness to palpation <Maya Del Toro Last Filed: 05/29/24 07:00> Other: incision clean and intact. stoma pink, patent, with stool in bag. abdomen non distended, and no tenderness to palpation <Jacki Silveira PA-C - Last Filed: 05/29/24 09:00> Palpation (GI): Soft to palpation, nontender and no guarding <MIGUEL Hqa Last Filed: 05/29/24 09:00> Skin: General skin exam: no rashes or lesions noted <Jacki Silveira PA-C - Last Filed: 05/29/24 09:00> Neuro: General: patient oriented x3 <Maya Del Toro Last Filed: 05/29/24 07:00> Extrem: Other: edema of the left knee. tenderness to palpation of the medial joint line. <Maya Del Toro Last Filed: 05/29/24 07:00> Objective Data Active Medications Acetaminophen (Acetaminophen 325 Mg Tablet) 650 mg PO Q6H PRN PRN Reason: Pain, Mild 1-3,fever,headache Amlodipine Besylate (Amlodipine Besylate 10 Mg Tablet) 10 mg PO DAILY [facility]; Protocol Last Admin: 05/28/24 08:18 Dose: 10 mg Documented By: MARIO Baclofen (Baclofen 10 Mg Tablet) 10 mg PO TID PRN PRN Reason: muscle spasms Last Admin: 05/27/24 22:12 Dose: 10 mg Documented By: TJ Hydromorphone HCl (Hydromorphone Hcl 0.5 Mg/0.5 Ml Syringe) 0.5 mg IVPUSH Q3H PRN; Protocol PRN Reason: Pain, Severe (Pain Scale 7-10) Last Admin: 05/28/24 00:26 Dose: 0.5 mg Documented By: TJ Piperacillin Sod/Tazobactam (Sod 3.375 gm/ Sodium Chloride) 50 mls @ 100 mls/hr IV Q6H [facility] Last Infusion: 05/29/24 04:55 Dose: Infused Documented By: BONNIE Labetalol HCl (Labetalol Hcl 100 Mg/20 Ml Vial) 5 mg IVPUSH Q8H PRN PRN Reason: SBP >170 Last Admin: 05/27/24 03:17 Dose: 5 mg Documented By: TJ Lidocaine HCl (Lidocaine 4 % Cream Kit) 1 appl TOPICAL ONCE PRN; Protocol PRN Reason: knee or foot pain Last Admin: 05/24/24 13:18 Dose: 1 appl Documented By: RONALD Ondansetron HCl (Ondansetron Hcl 4 Mg/2 Ml Vial) 4 mg IVPUSH Q6H PRN PRN Reason: Nausea and Vomiting Last Admin: 05/28/24 23:59 Dose: 4 mg Documented By: BONNIE Oxycodone HCl (Oxycodone Hcl Immed Release 5 Mg Tablet) 5 mg PO Q6H PRN PRN Reason: Pain, Moderate(Pain Scale 4-6) Last Admin: 05/28/24 23:55 Dose: 5 mg Documented By: BONNIE Pantoprazole Sodium (Pantoprazole Sodium 40 Mg/10 Ml Vial) 40 mg IVPUSH BID@0630,1630 [facility] Last Admin: 05/29/24 05:40 Dose: 40 mg Documented By: BONNIE Prednisone (Prednisone 20 Mg Tablet) 20 mg PO DAILY [facility] Last Admin: 05/28/24 08:18 Dose: 20 mg Documented By: MARIO Sodium Chloride (0.9 % Sodium Chloride Flush 3 Ml Syringe) 3 ml IVFLUSH QSHIFT [facility] Last Admin: 05/28/24 23:25 Dose: 3 ml Documented By: BONNIE Tamsulosin HCl (Tamsulosin Hcl 0.4 Mg Capsule) 0.4 mg PO DAILY [facility] Last Admin: 05/28/24 08:18 Dose: 0.4 mg Documented By: MARIO Zolpidem Tartrate (Zolpidem Tartrate 5 Mg Tablet) 5 mg PO BEDTIME PRN PRN Reason: Insomnia <Maya Jamie - Last Filed: 05/29/24 07:00> Labs CBC & Chem 7: 05/28/24 12:46 05/28/24 06:16 <Maya Jamie - Last Filed: 05/29/24 07:00> Labs: Laboratory Results - last 24 hr 05/28/24 12:46 MCV 92.3 MCH 30.6 MCHC 33.1 RDW 14.2 Plt Count 413 H D MPV 10.9 Absolute Nucleated RBC 0.000 Nucleated RBC % (auto) 0.0 <Maya Jamie - Last Filed: 05/29/24 07:00> Procedures Date of Service Date of Service: 05/29/24 <Maya Jamie - Last Filed: 05/29/24 07:00> 05/29/24 <Jacki Silveira PA-C - Last Filed: 05/29/24 09:00> 05/29/24 <Daniel Monaco MD - Last Filed: 05/29/24 10:14> Progress Note: A&P Assessment and plan (1) Status post Derek procedure: Status: Acute <Maya Jamie - Last Filed: 05/29/24 07:00> (2) Acute urinary retention: Status: Acute <Maya Jamie - Last Filed: 05/29/24 07:00> (3) Diverticulitis of colon with perforation: Status: Acute <Maya Jamie - Last Filed: 05/29/24 07:00> Assessment and Plan: Ruslan is post-op day 10 from Derek procedure, perforated diverticulitis, and intra-abdominal abscess. Abdomen is no longer distended, stoma pink, patent with stool in the bag, flatulence reported. He is tolerating the increase in diet and liquids post NG tube removal. Left knee will continue to be monitored, as well as the rise in his WBC count, reported at 17.1 yesterday, blood cultures pending. Ruslan will continue the Zoysn, pantoprazole, advanced diet, tamsulosin and attempted urination on his own. Pain continues to be managed with ofirmev or oxycodone. Spirometry 10 times per hour was encouraged, along with more ambulation as tolerated with knee pain. <Maya Jamie - Last Filed: 05/29/24 07:00> Ruslan is post-op day 10 from Derek procedure, perforated diverticulitis, and intra-abdominal abscess. Abdomen is no longer distended, stoma pink, patent with stool in the bag, flatulence reported. He is tolerating the increase in diet and liquids post NG tube removal. Left knee will continue to be monitored, as well as the rise in his WBC count, reported at 17.1 yesterday, blood cultures pending. Ruslan will continue the Zoysn, pantoprazole, advanced diet, tamsulosin and attempted urination on his own. Pain continues to be managed with ofirmev or oxycodone. Spirometry 10 times per hour was encouraged, along with more ambulation as tolerated with knee pain. Agree with above assessment and plan. Had chest pressure yesterday which resolved- trop neg, EKG reviewed. Doing well from GI standpoint, tolerating solid diet, ostomy viable with stool output. Abd remains benign. Leukocytosis on labs yesterday likely due to steroids for gout. He was straight cathed twice- if unable to void this am will require cantu reinsertion with outpatient urology follow up. He continues to c/o left knee pain and is unable to ambulate. Likely due to gout, but will consult ortho. Discussed given his knee pain and will likely have cantu, recommended STR may be best next step for him. He will consider. Possibly discharge later today or tomorrow. ID consulted for bacteremia- levaquin 500 mg daily and flagyl 500 mg bid for 14 days. Will dc zosyn and begin oral abx. <Jacki Silveira PA-C - Last Filed: 05/29/24 09:00> Time Spent With Patient Time: Total time managing care of this patient today ____ minutes. <Maya Jamie - Last Filed: 05/29/24 07:00> Quality Stroke Does the patient have a stroke diagnosis?: No <Maya Jamie - Last Filed: 05/29/24 07:00> VTE Prior VTE?: No <Maya Jamie - Last Filed: 05/29/24 07:00> VTE Risk Level:: Surgical - moderate <Maya Jamie - Last Filed: 05/29/24 07:00> VTE Device Contraindication: N/A - Device Ordered <Maya Jamie - Last Filed: 05/29/24 07:00> VTE Drug Contraindication: Treatment Not Indicated <Maya Jamie - Last Filed: 05/29/24 07:00>
--- NOTE | 2024-05-29 07:42 | PM.EVENT ---
Event Note Date of Service: 05/29/24 Event Note: Active gout flare right foot X-rays of the left knee reveal osteoarthritis Likely gout flare or inflammatory arthritis No acute orthopedic intervention needed Supportive measures - Continue prednisone, ice, elevate, gentle compression with RAGINI if needed, encourage gentle ROM Time Spent With Patient Time: Total time managing care of this patient today ____ minutes.
[2024-05-29] MEDS: levoFLOXacin 500 MG TABLET PO (08:19)
[2024-05-29] MEDS: metroNIDAZOLE 500 MG TABLET PO ×3 (08:19→22:50)
[2024-05-29] MEDS: oxyCODONE HCl Immed Release 5 MG TABLET PO ×2 (08:20→21:36)
[2024-05-29] MEDS: Tamsulosin HCL 0.4 MG CAPSULE PO (08:20)
[2024-05-29] MEDS: amLODIPine Besylate 10 MG TABLET PO (08:21)
[2024-05-29] MEDS: predniSONE 20 MG TABLET PO (08:21)
[2024-05-29] MEDS: 0.9 % Sodium Chloride Flush 3 ML SYRINGE IVFLUSH ×3 (08:26→21:37)
--- NOTE | 2024-05-29 11:11 | MHC.CM.PN ---
Addendum entered by Kamryn Mishra RN 05/29/24 15:26: Per PA, patient will likely be ready for dc tomorrow. CM discussed w/ patient who is now agreeable to STR (new ostomy, new cantu, new mobility issues). Accepts bed at [facility] who will go for auth. Original Note: Patient not medically cleared for dc at this time. DP: home w/ services vs STR as recommended by PT. Patient prefers home w/ services. CM will continue to follow.
--- NOTE | 2024-05-29 11:16 | PC.NURSE ---
Pt unable to void. Jacki Silveira notified. Cantu ordered. This RN unable to place cantu due to resistance within inch of meatal opening. Blood noted immediately. Attempt made by second nurse who met same resistance. Jacki Silveira notified via [employer]. Awaiting response
--- NOTE | 2024-05-29 11:59 | PC.NURSE ---
04/25/26 at 0746am pt requested tylenol for a pain scale of 5/10.
[2024-05-29] MEDS: HYDROmorphone HCl 0.5 MG/0.5 ML SYRINGE IVPUSH ×2 (13:50→22:50)
[2024-05-29] MEDS: Baclofen 10 MG TABLET PO ×2 (14:55→21:33)
--- NOTE | 2024-05-29 16:55 | HO.OSTOMY ---
Ostomy Consult: Follow up Teaching 83yr old male [place] [facility] [place] see H&P for detailed history and admission.? Consult for new ostomy teaching. ?He had a Colostomy creation on 05/20/[address] Monaco. ?Upon entry into patient's room, he is lying in his bed, he is alert and oriented x 3, he currently has no complaints. ?He recalls my role in his care. NG tube has since been removed. His abdomen is noted to be less distended and the ostomy is now noted to have brown pasty stool. There is not enough to empty at this time and he denies practicing emptying his pouch since he is not able to ambulate to the bathroom. We discussed concern for him to return home at this time until he is able to ambulate, he acknowledge he is unsure how he will be able to provide care for himself since he is not able to ambulate. The pouch was not due to be changed at this time - he was able to provide an open close on his pouch. Patient is encouraged to discharge to facility as it is clear he would not be able to care for himself at this time. Inpt Ostomy nurse will continue to see patient and provide teaching as able.
[2024-05-29] MEDS: Acetaminophen 325 MG TABLET 650 MG PO ×2 (17:03→22:50)
--- NOTE | 2024-05-29 18:20 | PC.NURSE ---
1145- 16F coude catheter placed and draining yellow urine. Small amount of bloody staining from meatus. No blood noted in cantu bag. Tolerated well. Jacki Silveira aware
[2024-05-30 03:39] VITALS: BP 124/60; PULSE 82; RESP 18; TEMP 36.4; O2SAT 97
[2024-05-30] MEDS: Acetaminophen 325 MG TABLET 650 MG PO ×4 (06:05→23:40)
[2024-05-30] MEDS: Pantoprazole Sodium 40 MG/10 ML VIAL IVPUSH ×2 (06:07→16:47)
--- NOTE | 2024-05-30 07:05 | PM.PNGS ---
Subjective Subjective Date of Service: 05/30/24 <[facility] [employer] - Last Filed: 05/30/24 07:14> 05/31/24 <Daniel Monaco MD - Last Filed: 05/31/24 13:35> Interval history: Patient reports no nausea, vomiting, appetite is improving. His knee continues to be painful for him. <[facility] [employer] - Last Filed: 05/30/24 07:14> Physical Exam Vital Signs: Vital Signs: Last Vital Signs Temp 97.5 F 05/30/24 03:39 Pulse 82 05/30/24 03:39 Resp 18 05/30/24 03:39 BP 124/60 05/30/24 03:39 Pulse Ox 97 05/30/24 03:39 O2 Del Method Room Air 05/30/24 03:39 O2 Flow Rate 2.0 05/21/24 07:44 BMI result Body Mass Index 21.3 <[employer] - Last Filed: 05/30/24 07:14> Const: General: alert and awake <[employer] Last Filed: 05/30/24 07:14> Orientation/consciousness: patient oriented x3 <[facility] [employer] - Last Filed: 05/30/24 07:14> Resp: Effort & Inspection: normal respiratory effort and able to speak in complete sentences <[employer] - Last Filed: 05/30/24 07:14> Cardio: Rate: regular rate <[employer] - Last Filed: 05/30/24 07:14> Rhythm: regular rhythm <[employer] Last Filed: 05/30/24 07:14> Peripheral pulses: radial pulses present <[employer] Last Filed: 05/30/24 07:14> GI: Other: abdomen non tender to palpation incision site clean and intact stoma pink with stool in the bag <[employer] Last Filed: 05/30/24 07:14> : Other: cantu catheter placed. draining clear liquid. <[facility] [employer] - Last Filed: 05/30/24 07:14> Neuro: General: patient oriented x3 <[facility] [employer] Last Filed: 05/30/24 07:14> Objective Data Active Medications Acetaminophen (Acetaminophen 325 Mg Tablet) 650 mg PO Q6H [facility] Last Admin: 05/30/24 06:05 Dose: 650 mg Documented By: LLOYD Amlodipine Besylate (Amlodipine Besylate 10 Mg Tablet) 10 mg PO DAILY [facility]; Protocol Last Admin: 05/29/24 08:21 Dose: 10 mg Documented By: VANNA Baclofen (Baclofen 10 Mg Tablet) 10 mg PO TID [facility] Last Admin: 05/29/24 21:33 Dose: 10 mg Documented By: LLOYD Hydromorphone HCl (Hydromorphone Hcl 0.5 Mg/0.5 Ml Syringe) 0.5 mg IVPUSH Q3H PRN; Protocol PRN Reason: Pain, Severe (Pain Scale 7-10) Last Admin: 05/29/24 22:50 Dose: 0.5 mg Documented By: LLOYD Labetalol HCl (Labetalol Hcl 100 Mg/20 Ml Vial) 5 mg IVPUSH Q8H PRN PRN Reason: SBP >170 Last Admin: 05/27/24 03:17 Dose: 5 mg Documented By: TJ Levofloxacin (Levofloxacin 500 Mg Tablet) 500 mg PO Q24H [facility] Last Admin: 05/29/24 08:19 Dose: 500 mg Documented By: VANNA Lidocaine (Lidocaine 4 % Patch Adh..Patch) 2 patch TRANSDERMA DAILY [facility]; Protocol Metronidazole (Metronidazole 500 Mg Tablet) 500 mg PO Q8H [facility] Last Admin: 05/29/24 22:50 Dose: 500 mg Documented By: LLOYD Ondansetron HCl (Ondansetron Hcl 4 Mg/2 Ml Vial) 4 mg IVPUSH Q6H PRN PRN Reason: Nausea and Vomiting Last Admin: 05/28/24 23:59 Dose: 4 mg Documented By: BONNIE Oxycodone HCl (Oxycodone Hcl Immed Release 5 Mg Tablet) 5 mg PO Q6H PRN PRN Reason: Pain, Moderate(Pain Scale 4-6) Last Admin: 05/29/24 21:36 Dose: 5 mg Documented By: LLOYD Pantoprazole Sodium (Pantoprazole Sodium 40 Mg/10 Ml Vial) 40 mg IVPUSH BID@0630,1630 [facility] Last Admin: 05/30/24 06:07 Dose: 40 mg Documented By: LLOYD Prednisone (Prednisone 20 Mg Tablet) 20 mg PO DAILY [facility] Last Admin: 05/29/24 08:21 Dose: 20 mg Documented By: VANNA Sodium Chloride (0.9 % Sodium Chloride Flush 3 Ml Syringe) 3 ml IVFLUSH QSHIFT [facility] Last Admin: 05/29/24 21:37 Dose: 3 ml Documented By: LLOYD Tamsulosin HCl (Tamsulosin Hcl 0.4 Mg Capsule) 0.4 mg PO DAILY [facility] Last Admin: 05/29/24 08:20 Dose: 0.4 mg Documented By: VANNA Zolpidem Tartrate (Zolpidem Tartrate 5 Mg Tablet) 5 mg PO BEDTIME PRN PRN Reason: Insomnia <Maya Jamie - Last Filed: 05/30/24 07:14> Labs CBC & Chem 7: 05/28/24 12:46 05/28/24 06:16 <Maya Jamie - Last Filed: 05/30/24 07:14> Microbiology Microbiology Results: Microbiology 05/28/24 10:32 Blood Culture - Preliminary Blood - Venous No growth after 24 hours. 05/28/24 10:37 Blood Culture - Preliminary Blood - Venous No growth after 24 hours. <Maya Jamie - Last Filed: 05/30/24 07:14> Procedures Date of Service Date of Service: 05/30/24 <Maya Jamie - Last Filed: 05/30/24 07:14> 05/31/24 <Daniel Monaco MD - Last Filed: 05/31/24 13:35> Progress Note: A&P Assessment and plan (1) Diverticulitis of colon with perforation: Status: Acute <Maya Jamie - Last Filed: 05/30/24 07:14> Assessment and Plan: Ruslan is post-op day 11 from Derek procedure, perforated diverticulitis, and intra-abdominal abscess. Stoma pink, patent with stool in the bag, flatulence reported. His knee pain seemed to make him clench his abdomen, but no tenderness to palpation. He has an appetite and is tolerating the increase in diet and liquids. He could not straighten his knee due to pain this morning. He was seen by orthopedics and encouraged to rest, ice, elevate and gently move it. The cantu catheter was placed back in and draining clear liquids, he was unable to urinate on his own yesterday evening, and may need to follow up with urology. Ruslan will continue the Zoysn, pantoprazole, advanced diet, tamsulosin, and baclofen as needed. Pain continues to be managed with ofirmev or oxycodone. Spirometry 10 times per hour was encouraged, along with more ambulation as tolerated with knee pain. <Maya Ayala - Last Filed: 05/30/24 07:14> Ruslan is post-op day 11 from Derek procedure, perforated diverticulitis, and intra-abdominal abscess. Stoma pink, patent with stool in the bag, flatulence reported. His knee pain seemed to make him clench his abdomen, but no tenderness to palpation. He has an appetite and is tolerating the increase in diet and liquids. He could not straighten his knee due to pain this morning. He was seen by orthopedics and encouraged to rest, ice, elevate and gently move it. The cantu catheter was placed back in and draining clear liquids, he was unable to urinate on his own yesterday evening, and may need to follow up with urology. Ruslan will continue the Zoysn, pantoprazole, advanced diet, tamsulosin, and baclofen as needed. Pain continues to be managed with ofirmev or oxycodone. Spirometry 10 times per hour was encouraged, along with more ambulation as tolerated with knee pain. Patient seen and examined independently; see alternate note. Agree with the above assessment. <Daniel Monaco MD - Last Filed: 05/31/24 13:35> Time Spent With Patient Time: Total time managing care of this patient today ____ minutes. <Maya Ayala - Last Filed: 05/30/24 07:14> Quality Stroke Does the patient have a stroke diagnosis?: No <Maya Joneso - Last Filed: 05/30/24 07:14> VTE Prior VTE?: No <Maya Joneso - Last Filed: 05/30/24 07:14> VTE Risk Level:: Surgical - moderate <Maya Ayala - Last Filed: 05/30/24 07:14> VTE Device Contraindication: N/A - Device Ordered <Maya Ayala - Last Filed: 05/30/24 07:14> VTE Drug Contraindication: Treatment Not Indicated <Maya Ayala - Last Filed: 05/30/24 07:14>
[2024-05-30 07:42] VITALS: BP 152/69; PULSE 77; RESP 16; TEMP 36.1; O2SAT 98
[2024-05-30] MEDS: Baclofen 10 MG TABLET PO ×3 (08:58→22:31)
[2024-05-30 08:59] VITALS: BP 134/62
[2024-05-30] MEDS: predniSONE 20 MG TABLET PO (08:59)
[2024-05-30] MEDS: Tamsulosin HCL 0.4 MG CAPSULE PO (08:59)
[2024-05-30] MEDS: amLODIPine Besylate 10 MG TABLET PO (08:59)
[2024-05-30] MEDS: metroNIDAZOLE 500 MG TABLET PO ×3 (09:11→22:31)
[2024-05-30] MEDS: Lidocaine 4 % Patch ADH..PATCH 2 PATCH TRANSDERMA (09:11)
[2024-05-30] MEDS: levoFLOXacin 500 MG TABLET PO (09:11)
[2024-05-30] MEDS: 0.9 % Sodium Chloride Flush 3 ML SYRINGE IVFLUSH ×2 (09:27→16:47)
[2024-05-30 09:57] VITALS: BP 134/62
--- NOTE | 2024-05-30 10:54 | P.PNGS_ITS ---
Subjective Subjective Date of Service: 05/30/24 Interval history: Patient complains of his left knee pain, gout, seen by Orthopedics, recommend continued steroid, ice, elevation, gentle compression. Was then able to ambulate much yesterday due to pain. Patient tolerating regular diet and ostomy functioning well. Physical Exam 2 Vital Signs: Vital Signs: Last Vital Signs Temp 97.0 F 05/30/24 07:42 Pulse 77 05/30/24 07:42 Resp 16 05/30/24 07:42 BP 134/62 05/30/24 09:57 Pulse Ox 98 05/30/24 07:42 O2 Del Method Room Air 05/30/24 07:42 O2 Flow Rate 2.0 05/21/24 07:44 BMI result Body Mass Index 21.3 Const: General: alert and awake Orientation/consciousness: patient oriented x3 Resp: Effort & Inspection: normal respiratory effort and able to speak in complete sentences Cardio: Rate: regular rate Rhythm: regular rhythm Peripheral pulses: r adial pulses present GI: Other: incision clean and intact. stoma pink, patent, with stool in bag. abdomen non distended, and no tenderness to palpation Palpation (GI): Soft to palpation, nontender and no guarding Skin: General skin exam: no rashes or lesions noted Neuro: General: patient oriented x3 Extrem: Other: edema of the left knee. tenderness to palpation. No erythema Objective Data Active Medications Acetaminophen (Acetaminophen 325 Mg Tablet) 650 mg PO Q6H [facility] Last Admin: 05/30/24 06:05 Dose: 650 mg Documented By: LLOYD Amlodipine Besylate (Amlodipine Besylate 10 Mg Tablet) 10 mg PO DAILY [facility]; Protocol Last Admin: 05/30/24 08:59 Dose: 10 mg Documented By: SALLY Baclofen (Baclofen 10 Mg Tablet) 10 mg PO TID [facility] Last Admin: 05/30/24 08:58 Dose: 10 mg Documented By: SALLY Hydromorphone HCl (Hydromorphone Hcl 0.5 Mg/0.5 Ml Syringe) 0.5 mg IVPUSH Q3H PRN; Protocol PRN Reason: Pain, Severe (Pain Scale 7-10) Last Admin: 05/29/24 22:50 Dose: 0.5 mg Documented By: LLOYD Labetalol HCl (Labetalol Hcl 100 Mg/20 Ml Vial) 5 mg IVPUSH Q8H PRN PRN Reason: SBP >170 Last Admin: 05/27/24 03:17 Dose: 5 mg Documented By: TJ Levofloxacin (Levofloxacin 500 Mg Tablet) 500 mg PO Q24H [facility] Last Admin: 05/30/24 09:11 Dose: 500 mg Documented By: SALLY Lidocaine (Lidocaine 4 % Patch Adh..Patch) 2 patch TRANSDERMA DAILY [facility]; Protocol Last Admin: 05/30/24 09:11 Dose: 2 patch Documented By: SALLY Metronidazole (Metronidazole 500 Mg Tablet) 500 mg PO Q8H [facility] Last Admin: 05/30/24 09:11 Dose: 500 mg Documented By: SALLY Ondansetron HCl (Ondansetron Hcl 4 Mg/2 Ml Vial) 4 mg IVPUSH Q6H PRN PRN Reason: Nausea and Vomiting Last Admin: 05/28/24 23:59 Dose: 4 mg Documented By: BONNIE Oxycodone HCl (Oxycodone Hcl Immed Release 5 Mg Tablet) 5 mg PO Q6H PRN PRN Reason: Pain, Moderate(Pain Scale 4-6) Last Admin: 05/29/24 21:36 Dose: 5 mg Documented By: LLOYD Pantoprazole Sodium (Pantoprazole Sodium 40 Mg/10 Ml Vial) 40 mg IVPUSH BID@0630,1630 [facility] Last Admin: 05/30/24 06:07 Dose: 40 mg Documented By: LLOYD Prednisone (Prednisone 20 Mg Tablet) 20 mg PO DAILY [facility] Last Admin: 05/30/24 08:59 Dose: 20 mg Documented By: SALLY Sodium Chloride (0.9 % Sodium Chloride Flush 3 Ml Syringe) 3 ml IVFLUSH QSHIFT [facility] Last Admin: 05/30/24 09:27 Dose: 3 ml Documented By: SALLY Tamsulosin HCl (Tamsulosin Hcl 0.4 Mg Capsule) 0.4 mg PO DAILY [facility] Last Admin: 05/30/24 08:59 Dose: 0.4 mg Documented By: SALLY Zolpidem Tartrate (Zolpidem Tartrate 5 Mg Tablet) 5 mg PO BEDTIME PRN PRN Reason: Insomnia Labs 05/28/24 12:46 05/28/24 06:16 Microbiology Microbiology Results: Microbiology 05/28/24 10:32 Blood Culture - Preliminary Blood - Venous No growth after 24 hours. 05/28/24 10:37 Blood Culture - Preliminary Blood - Venous No growth after 24 hours. Procedures Date of Service Date of Service: 05/30/24 Progress Note: A&P Assessment and plan (1) Status post Derek procedure: Status: Acute (2) Acute urinary retention: Status: Acute (3) Diverticulitis of colon with perforation: Status: Acute Plan 83-year-old male patient s/p Derek procedure for perforated sigmoid colon. It is major problem is gout in the left knee which continues to cause discomfort and inability to straighten his knee. He was evaluated by orthopedics who recommend ice steroid, gentle compression, elevation. Ostomy is functioning well he was tolerating a regular diet. We will continue Levaquin and Flagyl, steroid. Time Spent With Patient Time: Total time managing care of this patient today ____ minutes. Quality Stroke Does the patient have a stroke diagnosis?: No VTE Prior VTE?: No VTE Risk Level:: Surgical - moderate VTE Device Contraindication: N/A - Device Ordered VTE Drug Contraindication: Treatment Not Indicated
[2024-05-30] MEDS: HYDROmorphone HCl 0.5 MG/0.5 ML SYRINGE IVPUSH (13:53)
[2024-05-30 15:21] VITALS: BP 142/65; PULSE 87; RESP 18; TEMP 36.8; O2SAT 96
--- NOTE | 2024-05-30 17:41 | HO.OSTOMY ---
Ostomy Consult: Follow up Teaching 83yr old male admitted to [facility] on 05/19/24 see H&P for detailed history and admission.? Consult follow up for new ostomy teaching. ?He had a Colostomy creation on 05/20/[address] Monaco. ?Upon entry into patient's room, he is sitting in his recliner chair, he is alert and oriented x 3, he currently has no complaints. ?He does not recall my role in his care, he appears slightly confused. He is aware of his surroundings but does appear slightly out of it. His nephew reports he was just medicated with IV pain medication. The patient confirms he feels little out of it due to the meds but reports he continues with intense pain to the left knee - providers aware. His abdomen is noted to be less distended and the ostomy is now noted to have brown pasty stool. He reports he is not participating in his care of the stoma due to being in pain and not feeling clear. He is now agreeable to rehab placement to get strong prior to d/c to home. At this time he is not in best place for teaching - recommend as he progressed towards healing and is able to ambulate to Bathroom he will be in a better place to participate in his care. Recommend continued teaching at rehab and when d/c to home with VNA. The pouch was not due to be changed at this time - he was able to provide an open close on his pouch. Patient is encouraged to discharge to facility as it is clear he would not be able to care for himself at this time. Inpt Ostomy nurse will continue to see patient and provide teaching as able.
--- NOTE | 2024-05-30 17:59 | P.PNIM_ITS ---
Subjective Subjective Date of Service: 05/30/24 Interval History: Being re-evaluated for left knee pain as per request from General surgery due to no improvement in left knee pain in last few days Patient denies fever, no chills, no acute trauma or fall Has been mostly in bed since surgery. Review of Systems All other system reviewed and negative Physical Exam 2 Vital Signs: Vital Signs: Last Vital Signs Temp 98.3 F 05/30/24 15:21 Pulse 87 05/30/24 15:21 Resp 18 05/30/24 15:21 BP 142/65 H 05/30/24 15:21 Pulse Ox 96 05/30/24 15:21 O2 Del Method Room Air 05/30/24 15:21 O2 Flow Rate 2.0 05/21/24 07:44 BMI result Body Mass Index 21.3 Const: Other: General resting comfortably in no acute distress. Neck no JVD. CVS regular rate rhythm, Respiratory lungs clear to auscultation, no respiratory distress Extremities no edema. Left knee, no warmth, no redness, no effusion ,tender to palpation /extension Neuro non focal Skin no rash Objective Data Active Medications Acetaminophen (Acetaminophen 325 Mg Tablet) 650 mg PO Q6H [facility] Last Admin: 05/30/24 12:37 Dose: 650 mg Documented By: REBECCA Amlodipine Besylate (Amlodipine Besylate 10 Mg Tablet) 10 mg PO DAILY [facility]; Protocol Last Admin: 05/30/24 08:59 Dose: 10 mg Documented By: MOMO-STGEC Baclofen (Baclofen 10 Mg Tablet) 10 mg PO TID [facility] Last Admin: 05/30/24 16:47 Dose: 10 mg Documented By: REBECCA Hydromorphone HCl (Hydromorphone Hcl 0.5 Mg/0.5 Ml Syringe) 0.5 mg IVPUSH Q3H PRN; Protocol PRN Reason: Pain, Severe (Pain Scale 7-10) Last Admin: 05/30/24 13:53 Dose: 0.5 mg Documented By: REBECCA Labetalol HCl (Labetalol Hcl 100 Mg/20 Ml Vial) 5 mg IVPUSH Q8H PRN PRN Reason: SBP >170 Last Admin: 05/27/24 03:17 Dose: 5 mg Documented By: TJ Levofloxacin (Levofloxacin 500 Mg Tablet) 500 mg PO Q24H [facility] Last Admin: 05/30/24 09:11 Dose: 500 mg Documented By: SALLY Lidocaine (Lidocaine 4 % Patch Adh..Patch) 2 patch TRANSDERMA DAILY [facility]; Protocol Last Admin: 05/30/24 09:11 Dose: 2 patch Documented By: SALLY Metronidazole (Metronidazole 500 Mg Tablet) 500 mg PO Q8H [facility] Last Admin: 05/30/24 16:47 Dose: 500 mg Documented By: REBECCA Ondansetron HCl (Ondansetron Hcl 4 Mg/2 Ml Vial) 4 mg IVPUSH Q6H PRN PRN Reason: Nausea and Vomiting Last Admin: 05/28/24 23:59 Dose: 4 mg Documented By: BONNIE Oxycodone HCl (Oxycodone Hcl Immed Release 5 Mg Tablet) 5 mg PO Q6H PRN PRN Reason: Pain, Moderate(Pain Scale 4-6) Last Admin: 05/29/24 21:36 Dose: 5 mg Documented By: LLOYD Pantoprazole Sodium (Pantoprazole Sodium 40 Mg/10 Ml Vial) 40 mg IVPUSH BID@0630,1630 [facility] Last Admin: 05/30/24 16:47 Dose: 40 mg Documented By: REBECCA Prednisone (Prednisone 20 Mg Tablet) 20 mg PO DAILY [facility] Last Admin: 05/30/24 08:59 Dose: 20 mg Documented By: SALLY Sodium Chloride (0.9 % Sodium Chloride Flush 3 Ml Syringe) 3 ml IVFLUSH QSHIFT [facility] Last Admin: 05/30/24 16:47 Dose: 3 ml Documented By: REBECCA Tamsulosin HCl (Tamsulosin Hcl 0.4 Mg Capsule) 0.4 mg PO DAILY [facility] Last Admin: 05/30/24 08:59 Dose: 0.4 mg Documented By: SALLY Zolpidem Tartrate (Zolpidem Tartrate 5 Mg Tablet) 5 mg PO BEDTIME PRN PRN Reason: Insomnia Labs 05/28/24 12:46 05/28/24 06:16 Microbiology Microbiology Results: Microbiology 05/28/24 10:32 Blood Culture - Preliminary Blood - Venous No growth after 48 hours. 05/28/24 10:37 Blood Culture - Preliminary Blood - Venous No growth after 48 hours. Assessment and Plan (1) Acute pain of left knee: Status: Acute Plan Acute on chronic left knee pain X-ray left knee showed Mild narrowing of the medial and patellofemoral compartments. Examination benign less likely gout flare mostly flare of osteoarthritis DC prednisone/scheduled Tylenol t.i.d./tomás wrap/as needed oxycodone/Aspercreme/lidocaine patch Out of bed to chair/PT eval Perforated sigmoid colon with abscess S/p Derek procedure. Treatment plan as per General surgery Compression boots Will sign off please reconsult for any recurrent symptoms. Quality Stroke Does the patient have a stroke diagnosis?: No VTE Prior VTE?: No VTE Risk Level:: Surgical - moderate VTE Device Contraindication: N/A - Device Ordered VTE Drug Contraindication: Treatment Not Indicated
[2024-05-30 19:35] VITALS: BP 102/55; PULSE 96; RESP 20; TEMP 36.7; O2SAT 100
[2024-05-30] MEDS: Trolamine Salicylate 10 % Cream 85 GM TUBE 1 APPL TOPICAL (22:31)
[2024-05-30] MEDS: oxyCODONE HCl Immed Release 5 MG TABLET PO (23:39)
[2024-05-31] MEDS: 0.9 % Sodium Chloride Flush 3 ML SYRINGE IVFLUSH ×2 (02:13→08:04)
[2024-05-31 03:40] VITALS: BP 140/78; PULSE 85; RESP 18; TEMP 36.9; O2SAT 97
[2024-05-31] MEDS: Pantoprazole Sodium 40 MG/10 ML VIAL IVPUSH (05:28)
[2024-05-31] MEDS: Acetaminophen 325 MG TABLET 650 MG PO ×2 (05:28→12:04)
[2024-05-31] MEDS: levoFLOXacin 500 MG TABLET PO (06:41)
[2024-05-31] MEDS: oxyCODONE HCl Immed Release 5 MG TABLET PO (06:41)
[2024-05-31] MEDS: metroNIDAZOLE 500 MG TABLET PO (06:41)
--- NOTE | 2024-05-31 07:13 | PM.PNGS ---
Subjective Subjective Date of Service: 05/31/24 <Mayaanne-marie GarciaJamie - Last Filed: 05/31/24 07:21> 05/31/24 <Jacki Silveira PA-C - Last Filed: 05/31/24 14:48> Interval history: Patient dies nausea, vomiting, or abdominal pain. His knee was in extreme pain when I arrived, but was given pain medication afterwards. <Maya Jamie - Last Filed: 05/31/24 07:21> Physical Exam Vital Signs: Vital Signs: Last Vital Signs Temp 98.4 F 05/31/24 03:40 Pulse 85 05/31/24 03:40 Resp 18 05/31/24 03:40 BP 140/78 H 05/31/24 03:40 Pulse Ox 97 05/31/24 03:40 O2 Del Method Room Air 05/31/24 03:40 O2 Flow Rate 2.0 05/21/24 07:44 BMI result Body Mass Index 21.3 <Maya Jamie - Last Filed: 05/31/24 07:21> Const: General: alert and awake <Maya Jamie - Last Filed: 05/31/24 07:21> Orientation/consciousness: patient oriented x3 <Maya Jamie - Last Filed: 05/31/24 07:21> Resp: Effort & Inspection: able to speak in complete sentences <Maya Jamie - Last Filed: 05/31/24 07:21> Cardio: Rate: regular rate <Maya Jamie - Last Filed: 05/31/24 07:21> Rhythm: regular rhythm <Maya Jamie - Last Filed: 05/31/24 07:21> GI: Other: abdomen non tender to palpation incision site clear and intact stoma pink, fecal matter in the bag <Maya Jamie - Last Filed: 05/31/24 07:21> : Other: catheter draining clear liquids <Maya Jamie - Last Filed: 05/31/24 07:21> Neuro: General: patient oriented x3 <Maya Jamie - Last Filed: 05/31/24 07:21> Objective Data Active Medications Acetaminophen (Acetaminophen 325 Mg Tablet) 650 mg PO Q6H [facility] Last Admin: 05/31/24 05:28 Dose: 650 mg Documented By: MANN Amlodipine Besylate (Amlodipine Besylate 10 Mg Tablet) 10 mg PO DAILY [facility]; Protocol Last Admin: 05/30/24 08:59 Dose: 10 mg Documented By: SALLY Baclofen (Baclofen 10 Mg Tablet) 10 mg PO TID [facility] Last Admin: 05/30/24 22:31 Dose: 10 mg Documented By: MANN Hydromorphone HCl (Hydromorphone Hcl 0.5 Mg/0.5 Ml Syringe) 0.5 mg IVPUSH Q3H PRN; Protocol PRN Reason: Pain, Severe (Pain Scale 7-10) Last Admin: 05/30/24 13:53 Dose: 0.5 mg Documented By: REBECCA Labetalol HCl (Labetalol Hcl 100 Mg/20 Ml Vial) 5 mg IVPUSH Q8H PRN PRN Reason: SBP >170 Last Admin: 05/27/24 03:17 Dose: 5 mg Documented By: TJ Levofloxacin (Levofloxacin 500 Mg Tablet) 500 mg PO Q24H [facility] Last Admin: 05/31/24 06:41 Dose: 500 mg Documented By: MANN Lidocaine (Lidocaine 4 % Patch Adh..Patch) 2 patch TRANSDERMA DAILY [facility]; Protocol Last Admin: 05/30/24 09:11 Dose: 2 patch Documented By: SALLY Metronidazole (Metronidazole 500 Mg Tablet) 500 mg PO Q8H [facility] Last Admin: 05/31/24 06:41 Dose: 500 mg Documented By: MANN Ondansetron HCl (Ondansetron Hcl 4 Mg/2 Ml Vial) 4 mg IVPUSH Q6H PRN PRN Reason: Nausea and Vomiting Last Admin: 05/28/24 23:59 Dose: 4 mg Documented By: BONNIE Oxycodone HCl (Oxycodone Hcl Immed Release 5 Mg Tablet) 5 mg PO Q6H PRN PRN Reason: Pain, Moderate(Pain Scale 4-6) Last Admin: 05/31/24 06:41 Dose: 5 mg Documented By: MANN Pantoprazole Sodium (Pantoprazole Sodium 40 Mg/10 Ml Vial) 40 mg IVPUSH BID@0630,1630 [facility] Last Admin: 05/31/24 05:28 Dose: 40 mg Documented By: MANN Sodium Chloride (0.9 % Sodium Chloride Flush 3 Ml Syringe) 3 ml IVFLUSH QSHIFT [facility] Last Admin: 05/31/24 02:13 Dose: 3 ml Documented By: MANN Tamsulosin HCl (Tamsulosin Hcl 0.4 Mg Capsule) 0.4 mg PO DAILY [facility] Last Admin: 05/30/24 08:59 Dose: 0.4 mg Documented By: MOMO-STGEC Trolamine Salicylate (Trolamine Salicylate 10 % Cream 85 Gm Tube) 1 appl TOPICAL BID [facility]; Protocol Last Admin: 05/30/24 22:31 Dose: 1 appl Documented By: MANN Zolpidem Tartrate (Zolpidem Tartrate 5 Mg Tablet) 5 mg PO BEDTIME PRN PRN Reason: Insomnia <Maya Jamie - Last Filed: 05/31/24 07:21> Labs CBC & Chem 7: 05/28/24 12:46 05/28/24 06:16 <Maya Joneso - Last Filed: 05/31/24 07:21> Microbiology Microbiology Results: Microbiology 05/28/24 10:32 Blood Culture - Preliminary Blood - Venous No growth after 48 hours. 05/28/24 10:37 Blood Culture - Preliminary Blood - Venous No growth after 48 hours. <Maya Joneso - Last Filed: 05/31/24 07:21> Procedures Date of Service Date of Service: 05/31/24 <Mayaanne-marie Ayala - Last Filed: 05/31/24 07:21> 05/31/24 <Jacki Silveira PA-C - Last Filed: 05/31/24 14:48> Progress Note: A&P Assessment and plan Assessment and Plan: Ruslan is post-op day 12 from Derek procedure, perforated diverticulitis, and intra-abdominal abscess. Stoma pink, patent with stool in the bag, flatulence reported. he has an appetite and is tolerating the increase in diet and liquids. He could not straighten his knee again due to extreme pain this morning. He was seen by orthopedics and encouraged to rest, ice, elevate, steroid, and lidocaine patches and gently move it. The cantu catheter is draining clear liquids. Ruslan will continue the metronidazole, levofloaxacin, pantoprazole, advanced diet, tamsulosin, and baclofen as needed. Pain continues to be managed with ofirmev or oxycodone. Spirometry 10 times per hour was encouraged, along with more ambulation as tolerated with knee pain, however he was unable to do so yesterday. <Nosto - Last Filed: 05/31/24 07:21> Time Spent With Patient Time: Total time managing care of this patient today ____ minutes. <Nosto - Last Filed: 05/31/24 07:21> Quality Stroke Does the patient have a stroke diagnosis?: No <Nosto - Last Filed: 05/31/24 07:21> VTE Prior VTE?: No <Nosto - Last Filed: 05/31/24 07:21> VTE Risk Level:: Surgical - moderate <Nosto - Last Filed: 05/31/24 07:21> VTE Device Contraindication: N/A - Device Ordered <SIPX Last Filed: 05/31/24 07:21> VTE Drug Contraindication: Treatment Not Indicated <SIPX Last Filed: 05/31/24 07:21>
--- NOTE | 2024-05-31 07:39 | PM.PNGS ---
Subjective Subjective Date of Service: 05/31/24 Interval history: Continues to complain of left knee pain. No improvement noted by patient today. Physical Exam Vital Signs: Vital Signs: Last Vital Signs Temp 98.4 F 05/31/24 03:40 Pulse 85 05/31/24 03:40 Resp 18 05/31/24 03:40 BP 140/78 H 05/31/24 03:40 Pulse Ox 97 05/31/24 03:40 O2 Del Method Room Air 05/31/24 03:40 O2 Flow Rate 2.0 05/21/24 07:44 BMI result Body Mass Index 21.3 Const: General: alert and awake Orientation/consciousness: patient oriented x3 Resp: Effort & Inspection: normal respiratory effort and able to speak in complete sentences Cardio: Rate: regular rate Rhythm: regular rhythm Peripheral pulses: radial pulses present GI: Other: incision clean and intact. stoma pink, patent, with stool in bag. abdomen non distended, and no tenderness to palpation Palpation (GI): Soft to palpation, nontender and no guarding Skin: General skin exam: no rashes or lesions noted Neuro: General: patient oriented x3 Extrem: Other: edema of the left knee. tenderness to palpation. No erythema Objective Data Active Medications Acetaminophen (Acetaminophen 325 Mg Tablet) 650 mg PO Q6H [facility] Last Admin: 05/31/24 05:28 Dose: 650 mg Documented By: MANN Amlodipine Besylate (Amlodipine Besylate 10 Mg Tablet) 10 mg PO DAILY [facility]; Protocol Last Admin: 05/30/24 08:59 Dose: 10 mg Documented By: S-STGEC Baclofen (Baclofen 10 Mg Tablet) 10 mg PO TID [facility] Last Admin: 05/30/24 22:31 Dose: 10 mg Documented By: MANN Hydromorphone HCl (Hydromorphone Hcl 0.5 Mg/0.5 Ml Syringe) 0.5 mg IVPUSH Q3H PRN; Protocol PRN Reason: Pain, Severe (Pain Scale 7-10) Last Admin: 05/30/24 13:53 Dose: 0.5 mg Documented By: REBECCA Labetalol HCl (Labetalol Hcl 100 Mg/20 Ml Vial) 5 mg IVPUSH Q8H PRN PRN Reason: SBP >170 Last Admin: 05/27/24 03:17 Dose: 5 mg Documented By: TJ Levofloxacin (Levofloxacin 500 Mg Tablet) 500 mg PO Q24H [facility] Last Admin: 05/31/24 06:41 Dose: 500 mg Documented By: MANN Lidocaine (Lidocaine 4 % Patch Adh..Patch) 2 patch TRANSDERMA DAILY [facility]; Protocol Last Admin: 05/30/24 09:11 Dose: 2 patch Documented By: SALLY Metronidazole (Metronidazole 500 Mg Tablet) 500 mg PO Q8H [facility] Last Admin: 05/31/24 06:41 Dose: 500 mg Documented By: MANN Ondansetron HCl (Ondansetron Hcl 4 Mg/2 Ml Vial) 4 mg IVPUSH Q6H PRN PRN Reason: Nausea and Vomiting Last Admin: 05/28/24 23:59 Dose: 4 mg Documented By: BONNIE Oxycodone HCl (Oxycodone Hcl Immed Release 5 Mg Tablet) 5 mg PO Q6H PRN PRN Reason: Pain, Moderate(Pain Scale 4-6) Last Admin: 05/31/24 06:41 Dose: 5 mg Documented By: MANN Pantoprazole Sodium (Pantoprazole Sodium 40 Mg/10 Ml Vial) 40 mg IVPUSH BID@0630,1630 [facility] Last Admin: 05/31/24 05:28 Dose: 40 mg Documented By: MANN Sodium Chloride (0.9 % Sodium Chloride Flush 3 Ml Syringe) 3 ml IVFLUSH QSHIFT [facility] Last Admin: 05/31/24 02:13 Dose: 3 ml Documented By: MANN Tamsulosin HCl (Tamsulosin Hcl 0.4 Mg Capsule) 0.4 mg PO DAILY [facility] Last Admin: 05/30/24 08:59 Dose: 0.4 mg Documented By: SALLY Trolamine Salicylate (Trolamine Salicylate 10 % Cream 85 Gm Tube) 1 appl TOPICAL BID [facility]; Protocol Last Admin: 05/30/24 22:31 Dose: 1 appl Documented By: MANN Zolpidem Tartrate (Zolpidem Tartrate 5 Mg Tablet) 5 mg PO BEDTIME PRN PRN Reason: Insomnia Labs 05/28/24 12:46 05/28/24 06:16 Microbiology Microbiology Results: Microbiology 05/28/24 10:32 Blood Culture - Preliminary Blood - Venous No growth after 48 hours. 05/28/24 10:37 Blood Culture - Preliminary Blood - Venous No growth after 48 hours. Procedures Date of Service Date of Service: 05/31/24 Progress Note: A&P Assessment and plan (1) Status post Derek procedure: Status: Acute (2) Acute urinary retention: Status: Acute (3) Diverticulitis of colon with perforation: Status: Acute Plan 83-year-old male patient s/p Derek procedure for perforated sigmoid colon. He continues to have severe pain in the left knee worse than yesterday. He is now off prednisone per hospitalist team. Unable to discharge patient because of knee pain. Abdomen is soft and incisions clean and intact. Ostomy pink and viable. Stool in bag. We will check with hospitalist team regarding further management of left knee pain. Time Spent With Patient Time: Total time managing care of this patient today ____ minutes. Quality Stroke Does the patient have a stroke diagnosis?: No VTE Prior VTE?: No VTE Risk Level:: Surgical - moderate VTE Device Contraindication: N/A - Device Ordered VTE Drug Contraindication: Treatment Not Indicated
[2024-05-31 07:50] VITALS: BP 133/68; PULSE 89; RESP 16; TEMP 36.9; O2SAT 93
[2024-05-31] MEDS: Lidocaine 4 % Patch ADH..PATCH 2 PATCH TRANSDERMA (08:02)
[2024-05-31] MEDS: Baclofen 10 MG TABLET PO (08:03)
[2024-05-31] MEDS: Tamsulosin HCL 0.4 MG CAPSULE PO (08:03)
[2024-05-31] MEDS: amLODIPine Besylate 10 MG TABLET PO (08:03)
[2024-05-31] MEDS: Trolamine Salicylate 10 % Cream 85 GM TUBE 1 APPL TOPICAL (08:45)
--- NOTE | 2024-05-31 09:57 | PM.DS ---
DS: Providers Provider Date of Service: 05/31/24 Date of admission: 05/19/24 23:15 Date of discharge: 05/31/24 Primary care physician: Wyatt Parada MD Attending physician on admission: Daniel Monaco Consults: 05/21/24 10:43 Consult to Ostomy Care Routine 05/24/24 15:41 Consult to Hospitalist Routine Comment: Consulting Provider: [facility] [place] Hospitalists Reason For Exam: perforated bowel, gout pain 05/28/24 05:58 Consult to Infectious Diseases Routine Consulting Provider: [facility] [place] Infectious Disease [facility] Reason for consultation: Bacteroides fragilis bacteremia, perf divetic, s/p prerna procedure Has provider been notified: No 05/29/24 07:28 Consult to Orthopedics Routine Consulting Provider: [facility] [place] Orthopedic Surgeons Reason for consultation: left knee pain Has provider been notified: No Attending physician on discharge: Daniel Monaco DS: Diagnosis Discharge Diagnosis (1) Status post Prerna procedure: Status: Acute (2) Acute urinary retention: Status: Acute (3) Diverticulitis of colon with perforation: Status: Acute DS: Summary Hospital Course Hospital Course: HPI AT ADMISSION: Ruslan Lindsay is a 83 year old male presenting with complaints of severe abdominal pain which began yesterday and increased in severity during the day today. The pain was associated with nausea and vomiting, anorexia. He denies fever, chills, urinary retention, constipation or diarrhea. He does report increased pain with motion/ambulation. He had a normal bowel movement yesterday. He denies a previous history of similar symptoms. The pain began in his periumbilical region and initially he thought this was due to a hernia. He subsequently presented to the emergency department and was noted to have diffuse abdominal pain. WBC was elevated at 11.5. A CT abdomen and pelvis was obtained which revealed free air under the diaphragm with evidence of diverticulosis and a thickened loop of small bowel in the left lower quadrant adjacent to the sigmoid colon. This raised the suspicion of a perforated bowel possibly small bowel. HOSPITAL COURSE: He was admitted to the surgical service for further management of a perforated viscus. On examination he was diffusely tender with peritoneal signs. It was recommended to proceed with exploratory laparotomy with possible bowel resection and possible colostomy. He consented to surgery and was added onto the OR schedule. He was kept NPO, IVF and IV zosyn were initiated. On 05/20/24, Exploratory laparotomy, Prerna procedure was performed by Dr. Monaco without complication. 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 The patient tolerated the procedure well. Hospitalist consult was obtained for management of his medical comorbidities. He had a slow recovery course with slow return of GI function and then debilitating left knee pain. On POD #1 his cantu was removed. He developed nausea, vomiting and abd distention and he required NGT decompression for several days and was started on PPN. His ostomy began to function with gas and stool output. Ostomy education performed. NGT was therefore clamped and had low residual and was removed. His diet was slowly advanced from clear liquids to solids. His blood cultures were positive for Klebsiella and Bacteroides fragilis. ID was consulted who recommended levaquin/flagyl for 14 days total and his abx were switched to this. Repeat cx were negative. During this time he developed a gout flare in his foot and then developed left knee pain and was unable to extend his knee and weight bear. Xray was performed which showed osteoarthritis. Medicine started him on prednisone as he was taken off all NSAIDs by nephrology due to his CKD. He had no improvement with this and ATC tylenol and muscle relaxers. Ortho was consulted who felt it was due to gout flare/osteoarthritis and recommended rest, ice, compression and analgesics, gently ROM. PT was consulted who recommended STR. He continued to have no improvement and hospitalists started him back on NSAID. He also developed urinary retention and required cantu insertion. He was started on flomax and trial voided a few days later which was unsuccessful and coude cantu was inserted. He is to follow up with urology in office in 2 weeks for further management. He had persistently elevated SBP on his home med of amlodipine 5mg and this was increased to 10mg PO daily. He was discharged to [facility] on 05/31/24 in stable condition . He was tolerating a solid diet, had good ostomy function. He was hemodynamically stable and his abd was benign with clean incision (luis alfredo removed). He had limited left knee mobility. Status at Discharge Overall status at discharge: patient is not back to baseline Time Attestation Discharge Coordination Time (in mins): 50 Quality: Safe Use of Opioids Does Pt have an Active Cancer Diagnosis on the Problem List?: No Quality: Stroke Does the patient have a stroke diagnosis?: No Physical Exam Vital Signs: Vital Signs: Last Vital Signs Temp 98.5 F 05/31/24 07:50 Pulse 89 05/31/24 07:50 Resp 16 05/31/24 07:50 BP 133/68 05/31/24 07:50 Pulse Ox 93 05/31/24 07:50 O2 Del Method Room Air 05/31/24 07:50 O2 Flow Rate 2.0 05/21/24 07:44 BMI result Body Mass Index 21.3 Const: General: no acute distress and alert Orientation/consciousness: patient oriented x3 Resp: Effort & Inspection: normal respiratory effort GI: Other: ostomy oink, stool in appliance incision clean, luis alfredo removed today Palpation (GI): Soft to palpation, nontender and no guarding Skin: General skin exam: no rashes or lesions noted Neuro: General: patient oriented x3 and moves all extremities Extrem: Other: left knee remains edematous, no erythema, remains contracted and limited ability to extend, tender to palpation medially DS: Data Data Completed and Pending Completed studies during hospitalization [Text1]: 05/20/24 01:36 Surgical [PTH] Routine Colon, sigmoid, segmental resection: Diverticular-associated segmental colitis with marked granulation tissue formation and serosal necroinflammatory material, consistent with perforation; negative for malignancy. Procedures Drainage of Left Finger Phalangeal Joint, Percutaneous Approach, Diagnostic (04/23/24) Excision of Left Finger Phalangeal Joint, Open Approach (04/23/24) Labs on day of discharge: Preliminary micro results at discharge 05/28/24 10:32 Blood Culture - Preliminary Blood - Venous No growth after 48 hours. 05/28/24 10:37 Blood Culture - Preliminary Blood - Venous No growth after 48 hours. Discharge Plan Discharge Anticipated Discharge Date/Time: 05/31/24 10:00 Patient Disposition: er SNF Discharge Diagnosis: perforated diverticulitis s/p prerna procedure, gout flare, urinary retention Referrals: Phillip Miner MD [Physician] - 2 Weeks Hugo Plasencia MD [Physician] - 1 Week Daniel Monaco MD [Physician] - 1 Week Wyatt Parada MD [Primary Care Provider] - 1 Week Discharge Medications: New tamsulosin 0.4 mg Capsule 0.4 mg PO DAILY Qty: 30 0RF trolamine salicylate [Aspercreme] 10 % Cream 1 appl topical BID Qty: 85 0RF Protocol: Apply to: Apply to: left knee amlodipine 10 mg Tablet 10 mg PO DAILY Qty: 60 0RF Protocol: Hold for SBP< HOLD for SBP < : 90 levofloxacin 500 mg Tablet 500 mg PO Q24H Qty: 11 0RF metronidazole 500 mg Tablet 500 mg PO Q8H Qty: 33 0RF allopurinol 100 mg tablet 200 mg PO DAILY Qty: 60 0RF Discontinued prednisone 20 mg tablet See Rx Instructions .ROUTE .COMPLEX Taper: Prednisone 40 daily for 2 Days and 0 Hour 20 daily for 5 Days and 0 Hour Rx Instructions: Take 2 tab oral once daily for 5 days then take 1 tab oral once daily for 5 days. amlodipine 5 mg tablet 5 mg PO DAILY Qty: 30 4RF Discharge Orders: Discharge Order (Routine); Ordered 05/31/24 Ordered By: Jacki Silveira Diet: Advance to usual diet Activity on Discharge: No heavy lifting Stand Alone Forms: Patient Portal Discharge page Print Language: Tuvaluan Activity Restrictions/Additional Instructions: If the incision area is tender, you may apply an ice pack for short intervals (No more than 20 minutes on, followed by at least 20 minutes off). Do not apply heat. Do not use creams, lotions, or topical antibiotics. These can cause infection or allergic reaction. Ok to shower. NO HEAVY LIFTING (>10lbs) or strenuous activity. Follow up in office with Dr. Monaco in 1 week. ([phone]) Follow up with Dr. Miner in office in 2 weeks for urinary retention, possible cantu removal. Call Your Doctor If: -Your temperature exceeds 101.5? F -You experience excessive pain or swelling -You have an unexpected reaction to medication -You have excessive bleeding -You experience continued vomiting/nausea -Your incision begins to separate -Your incision shows signs of infection such as increased redness, swelling, excessive pain, drainage (light blood or clear fluid is normal) or heat Ostomy recommendations: 1. Empty pouch before pouch change 2. Remove pouch using push/pull technique from top to bottom 3. Cleanse stoma and skin with tap water only - no soap or baby wipes 4. Pat dry 5. Measure stoma and cut new pouch no more than 1/8 inch larger than stoma and no smaller than stoma 6. If instructed by your ostomy nurse stretch barrier seal to the size of the stoma and press onto skin around stoma (up to the edge of the stoma but not onto the stoma) 7. Press the new pouch into place and hold for several minutes (close pouch tail) 8. Empty pouch when 1/3 to 1/2 full 9. Change pouch twice weekly on a schedule (for example, every Monday and ) and as needed for any leaking (feels like intense itch or burn at edge of stoma) ? Care Plan Goals: Return to baseline health and resume normal activities following recovery period. Health Concerns: perforated diverticulitis, bacteremia urinary retention HTN left knee pain, gout and osteoarthritis flare Plan of Treatment: s/p prerna procedure, follow up with Dr. Monaco in 1 week in office IV transitioned to oral abx cantu catheter, flomax, f/u with urology F/u with nephrology about your CKD and NSAID use discharge to STR for further convalescence Assessment: Improved post op Patient Instructions: Colostomy Care (DC), Colectomy Diet (DC), Colectomy (DC)
--- NOTE | 2024-05-31 10:20 | MHC.CM.PN ---
Per surgery, patient medically cleared for dc to [facility]. [facility] transport booked for 2pm to [facility]. RN aware and will send w/ ostomy supplies per facility request. [facility] delivered. Notified friend Kwan, per patient request.
[2024-05-31] MEDS: Ketorolac Tromethamine 15 MG/ML VIAL IVPUSH (12:04)
[2024-05-31 14:32] VITALS: BP 119/56; PULSE 92; RESP 16; TEMP 36.8; O2SAT 97
== END 2024-05-31 14:32 | disposition skilled nursing facility (03) | DRG 329 ==
LOC: HO.ED 22:47 → HO.S3 23:22
PROVIDERS: Internal Medicine; Physician Assistant Medical; Physician Assistant Surgical; Admitting Provider Surgery; Emergency Provider Emergency Medicine; PCP Internal Medicine; Visit Provider Surgery
PROC: 0DBN0ZZ Excision of Sigmoid Colon, Open Approach (ICD-10-PCS; CPT 49000; principal; 2024-05-20)
DX: K57.20 Diverticulitis of large intestine with perforation and abscess without bleeding (principal); K65.1 Peritoneal abscess; K86.89 Other specified diseases of pancreas; R33.9 Retention of urine, unspecified; M10.9 Gout, unspecified; B96.20 Unspecified Escherichia coli [E. coli] as the cause of diseases classified elsewhere; M17.12 Unilateral primary osteoarthritis, left knee; B96.6 Bacteroides fragilis [B. fragilis] as the cause of diseases classified elsewhere; I12.9 Hypertensive chronic kidney disease with stage 1 through stage 4 chronic kidney disease, or unspecified chronic kidney disease; N18.31 Chronic kidney disease, stage 3a; Z79.899 Other long term (current) drug therapy
CPT/HCPCS: 36415; 71045; 73562; 74018; 74177; 80048; 80053; 81001; 82040; 83036; 83605; 83690; 83735; 84100; 84478; 84484; 84550; 85025; 85027; 87040; 87070; 87073; 87076; 87077; 87186; 87205; 88307; 93005; 96127; 97110; 97116; 97162; 99202; 99285; J0131; J1171; J1885; J1920; J2003; J2270; J2405; J2470; J2543; J2704; J2765; J2919; J3010; J7120; Q9967

== ENCOUNTER → 2024-05-19 19:53 | Outpatient (BNV) | payer MEDICARE, SELFPAY | PROVIDERS: Admitting Provider Surgery; Emergency Provider Emergency Medicine; PCP Internal Medicine; Visit Provider Internal Medicine Cardiovascular Disease | DX: I49.1 Atrial premature depolarization (principal); R00.0 Tachycardia, unspecified | CPT/HCPCS: 93010 ==

== ENCOUNTER → 2024-05-19 19:53 | Outpatient (BNV) | payer MEDICARE, SELFPAY | PROVIDERS: PCP Internal Medicine; Visit Provider Radiology Diagnostic Radiology | DX: K59.00 Constipation, unspecified (principal); K66.8 Other specified disorders of peritoneum; K57.32 Diverticulitis of large intestine without perforation or abscess without bleeding | CPT/HCPCS: 74018; 74177 ==

== ENCOUNTER 2024-05-19 23:15 | Outpatient (BNV) | payer MEDICARE, SELFPAY | END 2024-05-21 15:10 | PROVIDERS: Admitting Provider Surgery; Emergency Provider Emergency Medicine; PCP Internal Medicine; Visit Provider Radiology Diagnostic Radiology | DX: Z93.4 Other artificial openings of gastrointestinal tract status (principal) | CPT/HCPCS: 71045 ==

== ENCOUNTER 2024-05-19 23:15 | Outpatient (BNV) | payer MEDICARE, SELFPAY | END 2024-05-27 17:45 | PROVIDERS: Admitting Provider Surgery; Emergency Provider Emergency Medicine; PCP Internal Medicine; Visit Provider Radiology Diagnostic Radiology | DX: M25.562 Pain in left knee (principal) | CPT/HCPCS: 73562 ==

== ENCOUNTER 2024-05-19 23:15 | Outpatient (BNV) | payer MEDICARE, SELFPAY | END 2024-05-28 12:33 | PROVIDERS: Admitting Provider Surgery; Emergency Provider Emergency Medicine; PCP Internal Medicine; Visit Provider Internal Medicine | DX: I49.1 Atrial premature depolarization (principal) | CPT/HCPCS: 93010 ==

== ENCOUNTER → 2024-05-19 23:15 | Outpatient (BNV) | payer MEDICARE, SELFPAY | PROVIDERS: Admitting Provider Surgery; Emergency Provider Emergency Medicine; PCP Internal Medicine; Visit Provider Student in an Organized Health Care Education/Training Program | DX: Z93.3 Colostomy status (principal); M10.9 Gout, unspecified | CPT/HCPCS: 99222; 99232 ==

== ENCOUNTER → 2024-05-19 23:15 | Outpatient (BNV) | payer MEDICARE, SELFPAY | PROVIDERS: Admitting Provider Surgery; Emergency Provider Emergency Medicine; PCP Internal Medicine; Visit Provider Internal Medicine | DX: K57.20 Diverticulitis of large intestine with perforation and abscess without bleeding (principal) | CPT/HCPCS: 99222 ==

== ENCOUNTER → 2024-05-19 23:15 | Outpatient (BNV) | payer MEDICARE, SELFPAY | PROVIDERS: Admitting Provider Surgery; Emergency Provider Emergency Medicine; PCP Internal Medicine; Visit Provider Surgery | DX: R33.8 Other retention of urine (principal); Z93.3 Colostomy status; K57.20 Diverticulitis of large intestine with perforation and abscess without bleeding | CPT/HCPCS: 44143; 99024; 99223; 99499 ==

== ENCOUNTER → 2024-05-19 23:15 | Outpatient (BNV) | payer MEDICARE, SELFPAY | PROVIDERS: Admitting Provider Surgery; Emergency Provider Emergency Medicine; PCP Internal Medicine; Visit Provider Physician Assistant | DX: M10.071 Idiopathic gout, right ankle and foot (principal) | CPT/HCPCS: 99499 ==

== ENCOUNTER 2024-06-11 11:16 | Outpatient (AMB) | payer MEDICARE, SELFPAY ==
--- NOTE | 2024-06-11 11:23 | MHC.OFFVIS ---
Vital Signs 06/11/24 11:33 Height 5 ft 1 in Weight 104 lb 8 oz BMI 19.7 BP 134/63 Blood Pressure Location Lt brachial Position Sitting Pulse 111 H Intake Visit Reasons: s/p perforated viscus, exploratory laparotomy Intake Note: Patient is seen in office for post op assessment post exploratory laparotomy. Pt c/o: denies any concerns post surgery, would like to have the Dr look as his left knee or refer him someone that could help surgery:05/20/24 Manager Logistic Required: No Accompanied by: Family/Other Allergies No Known Allergies [No Known Allergies*] Allergy (Verified 05/19/24 19:51) HPI Comments Details: 83-year-old male patient presenting with severe abdominal pain nausea and vomiting found to have free air on CT abdomen and pelvis suggestive of a perforated viscus. He underwent an exploratory laparotomy on 05/20/2024 was found to have evidence of a bowel perforation in the sigmoid colon with an impending colovesical fistula. He underwent a Derek procedure in his recovery was delayed due to a slow return of GI function. He required nasogastric tube decompression for approximately 1 week as well as peripheral alimentation. He also mainly complained of left knee pain this was initially attributed to gout however was subsequently determined to be osteoarthritis. He was evaluated by the hospitalist team as well as Orthopedics on returned today continues to report pain in the left knee. He denies any abdominal pain and reports that he is eating well without nausea or vomiting. Ostomy is functioning well. 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 High cholesterol HTN (hypertension) Surgical History History of exploratory laparotomy (05/20/24) Previous back surgery Family History Father Heart attack Mother Heart attack Social History Household Members: None Housing: Other Housing Other:: mobile home Do you presently have visiting nurse or other home services: Yes Alcohol intake: never Patient Tobacco Use Status: Never used Tobacco Advance Directives Date on File: 11/28/23 service: No Current occupational status: retired Cognitive needs: No Hearing needs: No Vision needs: Yes (rx contacts/glasses) Physical Exam Vital Signs: Last Vital Signs Pulse 111 H 06/11/24 11:33 BP 134/63 06/11/24 11:33 BMI result Body Mass Index 19.7 Const General: no acute distress Nutritional Appearance: thin Orientation/consciousness: patient oriented x3 Limitations: wheelchair Resp Effort & Inspection: normal respiratory effort, no audible wheezes, no cough and no retractions GI Other: Abdominal incisions are clean, dry and intact. Ostomy is pink and patent with stool/passing bag. 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 His major issue currently is the continued left knee pain. This was initially attributed to gout however was determined to be osteoarthritis. I recommended a referral to Rheumatology for further evaluation and management. The patient expressed understanding and agrees with the plan. I have asked him to return approximately 1 month at which time we can discuss closure of the colostomy possibly in the end of July if he was fully recovered. Orders: Referrals Rheumatology Referral M17.12 - Unilateral primary osteoarthritis, left knee, M25.562 - Pain in left knee Coding Level of Care Code Global (66458) Diagnoses Acute pain of left knee M25.562 Arthritis of left knee M17.12 Status post Derek procedure Z93.3
[2024-06-11 11:33] VITALS: BP 134/63; PULSE 111; BMI 19.7
--- OUTSIDE RECORDS SUMMARY | 2024-06-11 13:54 | XMS_ITS | Clinical Summary ---
Author Organization [facility] Address [address] [place] [address] Phone Care Team Providers Care Dye Mixer Name Role Phone Wyatt Parada MD Primary Care Provider [phone] Allergies No known active allergies Medications lisinopril-hydro [...] due to benign hypertensio n 07/26/2023 Immunizations Immunization Administration Dates Next Due Pfizer SARS-COV-2 05/02/2020,04/11/2020 [...] Due Date Last Done Comments Pneumococcal Vaccine: 50+ Ye ars (1 of 2 - PCV) 1959 Influenza Vaccine (Season Ended) 2024 Hepatitis B Vaccine Aged Out No longe r eligible based on patient's age to complete this topic Insurance [address] [place] [address] Care Teams Dye Mixer Relationship Specialty Start Date End Date Wyatt Parada MD [id number] JERRYSHERYLZAINA PCP - General Internal Medicine 06/07/23
--- OUTSIDE RECORDS SUMMARY | 2024-06-11 13:54 | XMS_ITS | Encounter Summary ---
Author Organization [facility] Address [address] [place] [phone] Care Team Providers Care Video Poker Floorman Name Role Phone Deanpablo Shlomo NP Primary Care Provider Encounter Details Date Type Department Care Team (Late st Contact Info) Description 06/03/2024 Lab Requisition [facility] - Main Lab [address] [facility] [place] [address] Lesvia Gutierrez MD [address] [phone] Perforation of intestine (nontraumatic) (CMS/HCC V24, CMS/HCC V28) Social History Tobacco Use Types Packs/Day Years Used Date Smoking Tobacco: Never Smokeless Tobacco: Never Alcohol Use Standard Drinks/Week Comments Never 0 (1 standard drink = 0.6 oz pur e alcohol) Sex and Gender Information Value Date Recorded Sex Assigned at Not on file Legal Sex Male 12:22 AM EST Gender Identity Not on file Sexual Orientation Not on file documented as of this encounter Plan of Treatment Not on file documented as of this encounter Procedures Procedure Name Priority Date/Time Associated Diagnosis Comments COMPLETE BLOOD COUNT Routine 06/03/2024 8:32 AM EDT Perforation of intestine (nontraumatic) COMPREHENSIVE METABOLIC PANEL Routine 06/03/2024 8:32 AM EDT Perforation of intestine (nontraumatic) documented in this encounter Results * (ABNORMAL) Comprehensive metabolic panel (06/03/2024 8:32 AM EDT) Sodium 137 133 - 145 mmol/L LAB CHEMISTRY METHOD 06/03/2024 1:08 PM [facility] Potassium 4.4 3.5 - 5.5 mmol/L LAB CHEMISTRY METHOD 06/03/2024 1:08 PM [facility] Chloride 105 96 - 110 mmol/L LAB CHEMISTRY METHOD 06/03/2024 1:08 PM [facility] CO2 23 21 - 32 mmol/L LAB CHEMISTRY METHOD 06/03/2024 1:08 PM [facility] Anion Gap 9 3 - 11 LAB CHEMISTRY METHOD 06/03/2024 1:08 PM [facility] Glucose 103(H) 70 - 100 mg/dL LAB CHEMISTRY METHOD 06/03/2024 1:08 PM [facility] BUN 35(H) 5 - 25 mg/dL LAB CHEMISTRY METHOD 06/03/2024 1:08 PM [facility] Creatinine 1.22 0.70 - 1.30 mg/dL LAB CHEMISTRY METHOD 06/03/2024 1:08 PM [facility] eGFR 59(L) >=60 mL/min/1. 73m2 LAB CHEMISTRY METHOD 06/03/2024 1:08 PM [facility] Comment:Calculation based on the??Chronic Kidney Disease Epidemiology Collaboration (CKD-EPI) equation refit??without adjustment for race. BUN/Creatinine Ratio 28.7 LAB CHEMISTRY METHOD 06/03/2024 1:08 PM [facility] Calcium 9.1 8.5 - 10.5 mg/dL LAB CHEMISTRY METHOD 06/03/2024 1:08 PM [facility] AST (SGOT) 22 10 - 42 unit/L LAB CHEMISTRY METHOD 06/03/2024 1:08 PM [facility] ALT (SGPT) 28 10 - 60 unit/L LAB CHEMISTRY METHOD 06/03/2024 1:08 PM [facility] Alkaline Phosphatase 103 42 - 121 unit/L LAB CHEMISTRY METHOD 06/03/2024 1:08 PM EDT [facility] Total Protein 5.9(L) 6.0 - 8.0 g/dL LAB CHEMISTRY METHOD 06/03/2024 1:08 PM EDT [facility] Albumin 2.6(L) 3.2 - 5.0 g/dL LAB CHEMISTRY METHOD 06/03/2024 1:08 PM EDT [facility] Total Bilirubin 0.5 0.0 - 1.4 mg/dL LAB CHEMISTRY METHOD 06/03/2024 1:08 PM EDT [facility] Blood Venous blood specimen / Unknown Venipuncture / Unknown 06/03/2024 8:32 AM EDT 06/03/2024 10:48 AM EDT us Lesvia Gutierrez MD LAB BLOOD ORDERABLES Fin al Result [facility] [address] [place] [address], * (ABNORMAL) Complete blood count (06/03/2024 8:32 AM EDT) WBC 14.5(H) 4.8 - 10.8 K/mcL LAB HEMETOLOGY METHOD 06/03/2024 12:51 PM [facility] RBC 3.40(L) 4.50 - 5.50 M/mcL LAB HEMETOLOGY METHOD 06/03/2024 12:51 PM EDT [facility] Hemoglobin 10.4(L) 13.5 - 17.5 g/dL LAB HEMETOLOGY METHOD 06/03/2024 12:51 PM [facility] Hematocrit 31.6(L) 42.0 - 54.0 % LAB HEMETOLOGY METHOD 06/03/2024 12:51 PM EDT [facility] MCV 94.3 79.0 - 98.0 FL LAB HEMETOLOGY METHOD 06/03/2024 12:51 PM EDT [facility] MCH 31.0 27.0 - 32.0 pcg LAB HEMETOLOGY METHOD 06/03/2024 12:51 PM EDT [facility] MCHC 32.9 32.0 - 37.0 g/dL LAB HEMETOLOGY METHOD 06/03/2024 12:51 PM EDT [facility] RDW 14.3 11.0 - 15.0 % LAB HEMETOLOGY METHOD 06/03/2024 12:51 PM EDT [facility] Platelets 528(H) 130 - 400 K/mcL LAB HEMETOLOGY METHOD 06/03/2024 12:51 PM EDT [facility] MPV 10.5 7.0 - 11.0 FL LAB HEMETOLOGY METHOD 06/03/2024 12:51 PM EDT [facility] NRBC 0.0 <1.0 % LAB HEMETOLOGY METHOD 06/03/2024 12:51 PM EDT [facility] NRBC Absolute 0.00 <0.10 K/mcL LAB HEMETOLOGY METHOD 06/03/2024 12:51 PM EDT [facility] Blood Venous blood specimen / Unknown Venipuncture / Unknown 06/03/2024 8:32 AM EDT 06/03/2024 10:48 AM EDT us Lesvia Gutierrez MD LAB BLOOD ORDERABLES Fin al Result [facility] [address] [place] [address], documented in this encounter Visit Diagnoses Diagnosis Perforation of intestine (nontraumatic) (CMS/HCC V24, CMS/HCC V28) documented in this encounter Care Teams Video Poker Floorman Relationship Specialty Start Date End Date Daniel Palafox NP [address] [phone] (Work) PCP - General 03/05/21 documented as of this encounter
--- OUTSIDE RECORDS SUMMARY | 2024-06-11 13:54 | XMS_ITS | Clinical Summary ---
Author Organization [address] [facility] Address [address] [place] [address] Phone Care Team Providers Care Community Relations Advisor Name Role Phone Daniel Palafox [facility] Primary Care Provider Encounters Date Type Department Care Team Description 06/08/2024 Lab Requisition [facility] [address] [place] [phone] Lesvia Gutierrez MD Perforation of intestine (nontraumatic) [place] [place] [facility] [place] 06/03/2024 Lab Requisition [facility] [address] [place] [phone] Lesvia Gutierrez MD Perforation of intestine (nontraumatic) [place] [place], [facility] [place]) from Last 3 Months Social History Tobacco Use Types Packs/Day Years [...] (1 - Tdap) 1960 Pneumococcal Vaccine: 50+ Years (1 of 1 - PCV) 12/13/1991 Zoster Vaccines (1 of 2) 12/13/1991 RSV Immunization Adult Patients (1 - 1-dose 75+ series) 2016 Cholesterol Screening (Lipid Panel) 01/30/2022 Depression Screening 01/30/2022 Falls Risk Assessment 01/30/2022 Social Influencers of Health Screening 01/30/2022 COVID-19 Vaccine (3 - 2023-2 5 season) 2023 05/02/2020, 04/11/2020 Influenza Vaccine (Season Ended) 2024 Hypertension/CHF/CAD Annual BMP Blood Test 06/10/2025 06/10/2024, 06/03/2024 HIB Vaccines Aged Out No longer eligi [...] age to complete this topic Meningococcal B Vaccine Aged Out No l onger eligible based on patient's age to complete this topic RSV Immunization Patients Under 20 months Aged Out No longer eligible b ased on patient's age to complete this topic Varicella Vaccines Aged Out No longer eligible based on patient's age to complete this topic Procedures Procedure Name Priority Date/Time Associated Diagnosis Comments COMPREHENSIVE METABOLIC PANEL Routine 06/10/2024 8:19 AM EDT Perforation of intestine (nontraumatic) (CMS/HCC V24, CMS/[facility] V28) COMPLETE BLOOD COUNT Routine 06/10/2024 8:19 AM EDT Perforation of intestine (nontraumatic) (CMS/HCC V24, CMS/HCC V28) COMPREHENSIVE METABOLIC PANEL Routine 06/03/2024 8:32 AM EDT Perforation of intestine (nontraumatic) COMPLETE BLOOD COUNT Routine 06/03/2024 8:32 AM EDT Perforation of intestine (nontraumatic) from Last 3 Months Results * (ABNORMAL) Complete blood count (06/10/2024 8:19 AM EDT) Only the most recent of2 resultswithin the time period is included. [facility] WBC 13.7(H) 4.8 - 10.8 K/mcL LAB HEMETOLOGY METHOD 06/10/2024 11:16 AM [facility] RBC 3.30(L) 4.50 - 5.50 M/mcL LAB HEMETOLOGY METHOD 06/10/2024 11:16 AM [facility] Hemoglobin 10.2(L) 13.5 - 17.5 g/dL LAB HEMETOLOGY METHOD 06/10/2024 11:16 AM [facility] Hematocrit 30.4(L) 42.0 - 54.0 % LAB HEMETOLOGY METHOD 06/10/2024 11:16 AM [facility] MCV 91.8 79.0 - 98.0 FL LAB HEMETOLOGY METHOD 06/10/2024 11:16 AM [facility] MCH 30.8 27.0 - 32.0 pcg LAB HEMETOLOGY METHOD 06/10/2024 11:16 AM [facility] MCHC 33.6 32.0 - 37.0 g/dL LAB HEMETOLOGY METHOD 06/10/2024 11:16 AM [facility] RDW 14.2 11.0 - 15.0 % LAB HEMETOLOGY METHOD 06/10/2024 11:16 AM [facility] Platelets 395 130 - 400 K/mcL LAB HEMETOLOGY METHOD 06/10/2024 11:16 AM [facility] MPV 10.5 7.0 - 11.0 FL LAB HEMETOLOGY METHOD 06/10/2024 11:16 AM [facility] NRBC 0.0 <1.0 % LAB HEMETOLOGY METHOD 06/10/2024 11:16 AM [facility] NRBC Absolute 0.00 <0.10 K/mcL LAB HEMETOLOGY METHOD 06/10/2024 11:16 AM [facility] Blood Venous blood specimen / Unknown Venipuncture / Unknown 06/10/2024 8:19 AM EDT 06/10/2024 10:45 AM EDT us Lesvia Gutierrez MD LAB BLOOD ORDERABLES Fin al Result [facility] [address] [place] [address], [place] [phone] * (ABNORMAL) Comprehensive metabolic panel (06/10/2024 8:19 AM EDT) Only the most recent of2 resultswithin the time period is included. Sodium 134 133 - 145 mmol/L LAB CHEMISTRY METHOD 06/10/2024 11:51 AM [facility] Potassium 4.0 3.5 - 5.5 mmol/L LAB CHEMISTRY METHOD 06/10/2024 11:51 AM [facility] Chloride 102 96 - 110 mmol/L LAB CHEMISTRY METHOD 06/10/2024 11:51 AM [facility] CO2 23 21 - 32 mmol/L LAB CHEMISTRY METHOD 06/10/2024 11:51 AM [facility] Anion Gap 9 3 - 11 LAB CHEMISTRY METHOD 06/10/2024 11:51 AM [facility] Glucose 79 70 - 100 mg/dL LAB CHEMISTRY METHOD 06/10/2024 11:51 AM [facility] BUN 22 5 - 25 mg/dL LAB CHEMISTRY METHOD 06/10/2024 11:51 AM [facility] Creatinine 0.90 0.70 - 1.30 mg/dL LAB CHEMISTRY METHOD 06/10/2024 11:51 AM [facility] eGFR 85 >=60 mL/min/1. 73m2 LAB CHEMISTRY METHOD 06/10/2024 11:51 AM [facility] Comment:Calculation based on the??Chronic Kidney Disease Epidemiology Collaboration (CKD-EPI) equation refit??without adjustment for race. BUN/Creatinine Ratio 24.4 LAB CHEMISTRY METHOD 06/10/2024 11:51 AM [facility] Calcium 8.5 8.5 - 10.5 mg/dL LAB CHEMISTRY METHOD 06/10/2024 11:51 AM [facility] AST (SGOT) 27 10 - 42 unit/L LAB CHEMISTRY METHOD 06/10/2024 11:51 AM [facility] ALT (SGPT) 24 10 - 60 unit/L LAB CHEMISTRY METHOD 06/10/2024 11:51 AM [facility] Alkaline Phosphatase 76 42 - 121 unit/L LAB CHEMISTRY METHOD 06/10/2024 11:51 AM [facility] Total Protein 5.6(L) 6.0 - 8.0 g/dL LAB CHEMISTRY METHOD 06/10/2024 11:51 AM [facility] Albumin 2.5(L) 3.2 - 5.0 g/dL LAB CHEMISTRY METHOD 06/10/2024 11:51 AM [facility] Total Bilirubin 0.3 0.0 - 1.4 mg/dL LAB CHEMISTRY METHOD 06/10/2024 11:51 AM [facility] Blood Venous blood specimen / Unknown Venipuncture / Unknown 06/10/2024 8:19 AM EDT 06/10/2024 10:45 AM EDT us Lesvia Gutierrez MD LAB BLOOD ORDERABLES Fin al Result [facility] [address] [place] [address], [place] [phone] from Last 3 Months Insurance [facility] Care Teams Community Relations Advisor Relationship Specialty Start Date End Date Daniel Palafox NP [address] [facility] [place] PCP - General 03/05/21
--- OUTSIDE RECORDS SUMMARY | 2024-06-11 13:54 | XMS_ITS | Encounter Summary ---
Author Organization [facility] Address [address] [place] [phone] Care Team Providers Care Business Systems Consultant Name Role Phone DeanedwinDaniel gay NP Primary Care Provider Encounter Details Date Type Department Care Team (Late st Contact Info) Description 06/08/2024 Lab Requisition [facility] - Main Lab [address] [facility] [place] [address] Lesvia Gutierrez MD [address] [phone] Perforation of intestine (nontraumatic) (CMS/HCC V24, CMS/HCC [...] Associated Diagnosis Comments COMPLETE BLOOD COUNT Routine 06/10/2024 8:19 AM EDT Perforation of intestine (nontraumatic) (CMS/HCC V24, CMS/HCC V28) COMPREHENSIVE METABOLIC PANEL Routine 06/10/2024 8:19 AM EDT Perforation of intestine (nontraumatic) (CMS/HCC V24, CMS/HCC V28) documented in this encounter Results * (ABNORMAL) Comprehensive metabolic panel (06/10/2024 8:19 AM EDT) Sodium 134 133 - 145 mmol/L LAB CHEMISTRY METHOD 06/10/2024 11:51 AM [facility] Potassium 4.0 3.5 - 5.5 mmol/L LAB CHEMISTRY METHOD 06/10/2024 11:51 AM [facility] Chloride 102 96 - 110 mmol/L LAB CHEMISTRY METHOD 06/10/2024 11:51 AM [facility] CO2 23 21 - 32 mmol/L LAB CHEMISTRY METHOD 06/10/2024 11:51 AM [facility] Anion Gap 9 3 - 11 LAB CHEMISTRY METHOD 06/10/2024 11:51 AM [facility] Glucose 79 70 - 100 mg/dL LAB CHEMISTRY METHOD 06/10/2024 11:51 AM [facility] BUN 22 5 - 25 mg/dL LAB CHEMISTRY METHOD 06/10/2024 11:51 AM [facility] Creatinine 0.90 0.70 - 1.30 mg/dL LAB CHEMISTRY METHOD 06/10/2024 11:51 AM [facility] eGFR 85 >=60 mL/min/1. 73m2 LAB CHEMISTRY METHOD 06/10/2024 11:51 AM [facility] Comment:Calculation based on the??Chronic Kidney Disease Epidemiology Collaboration (CKD-EPI) equation refit??without adjustment for race. BUN/Creatinine Ratio 24.4 LAB CHEMISTRY METHOD 06/10/2024 11:51 AM [facility] Calcium 8.5 8.5 - 10.5 mg/dL LAB CHEMISTRY METHOD 06/10/2024 11:51 AM [facility] AST (SGOT) 27 10 - 42 unit/L LAB CHEMISTRY METHOD 06/10/2024 11:51 AM [facility] ALT (SGPT) 24 10 - 60 unit/L LAB CHEMISTRY METHOD 06/10/2024 11:51 AM [facility] Alkaline Phosphatase 76 42 - 121 unit/L LAB CHEMISTRY METHOD 06/10/2024 11:51 AM EDT [facility] Total Protein 5.6(L) 6.0 - 8.0 g/dL LAB CHEMISTRY METHOD 06/10/2024 11:51 AM [facility] Albumin 2.5(L) 3.2 - 5.0 g/dL LAB CHEMISTRY METHOD 06/10/2024 11:51 AM [facility] Total Bilirubin 0.3 0.0 - 1.4 mg/dL LAB CHEMISTRY METHOD 06/10/2024 11:51 AM [facility] Blood Venous blood specimen / Unknown Venipuncture / Unknown 06/10/2024 8:19 AM EDT 06/10/2024 10:45 AM EDT Lesvia Gutierrez MD LAB BLOOD ORDERABLES Fin al Result [facility] [address] [place] [address], * (ABNORMAL) Complete blood count (06/10/2024 8:19 AM EDT) WBC 13.7(H) 4.8 - 10.8 K/mcL LAB HEMETOLOGY METHOD 06/10/2024 11:16 AM T [facility] RBC 3.30(L) 4.50 - 5.50 M/mcL LAB HEMETOLOGY METHOD 06/10/2024 11:16 AM [facility] Hemoglobin 10.2(L) 13.5 - 17.5 g/dL LAB HEMETOLOGY METHOD 06/10/2024 11:16 AM [facility] Hematocrit 30.4(L) 42.0 - 54.0 % LAB HEMETOLOGY METHOD 06/10/2024 11:16 AM EDT [facility] MCV 91.8 79.0 - 98.0 FL LAB HEMETOLOGY METHOD 06/10/2024 11:16 AM EDT [facility] MCH 30.8 27.0 - 32.0 pcg LAB HEMETOLOGY METHOD 06/10/2024 11:16 AM EDT [facility] MCHC 33.6 32.0 - 37.0 g/dL LAB HEMETOLOGY METHOD 06/10/2024 11:16 AM EDT [facility] RDW 14.2 11.0 - 15.0 % LAB HEMETOLOGY METHOD 06/10/2024 11:16 AM EDT [facility] Platelets 395 130 - 400 K/mcL LAB HEMETOLOGY METHOD 06/10/2024 11:16 AM EDT [facility] MPV 10.5 7.0 - 11.0 FL LAB HEMETOLOGY METHOD 06/10/2024 11:16 AM EDT [facility] NRBC 0.0 <1.0 % LAB HEMETOLOGY METHOD 06/10/2024 11:16 AM EDT [facility] NRBC Absolute 0.00 <0.10 K/mcL LAB HEMETOLOGY METHOD 06/10/2024 11:16 AM [facility] Blood Venous blood specimen / Unknown Venipuncture / Unknown 06/10/2024 8:19 AM EDT 06/10/2024 10:45 AM EDT us Lesvia Gutierrez MD LAB BLOOD ORDERABLES Fin al Result [facility] [address] [place] [address], documented in this encounter Visit Diagnoses Diagnosis Perforation of intestine (nontraumatic) (CMS/HCC V24, CMS/HCC V28) documented in this encounter Care Teams Business Systems Consultant Relationship Specialty Start Date End Date Daniel Palafox NP 262 [facility] [place] [place] PCP - General 03/05/21 documented as of this encounter
== END 2024-06-11 11:44 | disposition home or self-care (01) ==
LOC: HO.HGS 11:16
PROVIDERS: PCP Internal Medicine; Visit Provider Surgery
DX: M25.562 Pain in left knee (principal); M17.12 Unilateral primary osteoarthritis, left knee; Z93.3 Colostomy status
CPT/HCPCS: 99024

== ENCOUNTER → 2024-06-11 11:16 | Outpatient (BNVA) | payer MEDICARE, SELFPAY | PROVIDERS: PCP Internal Medicine; Visit Provider Surgery | DX: M17.12 Unilateral primary osteoarthritis, left knee (principal); Z48.815 Encounter for surgical aftercare following surgery on the digestive system; Z93.3 Colostomy status | CPT/HCPCS: 99212 ==

== ENCOUNTER 2024-06-19 09:43 | Outpatient (AMB) | payer MEDICARE, SELFPAY ==
--- NOTE | 2024-06-19 09:48 | MHC.OFFVIS ---
Intake Visit Reasons: voiding trial Intake Note: New patient presents today for initial visit for a voiding trial Urology Medication:Tamsulosin Blood Thinner:none Antibiotic Allergies:none PVR:0ml Allergies No Known Allergies [No Known Allergies*] Allergy (Verified 06/19/24 10:24) Medication List - Last Reconciled 06/19/24 by LINO Avina-ARIELLE allopurinol 200 mg (2 x 100 mg) PO DAILY amlodipine 10 mg See Protocol PO DAILY docusate sodium 100 mg PO BID levofloxacin 500 mg PO Q24H melatonin mg PO metronidazole 500 mg PO Q8H ondansetron HCl 4 mg PO Q8H oxycodone mg PO prednisone mg PO tamsulosin 0.4 mg PO DAILY trolamine salicylate 10% (Aspercreme) 1 appl See Protocol topical BID HPI Comments Details: Ruslan is a very pleasant 83-year-old male patient of Dr. Parada who was accompanied by his [id number]. He has a past medical history of bowel obstruction status post exploratory laparotomy on 05/20/2024 requiring Derek procedure, chronic kidney disease stage 3, restrictive lung disease, hypercholesteremia, and hypertension. He presents to the office today as a new patient for urinary retention. In discussion with the patient and his [id number] today he reports shortly after his surgical procedure status post colostomy he was unable to urinate at which time he was intermittently catheterized multiple times however was unable to urinate independently at which time a indwelling Bradford was placed and recommendations were made for urology referral for further assessment evaluation. In office voiding trial was performed and patient was unable to void independently therefore 16 Monegasque indwelling Bradford catheter was reinserted. However will cycle bladder with catheter cap while awake urinary bag at night/HS. When asked he denies having had any bothersome urinary issues or concerns prior to placement of indwelling Bradford catheter and or hospital stay. In review of patient's chart it appears patient was started on Flomax. We discussed follow-up with in office voiding trial in 4 weeks with nursing. We discussed potential near future in office cystoscopy if patient continues to have failed voiding trials for further assessment evaluation. He discusses his ongoing issues with his left knee and believes he has arthritis. We discussed potential causes of urinary retention as well as further treatment options and risks and benefits of these treatment options. 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 High cholesterol HTN (hypertension) Surgical History History of exploratory laparotomy (05/20/24) Previous back surgery Family History Father Heart attack Mother Heart attack Social History Household Members: None Housing: Other Housing Other:: mobile home Do you presently have visiting nurse or other home services: Yes Alcohol intake: never Patient Tobacco Use Status: Never used Tobacco Advance Directives Date on File: 11/28/23 service: No Current occupational status: retired Cognitive needs: No Hearing needs: No Vision needs: Yes (rx contacts/glasses) Review of Systems Eyes Reports no additional complaints ENT Reports no additional complaints Card Reports as per HPI Resp Reports as per HPI GI Reports as per HPI Reports as per HPI Musc Reports as per HPI Neuro Reports no additional complaints Psych Reports no additional complaints Endo Reports no additional complaints Kirk/Lymph Reports no additional complaints Aller/Immun Reports no additional complaints Physical Exam Const General: cooperative, healthy appearing, comfortable, no acute distress, well developed, alert and awake Nutritional Appearance: average body habitus Orientation/consciousness: patient oriented x3 Limitations: wheelchair HEENT Head: Yes normal to inspection, Yes normocephalic and Yes atraumatic Ears: hearing grossly normal bilaterally Eyes General: appearance normal, both eyes and all related structures Neck Neck: Yes normal visual inspection and Yes trachea midline Chest Chest palpation & inspection: normal inspection of the chest Resp Effort & Inspection: normal respiratory effort and able to speak in complete sentences Cardio Rate: regular rate GI Inspection: Yes normal to inspection Other: Stoma pink and moist General: Yes no CVA tenderness Penis: normal penis and uncircumcised Meatus: meatus normal Back/Spine/Pelvis Back: no CVA tenderness Skin General skin exam: no rashes or lesions noted Neuro General: patient oriented x3 Extrem General: Yes normal to inspection Psych Appearance: grossly normal and well kempt Mental Status: mental status grossly normal Speech and movement: Normal speech and movement present and Clear speech present Affect: normal affect Attitude: cooperative Thought process: Normal thought process present Thought content: Normal thought content present Insight: Fair insight present (Psych) Judgement: Fair judgement present (Psych) Office Procedures Bladder/Catheter Procedure 27645-[id number] of Bladder Procedure code (CPT) selection complete Assessment & Plan Assessment & Plan (1) Urinary retention: Code(s): R33.9 - Retention of urine, unspecified Category: Medical Plan In office voiding trial was performed however patient unable to independently void therefore 16 Monegasque indwelling Bradford catheter was reinserted We discussed cycling bladder with catheter cap and utilizing urinary bag at HS. Continue Flomax Start finasteride We discussed potential near future in office cystoscopy for further assessment evaluation Follow-up with nursing in 4 weeks for in office voiding trial will assess when to follow-up with provider at this appointment. Orders: Orders AMB Post Void Residual by ultrasound Today R33.8 - Other retention of urine AMB Bladder/Catheter Procedure Today R33.8 - Other retention of urine Medications: New finasteride 5 mg PO DAILY 90 days 90 tabs 1RF N13.8 - Other obstructive and reflux uropathy, N40.1 - Benign prostatic hyperplasia with lower urinary tract symptoms, R33.9 - Retention of urine, unspecified Discontinued metronidazole Discontinued Reason: Patient Completed Course 500 mg PO Q8H 33 tabs 0RF levofloxacin Discontinued Reason: Patient Completed Course 500 mg PO Q24H 11 tabs 0RF Patient Instructions: The patient had an opportunity to ask questions regarding the treatment plan. All questions were answered. Physical exam, labs, and imaging were discussed and reviewed in detail. As well as risks, benefits, and discussion of treatment choices. No major barriers to understanding were identified. The patient expressed understanding and agreement with the above treatment plan. The patient was made aware they should contact our office by phone for worsening of their current condition, the appearance of new symptoms, or with any questions or concerns. Compliance is encouraged with any medications and follow up testing that is ordered. It is a privilege to be allowed the opportunity to participate in? your urological care.? Again, if you have any questions or concerns If you have any questions or concerns please do not hesitate to contact me. The office is [phone]. This note is constructed using voice recognition software. While every effort has been made to ensure accuracy manager inventory errors may have been included. Yours sincerely, Dian Herrera, MUSIC MINISTER-BC Coding Level of Care Code New Pt Level 4 (21608) Diagnoses Urinary retention R33.9 CPT Codes Bladder/Catheter Procedure - CPT: 87815-Wfuhvzutnx of Bladder ([id number])
--- OUTSIDE RECORDS SUMMARY | 2024-06-19 10:59 | XMS_ITS | Clinical Summary ---
Author Organization [address] Address [address] [place] [address] Phone Care Team Providers Care Executive Pastry Chef Name Role Phone DeanpabloDaniel NP Primary Care Provider Encounters Date Type Department Care Team Description 06/16/2024 Lab Requisition [facility] Lab [address] [place] [phone] Lesvia Gutierrez MD Perforation of intestine (nontraumatic) ([facility] V24, [facility] V28) 06/12/2024 Lab Requisition [facility] Lab [address] [place] [phone] Lesvia Gutierrez MD Anemia, unspecified; Other disorders of electrolyte and fluid balance, not elsewhere classified; Gout, unspecified 06/08/2024 Lab Requisition [facility] Lab [address] [place] [phone] Lesvia Gutierrez MD Perforation of intestine (nontraumatic) ([facility] V24, [facility] V28) 06/03/2024 Lab Requisition [facility] Lab [address] [place] [phone] Lesvia Gutierrez MD Perforation of intestine (nontraumatic) ([facility] V24, [facility] V28) from Last 3 Months Social History [...] Influencers of Health Screening 01/30/2022 COVID-19 Vaccine ( season) 2023 05/02/2020, 04/11/2020 Influenza Vaccine (Season Ended) 2024 Hypertension/CHF/CAD Annual BMP Blood Test 06/17/2025 06/17/2024, 06/12/2024, 06/10/2024, Additional history exists HIB Vaccines Aged Out No longer eligi [...] 20 months Aged Out No longer eligible based on patient's age to complete this topic Varicella Vaccines Aged Out No longer eligible based on patient's age to complete this topic Procedures Procedure Name Priority Date/Time Associated Diagnosis Comments COMPREHENSIVE METABOLIC PANEL Routine 06/17/2024 8:50 AM EDT Perforation of intestine (nontraumatic) (CMS/HCC V24, CMS/HCC V28) COMPLETE BLOOD COUNT Routine 06/17/2024 8:50 AM EDT Perforation of intestine (nontraumatic) (CMS/HCC V24, CMS/HCC V28) URIC ACID Routine 06/12/2024 9:43 AM EDT Anemia, unspecified Other disorders of electrolyte and fluid balance, not elsewhere classified Gout, unspecified BASIC METABOLIC PANEL Routine 06/12/2024 9:43 AM EDT Anemia, unspecified Other disorders of electrolyte and fluid balance, not elsewhere classified Gout, unspecified COMPLETE BLOOD COUNT Routine 06/12/2024 9:43 AM EDT Anemia, unspecified Other disorders of electrolyte and fluid balance, not elsewhere classified Gout, unspecified COMPREHENSIVE METABOLIC PANEL Routine 06/10/2024 8:19 AM EDT Perforation of intestine (nontraumatic) (CMS/HCC V24, CMS/HCC V28) COMPLETE BLOOD COUNT Routine 06/10/2024 8:19 AM EDT Perforation of intestine (nontraumatic) (CMS/HCC V24, CMS/HCC V28) COMPREHENSIVE METABOLIC PANEL Routine 06/03/2024 8:32 AM EDT Perforation of intestine (nontraumatic) COMPLETE BLOOD COUNT Routine 06/03/2024 8:32 AM EDT Perforation of intestine (nontraumatic) from Last 3 Months Results * (ABNORMAL) Complete blood count (06/17/2024 8:50 AM EDT) Only the most recent of4 resultswithin the time period is included. WBC 8.9 4.8 - 10.8 K/mcL LAB HEMETOLOGY METHOD 06/17/2024 12:51 PM EDT [facility] RBC 3.40(L) 4.50 - 5.50 M/mcL LAB HEMETOLOGY METHOD 06/17/2024 12:51 PM EDT [facility] Hemoglobin 10.3(L) 13.5 - 17.5 g/dL LAB HEMETOLOGY METHOD 06/17/2024 12:51 PM EDT [facility] Hematocrit 32.6(L) 42.0 - 54.0 % LAB HEMETOLOGY METHOD 06/17/2024 12:51 PM EDT [facility] MCV 95.0 79.0 - 98.0 FL LAB HEMETOLOGY METHOD 06/17/2024 12:51 PM EDT [facility] MCH 30.0 27.0 - 32.0 pcg LAB HEMETOLOGY METHOD 06/17/2024 12:51 PM EDT [facility] MCHC 31.6(L) 32.0 - 37.0 g/dL LAB HEMETOLOGY METHOD 06/17/2024 12:51 PM EDT [facility] RDW 14.7 11.0 - 15.0 % LAB HEMETOLOGY METHOD 06/17/2024 12:51 PM EDT [facility] Platelets 318 130 - 400 K/mcL LAB HEMETOLOGY METHOD 06/17/2024 12:51 PM EDT [facility] MPV 10.4 7.0 - 11.0 FL LAB HEMETOLOGY METHOD 06/17/2024 12:51 PM EDT [facility] NRBC 0.0 <1.0 % LAB HEMETOLOGY METHOD 06/17/2024 12:51 PM EDT [facility] NRBC Absolute 0.00 <0.10 K/mcL LAB HEMETOLOGY METHOD 06/17/2024 12:51 PM EDT [facility] Blood Venous blood specimen / Unknown Venipuncture / Unknown 06/17/2024 8:50 AM EDT 06/17/2024 11:26 AM EDT us Lesvia Gutierrez MD LAB BLOOD ORDERABLES Fin al Result [facility] [address] [place] [address], * (ABNORMAL) Comprehensive metabolic panel (06/17/2024 8:50 AM EDT) Only the most recent of3 resultswithin the time period is included. Sodium 140 133 - 145 mmol/L LAB CHEMISTRY METHOD 06/17/2024 1:11 PM [facility] Potassium 3.8 3.5 - 5.5 mmol/L LAB CHEMISTRY METHOD 06/17/2024 1:11 PM [facility] Chloride 105 96 - 110 mmol/L LAB CHEMISTRY METHOD 06/17/2024 1:11 PM [facility] CO2 28 21 - 32 mmol/L LAB CHEMISTRY METHOD 06/17/2024 1:11 PM [facility] Anion Gap 7 3 - 11 LAB CHEMISTRY METHOD 06/17/2024 1:11 PM [facility] Glucose 108(H) 70 - 100 mg/dL LAB CHEMISTRY METHOD 06/17/2024 1:11 PM [facility] BUN 18 5 - 25 mg/dL LAB CHEMISTRY METHOD 06/17/2024 1:11 PM [facility] Creatinine 0.88 0.70 - 1.30 mg/dL LAB CHEMISTR[facility] METHOD [facility]/17[facility]24 [facility] eGFR 86 >=60 mL/min/1. 73m2 LAB CHEMISTRY METHOD 06/17/2024 1:11 PM [facility] Comment:Calculation based on the??Chronic Kidney Disease Epidemiology Collaboration (CKD-EPI) equation refit??without adjustment for race. BUN/Creatinine Ratio 20.5 LAB CHEMISTRY METHOD 06/17/2024 1:11 PM [facility] Calcium 8.7 8.5 - 10.5 mg/dL LAB CHEMISTRY METHOD 06/17/2024 1:11 PM [facility] AST (SGOT) 19 10 - 42 unit/L LAB CHEMISTRY METHOD 06/17/2024 1:11 PM EDT [facility] ALT (SGPT) 27 10 - 60 unit/L LAB CHEMISTRY METHOD 06/17/2024 1:11 PM EDT [facility] Alkaline Phosphatase 74 42 - 121 unit/L LAB CHEMISTRY METHOD 06/17/2024 1:11 PM EDT [facility] Total Protein 5.7(L) 6.0 - 8.0 g/dL LAB CHEMISTRY METHOD 06/17/2024 1:11 PM EDT [facility] Albumin 2.5(L) 3.2 - 5.0 g/dL LAB CHEMISTRY METHOD 06/17/2024 1:11 PM EDT [facility] Total Bilirubin 0.2 0.0 - 1.4 mg/dL LAB CHEMISTRY METHOD 06/17/2024 1:11 PM EDT [facility] Blood Venous blood specimen / Unknown Venipuncture / Unknown 06/17/2024 8:50 AM EDT 06/17/2024 11:26 AM EDT Lesvia Gutierrez MD LAB BLOOD ORDERABLES Fin al Result Performing Organization Address [facility]/State/[facility] Co de Phone Number [facility] [address] [place] [address], * Uric acid (06/12/2024 9:43 AM EDT) Uric Acid 5.6 3.7 - 9.2 mg/dL LAB CHEMISTRY METHOD 06/12/2024 4:23 PM EDT [facility] Blood Venous blood specimen / Unknown Venipuncture / Unknown 06/12/2024 9:43 AM EDT 06/12/2024 11:23 AM EDT Lsevia Gutierrez MD LAB BLOOD ORDERABLES Fin al Result [facility] [address] [place] [address], * (ABNORMAL) Basic metabolic panel (06/12/2024 9:43 AM EDT) Sodium 136 133 - 145 mmol/L LAB CHEMISTRY METHOD 06/12/2024 4:23 PM [facility] Potassium 3.6 3.5 - 5.5 mmol/L LAB CHEMISTRY METHOD 06/12/2024 4:23 PM [facility] Chloride 101 96 - 110 mmol/L LAB CHEMISTRY METHOD 06/12/2024 4:23 PM [facility] CO2 25 21 - 32 mmol/L LAB CHEMISTRY METHOD 06/12/2024 4:23 PM [facility] Anion Gap 10 3 - 11 LAB CHEMISTRY METHOD 06/12/2024 4:23 PM [facility] Glucose 148(H) 70 - 100 mg/dL LAB CHEMISTRY METHOD 06/12/2024 4:23 PM [facility] BUN 24 5 - 25 mg/dL LAB CHEMISTRY METHOD 06/12/2024 4:23 PM [facility] Creatinine 1.15 0.70 - 1.30 mg/dL LAB CHEMISTRY METHOD 06/12/2024 4:23 PM [facility] eGFR 64 >=60 mL/min/1. 73m2 LAB CHEMISTRY METHOD 06/12/2024 4:23 PM [facility] Comment:Calculation based on the??Chronic Kidney Disease Epidemiology Collaboration (CKD-EPI) equation refit??without adjustment for race. BUN/Creatinine Ratio 20.9 LAB CHEMISTRY METHOD 06/12/2024 4:23 PM [facility] Calcium 8.3(L) 8.5 - 10.5 mg/dL LAB CHEMISTRY METHOD 06/12/2024 4:23 PM [facility] Blood Venous blood specimen / Unknown Venipuncture / Unknown 06/12/2024 9:43 AM EDT 06/12/2024 11:23 AM EDT us Lesvia Gutierrez MD LAB BLOOD ORDERABLES Fin al Result [facility] [address] [place] [address], from Last 3 Months Insurance [facility] Care Teams Executive Pastry Chef Relationship Specialty Start Date End Date Daniel Palafox NP [address] [facility] [place] PCP - General 03/05/21
--- OUTSIDE RECORDS SUMMARY | 2024-06-19 10:59 | XMS_ITS | Encounter Summary ---
Author Organization [facility] Address [id number] [place] [phone] Care Team Providers Care Agent Producer Name Role Phone Daniel Palafox NP Primary Care Provider Encounter Details Date Type Department Care Team (Late st Contact Info) Description 06/12/[address] [facility] [address] [facility] [place] [phone] Lesvia Gutierrez MD [address] [phone] Anemia, unspecified; Other disorders of electrolyte and fluid balance, not elsewhere classified; Gout, unspecified Social History Tobacco Use Types Packs/Day Years [...] Associated Diagnosis Comments COMPLETE BLOOD COUNT Routine 06/12/2024 9:43 AM EDT Anemia, unspecified Other disorders of electrolyte and fluid balance, not elsewhere classified Gout, unspecified URIC ACID Routine 06/12/2024 9:43 AM EDT Anemia, unspecified Other disorders of electrolyte and fluid balance, not elsewhere classified Gout, unspecified BASIC METABOLIC PANEL Routine 06/12/2024 9:43 AM EDT Anemia, unspecified Other disorders of electrolyte and fluid balance, not elsewhere classified Gout, unspecified documented in this encounter Results * Uric acid (06/12/2024 9:43 AM EDT) Uric Acid 5.6 3.7 - 9.2 mg/dL LAB CHEMISTRY METHOD 06/12/2024 4:23 PM EDT [facility] Blood Venous blood specimen / Unknown Venipuncture / Unknown 06/12/2024 9:43 AM EDT 06/12/2024 11:23 AM EDT us Lesvia Gutierrez MD LAB BLOOD ORDERABLES Fin al Result [facility] [address] [place] [address], * (ABNORMAL) Basic metabolic panel (06/12/2024 9:43 AM EDT) Pathologist [facility] Sodium 136 133 - 145 mmol/L LAB CHEMISTRY METHOD 06/12/2024 4:23 PM [facility] Potassium 3.6 3.5 - 5.5 mmol/L LAB CHEMISTRY METHOD 06/12/2024 4:23 PM [facility] Chloride 101 96 - 110 mmol/L LAB CHEMISTRY METHOD 06/12/2024 4:23 PM [facility] CO2 25 21 - 32 mmol/L LAB CHEMISTRY METHOD 06/12/2024 4:23 PM [facility] Anion Gap 10 3 - 11 LAB CHEMISTRY METHOD 06/12/2024 4:23 PM [facility] Glucose 148(H) 70 - 100 mg/dL LAB CHEMISTRY METHOD 06/12/2024 4:23 PM [facility] BUN 24 5 - 25 mg/dL LAB CHEMISTRY METHOD 06/12/2024 4:23 PM [facility] Creatinine 1.15 0.70 - 1.30 mg/dL LAB CHEMISTRY METHOD 06/12/2024 4:23 PM EDT [facility] eGFR 64 >=60 mL/min/1. 73m2 LAB CHEMISTRY METHOD 06/12/2024 4:23 PM EDT [facility] Comment:Calculation based on the??Chronic Kidney Disease Epidemiology Collaboration (CKD-EPI) equation refit??without adjustment for race. BUN/Creatinine Ratio 20.9 LAB CHEMISTRY METHOD 06/12/2024 4:23 PM EDT [facility] Calcium 8.3(L) 8.5 - 10.5 mg/dL LAB CHEMISTRY METHOD 06/12/2024 4:23 PM EDT [facility] Blood Venous blood specimen / Unknown Venipuncture / Unknown 06/12/2024 9:43 AM EDT 06/12/2024 11:23 AM EDT Lesvia Gutierrez MD LAB BLOOD ORDERABLES Fin al Result [facility] [address] [place] [address], * (ABNORMAL) Complete blood count (06/12/2024 9:43 AM EDT) WBC 13.1(H) 4.8 - 10.8 K/mcL LAB HEMETOLOGY METHOD 06/12/2024 12:38 PM EDT [facility] RBC 3.40(L) 4.50 - 5.50 M/mcL LAB HEMETOLOGY METHOD 06/12/2024 12:38 PM EDT [facility] Hemoglobin 10.1(L) 13.5 - 17.5 g/dL LAB HEMETOLOGY METHOD 06/12/2024 12:38 PM EDT [facility] Hematocrit 32.0(L) 42.0 - 54.0 % LAB HEMETOLOGY METHOD 06/12/2024 12:38 PM EDT [facility] MCV 94.1 79.0 - 98.0 FL LAB HEMETOLOGY METHOD 06/12/2024 12:38 PM EDT [facility] MCH 29.7 27.0 - 32.0 pcg LAB HEMETOLOGY METHOD 06/12/2024 12:38 PM EDT [facility] MCHC 31.6(L) 32.0 - 37.0 g/dL LAB HEMETOLOGY METHOD 06/12/2024 12:38 PM EDT [facility] RDW 14.6 11.0 - 15.0 % LAB HEMETOLOGY METHOD 06/12/2024 12:38 PM EDT [facility] Platelets 403(H) 130 - 400 K/mcL LAB HEMETOLOGY METHOD 06/12/2024 12:38 PM EDT [facility] MPV 10.3 7.0 - 11.0 FL LAB HEMETOLOGY METHOD 06/12/2024 12:38 PM EDT [facility] NRBC 0.0 <1.0 % LAB HEMETOLOGY METHOD 06/12/2024 12:38 PM EDT [facility] NRBC Absolute 0.00 <0.10 K/mcL LAB HEMETOLOGY METHOD 06/12/2024 12:38 PM EDT [facility] Blood Venous blood specimen / Unknown Venipuncture / Unknown 06/12/2024 9:43 AM EDT 06/12/2024 11:23 AM EDT us Lesvia Gutierrez MD LAB BLOOD ORDERABLES Fin al Result [facility] [address] [place] [address], documented in this encounter Visit Diagnoses Diagnosis Anemia, unspecified Other disorders of electrolyte and fluid balance, not elsewhere classified Gout, unspecified documented in this encounter Care Teams Agent Producer Relationship Specialty Start Date End Date Daniel Palafox NP [address] [facility] PCP - General 03/05/21 documented as of this encounter
--- OUTSIDE RECORDS SUMMARY | 2024-06-19 10:59 | XMS_ITS | Encounter Summary ---
Author Organization [facility] Address [address] [place] [phone] Care Team Providers Care Military Personnel Specialist Name Role Phone DeanedwinDaniel gay NP Primary Care Provider Encounter Details Date Type Department Care Team (Late st Contact Info) Description 06/16/2024 Lab Requisition [facility] - Main Lab [address] [facility] [place] [address] Lesvia Gutierrez MD [address] [phone] Perforation of intestine (nontraumatic) (CMS/HCC V24, CMS/HCC [...] Associated Diagnosis Comments COMPLETE BLOOD COUNT Routine 06/17/2024 8:50 AM EDT Perforation of intestine (nontraumatic) (CMS/HCC V24, CMS/HCC V28) COMPREHENSIVE METABOLIC PANEL Routine 06/17/2024 8:50 AM EDT Perforation of intestine (nontraumatic) (CMS/HCC V24, CMS/HCC V28) documented in this encounter Results * (ABNORMAL) Comprehensive metabolic panel (06/17/2024 8:50 AM EDT) Sodium 140 133 - 145 mmol/L LAB CHEMISTRY METHOD 06/17/2024 1:11 PM [facility] Potassium 3.8 3.5 - 5.5 mmol/L LAB CHEMISTRY METHOD 06/17/2024 1:11 PM [facility] Chloride 105 96 - 110 mmol/L LAB CHEMISTRY METHOD 06/17/2024 1:11 PM [facility] CO2 28 21 - 32 mmol/L LAB CHEMISTRY METHOD 06/17/2024 1:11 PM [facility] Anion Gap 7 3 - 11 LAB CHEMISTRY METHOD 06/17/2024 1:11 PM [facility] Glucose 108(H) 70 - 100 mg/dL LAB CHEMISTRY METHOD 06/17/2024 1:11 PM [facility] BUN 18 5 - 25 mg/dL LAB CHEMISTRY METHOD 06/17/2024 1:11 PM [facility] Creatinine 0.88 0.70 - 1.30 mg/dL LAB CHEMISTRY METHOD 06/17/2024 1:11 PM [facility] eGFR 86 >=60 mL/min/1. 73m2 LAB CHEMISTRY METHOD 06/17/2024 1:11 PM [facility] Comment:Calculation based on the??Chronic Kidney Disease Epidemiology Collaboration (CKD-EPI) equation refit??without adjustment for race. BUN/Creatinine Ratio 20.5 LAB CHEMISTRY METHOD 06/17/2024 1:11 PM [facility] Calcium 8.7 8.5 - 10.5 mg/dL LAB CHEMISTRY METHOD 06/17/2024 1:11 PM [facility] AST (SGOT) 19 10 - 42 unit/L LAB CHEMISTRY METHOD 06/17/2024 1:11 PM [facility] ALT (SGPT) 27 10 - 60 unit/L LAB CHEMISTRY METHOD 06/17/2024 1:11 PM [facility] Alkaline Phosphatase 74 42 - 121 unit/L LAB CHEMISTRY METHOD 06/17/2024 1:11 PM EDT [facility] Total Protein 5.7(L) 6.0 - 8.0 g/dL LAB CHEMISTRY METHOD 06/17/2024 1:11 PM EDT [facility] Albumin 2.5(L) 3.2 - 5.0 g/dL LAB CHEMISTRY METHOD 06/17/2024 1:11 PM EDT [facility] Total Bilirubin 0.2 0.0 - 1.4 mg/dL LAB CHEMISTRY METHOD 06/17/2024 1:11 PM EDT [facility] Blood Venous blood specimen / Unknown Venipuncture / Unknown 06/17/2024 8:50 AM EDT 06/17/2024 11:26 AM EDT us Lesvia Gutierrez MD LAB BLOOD ORDERABLES Fin al Result [facility] [address] [place] [address], * (ABNORMAL) Complete blood count (06/17/2024 8:50 AM EDT) WBC 8.9 4.8 - 10.8 K/mcL LAB HEMETOLOGY METHOD 06/17/2024 12:51 PM EDT [facility] RBC 3.40(L) 4.50 - 5.50 M/mcL LAB HEMETOLOGY METHOD 06/17/2024 12:51 PM EDT [facility] Hemoglobin 10.3(L) 13.5 - 17.5 g/dL LAB HEMETOLOGY METHOD 06/17/2024 12:51 PM EDT [facility] Hematocrit 32.6(L) 42.0 - 54.0 % LAB HEMETOLOGY METHOD 06/17/2024 12:51 PM EDT [facility] MCV 95.0 79.0 - 98.0 FL LAB HEMETOLOGY METHOD 06/17/2024 12:51 PM EDT [facility] MCH 30.0 27.0 - 32.0 pcg LAB HEMETOLOGY METHOD 06/17/2024 12:51 PM EDT [facility] MCHC 31.6(L) 32.0 - 37.0 g/dL LAB HEMETOLOGY METHOD 06/17/2024 12:51 PM EDT [facility] RDW 14.7 11.0 - 15.0 % LAB HEMETOLOGY METHOD 06/17/2024 12:51 PM EDT [facility] Platelets 318 130 - 400 K/mcL LAB HEMETOLOGY METHOD 06/17/2024 12:51 PM EDT [facility] MPV 10.4 7.0 - 11.0 FL LAB HEMETOLOGY METHOD 06/17/2024 12:51 PM EDT [facility] NRBC 0.0 <1.0 % LAB HEMETOLOGY METHOD 06/17/2024 12:51 PM EDT [facility] NRBC Absolute 0.00 <0.10 K/mcL LAB HEMETOLOGY METHOD 06/17/2024 12:51 PM EDT [facility] Blood Venous blood specimen / Unknown Venipuncture / Unknown 06/17/2024 8:50 AM EDT 06/17/2024 11:26 AM EDT us Lesvia Gutierrez MD LAB BLOOD ORDERABLES Fin al Result [facility] [address] [place] [address], documented in this encounter Visit Diagnoses Diagnosis Perforation of intestine (nontraumatic) (CMS/HCC V24, CMS/HCC V28) documented in this encounter Care Teams Military Personnel Specialist Relationship Specialty Start Date End Date Daniel Palafox NP 262 [facility] [place] PCP - General 03/05/21 documented as of this encounter
--- OUTSIDE RECORDS SUMMARY | 2024-06-19 10:59 | XMS_ITS | Encounter Summary ---
Author Organization [facility] Address [address] [place] [phone] Care Team Providers Care Hypoid Gear Generator Name Role Phone DeanedwinDaniel gay NP Primary Care Provider Encounter Details Date Type Department Care Team (Late st Contact Info) Description 06/08/2024 Lab Requisition [facility] - Main Lab 299 [facility] [place] [address] Lesvia Gutierrez MD [address] [phone] Perforation of intestine (nontraumatic) (CMS/HCC V24, CMS/HCC [...] mmol/L LAB CHEMISTRY METHOD 06/10/2024 11:51 AM [facility] Potassium 4.0 3.5 - 5.5 mmol/L LAB CHEMISTRY METHOD 06/10/2024 11:51 AM [facility] Chloride 102 96 - 110 mmol/L LAB CHEMISTRY METHOD 06/10/2024 11:51 AM [facility] CO2 23 21 - 32 mmol/L LAB CHEMISTRY METHOD 06/10/2024 11:51 AM [facility] Anion Gap 9 3 - 11 LAB CHEMISTRY METHOD 06/10/2024 11:51 AM [facility] Glucose 79 70 - 100 mg/dL LAB CHEMISTRY METHOD 06/10/2024 11:51 AM [facility] BUN 22 5 - 25 mg/dL LAB CHEMISTRY METHOD 06/10/2024 11:51 AM [facility] Creatinine 0.90 0.70 - 1.30 mg/dL LAB CHEMISTRY METHOD 06/10/2024 11:51 AM [facility] eGFR 85 >=60 mL/min/1. 73m2 LAB CHEMISTRY METHOD 06/10/2024 11:51 AM [facility] Comment:Calculation based on the??Chronic Kidney Disease Epidemiology Collaboration (CKD-EPI) equation refit??without adjustment for race. BUN/Creatinine Ratio 24.4 LAB CHEMISTRY METHOD 06/10/2024 11:51 AM [facility] Calcium 8.5 8.5 - 10.5 mg/dL LAB CHEMISTRY METHOD 06/10/2024 11:51 AM [facility] AST (SGOT) 27 10 - 42 unit/L LAB CHEMISTRY METHOD 06/10/2024 11:51 AM [facility] ALT (SGPT) 24 10 - 60 unit/L LAB CHEMISTRY METHOD 06/10/2024 11:51 AM [facility] Alkaline Phosphatase 76 42 - 121 unit/L LAB CHEMISTRY METHOD 06/10/2024 11:51 AM EDT [facility] Total Protein 5.6(L) 6.0 - 8.0 g/dL LAB CHEMISTRY METHOD 06/10/2024 11:51 AM [facility] Albumin 2.5(L) 3.2 - 5.0 g/dL LAB CHEMISTRY METHOD 06/10/2024 11:51 AM [facility] Total Bilirubin 0.3 0.0 - 1.4 mg/dL LAB CHEMISTRY METHOD 06/10/2024 11:51 AM [facility] Blood Venous blood specimen / Unknown Venipuncture / Unknown 06/10/2024 8:19 AM EDT 06/10/2024 10:45 AM EDT Lesvia Gutierrez MD LAB BLOOD ORDERABLES Fin al Result [facility] [address] [place] [address], * (ABNORMAL) Complete blood count (06/10/2024 8:19 AM EDT) WBC 13.7(H) 4.8 - 10.8 K/mcL LAB HEMETOLOGY METHOD 06/10/2024 11:16 AM T [facility] RBC 3.30(L) 4.50 - 5.50 M/mcL LAB HEMETOLOGY METHOD 06/10/2024 11:16 AM [facility] Hemoglobin 10.2(L) 13.5 - 17.5 g/dL LAB HEMETOLOGY METHOD 06/10/2024 11:16 AM [facility] Hematocrit 30.4(L) 42.0 - 54.0 % LAB HEMETOLOGY METHOD 06/10/2024 11:16 AM EDT [facility] MCV 91.8 79.0 - 98.0 FL LAB HEMETOLOGY METHOD 06/10/2024 11:16 AM EDT [facility] MCH 30.8 27.0 - 32.0 pcg LAB HEMETOLOGY METHOD 06/10/2024 11:16 AM EDT [facility] MCHC 33.6 32.0 - 37.0 g/dL LAB HEMETOLOGY METHOD 06/10/2024 11:16 AM EDT [facility] RDW 14.2 11.0 - 15.0 % LAB HEMETOLOGY METHOD 06/10/2024 11:16 AM EDT [facility] Platelets 395 130 - 400 K/mcL LAB HEMETOLOGY METHOD 06/10/2024 11:16 AM EDT [facility] MPV 10.5 7.0 - 11.0 FL LAB HEMETOLOGY METHOD 06/10/2024 11:16 AM EDT [facility] NRBC 0.0 <1.0 % LAB HEMETOLOGY METHOD 06/10/2024 11:16 AM EDT [facility] NRBC Absolute 0.00 <0.10 K/mcL LAB HEMETOLOGY METHOD 06/10/2024 11:16 AM [facility] Blood Venous blood specimen / Unknown Venipuncture / Unknown 06/10/2024 8:19 AM EDT 06/10/2024 10:45 AM EDT us Lesvia Gutierrez MD LAB BLOOD ORDERABLES Fin al Result [facility] [address] [place] [address], documented in this encounter Visit Diagnoses Diagnosis Perforation of intestine (nontraumatic) (CMS/HCC V24, CMS/HCC V28) documented in this encounter Care Teams Hypoid Gear Generator Relationship Specialty Start Date End Date Daniel Palafox NP 262 [facility] [place], [place] PCP - General 03/05/21 documented as of this encounter
--- OUTSIDE RECORDS SUMMARY | 2024-06-19 10:59 | XMS_ITS | Clinical Summary ---
Author Organization [facility] Address 100 [facility] [address] [place] [address] Phone Care Team Providers Care Product Safety Compliance Leader Name Role Phone Wyatt Parada MD Primary Care Provider [phone] Allergies No known active allergies Medications lisinopril-hydro [...] age to complete this topic Insurance Lot [address] [place] [address] Care Teams Product Safety Compliance Leader Relationship Specialty Start Date End Date Wyatt Parada MD [address] [place] PCP - General Internal Medicine 06/07/23
--- OUTSIDE RECORDS SUMMARY | 2024-06-19 10:59 | XMS_ITS | Encounter Summary ---
Author Organization [facility] Address [address] [place] [phone] Care Team Providers Care Public Health Educator Name Role Phone DeanpabloDaniel NP Primary Care Provider Encounter Details Date Type Department Care Team (Late st Contact Info) Description 06/03/2024 Lab Requisition [facility] - Main Lab 299 [facility] [place] [address] Lesvia Gutierrez MD [address] [phone] Perforation of intestine (nontraumatic) (CMS/HCC V24, CMS/HCC [...] mmol/L LAB CHEMISTRY METHOD 06/03/2024 1:08 PM [facility] Potassium 4.4 3.5 - 5.5 mmol/L LAB CHEMISTRY METHOD 06/03/2024 1:08 PM [facility] Chloride 105 96 - 110 mmol/L LAB CHEMISTRY METHOD 06/03/2024 1:08 PM [facility] CO2 23 21 - 32 mmol/L LAB CHEMISTRY METHOD 06/03/2024 1:08 PM [facility] Anion Gap 9 3 - 11 LAB CHEMISTRY METHOD 06/03/2024 1:08 PM [facility] Glucose 103(H) 70 - 100 mg/dL LAB CHEMISTRY METHOD 06/03/2024 1:08 PM [facility] BUN 35(H) 5 - 25 mg/dL LAB CHEMISTRY METHOD 06/03/2024 1:08 PM [facility] Creatinine 1.22 0.70 - 1.30 mg/dL LAB CHEMISTRY METHOD 06/03/2024 1:08 PM [facility] eGFR 59(L) >=60 mL/min/1. 73m2 LAB CHEMISTRY METHOD 06/03/2024 1:08 PM [facility] Comment:Calculation based on the??Chronic Kidney Disease Epidemiology Collaboration (CKD-EPI) equation refit??without adjustment for race. BUN/Creatinine Ratio 28.7 LAB CHEMISTRY METHOD 06/03/2024 1:08 PM [facility] Calcium 9.1 8.5 - 10.5 mg/dL LAB CHEMISTRY METHOD 06/03/2024 1:08 PM [facility] AST (SGOT) 22 10 - 42 unit/L LAB CHEMISTRY METHOD 06/03/2024 1:08 PM [facility] ALT (SGPT) 28 10 - 60 unit/L LAB CHEMISTRY METHOD 06/03/2024 1:08 PM [facility] Alkaline Phosphatase 103 42 - 121 unit/L LAB CHEMISTRY METHOD 06/03/2024 1:[address] [facility] Total Protein 5.9(L) 6.0 - 8.0 g/dL LAB CHEMISTRY METHOD 06/03/2024 1:[address] [facility] Albumin 2.6(L) 3.2 - 5.0 g/dL LAB CHEMISTRY METHOD 06/03/2024 1:[address] [facility] Total Bilirubin 0.5 0.0 - 1.4 mg/dL LAB CHEMISTRY METHOD 06/03/2024 1:[address] [facility] Blood Venous blood specimen / Unknown Venipuncture / Unknown 06/03/2024 8:32 AM EDT 06/03/2024 10:48 AM EDT us Lesvia Gutierrez MD LAB BLOOD ORDERABLES Fin al Result [facility] [address] [place] [address], * (ABNORMAL) Complete blood count (06/03/2024 8:32 AM EDT) WBC 14.5(H) 4.8 - 10.8 K/mcL LAB HEMETOLOGY METHOD 06/03/2024 12:51 PM [facility] RBC 3.40(L) 4.50 - 5.50 M/mcL LAB HEMETOLOGY METHOD 06/03/2024 12:[address] [facility] Hemoglobin 10.4(L) 13.5 - 17.5 g/dL LAB HEMETOLOGY METHOD [facility]03[facility]24 [facility] Hematocrit 31.6(L) 42.0 - 54.0 % LAB HEMETOLOGY METHOD 06/03/2024 12:[address] [facility] MCV 94.3 79.0 - 98.0 FL LAB HEMETOLOGY METHOD 06/03/2024 12:[address] [facility] MCH 31.0 27.0 - 32.0 pcg LAB HEMETOLOGY METHOD 06/03/2024 12:[address] [facility] MCHC 32.9 32.0 - 37.0 g/dL LAB HEMETOLOGY METHOD 06/03/2024 12:[address] [facility] RDW 14.3 11.0 - 15.0 % LAB HEMETOLOGY METHOD 06/03/2024 12:[address] [facility] Platelets 528(H) 130 - 400 K/mcL LAB HEMETOLOGY METHOD 06/03/2024 12:[address] [facility] MPV 10.5 7.0 - 11.0 FL LAB HEMETOLOGY METHOD 06/03/2024 12:[address] [facility] NRBC 0.0 <1.0 % LAB HEMETOLOGY METHOD 06/03/2024 12:[address] [facility] NRBC Absolute 0.00 <0.10 K/mcL LAB HEMETOLOGY METHOD 06/03/2024 12:[address] [facility] Blood Venous blood specimen / Unknown Venipuncture / Unknown 06/03/2024 8:32 AM EDT 06/03/2024 10:48 AM EDT us Lesvia Gutierrez MD LAB BLOOD ORDERABLES Fin al Result [facility] [address] [place] [address], documented in this encounter Visit Diagnoses Diagnosis Perforation of intestine (nontraumatic) (CMS/HCC V24, CMS/HCC V28) documented in this encounter Care Teams Public Health Educator Relationship Specialty Start Date End Date Daniel Palafox NP [address] [place] [phone] (Work) PCP - General 03/05/21 documented as of this encounter
== END 2024-06-19 11:06 | disposition home or self-care (01) ==
LOC: HO.HUSH 09:44
PROVIDERS: PCP Internal Medicine; Visit Provider Nurse Practitioner Family
DX: R33.9 Retention of urine, unspecified (principal)
CPT/HCPCS: 51700; 99204

== ENCOUNTER → 2024-06-19 09:43 | Outpatient (BNVA) | payer MEDICARE, SELFPAY | PROVIDERS: PCP Internal Medicine; Visit Provider Nurse Practitioner Family | DX: E78.00 Pure hypercholesterolemia, unspecified (principal); I12.9 Hypertensive chronic kidney disease with stage 1 through stage 4 chronic kidney disease, or unspecified chronic kidney disease; N18.30 Chronic kidney disease, stage 3 unspecified; N40.1 Benign prostatic hyperplasia with lower urinary tract symptoms; R33.8 Other retention of urine; N13.8 Other obstructive and reflux uropathy | CPT/HCPCS: 51700; 99202 ==

== ENCOUNTER 2024-06-21 09:13 | Outpatient (AMB) | payer MEDICARE, SELFPAY ==
--- OUTSIDE RECORDS SUMMARY | 2024-06-21 09:25 | XMS_ITS | Encounter Summary ---
Author Organization [facility] Address [address] [place] [phone] Care Team Providers Care Veterinary Radiologist Name Role Phone DeanedwinDaniel gay NP Primary Care Provider [phone] Encounter Details Date Type Department Care Team (Late st Contact Info) Description 06/08/2024 Lab Requisition [facility] - Main Lab 299 [facility] [place] [address] Lesvia Gutierrez MD [address] [phone] Perforation of intestine (nontraumatic) (CMS/HCC V24, CMS/HCC [...] mmol/L LAB CHEMISTRY METHOD 06/10/2024 11:51 AM [facility] Potassium 4.0 3.5 - 5.5 mmol/L LAB CHEMISTRY METHOD 06/10/2024 11:51 AM [facility] Chloride 102 96 - 110 mmol/L LAB CHEMISTRY METHOD 06/10/2024 11:51 AM [facility] CO2 23 21 - 32 mmol/L LAB CHEMISTRY METHOD 06/10/2024 11:51 AM [facility] Anion Gap 9 3 - 11 LAB CHEMISTRY METHOD 06/10/2024 11:51 AM [facility] Glucose 79 70 - 100 mg/dL LAB CHEMISTRY METHOD 06/10/2024 11:51 AM [facility] BUN 22 5 - 25 mg/dL LAB CHEMISTRY METHOD 06/10/2024 11:51 AM [facility] Creatinine 0.90 0.70 - 1.30 mg/dL LAB CHEMISTRY METHOD 06/10/2024 11:51 AM [facility] eGFR 85 >=60 mL/min/1. 73m2 LAB CHEMISTRY METHOD 06/10/2024 11:51 AM [facility] Comment:Calculation based on the??Chronic Kidney Disease Epidemiology Collaboration (CKD-EPI) equation refit??without adjustment for race. BUN/Creatinine Ratio 24.4 LAB CHEMISTRY METHOD 06/10/2024 11:51 AM [facility] Calcium 8.5 8.5 - 10.5 mg/dL LAB CHEMISTRY METHOD 06/10/2024 11:51 AM [facility] AST (SGOT) 27 10 - 42 unit/L LAB CHEMISTRY METHOD 06/10/2024 11:51 AM [facility] ALT (SGPT) 24 10 - 60 unit/L LAB CHEMISTRY METHOD 06/10/2024 11:51 AM [facility] Alkaline Phosphatase 76 42 - 121 unit/L LAB CHEMISTRY METHOD 06/10/2024 11:51 AM EDT [facility] Total Protein 5.6(L) 6.0 - 8.0 g/dL LAB CHEMISTRY METHOD 06/10/2024 11:51 AM [facility] Albumin 2.5(L) 3.2 - 5.0 g/dL LAB CHEMISTRY METHOD 06/10/2024 11:51 AM [facility] Total Bilirubin 0.3 0.0 - 1.4 mg/dL LAB CHEMISTRY METHOD 06/10/2024 11:51 AM [facility] Blood Venous blood specimen / Unknown Venipuncture / Unknown 06/10/2024 8:19 AM EDT 06/10/2024 10:45 AM EDT Lesvia Gutierrez MD LAB BLOOD ORDERABLES Fin al Result [facility] [address] [place] [address], * (ABNORMAL) Complete blood count (06/10/2024 8:19 AM EDT) WBC 13.7(H) 4.8 - 10.8 K/mcL LAB HEMETOLOGY METHOD 06/10/2024 11:16 AM T [facility] RBC 3.30(L) 4.50 - 5.50 M/mcL LAB HEMETOLOGY METHOD 06/10/2024 11:16 AM [facility] Hemoglobin 10.2(L) 13.5 - 17.5 g/dL LAB HEMETOLOGY METHOD 06/10/2024 11:16 AM [facility] Hematocrit 30.4(L) 42.0 - [...] K/mcL LAB HEMETOLOGY METHOD 06/10/2024 11:16 AM [facility] Blood Venous blood specimen / Unknown Venipuncture / Unknown 06/10/2024 8:19 AM EDT 06/10/2024 10:45 AM EDT us Lesvia Gutierrez MD LAB BLOOD ORDERABLES Fin al Result [facility] [address] [place] [address], documented in this encounter Visit Diagnoses Diagnosis Perforation of intestine (nontraumatic) (CMS/HCC V24, CMS/HCC V28) documented in this encounter Care Teams Veterinary Radiologist Relationship Specialty Start Date End Date Daniel Palafox NP 262 [facility] [place], [place] PCP - General 03/05/21 documented as of this encounter
--- OUTSIDE RECORDS SUMMARY | 2024-06-21 09:25 | XMS_ITS | Clinical Summary ---
Author Organization [facility] Address [address] [facility] [address] [place] [address] Phone Care Team Providers Care Criminalist Name Role Phone Wyatt Parada MD Primary Care Provider Allergies No known active allergies Medications lisinopril-hydro [...] age to complete this topic Insurance Lot [address] [place] [address] Care Teams Criminalist Relationship Specialty Start Date End Date Wyatt Parada MD [address] [place] PCP - General Internal Medicine 06/07/23
--- OUTSIDE RECORDS SUMMARY | 2024-06-21 09:25 | XMS_ITS | Clinical Summary ---
Author Organization [address] Address [address] [place] [address] Phone Care Team Providers Care Entertainment Lawyer Name Role Phone DeanpabloDaniel NP Primary Care Provider Encounters Date Type Department Care Team Description 06/16/2024 Lab Requisition [facility] Lab [address] [place] [phone] Lesvia Gutierrez MD Perforation of intestine (nontraumatic) ([facility] V24, [facility] V28) 06/12/2024 Lab Requisition [facility] Lab [address] [place] [phone] Lesvia Gutierrez MD Anemia, unspecified; Other disorders of electrolyte and fluid balance, not elsewhere classified; Gout, unspecified 06/08/2024 Lab Requisition [facility] Lab [address] [place] [phone] Lesvia Gutierrez MD Perforation of intestine (nontraumatic) ([facility] V24, [facility] V28) 06/03/2024 Lab Requisition [facility] Lab [address] [place] [phone] Lesvia Gutierrez MD Perforation of intestine (nontraumatic) ([facility] V24, [facility] V28) from Last 3 Months Social History [...] al Result [facility] [address] [place] [address], * (ABNORMAL) Comprehensive metabolic panel (06/17/2024 8:50 AM EDT) Only the most recent of3 resultswithin the time period is included. Sodium 140 133 - 145 mmol/L LAB CHEMISTRY METHOD 06/17/2024 1:11 PM [facility] Potassium 3.8 3.5 - 5.5 mmol/L LAB CHEMISTRY METHOD 06/17/2024 1:11 PM [facility] Chloride 105 96 - 110 mmol/L LAB CHEMISTRY METHOD 06/17/2024 1:11 PM [facility] CO2 28 21 - 32 mmol/L LAB CHEMISTRY METHOD 06/17/2024 1:11 PM [facility] Anion Gap 7 3 - 11 LAB CHEMISTRY METHOD 06/17/2024 1:11 PM [facility] Glucose 108(H) 70 - 100 mg/dL LAB CHEMISTRY METHOD 06/17/2024 1:11 PM [facility] BUN 18 5 - 25 mg/dL LAB CHEMISTRY METHOD 06/17/2024 1:11 PM [facility] Creatinine 0.88 0.70 - 1.30 mg/dL LAB CHEMISTRY METHOD [facility]24 [facility] eGFR 86 >=60 mL/min/1. 73m2 LAB CHEMISTRY METHOD 06/17/2024 1:11 PM [facility] Comment:Calculation based on the??Chronic Kidney Disease Epidemiology Collaboration (CKD-EPI) equation refit??without adjustment for race. BUN/Creatinine Ratio 20.5 LAB CHEMISTRY METHOD 06/17/2024 1:11 PM [facility] Calcium 8.7 8.5 - 10.5 mg/dL LAB CHEMISTRY METHOD 06/17/2024 1:11 PM [facility] AST (SGOT) 19 10 - 42 unit/L LAB CHEMISTRY METHOD 06/17/2024 1:11 PM EDT [facility] ALT (SGPT) 27 10 - 60 unit/L LAB CHEMISTRY METHOD 06/17/2024 1:11 PM EDT [facility] Alkaline Phosphatase 74 42 - 121 [...] ORDERABLES Fin al Result Performing Organization Address [facility]/State/[facility] Co de Phone Number [facility] [address] [place] [address], * Uric acid (06/12/2024 9:43 AM EDT) Uric Acid 5.6 3.7 - 9.2 mg/dL LAB CHEMISTRY METHOD 06/12/2024 4:23 PM EDT [facility] Blood Venous blood specimen / Unknown Venipuncture / Unknown 06/12/2024 9:43 AM EDT 06/12/2024 11:23 AM EDT Lesvia Gutierrez MD LAB BLOOD ORDERABLES Fin al Result [facility] [address] [place] [address], * (ABNORMAL) Basic metabolic panel (06/12/2024 9:43 AM EDT) Sodium 136 133 - 145 mmol/L LAB CHEMISTRY METHOD 06/12/2024 4:23 PM [facility] Potassium 3.6 3.5 - 5.5 mmol/L LAB CHEMISTRY METHOD 06/12/2024 4:23 PM [facility] Chloride 101 96 - 110 mmol/L LAB CHEMISTRY METHOD 06/12/2024 4:23 PM [facility] CO2 25 21 - 32 mmol/L LAB CHEMISTRY METHOD 06/12/2024 4:23 PM [facility] Anion Gap 10 3 - 11 LAB CHEMISTRY METHOD 06/12/2024 4:23 PM [facility] Glucose 148(H) 70 - 100 mg/dL LAB CHEMISTRY METHOD 06/12/2024 4:23 PM [facility] BUN 24 5 - 25 mg/dL LAB CHEMISTRY METHOD 06/12/2024 4:23 PM [facility] Creatinine 1.15 0.70 - 1.30 mg/dL LAB CHEMISTRY METHOD 06/12/2024 4:23 PM [facility] eGFR 64 >=60 mL/min/1. 73m2 LAB CHEMISTRY METHOD 06/12/2024 4:23 PM [facility] Comment:Calculation based on the??Chronic Kidney Disease Epidemiology Collaboration (CKD-EPI) equation refit??without adjustment for race. BUN/Creatinine Ratio 20.9 LAB CHEMISTRY METHOD 06/12/2024 4:23 PM [facility] Calcium 8.3(L) 8.5 - 10.5 mg/dL LAB CHEMISTRY METHOD 06/12/2024 4:23 PM [facility] Blood Venous blood specimen / Unknown Venipuncture / Unknown 06/12/2024 9:43 AM EDT 06/12/2024 11:23 AM EDT us Lesvia Gutierrez MD LAB BLOOD ORDERABLES Fin al Result [facility] ([facility]) [facility] [address] [place] [address], from Last 3 Months Insurance [facility] Care Teams Entertainment Lawyer Relationship Specialty Start Date End Date Daniel Palafox NP [address] [facility] [place] PCP - General 03/05/21
--- OUTSIDE RECORDS SUMMARY | 2024-06-21 09:25 | XMS_ITS | Encounter Summary ---
Author Organization [facility] Address [address] [place] [phone] Care Team Providers Care Plant Pathologist Name Role Phone DeanedwinDaniel gay NP Primary Care Provider Encounter Details Date Type Department Care Team (Late st Contact Info) Description 06/16/2024 Lab Requisition [facility] Lab [address] [facility] [place] [phone] Lesvia Gutierrez MD [address] [phone] Perforation of intestine (nontraumatic) (CMS/HCC V24, CMS/HCC [...] mmol/L LAB CHEMISTRY METHOD 06/17/2024 1:11 PM [facility] Potassium 3.8 3.5 - 5.5 mmol/L LAB CHEMISTRY METHOD 06/17/2024 1:11 PM [facility] Chloride 105 96 - 110 mmol/L LAB CHEMISTRY METHOD 06/17/2024 1:11 PM [facility] CO2 28 21 - 32 mmol/L LAB CHEMISTRY METHOD 06/17/2024 1:11 PM [facility] Anion Gap 7 3 - 11 LAB CHEMISTRY METHOD 06/17/2024 1:11 PM [facility] Glucose 108(H) 70 - 100 mg/dL LAB CHEMISTRY METHOD 06/17/2024 1:11 PM [facility] BUN 18 5 - 25 mg/dL LAB CHEMISTRY METHOD 06/17/2024 1:11 PM [facility] Creatinine 0.88 0.70 - 1.30 mg/dL LAB CHEMISTRY METHOD 06/17/2024 1:11 PM [facility] eGFR 86 >=60 mL/min/1. 73m2 LAB CHEMISTRY METHOD 06/17/2024 1:11 PM [facility] Comment:Calculation based on the??Chronic Kidney Disease Epidemiology Collaboration (CKD-EPI) equation refit??without adjustment for race. BUN/Creatinine Ratio 20.5 LAB CHEMISTRY METHOD 06/17/2024 1:11 PM [facility] Calcium 8.7 8.5 - 10.5 mg/dL LAB CHEMISTRY METHOD 06/17/2024 1:11 PM [facility] AST (SGOT) 19 10 - 42 unit/L LAB CHEMISTRY METHOD 06/17/2024 1:11 PM [facility] ALT (SGPT) 27 10 - 60 unit/L LAB CHEMISTRY METHOD 06/17/2024 1:11 PM [facility] Alkaline Phosphatase 74 42 - [...] al Result [facility] [address] [place] [address], * (ABNORMAL) Complete blood count (06/17/2024 8:50 [...] al Result [facility] [address] [place] [address], documented in this encounter Visit Diagnoses Diagnosis Perforation of intestine (nontraumatic) (CMS/HCC V24, CMS/HCC V28) documented in this encounter Care Teams Plant Pathologist Relationship Specialty Start Date End Date Daniel Palafox NP 262 [facility] [place] PCP - General 03/05/21 documented as of this encounter
--- OUTSIDE RECORDS SUMMARY | 2024-06-21 09:25 | XMS_ITS | Encounter Summary ---
Author Organization [facility] Address [address] [place] [phone] Care Team Providers Care Pick And Shovel Worker Name Role Phone Deanpalbo Shlomo NP Primary Care Provider [phone] Encounter Details Date Type Department Care Team (Late st Contact Info) Description 06/03/2024 Lab Requisition [facility] - Main Lab [address] [facility] [place] [address] Lesvia Gutierrez MD [address] [phone] Perforation of intestine (nontraumatic) (CMS/HCC V24, CMS/HCC [...] LAB CHEMISTRY METHOD 06/03/2024 1:08 PM EDT [facility] Total Protein 5.9(L) 6.0 - 8.0 g/dL LAB CHEMISTRY METHOD 06/03/2024 1:08 PM EDT [facility] Albumin 2.6(L) 3.2 - 5.0 g/dL LAB CHEMISTRY METHOD 06/03/2024 1:08 PM EDT [facility] Total Bilirubin 0.5 0.0 - 1.4 mg/dL LAB CHEMISTRY METHOD 06/03/2024 1:08 PM EDT [facility] Blood Venous blood specimen / Unknown Venipuncture / Unknown 06/03/2024 8:32 AM EDT 06/03/2024 10:48 AM EDT us Lesvia Gutierrez MD LAB BLOOD ORDERABLES Fin al Result [facility] [address] [place] [address], * (ABNORMAL) Complete blood count (06/03/2024 8:32 AM EDT) WBC 14.5(H) 4.8 - 10.8 K/mcL LAB HEMETOLOGY METHOD 06/03/2024 12:51 PM [facility] RBC 3.40(L) 4.50 - 5.50 M/mcL LAB HEMETOLOGY METHOD 06/03/2024 12:51 PM EDT [facility] Hemoglobin 10.4(L) 13.5 - 17.5 g/dL LAB HEMETOLOGY METHOD [facility]24 [facility] Hematocrit 31.6(L) 42.0 - 54.0 % LAB HEMETOLOGY METHOD 06/03/2024 12:51 PM EDT [facility] MCV 94.3 79.0 - 98.0 FL LAB HEMETOLOGY METHOD 06/03/2024 12:51 PM EDT [facility] MCH 31.0 27.0 - 32.0 pcg LAB HEMETOLOGY METHOD 06/03/2024 12:51 PM EDT [facility] MCHC 32.9 32.0 - 37.0 g/dL LAB HEMETOLOGY METHOD 06/03/2024 12:51 PM EDT [facility] RDW 14.3 11.0 - 15.0 % LAB HEMETOLOGY METHOD 06/03/2024 12:51 PM EDT [facility] Platelets 528(H) 130 - 400 K/mcL LAB HEMETOLOGY METHOD 06/03/2024 12:51 PM EDT [facility] MPV 10.5 7.0 - 11.0 FL LAB HEMETOLOGY METHOD 06/03/2024 12:51 PM EDT [facility] NRBC 0.0 <1.0 % LAB HEMETOLOGY METHOD 06/03/2024 12:51 PM EDT [facility] NRBC Absolute 0.00 <0.10 K/mcL LAB HEMETOLOGY METHOD 06/03/2024 12:51 PM EDT [facility] Blood Venous blood specimen / Unknown Venipuncture / Unknown 06/03/2024 8:32 AM EDT 06/03/2024 10:48 AM EDT us Lesvia Gutierrez MD LAB BLOOD ORDERABLES Fin al Result [facility] [address] [place] [address], documented in this encounter Visit Diagnoses Diagnosis Perforation of intestine (nontraumatic) (CMS/HCC V24, CMS/HCC V28) documented in this encounter Care Teams Pick And Shovel Worker Relationship Specialty Start Date End Date Daniel Palafox NP [address] [place] [phone] (Work) PCP - General 03/05/21 documented as of this encounter
--- OUTSIDE RECORDS SUMMARY | 2024-06-21 09:25 | XMS_ITS | Encounter Summary ---
Author Organization [facility] Address [address] [place] [phone] Care Team Providers Care Medical Reimbursement Specialist Name Role Phone Daniel Palafox NP Primary Care Provider Encounter Details Date Type Department Care Team (Late st Contact Info) Description 06/12/2024 Lab Requisition [facility] - Main Lab 299 [facility] [place] [address] Lesvia Gutierrez MD [address] [phone] Anemia, unspecified; Other disorders of electrolyte and [...] LAB CHEMISTRY METHOD 06/12/2024 4:23 PM EDT [facility] Blood Venous blood specimen / Unknown Venipuncture / Unknown 06/12/2024 9:43 AM EDT 06/12/2024 11:23 AM EDT us Lesvia Gutierrez MD LAB BLOOD ORDERABLES Fin al Result [facility] [address] [place] [address], * (ABNORMAL) Basic metabolic panel (06/12/2024 9:43 AM EDT) Pathologist [facility] Sodium 136 133 - 145 mmol/L LAB CHEMISTRY METHOD 06/12/2024 4:23 PM [facility] Potassium 3.6 3.5 - 5.5 mmol/L LAB CHEMISTRY METHOD 06/12/2024 4:23 PM [facility] Chloride 101 96 - 110 mmol/L LAB CHEMISTRY METHOD 06/12/2024 4:23 PM [facility] CO2 25 21 - 32 mmol/L LAB CHEMISTRY METHOD 06/12/2024 4:23 PM [facility] Anion Gap 10 3 - 11 LAB CHEMISTRY METHOD 06/12/2024 4:23 PM [facility] Glucose 148(H) 70 - 100 mg/dL LAB CHEMISTRY METHOD 06/12/2024 4:23 PM [facility] BUN 24 5 - 25 mg/dL LAB CHEMISTRY METHOD 06/12/2024 4:23 PM [facility] Creatinine 1.15 0.70 - 1.30 mg/dL LAB CHEMISTRY METHOD 06/12/2024 4:23 PM EDT [facility] eGFR 64 >=60 mL/min/1. 73m2 LAB CHEMISTRY METHOD 06/12/2024 4:23 PM EDT [facility] Comment:Calculation based on the??Chronic Kidney Disease Epidemiology Collaboration (CKD-EPI) equation refit??without adjustment for race. BUN/Creatinine Ratio 20.9 LAB CHEMISTRY METHOD 06/12/2024 4:23 PM EDT [facility] Calcium 8.3(L) 8.5 - 10.5 mg/dL LAB CHEMISTRY METHOD 06/12/2024 4:23 PM EDT [facility] Blood Venous blood specimen / Unknown Venipuncture / Unknown 06/12/2024 9:43 AM EDT 06/12/2024 11:23 AM EDT Lesvia Gutierrez MD LAB BLOOD ORDERABLES Fin al Result [facility] [address] [place] [address], * (ABNORMAL) Complete blood count (06/12/2024 9:43 AM EDT) WBC 13.1(H) 4.8 - 10.8 K/mcL LAB HEMETOLOGY METHOD 06/12/2024 12:38 PM EDT [facility] RBC 3.40(L) 4.50 - 5.50 M/mcL LAB HEMETOLOGY METHOD 06/12/2024 12:38 PM EDT [facility] Hemoglobin 10.1(L) 13.5 - 17.5 g/dL LAB HEMETOLOGY METHOD 06/12/2024 12:38 PM EDT [facility] Hematocrit 32.0(L) 42.0 - 54.0 % LAB HEMETOLOGY METHOD 06/12/2024 12:38 PM EDT [facility] MCV 94.1 79.0 - 98.0 FL LAB HEMETOLOGY METHOD 06/12/2024 12:38 PM EDT [facility] MCH 29.7 27.0 - 32.0 pcg LAB HEMETOLOGY METHOD 06/12/2024 12:38 PM EDT [facility] MCHC 31.6(L) 32.0 - 37.0 g/dL LAB HEMETOLOGY METHOD 06/12/2024 12:38 PM EDT [facility] RDW 14.6 11.0 - 15.0 % LAB HEMETOLOGY METHOD 06/12/2024 12:38 PM EDT [facility] Platelets 403(H) 130 - 400 K/mcL LAB HEMETOLOGY METHOD 06/12/2024 12:38 PM EDT [facility] MPV 10.3 7.0 - 11.0 FL LAB HEMETOLOGY METHOD 06/12/2024 12:38 PM EDT [facility] NRBC 0.0 <1.0 % LAB HEMETOLOGY METHOD 06/12/2024 12:38 PM EDT [facility] NRBC Absolute 0.00 <0.10 K/mcL LAB HEMETOLOGY METHOD 06/12/2024 12:38 PM EDT [facility] Blood Venous blood specimen / Unknown Venipuncture / Unknown 06/12/2024 9:43 AM EDT 06/12/2024 11:23 AM EDT us Lesvia Gutierrez MD LAB BLOOD ORDERABLES Fin al Result [facility] [address] [place] [address], documented in this encounter Visit Diagnoses Diagnosis Anemia, unspecified Other disorders of electrolyte and fluid balance, not elsewhere classified Gout, unspecified documented in this encounter Care Teams Medical Reimbursement Specialist Relationship Specialty Start Date End Date Daniel Palafox NP 262 [facility] [place] PCP - General 03/05/21 documented as of this encounter
--- NOTE | 2024-06-21 09:44 | HO.NEPHOV_ITS ---
Vital Signs 06/21/24 09:48 Height 5 ft 1 in Weight 104 lb BMI 19.6 BP 130/50 L Blood Pressure Location Rt brachial Position Sitting Pulse 72 Pulse Source Pulse Oximeter Pulse Oximetry (%) 92 Oxygen Delivery Method Room Air Intake Visit Reasons: 1 MO FU-LVM Allergies No Known Allergies [No Known Allergies*] Allergy (Verified 06/21/24 09:47) HPI Comments Details: Oliver was seen in F/U for CKD as well as hypertension. He is a 83-year-old male patient who recently presented with severe abdominal pain nausea and vomiting found to have free air on CT abdomen and pelvis suggestive of a perforated viscus. He underwent an exploratory laparotomy on 05/20/2024 was found to have evidence of a bowel perforation in the sigmoid colon with an impending colovesical fistula. He underwent a Derek procedure in his recovery was delayed due to a slow return of GI function. He required nasogastric tube decompression for approximately 1 week as well as peripheral alimentation. He also mainly complained of left knee pain this was initially attributed to gout however was subsequently determined to be osteoarthritis. He was evaluated by the hospitalist team as well as Orthopedics on returned today continues to report pain in the left knee. He denies any abdominal pain and reports that he is eating well without nausea or vomiting. Ostomy is functioning well. He continues in short-term rehab however has been unable to ambulate due to the knee pain. He had urinary retention and has a Bradford & follows a Urologist. He denies CAD, CVA, CHF, PAD , carotid stenosis or REGINO. 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 High cholesterol HTN (hypertension) Surgical History History of exploratory laparotomy (05/20/24) Previous back surgery Family History Father Heart attack Mother Heart attack Social History Household Members: None Housing: Other Housing Other:: mobile home Do you presently have visiting nurse or other home services: Yes Alcohol intake: never Patient Tobacco Use Status: Never used Tobacco Advance Directives Date on File: 11/28/23 service: No Current occupational status: retired Cognitive needs: No Hearing needs: No Vision needs: Yes (rx contacts/glasses) Review of Systems Const All systems reviewed & are unremarkable except as noted in HPI and below Physical Exam Const General: comfortable and no acute distress Orientation/consciousness: patient oriented x3 HEENT Head: Yes normocephalic Mouth: Normal oral and palatal mucosa present Eyes EOM: EOMs intact bilaterally Neck Neck: Yes supple Resp Auscultation: clear to auscultation bilaterally Cardio Jugular venous distension: no JVD Rate: regular rate GI Other: Ostomy + Palpation (GI): Soft to palpation Auscultation: normal bowel sounds General: Yes no CVA tenderness Back/Spine/Pelvis Back: no CVA tenderness Skin General skin exam: no rashes or lesions noted Neuro General: patient oriented x3 and moves all extremities Extrem General: Yes no pedal edema Results Reviewed Nephrology Results: Sodium 136 mmol/L (135-145) 05/28/24 Potassium 4.5 mmol/L (3.3-5.1) 05/28/24 Chloride 105 mmol/L (96-108) 05/28/24 Carbon Dioxide 20 mmol/L (22-29) L 05/28/24 BUN 33 mg/dL (9-16) H 05/28/24 Creatinine 1.16 mg/dL (0.5-1.4) 05/28/24 Calcium 9.3 mg/dL (8.4-10.2) 05/28/24 Phosphorus 4.2 mg/dL (2.7-4.5) 05/28/24 Urine Protein 30 (1+) mg/dL (Neg-Trace) H 05/19/24 Assessment & Plan Assessment & Plan (1) CKD stage 3a, GFR 45-59 ml/min: Code(s): N18.31 - Chronic kidney disease, stage 3a Category: Medical (2) HTN (hypertension): Code(s): I10 - Essential (primary) hypertension Category: Medical Qualifiers: Hypertension type: primary hypertension Qualified Code(s): I10 - Essential (primary) hypertension Plan 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 He had developed MARYANN on CKD which has resolved. He can continue on Amlodipine 10 mg daily . He needs to minimize Na intake. He can continue Allopurinol 200 mg daily. He should preferably avoid NSAID's and maintain good hydration. Follow up given. Answered all questions. Orders: Orders Uric Acid 6 Months N18.31 - Chronic kidney disease, stage 3a Parathyroid Hormone Intact 6 Months N18.31 - Chronic kidney disease, stage 3a Vitamin D 25-OH Total 6 Months N18.31 - Chronic kidney disease, stage 3a Electrolytes 6 Months N18.31 - Chronic kidney disease, stage 3a Calcium 6 Months N18.31 - Chronic kidney disease, stage 3a Blood Urea Nitrogen 6 Months N18.31 - Chronic kidney disease, stage 3a Creatinine 6 Months N18.31 - Chronic kidney disease, stage 3a Coding Level of Care Code Est Pt Level 4 (07691) Diagnoses CKD stage 3a, GFR 45-59 ml/min N18.31 Primary hypertension I10 Hypertension type: primary hypertension
--- NOTE | 2024-06-21 09:45 | HO.NEPHOV_ITS ---
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 High cholesterol HTN (hypertension) Surgical History History of exploratory laparotomy (05/20/24) Previous back surgery Family History Father Heart attack Mother Heart attack Social History Household Members: None Housing: Other Housing Other:: mobile home Do you presently have visiting nurse or other home services: Yes Alcohol intake: never Patient Tobacco Use Status: Never used Tobacco Advance Directives Date on File: 11/28/23 service: No Current occupational status: retired Cognitive needs: No Hearing needs: No Vision needs: Yes (rx contacts/glasses) Results Reviewed Nephrology Results: Hgb 11.5 g/dl (14.0-18.0) L 05/28/24 WBC 17.1 X10*3/uL (4.8-10.8) H 05/28/24 Plt Count 413 X10*3/uL (160-400) H 05/28/24 Sodium 136 mmol/L (135-145) 05/28/24 Potassium 4.5 mmol/L (3.3-5.1) 05/28/24 Chloride 105 mmol/L (96-108) 05/28/24 Carbon Dioxide 20 mmol/L (22-29) L 05/28/24 BUN 33 mg/dL (9-16) H 05/28/24 Creatinine 1.16 mg/dL (0.5-1.4) 05/28/24 Calcium 9.3 mg/dL (8.4-10.2) 05/28/24 Phosphorus 4.2 mg/dL (2.7-4.5) 05/28/24 Urine Protein 30 (1+) mg/dL (Neg-Trace) H 05/19/24 Coding
[2024-06-21 09:48] VITALS: BP 130/50; PULSE 72; O2SAT 92; BMI 19.6
== END 2024-06-21 10:07 | disposition home or self-care (01) ==
LOC: HO.HKA 09:13
PROVIDERS: PCP Internal Medicine; Visit Provider Internal Medicine Nephrology
DX: N18.31 Chronic kidney disease, stage 3a (principal); I10 Essential (primary) hypertension
CPT/HCPCS: 99214

== ENCOUNTER → 2024-06-21 09:13 | Outpatient (BNVA) | payer MEDICARE, SELFPAY | PROVIDERS: PCP Internal Medicine; Visit Provider Internal Medicine Nephrology | DX: I12.9 Hypertensive chronic kidney disease with stage 1 through stage 4 chronic kidney disease, or unspecified chronic kidney disease (principal); N18.31 Chronic kidney disease, stage 3a; Z93.9 Artificial opening status, unspecified | CPT/HCPCS: 99212 ==

== ENCOUNTER 2024-07-05 09:36 | Outpatient (AMB) | payer MEDICARE, SELFPAY ==
--- NOTE | 2024-07-05 09:44 | MHC.OFFVIS ---
Vital Signs 07/05/24 10:01 Height 5 ft 1 in Weight 103 lb 9.876 oz BMI 19.6 BP 105/59 L Blood Pressure Location Lt brachial Position Sitting Pulse 96 Intake Visit Reasons: one month s/p exploratory laparotomy Intake Note: Patient is seen in office for one month follow up post exploratory laparotomy. Pt c/o: per pt is healing itchy * discuss closure of the colostomy possibly in the end of July if he was fully recovered * Imaging Services Director Required: No Accompanied by: Self / Same As Patient Allergies No Known Allergies [No Known Allergies*] Allergy (Verified 07/05/24 09:56) Medication List - Last Reconciled 07/05/24 by Daniel Monaco MD acetaminophen 650 mg PO Q6H PRN allopurinol 200 mg (2 x 100 mg) PO DAILY amlodipine 10 mg See Protocol PO DAILY docusate sodium 100 mg PO BID erythromycin 1 g (2 x 500 mg) PO TID finasteride 5 mg PO DAILY melatonin mg PO methylprednisolone acetate 40 mg Infiltration Q4W neomycin 1 g (2 x 500 mg) PO TID 3 doses ondansetron HCl 4 mg PO Q8H oxycodone mg PO polyethylene glycol 3350 (Miralax) 17 grams PO DAILY tamsulosin 0.4 mg PO DAILY trolamine salicylate 10% (Aspercreme) 1 appl See Protocol topical BID HPI Comments Details: 83-year-old male patient presenting with severe abdominal pain nausea and vomiting found to have free air on CT abdomen and pelvis suggestive of a perforated viscus. He underwent an exploratory laparotomy on 05/20/2024 was found to have evidence of a bowel perforation in the sigmoid colon with an impending colovesical fistula. He underwent a Derek procedure in his recovery was delayed due to a slow return of GI function. He required nasogastric tube decompression for approximately 1 week as well as peripheral alimentation. He also mainly complained of left knee pain this was initially attributed to gout however was subsequently determined to be osteoarthritis. Continues to have left knee pain and right ankle pain from gout/arthritis. Presents today to discuss closure of his colostomy. He has never undergone colonoscopy and should have this procedure prior to closure of colostomy. In general he is feeling well and denies any abdominal pain, nausea or vomiting. His ostomy is functioning well. 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 High cholesterol HTN (hypertension) Surgical History History of exploratory laparotomy (05/20/24) Previous back surgery Family History Father Heart attack Mother Heart attack Social History Household Members: None Housing: Other Housing Other:: mobile home Do you presently have visiting nurse or other home services: Yes Alcohol intake: never Patient Tobacco Use Status: Never used Tobacco Advance Directives Date on File: 11/28/23 service: No Current occupational status: retired Cognitive needs: No Hearing needs: No Vision needs: Yes (rx contacts/glasses) Review of Systems Const All systems reviewed & are unremarkable except as noted in HPI and below Physical Exam Const General: no acute distress Nutritional Appearance: thin Orientation/consciousness: patient oriented x3 Limitations: wheelchair Resp Effort & Inspection: normal respiratory effort, no audible wheezes, no cough and no retractions GI Other: Abdominal incisions are clean, dry and intact. Ostomy is pink and patent with stool/passing bag. Neuro General: patient oriented x3 Extrem Other: Left knee with continued swelling, tender to palpation Assessment & Plan Assessment & Plan (1) Diverticulitis of colon with perforation: Code(s): K57.20 - Diverticulitis of large intestine with perforation and abscess without bleeding Category: Medical Plan 83-year-old male patient presenting with a previous history of perforated sigmoid diverticulitis status post Derek procedure. With the exception of his persistent left knee pain he is otherwise doing well. I recommended he proceed with colonoscopy prior to closure of colostomy. A referral has been placed for gastroenterology. He will be scheduled for closure of colostomy following the colonoscopy. I reviewed the procedure, risks, and alternatives of the closure of colostomy. He expressed understanding and agrees with the plan. This will be performed as a short-stay admit. He consents to the closure of colostomy. Orders: Referrals Gastroenterology Referral K57.20 - Diverticulitis of large intestine with perforation and abscess without bleeding Medications: New erythromycin administer at 1 PM, 2 PM, and 11 PM the day prior to surgery 1 g (2 x 500 mg) PO TID 6 tabs 0RF polyethylene glycol 3350 (Miralax) Mixed entire bottle polyethylene glycol with 2 bottles of Gatorade (not red colored). Drink 1 cup every 15 minutes starting at 09:00 day prior to surgery until half of the mixture is completed. 17 grams PO DAILY 238 grams 0RF neomycin administer at 1 PM, 2 PM, and 11 PM the day prior to surgery 1 g (2 x 500 mg) PO TID 6 tabs 0RF 3 doses K57.20 - Diverticulitis of large intestine with perforation and abscess without bleeding Coding Level of Care Code Global (68595) Diagnoses Diverticulitis of colon with perforation K57.20
--- OUTSIDE RECORDS SUMMARY | 2024-07-05 09:55 | XMS_ITS | Encounter Summary ---
Author Organization [facility] Address [id number] [place] [id number] Care Team Providers Care Early Childhood Specialist Name Role Phone Daniel Palafox NP Primary Care Provider [phone] Encounter Details Date Type Department Care Team (Late st Contact Info) Description 06/12/2024 Lab Requisition [facility] - Main Lab [address] [facility] [place] [address] Lesvia Gutierrez MD [address] [phone] Anemia, unspecified; Other disorders of electrolyte and [...] al Result [facility] [address] [place] [address], * (ABNORMAL) Basic metabolic panel (06/12/2024 9:43 AM EDT) Pathologist [facility] Sodium 136 133 - 145 mmol/L LAB CHEMISTRY METHOD 06/12/2024 4:23 PM [facility] Potassium 3.6 3.5 - 5.5 mmol/L LAB CHEMISTRY METHOD 06/12/2024 4:23 PM [facility] Chloride 101 96 - 110 mmol/L LAB CHEMISTRY METHOD 06/12/2024 4:23 PM [facility] CO2 25 21 - 32 mmol/L LAB CHEMISTRY METHOD 06/12/2024 4:23 PM [facility] Anion Gap 10 3 - 11 LAB CHEMISTRY METHOD 06/12/2024 4:23 PM [facility] Glucose 148(H) 70 - 100 mg/dL LAB CHEMISTRY METHOD 06/12/2024 4:23 PM [facility] BUN 24 5 - 25 mg/dL LAB CHEMISTRY METHOD 06/12/2024 4:23 PM [facility] Creatinine 1.15 0.70 - 1.30 mg/dL LAB CHEMISTRY METHOD 06/12/2024 4:23 PM EDT [facility] eGFR 64 >=60 mL/min/1. 73m2 LAB CHEMISTRY METHOD 06/12/2024 4:23 PM EDT [facility] Comment:Calculation based on the??Chronic Kidney Disease Epidemiology Collaboration (CKD-EPI) equation refit??without adjustment for race. BUN/Creatinine Ratio 20.9 LAB CHEMISTRY METHOD 06/12/2024 4:23 PM EDT [facility] Calcium 8.3(L) 8.5 - 10.5 mg/dL LAB CHEMISTRY METHOD 06/12/2024 4:23 PM EDT [facility] Blood Venous blood specimen / Unknown Venipuncture / Unknown 06/12/2024 9:43 AM EDT 06/12/2024 11:23 AM EDT Lesvia Gutierrez MD LAB BLOOD ORDERABLES Fin al Result [facility] [address] [place] [address], * (ABNORMAL) Complete blood count (06/12/2024 9:43 AM EDT) WBC 13.1(H) 4.8 - 10.8 K/mcL LAB HEMETOLOGY METHOD 06/12/2024 12:38 PM EDT [facility] RBC 3.40(L) 4.50 - 5.50 M/mcL LAB HEMETOLOGY METHOD 06/12/2024 12:38 PM EDT [facility] Hemoglobin 10.1(L) 13.5 - 17.5 g/dL LAB HEMETOLOGY METHOD 06/12/2024 12:38 PM EDT [facility] Hematocrit 32.0(L) 42.0 - 54.0 % LAB HEMETOLOGY METHOD 06/12/2024 12:38 PM EDT [facility] MCV 94.1 79.0 - 98.0 FL LAB HEMETOLOGY METHOD 06/12/2024 12:38 PM EDT [facility] MCH 29.7 27.0 - 32.0 pcg LAB HEMETOLOGY METHOD 06/12/2024 12:38 PM EDT [facility] MCHC 31.6(L) 32.0 - 37.0 g/dL LAB HEMETOLOGY METHOD 06/12/2024 12:38 PM EDT [facility] RDW 14.6 11.0 - 15.0 % LAB HEMETOLOGY METHOD 06/12/2024 12:38 PM EDT [facility] Platelets 403(H) 130 - 400 K/mcL LAB HEMETOLOGY METHOD 06/12/2024 12:38 PM EDT [facility] MPV 10.3 7.0 - 11.0 FL LAB HEMETOLOGY METHOD 06/12/2024 12:38 PM EDT [facility] NRBC 0.0 <1.0 % LAB HEMETOLOGY METHOD 06/12/2024 12:38 PM EDT [facility] NRBC Absolute 0.00 <0.10 K/mcL LAB HEMETOLOGY METHOD 06/12/2024 12:38 PM EDT [facility] Blood Venous blood specimen / Unknown Venipuncture / Unknown 06/12/2024 9:43 AM EDT 06/12/2024 11:23 AM EDT us Lesvia Gutierrez MD LAB BLOOD ORDERABLES Fin al Result [facility] [address] [place] [address], documented in this encounter Visit Diagnoses Diagnosis Anemia, unspecified Other disorders of electrolyte and fluid balance, not elsewhere classified Gout, unspecified documented in this encounter Care Teams Early Childhood Specialist Relationship Specialty Start Date End Date Daniel Palafox NP 262 [facility] ZAINA Scott PCP - General 03/05/21 documented as of this encounter
--- OUTSIDE RECORDS SUMMARY | 2024-07-05 09:55 | XMS_ITS | Clinical Summary ---
Author Organization [facility] Address [address] [facility] [address] [place] [address] Phone Care Team Providers Care Plier Worker Name Role Phone Wyatt Parada MD Primary Care Provider [phone] Allergies No known active allergies Medications lisinopril-hydro [...] age to complete this topic Insurance [address] [place] [address] Care Teams Plier Worker Relationship Specialty Start Date End Date Wyatt Parada MD [id number] [place] PCP - General Internal Medicine 06/07/23
--- OUTSIDE RECORDS SUMMARY | 2024-07-05 09:55 | XMS_ITS | Encounter Summary ---
Author Organization [facility] Address [address] [place] [phone] Care Team Providers Care Laser Technician Name Role Phone DeanedwinDaniel gay NP Primary Care Provider [phone] Encounter Details Date Type Department Care Team (Late st Contact Info) Description 06/29/2024 Lab Requisition [facility] - Main Lab [address] [place] [address] Lesvia Gutierrez MD [address] [phone] Perforation of intestine (nontraumatic) (CMS/HCC V24, CMS/HCC [...] Associated Diagnosis Comments COMPLETE BLOOD COUNT Routine 07/01/2024 9:27 AM EDT Perforation of intestine (nontraumatic) (CMS/HCC V24, CMS/HCC V28) COMPREHENSIVE METABOLIC PANEL Routine 07/01/2024 9:27 AM EDT Perforation of intestine (nontraumatic) (CMS/HCC V24, CMS/HCC V28) documented in this encounter Results * (ABNORMAL) Comprehensive metabolic panel (07/01/2024 9:27 AM EDT) Sodium 136 133 - 145 mmol/L LAB CHEMISTRY METHOD 07/01/2024 3:[address] [facility] Potassium 4.2 3.5 - 5.5 mmol/L LAB CHEMISTRY METHOD 07/01/2024 3:[address] [facility] Chloride 100 96 - 110 mmol/L LAB CHEMISTRY METHOD 07/01/2024 3:[address] [facility] CO2 25 21 - 32 mmol/L LAB CHEMISTRY METHOD 07/01/2024 3:[address] [facility] Anion Gap 11 3 - 11 LAB CHEMISTRY METHOD 07/01/2024 3:[address] [facility] Glucose 86 70 - 100 mg/dL LAB CHEMISTRY METHOD 07/01/2024 3:[address] [facility] BUN 21 5 - 25 mg/dL LAB CHEMISTRY METHOD 07/01/2024 3:[address] [facility] Creatinine 0.84 0.70 - 1.30 mg/dL LAB CHEMISTRY METHOD 07/01/2024 3:[address] [facility] eGFR 87 >=60 mL/min/1. 73m2 LAB CHEMISTRY METHOD 07/01/2024 3:[address] [facility] Comment:Calculation based on the??Chronic Kidney Disease Epidemiology Collaboration (CKD-EPI) equation refit??without adjustment for race. BUN/Creatinine Ratio 25.0 LAB CHEMISTRY METHOD 07/01/2024 3:[address] [facility] Calcium 8.5 8.5 - 10.5 mg/dL LAB CHEMISTRY METHOD 07/01/2024 3:[address] [facility] AST (SGOT) 33 10 - 42 unit/L LAB CHEMISTRY METHOD 07/01/2024 3:[address] [facility] ALT (SGPT) 42 10 - 60 unit/L LAB CHEMISTRY METHOD 07/01/2024 3:[address] [facility] Alkaline Phosphatase 126(H) 42 - 121 unit/L LAB CHEMISTRY METHOD 07/01/2024 3:[address] [facility] Total Protein 6.3 6.0 - 8.0 g/dL LAB CHEMISTRY METHOD 07/01/2024 3:[address] [facility] Albumin 2.6(L) 3.2 - 5.0 g/dL LAB CHEMISTRY METHOD 07/01/2024 3:[address] [facility] Total Bilirubin 0.3 0.0 - 1.4 mg/dL LAB CHEMISTRY METHOD 07/01/2024 3:[address] [facility] Blood Venous blood specimen / Unknown Venipuncture / Unknown 07/01/2024 9:27 AM EDT 07/01/2024 12:52 PM EDT Lesvia Gutierrez MD LAB BLOOD ORDERABLES Fin al Result [facility] [address] [place] [address], [place] [phone] * (ABNORMAL) Complete blood count (07/01/2024 9:27 AM EDT) WBC 10.1 4.8 - 10.8 K/mcL LAB HEMETOLOGY METHOD 07/01/2024 2:[address] [facility] RBC 3.30(L) 4.50 - 5.50 M/mcL LAB HEMETOLOGY METHOD 07/01/2024 2:[address] [facility] Hemoglobin 9.7(L) 13.5 - 17.5 g/dL LAB HEMETOLOGY METHOD 07/01/2024 2:[address] [facility] Hematocrit 30.4(L) 42.0 - 54.0 % LAB HEMETOLOGY METHOD 07/01/2024 2:[address] [facility] MCV 93.3 79.0 - 98.0 FL LAB HEMETOLOGY METHOD 07/01/2024 2:[address] [facility] MCH 29.8 27.0 - 32.0 pcg LAB HEMETOLOGY METHOD 07/01/2024 2:[address] [facility] MCHC 31.9(L) 32.0 - 37.0 g/dL LAB HEMETOLOGY METHOD 07/01/2024 2:[address] [facility] RDW 14.4 11.0 - 15.0 % LAB HEMETOLOGY METHOD 07/01/2024 2:[address] [facility] Platelets 450(H) 130 - 400 K/mcL LAB HEMETOLOGY METHOD 07/01/2024 2:[address] [facility] MPV 10.2 7.0 - 11.0 FL LAB HEMETOLOGY METHOD 07/01/2024 2:[address] [facility] NRBC 0.0 <1.0 % LAB HEMETOLOGY METHOD 07/01/2024 2:[address] [facility] NRBC Absolute 0.00 <0.10 K/mcL LAB HEMETOLOGY METHOD 07/01/2024 2:[address] [facility] Blood Venous blood specimen / Unknown Venipuncture / Unknown 07/01/2024 9:27 AM EDT 07/01/2024 12:52 PM EDT us Lesvia Gutierrez MD LAB BLOOD ORDERABLES Fin al Result [facility] [address] [place] [address], documented in this encounter Visit Diagnoses Diagnosis Perforation of intestine (nontraumatic) (CMS/HCC V24, CMS/HCC V28) documented in this encounter Care Teams Laser Technician Relationship Specialty Start Date End Date Daniel Palafox NP 262 [facility] [place] PCP - General 03/05/21 documented as of this encounter
--- OUTSIDE RECORDS SUMMARY | 2024-07-05 09:55 | XMS_ITS | Encounter Summary ---
Author Organization [facility] Address [address] [place] [phone] Care Team Providers Care Franchise Business Consultant Name Role Phone DeanedwinDaniel gay NP Primary Care Provider Encounter Details Date Type Department Care Team (Late st Contact Info) Description 06/08/2024 Lab Requisition [facility] - Main Lab [address] [facility] [place] [address] Lesvia Gutierrez MD [address] [phone] Perforation of intestine (nontraumatic) (CMS/HCC V24, CMS/HCC [...] Fin al Result [facility] [address] [place] [address], * (ABNORMAL) Complete blood count (06/10/2024 8:19 [...] Fin al Result [facility] [address] [place] [address], documented in this encounter Visit Diagnoses Diagnosis Perforation of intestine (nontraumatic) (CMS/HCC V24, CMS/HCC V28) documented in this encounter Care Teams Franchise Business Consultant Relationship Specialty Start Date End Date Daniel Palafox NP 262 [facility] [place], [place] PCP - General 03/05/21 documented as of this encounter
--- OUTSIDE RECORDS SUMMARY | 2024-07-05 09:55 | XMS_ITS | Clinical Summary ---
Author Organization [address] Address [address] [place] [address] Phone Care Team Providers Care Household Personal Assistant Name Role Phone DeanpabloDaniel NP Primary Care Provider Encounters Date Type Department Care Team Description 06/29/2024 Lab Requisition [facility] Lab [address] [place] [phone] Lesvia Gutierrez MD Perforation of intestine (nontraumatic) ([facility] V24, [facility] V28) 06/21/2024 Lab Requisition [facility] Lab [address] [place] [phone] Lesvia Gutierrez MD Perforation of intestine (nontraumatic) ([facility] V24, [facility] V28) 06/16/2024 Lab Requisition [facility] Lab [address] [place] [phone] Lesvia Gutierrez MD Perforation of intestine (nontraumatic) ([facility] V24, [facility] V28) 06/12/2024 Lab Requisition [facility] Lab [address] [place] [phone] Lesvia Gutierrez MD Anemia, unspecified; Other disorders of electrolyte and fluid balance, not elsewhere classified; Gout, unspecified 06/08/2024 Lab Requisition [facility] Lab [address] [place] [phone] Lesvia Gutierrez MD Perforation of intestine (nontraumatic) ([facility] V24, [facility] V28) 06/03/2024 Lab Requisition [facility] Lab [address] [facility] [place] [phone] Lesvia Gutierrez MD Perforation of intestine (nontraumatic) ([facility] V24, [facility] V28) from Last 3 Months Social History [...] Ended) 2024 Hypertension/CHF/CAD Annual BMP Blood Test 07/01/2025 07/01/2024, 06/24/2024, 06/17/2024, Additional history exists HIB Vaccines Aged Out [...] Associated Diagnosis Comments COMPREHENSIVE METABOLIC PANEL Routine 07/01/2024 9:27 AM EDT Perforation of intestine (nontraumatic) (CMS/HCC V24, CMS/HCC V28) COMPLETE BLOOD COUNT Routine 07/01/2024 9:27 AM EDT Perforation of intestine (nontraumatic) (CMS/HCC V24, CMS/HCC V28) COMPREHENSIVE METABOLIC PANEL Routine 06/24/2024 8:14 AM EDT Perforation of intestine (nontraumatic) (CMS/HCC V24, CMS/HCC V28) COMPLETE BLOOD COUNT Routine 06/24/2024 8:14 AM EDT Perforation of intestine (nontraumatic) (CMS/HCC [...] Months Results * (ABNORMAL) Complete blood count (07/01/2024 9:27 AM EDT) Only the most recent of6 resultswithin the time period is included. WBC 10.1 4.8 - 10.8 K/mcL LAB HEMETOLOGY METHOD 07/01/2024 2:09 PM [facility] LAB RBC 3.30(L) 4.50 - 5.50 M/mcL LAB HEMETOLOGY METHOD 07/01/2024 2:09 PM [facility] LAB Hemoglobin 9.7(L) 13.5 - 17.5 g/dL LAB HEMETOLOGY METHOD 07/01/2024 2:09 PM [facility] LAB Hematocrit 30.4(L) 42.0 - 54.0 % LAB HEMETOLOGY METHOD 07/01/2024 2:09 PM [facility] LAB MCV 93.3 79.0 - 98.0 FL LAB HEMETOLOGY METHOD 07/01/2024 2:09 PM [facility] LAB MCH 29.8 27.0 - 32.0 pcg LAB HEMETOLOGY METHOD 07/01/2024 2:09 PM [facility] LAB MCHC 31.9(L) 32.0 - 37.0 g/dL LAB HEMETOLOGY METHOD 07/01/2024 2:09 PM EDT [facility] RDW 14.4 11.0 - 15.0 % [facility] 07/01/2024 2:09 PM EDT [facility] Platelets 450(H) 130 - 400 K/mcL [facility] 07/01/2024 2:09 PM EDT [facility] MPV 10.2 7.0 - 11.0 FL LAB [facility] 07/01/2024 2:09 PM EDT [facility] NRBC 0.0 <1.0 % [facility] 07/01/2024 2:09 PM EDT [facility] NRBC Absolute 0.00 <0.10 K/mcL LAB [facility] 07/01/2024 2:09 PM EDT [facility] Blood Venous blood specimen / Unknown Venipuncture / Unknown 07/01/2024 9:27 AM EDT 07/01/2024 12:52 PM EDT us Lesvia Gutierrez MD LAB BLOOD ORDERABLES Fin al Result [facility] [address] [place] [address], * (ABNORMAL) Comprehensive metabolic panel (07/01/2024 9:27 AM EDT) Only the most recent of5 resultswithin the time period is included. Sodium 136 133 - 145 mmol/L LAB CHEMISTRY METHOD 07/01/2024 3:14 PM EDT [facility] Potassium 4.2 3.5 - 5.5 mmol/L LAB CHEMISTRY METHOD 07/01/2024 3:14 PM EDT [facility] Chloride 100 96 - 110 mmol/L LAB CHEMISTRY METHOD 07/01/2024 3:14 PM [facility] CO2 25 21 - 32 mmol/L LAB CHEMISTRY METHOD 07/01/2024 3:14 PM [facility] LAB Anion Gap 11 3 - 11 LAB CHEMISTRY METHOD 07/01/2024 3:14 PM [facility] LAB Glucose 86 70 - 100 mg/dL LAB CHEMISTRY METHOD 07/01/2024 3:14 PM [facility] BUN 21 5 - 25 mg/dL LAB CHEMISTRY METHOD 07/01/2024 3:14 PM [facility] LAB Creatinine 0.84 0.70 - 1.30 mg/dL LAB CHEMISTRY METHOD 07/01/2024 3:14 PM [facility] LAB eGFR 87 >=60 mL/min/1. 73m2 LAB CHEMISTRY METHOD 07/01/2024 3:14 PM [facility] LAB Comment:Calculation based on the??Chronic Kidney Disease Epidemiology Collaboration (CKD-EPI) equation refit??without adjustment for race. BUN/Creatinine Ratio 25.0 LAB CHEMISTRY METHOD 07/01/2024 3:14 PM [facility] Calcium 8.5 8.5 - 10.5 mg/dL LAB CHEMISTRY METHOD 07/01/2024 3:14 PM [facility] LAB AST (SGOT) 33 10 - 42 unit/L LAB CHEMISTRY METHOD 07/01/2024 3:14 PM [facility] LAB ALT (SGPT) 42 10 - 60 unit/L LAB CHEMISTRY METHOD 07/01/2024 3:14 PM [facility] LAB Alkaline Phosphatase 126(H) 42 - 121 unit/L LAB CHEMISTRY METHOD 07/01/2024 3:14 PM [facility] Total Protein 6.3 6.0 - 8.0 g/dL LAB CHEMISTRY METHOD 07/01/2024 3:14 PM [facility] LAB Albumin 2.6(L) 3.2 - 5.0 g/dL LAB CHEMISTRY METHOD 07/01/2024 3:14 PM EDT [facility] Total Bilirubin 0.3 0.0 - 1.4 mg/dL LAB CHEMISTRY METHOD 07/01/2024 3:14 PM EDT [facility] Blood Venous blood specimen / Unknown Venipuncture / Unknown 07/01/2024 9:27 AM EDT 07/01/2024 12:52 PM EDT Lesvia Gutierrez MD LAB BLOOD ORDERABLES Fin al Result Performing Organization Address City/[facility]/ZIP Co de Phone Number [facility] LAB [address] [place] [address], [place] [phone] * Uric acid (06/12/2024 9:43 AM EDT) Uric Acid 5.6 3.7 - 9.2 mg/dL LAB CHEMISTRY METHOD 06/12/2024 4:23 PM EDT [facility] Blood Venous blood specimen / Unknown Venipuncture / Unknown 06/12/2024 9:43 AM EDT 06/12/2024 11:23 AM EDT Lesvia Gutierrez MD LAB BLOOD ORDERABLES Fin al Result Performing Organization Address City/[facility]/ZIP Co de Phone Number [facility] [address] [place] [address], [place] [phone] * (ABNORMAL) Basic metabolic panel (06/12/2024 9:43 AM EDT) Sodium 136 133 - 145 mmol/L LAB CHEMISTRY METHOD 06/12/2024 4:23 PM EDT [facility] Potassium 3.6 3.5 - 5.5 mmol/L LAB CHEMISTRY METHOD 06/12/2024 4:23 PM EDT [facility] Chloride 101 96 - 110 mmol/L LAB CHEMISTRY METHOD 06/12/2024 4:23 PM [facility] CO2 25 21 - 32 mmol/L LAB CHEMISTRY METHOD 06/12/2024 4:23 PM [facility] Anion Gap 10 3 - 11 LAB CHEMISTRY METHOD 06/12/2024 4:23 PM [facility] Glucose 148(H) 70 - 100 mg/dL LAB CHEMISTRY METHOD 06/12/2024 4:23 PM [facility] BUN 24 5 - 25 mg/dL LAB CHEMISTRY METHOD 06/12/2024 4:23 PM [facility] Creatinine 1.15 0.70 - 1.30 mg/dL LAB CHEMISTRY METHOD 06/12/2024 4:23 PM [facility] LAB eGFR 64 >=60 mL/min/1. 73m2 LAB CHEMISTRY METHOD 06/12/2024 4:23 PM [facility] Comment:Calculation based on the??Chronic Kidney Disease Epidemiology Collaboration (CKD-EPI) equation refit??without adjustment for race. BUN/Creatinine Ratio 20.9 LAB CHEMISTRY METHOD 06/12/2024 4:23 PM [facility] Calcium 8.3(L) 8.5 - 10.5 mg/dL LAB CHEMISTRY METHOD 06/12/2024 4:23 PM [facility] Blood Venous blood specimen / Unknown Venipuncture / Unknown 06/12/2024 9:43 AM EDT 06/12/2024 11:23 AM EDT us Lesvia Gutierrez MD LAB BLOOD ORDERABLES Fin al Result [facility] [address] [place] [address], from Last 3 Months Insurance [facility] Care Teams Household Personal Assistant Relationship Specialty Start Date End Date Daniel Palafox NP [address] [place], [place] PCP - General 03/05/21
--- OUTSIDE RECORDS SUMMARY | 2024-07-05 09:56 | XMS_ITS | Encounter Summary ---
Author Organization [facility] Address [address] [place] [phone] Care Team Providers Care Rehab Director Name Role Phone DeanedwinDaniel gay NP Primary Care Provider [phone] Encounter Details Date Type Department Care Team (Late st Contact Info) Description 06/21/2024 Lab Requisition [facility] Lab [address] [facility] [place] [phone] Lesvia Gutierrez MD [address] [phone] Perforation of intestine (nontraumatic) (CMS/HCC V24, CMS/HCC [...] Associated Diagnosis Comments COMPLETE BLOOD COUNT Routine 06/24/2024 8:14 AM EDT Perforation of intestine (nontraumatic) (CMS/HCC V24, CMS/HCC V28) COMPREHENSIVE METABOLIC PANEL Routine 06/24/2024 8:14 AM EDT Perforation of intestine (nontraumatic) (CMS/HCC V24, CMS/HCC V28) documented in this encounter Results * (ABNORMAL) Comprehensive metabolic panel (06/24/2024 8:14 AM EDT) Sodium 132(L) 133 - 145 mmol/L LAB CHEMISTRY METHOD 06/24/2024 7:38 PM [facility] Potassium 4.2 3.5 - 5.5 mmol/L LAB CHEMISTRY METHOD 06/24/2024 7:38 PM [facility] LAB Chloride 97 96 - 110 mmol/L LAB CHEMISTRY METHOD 06/24/2024 7:38 PM [facility] LAB CO2 26 21 - 32 mmol/L LAB CHEMISTRY METHOD 06/24/2024 7:38 PM [facility] LAB Anion Gap 9 3 - 11 LAB CHEMISTRY METHOD 06/24/2024 7:38 PM [facility] LAB Glucose 110(H) 70 - 100 mg/dL LAB CHEMISTRY METHOD 06/24/2024 7:38 PM [facility] BUN 22 5 - 25 mg/dL LAB CHEMISTRY METHOD 06/24/2024 7:38 PM [facility] LAB Creatinine 1.03 0.70 - 1.30 mg/dL LAB CHEMISTRY METHOD 06/24/2024 7:38 PM [facility] LAB eGFR 73 >=60 mL/min/1. 73m2 LAB CHEMISTRY METHOD 06/24/2024 7:38 PM [facility] LAB Comment:Calculation based on the??Chronic Kidney Disease Epidemiology Collaboration (CKD-EPI) equation refit??without adjustment for race. BUN/Creatinine Ratio 21.4 LAB CHEMISTRY METHOD 06/24/2024 7:38 PM [facility] LAB Calcium 8.8 8.5 - 10.5 mg/dL LAB CHEMISTRY METHOD 06/24/2024 7:38 PM [facility] LAB AST (SGOT) 18 10 - 42 unit/L LAB CHEMISTRY METHOD 06/24/2024 7:38 PM [facility] LAB ALT (SGPT) 20 10 - 60 unit/L LAB CHEMISTRY METHOD 06/24/2024 7:38 PM EDT [facility] LAB Alkaline Phosphatase 97 42 - 121 unit/L LAB CHEMISTRY METHOD 06/24/2024 7:38 PM EDT [facility] LAB Total Protein 6.2 6.0 - 8.0 g/dL LAB CHEMISTRY METHOD 06/24/2024 7:38 PM [facility] Albumin 2.6(L) 3.2 - 5.0 g/dL LAB CHEMISTRY METHOD 06/24/2024 7:38 PM [facility] Total Bilirubin 0.5 0.0 - 1.4 mg/dL LAB CHEMISTRY METHOD 06/24/2024 7:38 PM [facility] Blood Venous blood specimen / Unknown Venipuncture / Unknown 06/24/2024 8:14 AM EDT 06/24/2024 11:43 AM EDT us Lesvia Gutierrez MD LAB BLOOD ORDERABLES Fin al Result [facility] LAB [address] [place] [address], * (ABNORMAL) Complete blood count (06/24/2024 8:14 AM EDT) WBC 8.7 4.8 - 10.8 K/mcL LAB HEMETOLOGY METHOD 06/24/2024 1:12 PM T [facility] LAB RBC 3.40(L) 4.50 - 5.50 M/mcL LAB HEMETOLOGY METHOD 06/24/2024 1:12 PM [facility] Hemoglobin 10.1(L) 13.5 - 17.5 g/dL LAB HEMETOLOGY METHOD 06/24/2024 1:12 PM [facility] LAB Hematocrit 31.5(L) 42.0 - 54.0 % LAB HEMETOLOGY METHOD 06/24/2024 1:12 PM EDT [facility] LAB MCV 94.0 79.0 - 98.0 FL LAB HEMETOLOGY METHOD 06/24/2024 1:12 PM EDT [facility] LAB MCH 30.1 27.0 - 32.0 pcg LAB HEMETOLOGY METHOD 06/24/2024 1:12 PM EDT [facility] LAB MCHC 32.1 32.0 - 37.0 g/dL LAB HEMETOLOGY METHOD 06/24/2024 1:12 PM EDT [facility] LAB RDW 14.6 11.0 - 15.0 % LAB HEMETOLOGY METHOD 06/24/2024 1:12 PM EDT [facility] LAB Platelets 350 130 - 400 K/mcL LAB HEMETOLOGY METHOD 06/24/2024 1:12 PM EDT [facility] LAB MPV 10.6 7.0 - 11.0 FL LAB HEMETOLOGY METHOD 06/24/2024 1:12 PM EDT [facility] LAB NRBC 0.0 <1.0 % LAB HEMETOLOGY METHOD 06/24/2024 1:12 PM EDT [facility] LAB NRBC Absolute 0.00 <0.10 K/mcL LAB HEMETOLOGY METHOD 06/24/2024 1:12 PM EDT [facility] Blood Venous blood specimen / Unknown Venipuncture / Unknown 06/24/2024 8:14 AM EDT 06/24/2024 11:25 AM EDT us Lesvia Gutierrez MD LAB BLOOD ORDERABLES Fin al Result [facility] [address] [place] [address], documented in this encounter Visit Diagnoses Diagnosis Perforation of intestine (nontraumatic) (CMS/HCC V24, CMS/HCC V28) documented in this encounter Care Teams Rehab Director Relationship Specialty Start Date End Date Daniel Palafox NP [address] [facility] [place], [place] PCP - General 03/05/21 documented as of this encounter
--- OUTSIDE RECORDS SUMMARY | 2024-07-05 09:56 | XMS_ITS | Encounter Summary ---
Author Organization [facility] Address [address] [place] [phone] Care Team Providers Care Lamp [place]ade Joiner Name Role Phone DeanedwinDaniel gay NP Primary Care Provider Encounter Details Date Type Department Care Team (Late st Contact Info) Description 06/16/2024 Lab Requisition [facility] Lab [address] [facility] [place] [address] Lesvia Gutierrez MD [address] [phone] Perforation of intestine (nontraumatic) (CMS/HCC V24, CMS/HCC [...] mmol/L LAB CHEMISTRY METHOD 06/17/2024 1:11 PM [facility] Potassium 3.8 3.5 - 5.5 mmol/L LAB CHEMISTRY METHOD 06/17/2024 1:11 PM [facility] Chloride 105 96 - 110 mmol/L LAB CHEMISTRY METHOD 06/17/2024 1:11 PM [facility] CO2 28 21 - 32 mmol/L LAB CHEMISTRY METHOD 06/17/2024 1:11 PM [facility] Anion Gap 7 3 - 11 LAB CHEMISTRY METHOD 06/17/2024 1:11 PM [facility] Glucose 108(H) 70 - 100 mg/dL LAB CHEMISTRY METHOD 06/17/2024 1:11 PM [facility] BUN 18 5 - 25 mg/dL LAB CHEMISTRY METHOD 06/17/2024 1:11 PM [facility] Creatinine 0.88 0.70 - 1.30 mg/dL LAB CHEMISTRY METHOD 06/17/2024 1:11 PM [facility] LAB eGFR 86 >=60 mL/min/1. 73m2 LAB CHEMISTRY METHOD 06/17/2024 1:11 PM [facility] LAB Comment:Calculation based on the??Chronic Kidney Disease Epidemiology Collaboration (CKD-EPI) equation refit??without adjustment for race. BUN/Creatinine Ratio 20.5 LAB CHEMISTRY METHOD 06/17/2024 1:11 PM [facility] Calcium 8.7 8.5 - 10.5 mg/dL LAB CHEMISTRY METHOD 06/17/2024 1:11 PM [facility] AST (SGOT) 19 10 - 42 unit/L LAB CHEMISTRY METHOD 06/17/2024 1:11 PM [facility] ALT (SGPT) 27 10 - 60 unit/L LAB CHEMISTRY METHOD 06/17/2024 1:11 PM [facility] Alkaline Phosphatase 74 42 [...] al Result [facility] [address] [place] [address], * (ABNORMAL) Complete blood count (06/17/2024 8:50 [...] al Result [facility] [address] [place] [address], documented in this encounter Visit Diagnoses Diagnosis Perforation of intestine (nontraumatic) (CMS/HCC V24, CMS/HCC V28) documented in this encounter Care Teams Lamp Shade Joiner Relationship Specialty Start Date End Date Daniel Palafox NP [address] [facility] [place] PCP - General 03/05/21 documented as of this encounter
[2024-07-05 10:01] VITALS: BP 105/59; PULSE 96; BMI 19.6
== END 2024-07-05 10:24 | disposition home or self-care (01) ==
LOC: HO.HGS 09:36
PROVIDERS: PCP Internal Medicine; Visit Provider Surgery
DX: K57.20 Diverticulitis of large intestine with perforation and abscess without bleeding (principal)
CPT/HCPCS: 99024

== ENCOUNTER → 2024-07-05 09:36 | Outpatient (BNVA) | payer MEDICARE, SELFPAY | PROVIDERS: PCP Internal Medicine; Visit Provider Surgery | DX: Z48.815 Encounter for surgical aftercare following surgery on the digestive system (principal); Z87.19 Personal history of other diseases of the digestive system; Z93.3 Colostomy status | CPT/HCPCS: 99212 ==

== ENCOUNTER → 2024-07-16 09:04 | Outpatient (BNVA) | payer MEDICARE, SELFPAY | PROVIDERS: PCP Internal Medicine; Visit Provider Nurse Practitioner Family | DX: R33.9 Retention of urine, unspecified (principal); Z46.6 Encounter for fitting and adjustment of urinary device; Z96.0 Presence of urogenital implants | CPT/HCPCS: 51700; 51702 ==